=== PATIENT | male | born 1945 | race Caucasian/White ===

== ENCOUNTER 2020-06-25 06:21 | Outpatient (REF) | payer MEDICARE, SELFPAY ==
[2020-06-25 07:01] LABS: MANUAL DIFF FLAG NO
[2020-06-25 07:06] LABS: Basophils Percent Auto 0.6 % (0-2); Eosinophils Absolute Auto 0.4 X10*3/uL (0.0-0.4); Hematocrit 44.8 % (42-52); Hemoglobin 14.4 g/dl (14.0-18.0); Imm Gran Abs Auto 0.02 X10*3/uL (0.00-0.03); Imm Gran Pct Auto 0.3 % (0.0-0.4); Lymphocytes Percent Auto 29.3 % (20-40); Mean Corpuscular HGB Conc 32.1 g/dl (31.0-36.0); Mean Corpuscular Hemoglobin 28.7 pg (27.0-33.0); Mean Corpuscular Volume 89.4 fL (80-98); Mean Platelet Volume 10.8 fL (9.4-12.4); Monocytes Absolute Auto 0.5 X10*3/uL (0.1-1.2); Monocytes Percent Auto 7.9 % (2-11); Neutrophils Absolute Auto 3.8 X10*3/uL (2.0-8.3); Neutrophils Percent Auto 55.9 % (45-73); Platelet Count 270 X10*3/uL (160-400); Red Blood Count 5.01 X10*6/uL (4.60-5.80); Red Cell Distribution Width 12.8 % (11.0-16.0); White Blood Count 6.8 X10*3/uL (4.8-10.8)
[2020-06-25 07:31] LABS: Alanine Aminotransferase 19 U/L (0-40); Alkaline Phosphatase 46 U/L (39-117); Aspartate Amino Transferase 16 U/L (5-37); Blood Urea Nitrogen 19 mg/dL (9-16); Cholesterol 153 mg/dL; Estimated Glomerular Filt Rate > 60; HDL Cholesterol 46 mg/dL
[2020-06-25 08:03] LABS: Creatinine Urine 64.38 mg/dL; Microalbum/Creatinine Ratio Ur 7.7 ug/mg cr
[2020-06-25 08:24] LABS: Prostate Specific Antigen 0.62 ng/mL (<0.05-4.0)
[2020-06-25 08:51] LABS: Albumin Level 4.4 g/dL (3.5-5.0); Anion Gap 13 (12-20); Bilirubin Total 0.5 mg/dL (0.0-1.0); Calcium 9.2 mg/dL (8.4-10.2); Carbon Dioxide 28 mmol/L (22-29); Chloride 103 mmol/L (96-108); Glucose Fasting 101 mg/dL (60-99); LDL Cholesterol Calculated 82 mg/dl; Potassium 4.2 mmol/l (3.3-5.1); Sodium 140 mmol/L (135-145); Total Protein 6.9 g/dL (6.5-8.0); Triglycerides 125 mg/dL
[2020-06-25 09:40] LABS: Estimated Average Glucose 154 mg/dL
== END 2020-06-25 06:22 | disposition home or self-care (01) ==
LOC: HO.LAB 06:21
PROVIDERS: Visit Provider Internal Medicine Medical Oncology
DX: E11.9 Type 2 diabetes mellitus without complications (principal); E78.00 Pure hypercholesterolemia, unspecified; E66.3 Overweight
CPT/HCPCS: 36415; 80053; 80061; 82043; 83036; 84153; 85025

== ENCOUNTER 2020-10-04 06:00 | Outpatient (REF) | payer MEDICARE, SELFPAY ==
[2020-10-04 07:29] LABS: MANUAL DIFF FLAG NO
[2020-10-04 07:38] LABS: Basophils Percent Auto 0.5 % (0-2); Eosinophils Absolute Auto 0.4 X10*3/uL (0.0-0.4); Eosinophils Percent Auto 4.7 % (0-4); Hematocrit 46.3 % (42-52); Hemoglobin 14.8 g/dl (14.0-18.0); Imm Gran Abs Auto 0.05 X10*3/uL (0.00-0.03); Imm Gran Pct Auto 0.6 % (0.0-0.4); Lymphocytes Absolute Auto 2.3 X10*3/uL (1.2-4.9); Lymphocytes Percent Auto 27.3 % (20-40); Mean Corpuscular Volume 87.5 fL (80-98); Mean Platelet Volume 11.6 fL (9.4-12.4); Monocytes Absolute Auto 0.6 X10*3/uL (0.1-1.2); Monocytes Percent Auto 7.3 % (2-11); Neutrophils Absolute Auto 5.1 X10*3/uL (2.0-8.3); Neutrophils Percent Auto 59.6 % (45-73); Platelet Count 265 X10*3/uL (160-400); Red Blood Count 5.29 X10*6/uL (4.60-5.80); Red Cell Distribution Width 12.4 % (11.0-16.0); White Blood Count 8.5 X10*3/uL (4.8-10.8)
[2020-10-04 08:18] LABS: Alanine Aminotransferase 15 U/L (0-40); Albumin Level 4.4 g/dL (3.5-5.0); Alkaline Phosphatase 58 U/L (39-117); Anion Gap 17 (12-20); Aspartate Amino Transferase 13 U/L (5-37); Bilirubin Total 0.6 mg/dL (0.0-1.0); Blood Urea Nitrogen 17 mg/dL (9-16); Calcium 9.5 mg/dL (8.4-10.2); Carbon Dioxide 26 mmol/L (22-29); Chloride 102 mmol/L (96-108); Cholesterol 195 mg/dL; Estimated Glomerular Filt Rate > 60; Glucose Fasting 214 mg/dL (60-99); HDL Cholesterol 44 mg/dL; LDL Cholesterol Calculated 112 mg/dl; Potassium 4.5 mmol/L (3.3-5.1); Sodium 140 mmol/L (135-145); Triglycerides 196 mg/dL
[2020-10-04 08:23] LABS: Estimated Average Glucose 200 mg/dL; Hemoglobin A1c % 8.6 %
== END 2020-10-04 06:01 | disposition home or self-care (01) ==
LOC: HO.LAB 06:00
PROVIDERS: PCP Internal Medicine Medical Oncology; Visit Provider Internal Medicine Medical Oncology
DX: E78.00 Pure hypercholesterolemia, unspecified (principal); E11.9 Type 2 diabetes mellitus without complications; Z79.4 Long term (current) use of insulin
CPT/HCPCS: 36415; 80053; 80061; 83036; 85025

== ENCOUNTER 2021-01-04 06:05 | Outpatient (REF) | payer MEDICARE, SELFPAY ==
[2021-01-04 06:52] LABS: MANUAL DIFF FLAG NO
[2021-01-04 07:03] LABS: Basophils Percent Auto 0.4 % (0-2); Eosinophils Absolute Auto 0.3 X10*3/uL (0.0-0.4); Eosinophils Percent Auto 3.7 % (0-4); Hematocrit 45.2 % (42-52); Hemoglobin 14.9 g/dl (14.0-18.0); Imm Gran Abs Auto 0.03 X10*3/uL (0.00-0.03); Imm Gran Pct Auto 0.4 % (0.0-0.4); Lymphocytes Absolute Auto 2.3 X10*3/uL (1.2-4.9); Lymphocytes Percent Auto 27.8 % (20-40); Mean Corpuscular Volume 87.9 fL (80-98); Mean Platelet Volume 10.9 fL (9.4-12.4); Monocytes Absolute Auto 0.6 X10*3/uL (0.1-1.2); Monocytes Percent Auto 7.4 % (2-11); Neutrophils Absolute Auto 4.9 X10*3/uL (2.0-8.3); Neutrophils Percent Auto 60.3 % (45-73); Platelet Count 282 X10*3/uL (160-400); Red Blood Count 5.14 X10*6/uL (4.60-5.80); Red Cell Distribution Width 12.8 % (11.0-16.0); White Blood Count 8.1 X10*3/uL (4.8-10.8)
[2021-01-04 07:41] LABS: Estimated Average Glucose 206 mg/dL; Hemoglobin A1c % 8.8 %
[2021-01-04 07:47] LABS: Alanine Aminotransferase 16 U/L (0-40); Albumin Level 4.4 g/dL (3.5-5.0); Alkaline Phosphatase 58 U/L (39-117); Anion Gap 15 (12-20); Aspartate Amino Transferase 15 U/L (5-37); Bilirubin Total 0.5 mg/dL (0.0-1.0); Blood Urea Nitrogen 11 mg/dL (9-16); Calcium 9.9 mg/dL (8.4-10.2); Carbon Dioxide 26 mmol/L (22-29); Chloride 104 mmol/L (96-108); Cholesterol 184 mg/dL; Estimated Glomerular Filt Rate > 60; Glucose Fasting 155 mg/dL (60-99); HDL Cholesterol 45 mg/dL; LDL Cholesterol Calculated 107 mg/dl; Potassium 4.6 mmol/L (3.3-5.1); Sodium 140 mmol/L (135-145); Triglycerides 161 mg/dL
== END 2021-01-04 06:06 | disposition home or self-care (01) ==
LOC: HO.LAB 06:05
PROVIDERS: PCP Internal Medicine Medical Oncology; Visit Provider Internal Medicine Medical Oncology
DX: E78.5 Hyperlipidemia, unspecified (principal); E11.9 Type 2 diabetes mellitus without complications; E66.3 Overweight
CPT/HCPCS: 36415; 80053; 80061; 83036; 85025

== ENCOUNTER 2021-04-06 05:56 | Outpatient (REF) | payer MEDICARE, SELFPAY ==
[2021-04-06 07:38] LABS: MANUAL DIFF FLAG NO
[2021-04-06 07:44] LABS: Basophils Percent Auto 0.4 % (0-2); Eosinophils Absolute Auto 0.4 X10*3/uL (0.0-0.4); Eosinophils Percent Auto 4.9 % (0-4); Hematocrit 43.1 % (42-52); Hemoglobin 13.7 g/dl (14.0-18.0); Imm Gran Abs Auto 0.02 X10*3/uL (0.00-0.03); Imm Gran Pct Auto 0.3 % (0.0-0.4); Lymphocytes Absolute Auto 2.1 X10*3/uL (1.2-4.9); Lymphocytes Percent Auto 29.1 % (20-40); Mean Corpuscular HGB Conc 31.8 g/dl (31.0-36.0); Mean Corpuscular Hemoglobin 27.9 pg (27.0-33.0); Mean Corpuscular Volume 87.8 fL (80-98); Mean Platelet Volume 10.8 fL (9.4-12.4); Monocytes Absolute Auto 0.6 X10*3/uL (0.1-1.2); Monocytes Percent Auto 8.7 % (2-11); Neutrophils Percent Auto 56.6 % (45-73); Platelet Count 303 X10*3/uL (160-400); Red Blood Count 4.91 X10*6/uL (4.60-5.80); White Blood Count 7.1 X10*3/uL (4.8-10.8)
[2021-04-06 07:57] LABS: Microalbum/Creatinine Ratio Ur 11.1 ug/mg cr
[2021-04-06 08:00] LABS: Estimated Average Glucose 151 mg/dL; Hemoglobin A1c % 6.9 %
[2021-04-06 08:04] LABS: Alanine Aminotransferase 14 U/L (0-40); Albumin Level 4.4 g/dL (3.5-5.0); Alkaline Phosphatase 52 U/L (39-117); Anion Gap 14 (12-20); Aspartate Amino Transferase 16 U/L (5-37); Bilirubin Total 0.7 mg/dL (0.0-1.0); Blood Urea Nitrogen 10 mg/dL (9-16); Calcium 9.9 mg/dL (8.4-10.2); Carbon Dioxide 27 mmol/L (22-29); Chloride 105 mmol/L (96-108); Cholesterol 151 mg/dL; Estimated Glomerular Filt Rate > 60; Glucose Fasting 90 mg/dL (60-99); HDL Cholesterol 47 mg/dL; LDL Cholesterol Calculated 88 mg/dl; Potassium 4.5 mmol/L (3.3-5.1); Sodium 141 mmol/L (135-145); Triglycerides 83 mg/dL
== END 2021-04-06 05:57 | disposition home or self-care (01) ==
LOC: HO.LAB 05:56
PROVIDERS: PCP Internal Medicine Medical Oncology; Visit Provider Internal Medicine Medical Oncology
DX: E78.00 Pure hypercholesterolemia, unspecified (principal); E66.3 Overweight; E11.9 Type 2 diabetes mellitus without complications
CPT/HCPCS: 36415; 80053; 80061; 82043; 83036; 85025

== ENCOUNTER 2021-06-04 16:27 | Emergency (ER) | payer MEDICARE, SELFPAY ==
--- NOTE | ~2021-06-04 | XR_ITS ---
EXAMINATION: XR HAND, RIGHT CLINICAL INFORMATION: Laceration right hand COMPARISON: None TECHNIQUE: PA, lateral, and oblique views of the right hand. FINDINGS: There is complete disruption of the soft tissues of index finger with absence/fracture of the distal aspect of the distal phalanx. Incidental note made of marked degenerative changes present at the base of the thumb at the first INTERMEDIATE joint as well as DIP joints. Chondrocalcinosis is noted in the wrist. Degenerative changes present also at the triscaphe joint . XR/XR hand RT 2V IMPRESSION: Acute disruption of soft tissues tip of the index finger with fracture as described above. 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
[2021-06-04 16:50] VITALS: BP 141/63; PULSE 81; RESP 18; TEMP 36.9; O2SAT 97; BMI 24.1
--- NOTE | 2021-06-04 17:21 | ED_ITS ---
HPI - Wound/Laceration General Chief Complaint: Wound/Laceration Stated Complaint: cut on right hand Time Seen by Provider: 06/04/21 17:21 Source: patient Mode of arrival: ambulatory History of Present Illness HPI narrative: 75-year-old male with past medical history of diabetes, hypertension presenting to the ED complaining of right index finger cut partially off from a wood saw while cutting wood [employer]. Tetanus unknown. Denies injury to other area. Denies taking anticoagulation. Reports associated distal phalangeal numbness. Denies fever, chills Related Data Previous Rx's Medication Instructions Recorded cephalexin 500 mg capsule 500 mg PO QID 7 Days #28 cap 06/04/21 oxycodone-acetaminophen 5 mg-325 1 tab PO Q8H PRN 3 Days #9 tab 06/04/21 mg tablet (Percocet) Allergies Allergy/AdvReac Type Severity Reaction Status Date / Time ENVIROMENTAL Allergy Unknown SNEEZING, Uncoded 04/22/20 15:02 ITCHY EYES Review of Systems Review of Systems: Constitutional: No Fever, No Chills ENT/Mouth: No Ear Pain, No sore throat, No Rhinorrhea Cardiovascular: No Chest Pain, No SOB Respiratory: No Cough Gastrointestinal: No Nausea, No Vomiting, No Abdominal pain Musculoskeletal: No joint pain, No Myalgias, No Joint Swelling Skin: + Skin Lesions, No rash Neuro: No Weakness, +Numbness, + Paresthesias Yes all other systems are reviewed and are negative [facility] Past Medical History Attestation statement: The following information was validated with the patient. Medical History (Updated 06/04/21 @ 17:42 by KAYE Richards) Diabetes HTN (hypertension) Social History Social History Advance Directives: No Advance Directives Information Provided: No Physical Exam Vital Signs: Vital Signs: Last Vital Signs Temp 98.4 F 06/04/21 16:50 Pulse 81 06/04/21 16:50 Resp 18 06/04/21 16:50 BP 141/63 H 06/04/21 16:50 Pulse Ox 97 06/04/21 16:50 Body Mass Index 24.1 Const: General: cooperative, healthy appearing and no acute distress Orientation/consciousness: patient oriented x3 Limitations: no limitations HENMT: Head: Yes normal to inspection Ears: hearing grossly normal bilaterally General nose exam: Normal external nose present Face and sinus: Yes normal facial exam Eyes: General: appearance normal, both eyes and all related structures EOM: EOMs intact bilaterally Neck: Neck: Yes normal visual inspection and Yes no meningeal signs Resp: Effort & Inspection: normal respiratory effort and no respiratory distress Cardio: Rate: regular rate Peripheral pulses: radial pulses present Skin: Rashes: no rashes Neuro: General: patient oriented x3 and no meningeal signs Gait exam (Neuro): Normal gait present Extrem: Other: Refer to images above. No palpable/visible bone, underlying structures visible as displayed, nail disrupted but still intact cuticle. Bleeding controlled. Mildly tender to palpation Course Course Course Narrative: XR hand RT 2V IMPRESSION: Acute disruption of soft tissues tip of the index finger with fracture as described above. 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 Patient also given 1st dose of Keflex -digital block performed and wound closely approximated with 6 sutures MDM - Wound/Laceration MDM Narrative Medical decision making narrative: 75-year-old male with past medical history of diabetes, hypertension presenting to the ED complaining of right index finger cut partially off from a wood saw while cutting wood [employer]. On exam vital signs, nontoxic, physical exam as above. Please refer to images above. Concern for fracture/partial amputation. Plan: X-rays, consult Orthopedics, close wound, update tetanus Medical Records Attestation: I reviewed the patient's medical records. Lab Data Attestation: I reviewed the patient's lab results. Procedures Laceration Laceration 1: Site: hand Side (If applicable): right Size (cm): 3 Description: irregular Depth: involves muscle layer and involves tendon Local Anesthetic: lidocaine 1% Amount of anesthesia used (mL): 4.5 Pre-repair: wound explored and irrigated extensively Skin layer closed with: nylon Size (cm): 4-0 Number of sutures: 6 Technique: simple, interrupted Discharge Plan Discharge Clinical Impression: Fracture of distal phalanx of finger Qualifiers: Encounter type: initial encounter Finger: index finger Fracture type: open Fracture alignment: nondisplaced Laterality: right Qualified Code(s): S62.660B - Nondisplaced fracture of distal phalanx of right index finger, initial encounter for open fracture Amputation of finger tip Qualifiers: Encounter type: initial encounter Qualified Code(s): S68.119A - Complete traumatic metacarpophalangeal amputation of unspecified finger, initial encounter Patient Disposition: Home, Self-Care Instructions: Finger Fracture (ED), Finger Amputation (ED) Additional Instructions: You partially amputated your finger. Six stitches were placed You need to see the home mortgage disclosure act specialist on Sunday Avoid getting area wet for the next 24 hours These stitches need to come out in 7-10 days Keflex as an antibiotic, please take as prescribed Percocet is an opiate pain medication and will help with pain Elevate hand If area begins to look infected, pain becomes unbearable, or you have fever return to the ED Prescriptions: New cephalexin 500 mg capsule 500 mg PO QID 7 Days Qty: 28 RF: 0 oxycodone-acetaminophen [Percocet] 5-325 mg tablet 1 tab PO Q8H PRN (Reason: pain, severe) 3 Days Qty: 9 RF: 0 Referrals: Reno Sanders PA-C [Physician Licensed Guide] - 2 days (Follow-up in the office on Sunday)
[2021-06-04] MEDS: cephALEXin 500 MG CAPSULE PO (18:18)
[2021-06-04] MEDS: Lidocaine HCl 1 % MPF 5 ML VIAL SUBCUT (18:18)
[2021-06-04] MEDS: Diphth,Pertus(ACell),Tet Adult 0.5 ML SYRINGE IM (18:19)
== END 2021-06-04 18:36 | disposition home or self-care (01) ==
PROVIDERS: Emergency Provider Emergency Medicine
DX: S68.119A Complete traumatic metacarpophalangeal amputation of unspecified finger, initial encounter (principal); S60.410A Abrasion of right index finger, initial encounter; I10 Essential (primary) hypertension; E11.9 Type 2 diabetes mellitus without complications; W31.2XXA Contact with powered woodworking and forming machines, initial encounter; Y93.9 Activity, unspecified; Y92.9 Unspecified place or not applicable; Y99.9 Unspecified external cause status; Z79.899 Other long term (current) drug therapy
CPT/HCPCS: 12002; 73120; 90471; 90715; 99283; 99284

== ENCOUNTER 2021-06-07 12:01 | Outpatient (REF) | payer MEDICARE, SELFPAY ==
--- NOTE | ~2021-06-07 | XR_ITS ---
EXAMINATION: XR HAND, RIGHT CLINICAL INFORMATION: Right hand pain COMPARISON: 06/04/2021 TECHNIQUE: PA, lateral, and oblique views of the right hand. FINDINGS: There is redemonstration of a soft tissue defect at the tip of the second digit. Calcification of the soft tissues noted. There is fragmentation of the tuft of the distal phalanx. Dorsal displacement of the fragments. Alternatively this could represent soft tissue calcification at the site of injury. No radiopaque foreign body. Degenerative changes are seen throughout the interphalangeal joints and metacarpophalangeal joints. Degenerative changes throughout the wrist. XR/XR hand RT min 3V IMPRESSION: Irregularity at the distal aspect of the second digit soft tissues. Fracture at the tuft of the distal phalanx. Ossific fragmentation versus posttraumatic calcification at the site of fracture. Degenerative changes throughout the hand and wrist.
== END 2021-06-07 12:02 | disposition home or self-care (01) ==
LOC: HO.HOSX 12:01
PROVIDERS: Visit Provider Orthopaedic Surgery
DX: S62.630D Displaced fracture of distal phalanx of right index finger, subsequent encounter for fracture with routine healing (principal)
CPT/HCPCS: 73130; 99202

== ENCOUNTER → 2021-06-21 10:24 | Outpatient (BNVA) | payer MEDICARE, SELFPAY | PROVIDERS: Visit Provider Orthopaedic Surgery | DX: S68.119D Complete traumatic metacarpophalangeal amputation of unspecified finger, subsequent encounter (principal); S62.630D Displaced fracture of distal phalanx of right index finger, subsequent encounter for fracture with routine healing | CPT/HCPCS: 99212 ==

== ENCOUNTER 2021-07-19 10:39 | Outpatient (REF) | payer MEDICARE, SELFPAY ==
--- NOTE | ~2021-07-19 | XR_ITS ---
EXAMINATION: XR HAND, RIGHT CLINICAL INFORMATION: Pain in right hand COMPARISON: 06/07/2021 TECHNIQUE: PA, lateral, and oblique views of the right hand. FINDINGS: Soft tissue defect in the tip of the second digit with progressive erosive changes in the tuft of the distal phalanx of the second digit there are are calcifications versus bony fragments within the remaining tuft. There are additional degenerative changes in the interphalangeal joints and at the second MTP joint. Severe degenerative changes at the first carpometacarpal joint. XR/XR hand RT min 3V IMPRESSION: Progressive erosive changes in the tuft of the distal phalanx of the second digit. Underlying osteomyelitis should be considered. Consider MRI as clinically indicated. Severe degenerative changes at the first carpometacarpal joint. Degenerative changes at the second MTP joint.
== END 2021-07-19 10:40 | disposition home or self-care (01) ==
LOC: HO.HOSX 10:39
PROVIDERS: Visit Provider Orthopaedic Surgery
DX: S68.120D Partial traumatic metacarpophalangeal amputation of right index finger, subsequent encounter (principal)
CPT/HCPCS: 73130; 99212

== ENCOUNTER 2021-08-09 06:03 | Outpatient (REF) | payer MEDICARE, SELFPAY ==
[2021-08-09 06:20] LABS: MANUAL DIFF FLAG NO
[2021-08-09 07:37] LABS: Basophils Percent Auto 0.4 % (0-2); Eosinophils Absolute Auto 0.4 X10*3/uL (0.0-0.4); Eosinophils Percent Auto 5.1 % (0-4); Hematocrit 45.6 % (42.0-52.0); Hemoglobin 14.4 g/dl (14.0-18.0); Imm Gran Abs Auto 0.02 X10*3/uL (0.00-0.03); Imm Gran Pct Auto 0.3 % (0.0-0.4); Lymphocytes Absolute Auto 2.2 X10*3/uL (1.2-4.9); Lymphocytes Percent Auto 30.7 % (20-40); Mean Corpuscular HGB Conc 31.6 g/dl (31.0-36.0); Mean Corpuscular Hemoglobin 27.8 pg (27.0-33.0); Mean Platelet Volume 11.1 fL (9.4-12.4); Monocytes Absolute Auto 0.6 X10*3/uL (0.1-1.2); Monocytes Percent Auto 7.7 % (2-11); Neutrophils Percent Auto 55.8 % (45-73); Platelet Count 265 X10*3/uL (160-400); Red Blood Count 5.18 X10*6/uL (4.60-5.80); Red Cell Distribution Width 13.1 % (11.0-16.0); White Blood Count 7.1 X10*3/uL (4.8-10.8)
[2021-08-09 08:03] LABS: Alanine Aminotransferase 16 U/L (0-40); Albumin Level 4.5 g/dL (3.5-5.0); Alkaline Phosphatase 51 U/L (39-117); Anion Gap 12 (12-20); Aspartate Amino Transferase 14 U/L (5-37); Bilirubin Total 0.6 mg/dL (0.0-1.0); Blood Urea Nitrogen 11 mg/dL (9-16); Calcium 9.8 mg/dL (8.4-10.2); Carbon Dioxide 26 mmol/L (22-29); Chloride 107 mmol/L (96-108); Cholesterol 170 mg/dL; Estimated Glomerular Filt Rate > 60; Glucose Fasting 157 mg/dL (60-99); HDL Cholesterol 49 mg/dL; LDL Cholesterol Calculated 99 mg/dl; Potassium 4.2 mmol/L (3.3-5.1); Sodium 141 mmol/L (135-145); Triglycerides 110 mg/dL
[2021-08-09 08:23] LABS: Estimated Average Glucose 151 mg/dL; Hemoglobin A1c % 6.9 %
[2021-08-09 09:30] LABS: Creatinine Urine 48.82 mg/dL; Microalbum/Creatinine Ratio Ur 10.2 ug/mg cr
== END 2021-08-09 06:04 | disposition home or self-care (01) ==
LOC: HO.LAB 06:03
PROVIDERS: PCP Internal Medicine Medical Oncology; Visit Provider Internal Medicine Medical Oncology
DX: E66.3 Overweight (principal); E11.9 Type 2 diabetes mellitus without complications; E78.01 Familial hypercholesterolemia
CPT/HCPCS: 36415; 80053; 80061; 82043; 83036; 85025

== ENCOUNTER → 2021-08-30 09:35 | Outpatient (BNVA) | payer MEDICARE, SELFPAY | PROVIDERS: PCP Internal Medicine Medical Oncology; Visit Provider Orthopaedic Surgery | DX: S62.630D Displaced fracture of distal phalanx of right index finger, subsequent encounter for fracture with routine healing (principal); Z89.021 Acquired absence of right finger(s) | CPT/HCPCS: 99212 ==

== ENCOUNTER 2021-10-06 09:35 | Emergency (ER) | payer MEDICARE, SELFPAY ==
--- NOTE | ~2021-10-06 | XR_ITS ---
EXAMINATION: XR FINGER, LEFT CLINICAL INFORMATION: Left fifth digit pain/laceration after crush injury. COMPARISON: None TECHNIQUE: 3 views of the left fifth digit. FINDINGS: There is a soft tissue laceration in addition there is chip fracture of phalangeal tuft third digit. No additional fracture or dislocation. There is loss of PIP, DIP, MCP and first carpometacarpal joint space without subluxation. XR/XR finger LT min 2V IMPRESSION: Small soft tissue laceration and chip fracture phalangeal tuft third digit. No radiopaque foreign body seen. Mild degenerative changes left hand and left wrist.
[2021-10-06 09:47] VITALS: BP 144/69; PULSE 72; RESP 14; TEMP 36.2; O2SAT 99; BMI 24.8
--- NOTE | 2021-10-06 11:20 | ED.GENADULT ---
HPI - General Adult General Chief complaint: Wound/Laceration Stated complaint: finger laceration Time Seen by Provider: 10/06/21 11:01 Source: patient Limitations: no limitations History of Present Illness HPI narrative: Patient presents to the ER after injuring his left 5th finger last night while doing woodworking on his joint planer. Incident happened at approximately 18:00 And affected the distal aspect of his 5th digit. Bleeding was controlled with pressure. Patient had a similar event approximately 1 year ago in his other hand. Patient is unsure of tetanus status. Pain is slight in bleeding is at this time controlled. No other complaints at this time. Related Data Previous Rx's Medication Instructions Recorded cephalexin 500 mg capsule 500 mg PO QID 7 Days #28 cap 06/04/21 cephalexin 500 mg capsule 500 mg PO QID 7 Days #28 cap 10/06/21 Allergies Allergy/AdvReac Type Severity Reaction Status Date / Time ENVIROMENTAL Allergy Unknown SNEEZING, Uncoded 10/06/21 09:46 ITCHY EYES Review of Systems Constitutional: Constitutional: Denies body ache(s), Denies chills and Denies fever(s) Gastrointestinal: Gastrointestinal: Denies nausea and Denies vomiting Musculoskeletal: Comments: Right 3rd finger pain PMFSH Past Medical History Medical History Diabetes HTN (hypertension) Social History Social History Patient Tobacco Use Status: Never used Tobacco Use of substances other than those prescribed or required for medical reasons: No Advance Directives: Yes Advance Directives Information Provided: Yes Advance Directives on File: No Physical Exam ED Vital Signs: Vital Signs - 24 hr 10/06/21 09:47 Temperature 97.2 F Pulse Rate 72 Respiratory Rate 14 Blood Pressure 144/69 H Pulse Oximetry 99 BMI result Body Mass Index 24.8 vital signs have been reviewed as normal and appeared to be correct. Blood pressure normal. Heart rate normal. Respiration rate normal. Temperature normal. Oxygen saturation normal. Appearance: Alert. Oriented X3. No acute distress. Head: Normal external exam. Normocephalic. Atraumatic. Eyes: PERRLA. EOMI. Conjunctiva and sclera normal. Eyelids normal. ENT: Pharynx normal. Uvula midline. Moist mucous membranes. Neck: Soft full range of motion, no JVD Back: Full range of motion noted. Skin: Left 5th finger distal aspect positive macerated laceration is noted some nail removed and flap is present slightly tender sensations intact Extremities: Full flexion-extension of the left hand 5thfinger. Proximal pulses intact Neuro: Oriented X 3. No motor deficit. No sensory deficit. Reflexes normal. Course Course Course Narrative: Right 3rd finger laceration Right 3rd finger avulsion laceration Right 3rd finger taps fracture Patient's wound examined with Dr. Pinon will plan to tack down 1 flap at the distal aspect of the right 3rd finger. Patient received 0.5 mL Tdap IM. Patient understands part of the nail may fall off and not grow back patient has had a similar injury on his right hand. Patient understands wound is 18 hours old and the skin flap may not take. Procedures Procedure Narrative Procedure Narrative: Left 5th finger patient has an avulsion macerated wound distal aspect Left 5th finger digital block with 1% lidocaine area cleaned with Betadine saline Wound clean with Betadine saline Distal skin flap located at the distal aspect of the left 5th finger tacked down with 3-5.0 nylon sutures tolerated well Plan Xeroform dressing with tube gauze Medical Decision Making Imaging Data hand: Radiologist's impression: [address] [address] XRay Report Signed Patient: Fahad Fritz Jr MR#: [id number] : 1945 Acct:[id number] Age/Sex: 76 / M ADM Date: 10/06/21 Loc: .ED Attending Dr: Ordering Physician: Generic ED Physician Date of Service: 10/06/21 Procedure(s): XR finger LT min 2V Accession Number(s): [id number] cc: Generic ED Physician~ EXAMINATION: XR FINGER, LEFT CLINICAL INFORMATION: Left fifth digit pain/laceration after crush injury.? COMPARISON: None? TECHNIQUE: 3 views of the left fifth digit. FINDINGS: There is a soft tissue laceration in addition there is chip fracture of phalangeal tuft third digit. No additional fracture or dislocation. There is loss of PIP, DIP, MCP and first carpometacarpal joint space without subluxation.? XR/XR finger LT min 2V IMPRESSION: Small soft tissue laceration and chip fracture phalangeal tuft third digit. No radiopaque foreign body seen. ? Mild degenerative changes left hand and left wrist. ? Dictated By: Jose Hylton MD Signed By: <Electronically signed by Jose Hylton MD in OV> 10/06/21 1058 DD/ 1022 TD/TT:? President Educational Institution: [facility] [place] Discharge Plan Discharge Clinical Impression: Traumatic amputation of finger tip Patient Disposition: Home, Self-Care Instructions: Finger Laceration (ED) Additional Instructions: Keep wound clean and dry Leave this dressing on for 24-36 hours and then use Band-Aid Suture removal 10 days Return if symptoms worsen Antibiotics as directed Prescriptions: New cephalexin 500 mg capsule 500 mg PO QID 7 Days Qty: 28 0RF No Action cephalexin 500 mg capsule 500 mg PO QID 7 Days Qty: 28 0RF
[2021-10-06] MEDS: Diphth,Pertus(ACell),Tet Adult 0.5 ML SYRINGE IM (11:56)
[2021-10-06] MEDS: Lidocaine HCl 1 % 20 ML VIAL 5 ML INFILTRATI (11:57)
--- NOTE | 2021-10-06 12:00 | PC.NURSE ---
wound clean and dried. Provider into assess pt. medicated pt. Positive cms and pulses.
--- NOTE | 2021-10-06 12:14 | PC.NURSE ---
provider in to suture laceration.
[2021-10-06 12:33] VITALS: BP 135/67; PULSE 60; RESP 16; O2SAT 95
--- NOTE | 2021-10-06 12:34 | PC.NURSE ---
Clean dressing applied by JUS Saucedo. Reviewed discharge instruction and proper cleaning. Educated when to return for removal a sutures. pt verbalized understaning.
== END 2021-10-06 12:40 | disposition home or self-care (01) ==
PROVIDERS: Emergency Provider Emergency Medicine; PCP Internal Medicine Medical Oncology
DX: S61.317A Laceration without foreign body of left little finger with damage to nail, initial encounter (principal); W31.2XXA Contact with powered woodworking and forming machines, initial encounter; Y93.89 Activity, other specified; Y92.9 Unspecified place or not applicable; Y99.9 Unspecified external cause status
CPT/HCPCS: 12001; 73140; 90471; 90715; 99284

== ENCOUNTER 2021-10-17 09:49 | Emergency (ER) | payer MEDICARE, SELFPAY ==
[2021-10-17 09:58] VITALS: BMI 26.1
--- NOTE | 2021-10-17 11:22 | ED.SKABFB ---
HPI - Skin/Abscess/Foreign Bdy General Chief complaint: Skin/Abscess/Foreign Body Stated complaint: suture removal Time Seen by Provider: 10/17/21 11:22 Source: patient Mode of arrival: ambulatory Limitations: no limitations History of Present Illness HPI narrative: suture removal, sutures placed 11 days ago Related Data Previous Rx's Medication Instructions Recorded cephalexin 500 mg capsule 500 mg PO QID 7 Days #28 cap 06/04/21 cephalexin 500 mg capsule 500 mg PO QID 7 Days #28 cap 10/06/21 Allergies Allergy/AdvReac Type Severity Reaction Status Date / Time ENVIROMENTAL Allergy Unknown SNEEZING, Uncoded 10/06/21 09:46 ITCHY EYES Review of Systems Constitutional: Constitutional: Reports no additional constitutional complaints Eyes: Eyes: Reports no additional eye complaints ENT: Denies dizziness Cardiovascular: Cardiovascular: Reports no additional cardiovascular complaints Respiratory: Respiratory: Reports as per HPI Gastrointestinal: Gastrointestinal: Reports no additional gastrointestinal complaints Musculoskeletal: Musculoskeletal: Reports no additional musculoskeletal complaints Integumentary/Breasts: Skin/Breast: Denies rash Neurologic: Reports system reviewed and no additional complaints, except as documented, Denies dizziness and Denies Sensory deficit (Neuro) Psychiatric: Psychiatric: Denies anxiety [facility] Past Medical History Medical History Diabetes HTN (hypertension) Social History Social History Patient Tobacco Use Status: Never used Tobacco Advance Directives: Yes Advance Directives Information Provided: Yes Advance Directives on File: No Physical Exam Vital Signs: Vital Signs: BMI result Body Mass Index 26.1 Const: General: healthy appearing Nutritional Appearance: average body habitus Orientation/consciousness: oriented to person and patient oriented x3 Limitations: no limitations HENMT: Head: Yes normal to inspection Ears: external ears normal General nose exam: Normal external nose present Mouth: Normal oral and palatal mucosa present and oropharynx normal Throat: Yes posterior oropharynx normal Eyes: General: appearance normal, both eyes and all related structures Neck: Other: supple Neck: Yes normal visual inspection Chest: Chest palpation & inspection: normal inspection of the chest GI: Inspection: Yes normal to inspection Palpation (GI): Soft to palpation, nontender and No hepatosplenomegaly present Auscultation: normal bowel sounds : General: Yes no CVA tenderness Back/Spine/Pelvis: Back: no CVA tenderness Skin: Other: fifth left side pinky with 3 sutures removed, bandage applied General skin exam: no rashes or lesions noted Neuro: General: oriented to person and patient oriented x3 Cranial nerves: Yes CN's II-XII intact bilaterally Motor exam (neuro): 5/5 motor strength present throughout Sensory Exam: No Sensory deficit (Neuro) Extrem: General: Yes normal to inspection Psych: Appearance: grossly normal Discharge Plan Discharge Clinical Impression: Suture of skin wound Patient Disposition: Home, Self-Care Instructions: Care For Your Stitches (DC) Prescriptions: No Action cephalexin 500 mg capsule 500 mg PO QID 7 Days Qty: 28 0RF cephalexin 500 mg capsule 500 mg PO QID 7 Days Qty: 28 0RF Referrals: Zeus Bartlett MD [Primary Care Provider] - 10 days
--- NOTE | 2021-10-17 11:53 | PC.NURSE ---
PT EVALUATED BY PROVIDER SUTURES REMOVED AND SITE DRESSED BY PROVIDER EDUCATION ON SITE CARE PROVIDED TO PATIENT. NO S/S OF INFECTION NOTED.
== END 2021-10-17 11:55 | disposition home or self-care (01) ==
PROVIDERS: Emergency Provider Emergency Medicine; PCP Internal Medicine Medical Oncology
DX: Z48.02 Encounter for removal of sutures (principal); S61.217D Laceration without foreign body of left little finger without damage to nail, subsequent encounter; W45.8XXD Other foreign body or object entering through skin, subsequent encounter
CPT/HCPCS: 99283

== ENCOUNTER 2021-10-31 05:58 | Outpatient (REF) | payer MEDICARE, SELFPAY ==
[2021-10-31 06:09] LABS: MANUAL DIFF FLAG NO
[2021-10-31 07:21] LABS: Basophils Absolute Auto 0.1 X10*3/uL (0.0-0.2); Basophils Percent Auto 0.7 % (0-2); Eosinophils Absolute Auto 0.4 X10*3/uL (0.0-0.4); Hematocrit 46.6 % (42.0-52.0); Hemoglobin 14.6 g/dl (14.0-18.0); Imm Gran Abs Auto 0.02 X10*3/uL (0.00-0.03); Imm Gran Pct Auto 0.3 % (0.0-0.4); Lymphocytes Absolute Auto 2.3 X10*3/uL (1.2-4.9); Lymphocytes Percent Auto 30.2 % (20-40); Mean Corpuscular HGB Conc 31.3 g/dl (31.0-36.0); Mean Corpuscular Volume 89.4 fL (80.0-98.0); Mean Platelet Volume 11.2 fL (9.4-12.4); Monocytes Absolute Auto 0.6 X10*3/uL (0.1-1.2); Monocytes Percent Auto 8.2 % (2-11); Neutrophils Absolute Auto 4.3 x10*3/uL (2.0-8.3); Neutrophils Percent Auto 55.6 % (45-73); Platelet Count 282 X10*3/uL (160-400); Red Blood Count 5.21 X10*6/uL (4.60-5.80); Red Cell Distribution Width 13.6 % (11.0-16.0); White Blood Count 7.7 X10*3/uL (4.8-10.8)
[2021-10-31 07:28] LABS: Estimated Average Glucose 157 mg/dL; Hemoglobin A1c % 7.1 %
[2021-10-31 07:48] LABS: Alanine Aminotransferase 17 U/L (0-40); Albumin Level 4.4 g/dL (3.5-5.0); Alkaline Phosphatase 50 U/L (39-117); Anion Gap 13 (12-20); Aspartate Amino Transferase 17 U/L (5-37); Bilirubin Total 0.7 mg/dL (0.0-1.0); Blood Urea Nitrogen 18 mg/dL (9-16); Calcium 9.8 mg/dL (8.4-10.2); Carbon Dioxide 28 mmol/L (22-29); Chloride 105 mmol/L (96-108); Cholesterol 183 mg/dL; Estimated Glomerular Filt Rate > 60; Glucose Fasting 162 mg/dL (60-99); HDL Cholesterol 44 mg/dL; LDL Cholesterol Calculated 109 mg/dl; Potassium 4.3 mmol/L (3.3-5.1); Sodium 142 mmol/L (135-145); Triglycerides 150 mg/dL
[2021-10-31 08:11] LABS: PSA,Total (Free>4and<10) 0.57 ng/mL (0.00-4.00)
== END 2021-10-31 05:59 | disposition home or self-care (01) ==
LOC: HO.LAB 05:58
PROVIDERS: PCP Internal Medicine Medical Oncology; Visit Provider Internal Medicine Medical Oncology
DX: Z12.5 Encounter for screening for malignant neoplasm of prostate (principal); E11.9 Type 2 diabetes mellitus without complications
CPT/HCPCS: 36415; 80053; 80061; 83036; 84153; 85025

== ENCOUNTER 2022-02-07 06:00 | Outpatient (REF) | payer MEDICARE, SELFPAY ==
[2022-02-07 06:11] LABS: MANUAL DIFF FLAG NO
[2022-02-07 07:22] LABS: Basophils Percent Auto 0.4 % (0-2); Eosinophils Absolute Auto 0.5 X10*3/uL (0.0-0.4); Eosinophils Percent Auto 6.2 % (0-4); Hemoglobin 14.1 g/dl (14.0-18.0); Imm Gran Abs Auto 0.02 X10*3/uL (0.00-0.03); Imm Gran Pct Auto 0.3 % (0.0-0.4); Lymphocytes Absolute Auto 2.5 X10*3/uL (1.2-4.9); Lymphocytes Percent Auto 33.2 % (20-40); Mean Corpuscular HGB Conc 31.3 g/dl (31.0-36.0); Mean Corpuscular Hemoglobin 27.9 pg (27.0-33.0); Mean Corpuscular Volume 89.1 fL (80.0-98.0); Mean Platelet Volume 11.3 fL (9.4-12.4); Monocytes Absolute Auto 0.6 X10*3/uL (0.1-1.2); Neutrophils Absolute Auto 3.8 x10*3/uL (2.0-8.3); Neutrophils Percent Auto 51.9 % (45-73); Platelet Count 259 X10*3/uL (160-400); Red Blood Count 5.05 X10*6/uL (4.60-5.80); Red Cell Distribution Width 13.1 % (11.0-16.0); White Blood Count 7.4 X10*3/uL (4.8-10.8)
[2022-02-07 07:28] LABS: Estimated Average Glucose 151 mg/dL; Hemoglobin A1c % 6.9 %
[2022-02-07 07:53] LABS: Alanine Aminotransferase 17 U/L (0-40); Albumin Level 4.5 g/dL (3.5-5.0); Alkaline Phosphatase 46 U/L (39-117); Anion Gap 13 (12-20); Aspartate Amino Transferase 19 U/L (5-37); Bilirubin Total 0.7 mg/dL (0.0-1.0); Blood Urea Nitrogen 12 mg/dL (9-16); Calcium 9.6 mg/dL (8.4-10.2); Carbon Dioxide 27 mmol/L (22-29); Chloride 106 mmol/L (96-108); Cholesterol 155 mg/dL; Estimated Glomerular Filt Rate > 60; Glucose Fasting 95 mg/dL (60-99); HDL Cholesterol 46 mg/dL; LDL Cholesterol Calculated 95 mg/dl; Potassium 4.5 mmol/L (3.3-5.1); Sodium 141 mmol/L (135-145); Triglycerides 72 mg/dL
== END 2022-02-07 06:01 | disposition home or self-care (01) ==
LOC: HO.LAB 06:00
PROVIDERS: PCP Internal Medicine Medical Oncology; Visit Provider Internal Medicine Medical Oncology
DX: E11.9 Type 2 diabetes mellitus without complications (principal); E78.5 Hyperlipidemia, unspecified
CPT/HCPCS: 36415; 80053; 80061; 83036; 85025

== ENCOUNTER 2022-02-13 11:30 | Outpatient (REF) | payer MEDICARE, SELFPAY ==
--- NOTE | ~2022-02-13 | XR_ITS ---
EXAMINATION: XR SHOULDER, RIGHT CLINICAL INFORMATION: Pain. COMPARISON: None TECHNIQUE: AP external rotation, Grashey, scapular Y, and axillary views of the right shoulder. FINDINGS: There is bony demineralization. The glenohumeral joint is intact and shows mild to moderate peripheral osteophyte formation. The acromioclavicular and coracoclavicular intervals are normal. There is moderately severe osteoarthritic change of the acromioclavicular joint. No fracture or dislocation is seen. There is mild chondrocalcinosis of the articular surface of the humeral head. Small loose bodies are questioned within the joint space, and mild calcific tendinitis is suspected of the rotator cuff insertion on the external rotation view. No foreign body is seen. There is no right pneumothorax. XR/XR shoulder RT min 2V IMPRESSION: 1. There is mild to moderate osteoarthritic change of the right glenohumeral joint, and moderately severe osteoarthritic changes seen of the right acromioclavicular joint. 2. There is chondrocalcinosis, which can be associated with CPPD. 3. Small loose bodies are suspected within the joint space. 4. There is very mild calcific tendinitis of the right rotator cuff insertion.
== END 2022-02-13 11:31 | disposition home or self-care (01) ==
LOC: HO.XRAY 11:30
PROVIDERS: PCP Internal Medicine Medical Oncology; Visit Provider Internal Medicine Medical Oncology
DX: M25.511 Pain in right shoulder (principal)
CPT/HCPCS: 73030

== ENCOUNTER 2022-05-16 05:57 | Outpatient (REF) | payer MEDICARE, SELFPAY ==
[2022-05-16 06:14] LABS: MANUAL DIFF FLAG NO
[2022-05-16 07:26] LABS: Basophils Percent Auto 0.6 % (0-2); Eosinophils Absolute Auto 0.4 X10*3/uL (0.0-0.4); Eosinophils Percent Auto 5.1 % (0-4); Hematocrit 46.2 % (42.0-52.0); Hemoglobin 14.6 g/dl (14.0-18.0); Imm Gran Abs Auto 0.03 X10*3/uL (0.00-0.03); Imm Gran Pct Auto 0.4 % (0.0-0.4); Lymphocytes Percent Auto 28.2 % (20-40); Mean Corpuscular HGB Conc 31.6 g/dl (31.0-36.0); Mean Corpuscular Hemoglobin 27.7 pg (27.0-33.0); Mean Corpuscular Volume 87.7 fL (80.0-98.0); Monocytes Absolute Auto 0.6 X10*3/uL (0.1-1.2); Monocytes Percent Auto 7.6 % (2-11); Neutrophils Absolute Auto 4.2 x10*3/uL (2.0-8.3); Neutrophils Percent Auto 58.1 % (45-73); Platelet Count 262 X10*3/uL (160-400); Red Blood Count 5.27 X10*6/uL (4.60-5.80); Red Cell Distribution Width 13.2 % (11.0-16.0); White Blood Count 7.2 X10*3/uL (4.8-10.8)
[2022-05-16 07:45] LABS: Estimated Average Glucose 140 mg/dL; Hemoglobin A1c % 6.5 %
[2022-05-16 08:09] LABS: Alanine Aminotransferase 18 U/L (0-40); Albumin Level 4.6 g/dL (3.5-5.0); Alkaline Phosphatase 51 U/L (39-117); Anion Gap 16 (12-20); Aspartate Amino Transferase 18 U/L (5-37); Bilirubin Total 0.5 mg/dL (0.0-1.0); Blood Urea Nitrogen 14 mg/dL (9-16); Calcium 9.9 mg/dL (8.4-10.2); Carbon Dioxide 26 mmol/L (22-29); Chloride 103 mmol/L (96-108); Cholesterol 164 mg/dL; Estimated Glomerular Filt Rate > 60; Glucose Fasting 157 mg/dL (60-99); HDL Cholesterol 47 mg/dL; LDL Cholesterol Calculated 94 mg/dl; Potassium 5.2 mmol/L (3.3-5.1); Sodium 140 mmol/L (135-145); Total Protein 7.1 g/dL (6.5-8.0); Triglycerides 116 mg/dL
== END 2022-05-16 05:58 | disposition home or self-care (01) ==
LOC: HO.LAB 05:57
PROVIDERS: PCP Internal Medicine Medical Oncology; Visit Provider Internal Medicine Medical Oncology
DX: E11.9 Type 2 diabetes mellitus without complications (principal); E78.5 Hyperlipidemia, unspecified
CPT/HCPCS: 36415; 80053; 80061; 83036; 85025

== ENCOUNTER 2022-08-18 08:05 | Day surgery (SDC) | payer MEDICARE, SELFPAY ==
--- NOTE | 2022-08-17 10:35 | HO.ANESPROP2 ---
Documented by User: Gayathri Sears NP 08/17/22 10:37 HPI - Anesthesia Eval Consult details Narrative: 76yo M for Colonoscopy PMFSH Active Problems Active Problems: All Active Problems (Updated 08/17/22 @ 06:44 by Christina Osorio, RN) Displaced fracture of distal phalanx of right index finger, initial encounter for open fracture (Acute) Traumatic amputation of tip of finger of right hand (Acute) Suture of skin wound (Acute) Past Medical History Medical History (Updated 08/17/22 @ 06:44 by Christina Osorio, RN) Asthma Diabetes HTN (hypertension) Surgical History Surgical History (Updated 08/17/22 @ 06:44 by Christina Osorio, RN) History of back surgery History of excision of pilonidal cyst Hx of colonoscopy Hx of hernia repair Hx of tonsillectomy Social History Social History Patient Tobacco Use Status: Former Tobacco user Quit Date: 20 years ago Use of substances other than those prescribed or required for medical reasons: No Are you DNR?: No Advance Directives: No Advance Directives Information Provided: Yes Meds Allergies Allergy/AdvReac Type Severity Reaction Status Date / Time ENVIROMENTAL Allergy Unknown SNEEZING, Uncoded 10/06/21 09:46 ITCHY EYES Home Medications Medication Instructions Recorded Confirmed Last Taken Type dulaglutide 1.5 mg/0.5 mL 0.5 mg subcut QWEEK 08/17/22 08/17/22 Unknown History subcutaneous pen injector (Trulicity) empagliflozin 25 mg tablet 1 tab PO DAILY 08/17/22 08/17/22 Unknown History (Jardiance) fenofibrate 160 mg tablet 1 tab PO DAILY 08/17/22 08/17/22 Unknown History glipizide 5 mg-metformin 500 mg 2 tab PO BID 08/17/22 08/17/22 Unknown History tablet insulin glargine 100 unit/mL (3 40 unit subcut DAILY 08/17/22 08/18/22 08/16/22 History mL) subcutaneous pen (Basaglar KwikPen U-100 Insulin) lisinopril 10 mg tablet 1 tab PO DAILY 08/17/22 08/17/22 Unknown History pravastatin 20 mg tablet 1 tab PO DAILY 08/17/22 08/17/22 Unknown History Exam Exam Date and Time: August 17, 2022 1035 Pertinent Lab Results Pertinent Lab Results: Laboratory Tests 05/16/22 05/16/22 06:13 06:13 WBC 7.2 Hgb 14.6 Hct 46.2 Plt Count 262 Sodium 140 Potassium 5.2 H Chloride 103 Carbon Dioxide 26 BUN 14 Creatinine 0.98 Assessment and Plan Assessment Anesthesia Assessment: Chart Reviewed Documented by User: Kaia Gonsalves MD 08/18/22 09:39 PMFSH Past Medical History Medical History (Updated 08/17/22 @ 06:44 by Christina Osorio RN) Asthma Diabetes HTN (hypertension) Family History Family history of problems with anesthesia: No Surgical History Surgical History (Updated 08/17/22 @ 06:44 by Christina Osorio RN) History of back surgery History of excision of pilonidal cyst Hx of colonoscopy Hx of hernia repair Hx of tonsillectomy History of Problems with Anesthesia: No Social History Social History Patient Tobacco Use Status: Former Tobacco user Quit Date: 20 years ago Use of substances other than those prescribed or required for medical reasons: No Are you DNR?: No Advance Directives: No Advance Directives Information Provided: Yes Meds Allergies Allergy/AdvReac Type Severity Reaction Status Date / Time ENVIROMENTAL Allergy Unknown SNEEZING, Uncoded 10/06/21 09:46 ITCHY EYES Home Medications Medication Instructions Recorded Confirmed Last Taken Type dulaglutide 1.5 mg/0.5 mL 0.5 mg subcut QWEEK 08/17/22 08/17/22 Unknown History subcutaneous pen injector (Trulicity) empagliflozin 25 mg tablet 1 tab PO DAILY 08/17/22 08/17/22 Unknown History (Jardiance) fenofibrate 160 mg tablet 1 tab PO DAILY 08/17/22 08/17/22 Unknown History glipizide 5 mg-metformin 500 mg 2 tab PO BID 08/17/22 08/17/22 Unknown History tablet insulin glargine 100 unit/mL (3 40 unit subcut DAILY 08/17/22 08/18/22 08/16/22 History mL) subcutaneous pen (Basaglar KwikPen U-100 Insulin) lisinopril 10 mg tablet 1 tab PO DAILY 08/17/22 08/17/22 Unknown History pravastatin 20 mg tablet 1 tab PO DAILY 08/17/22 08/17/22 Unknown History Exam Airway Mallampati Class: I TM Dist: >3cm Neck ROM: Full Denture: Upper Partial: Lower Loose/Missing/Broken Teeth: Yes and Lower (B = Broken; M = Missing; L = Loose; C = Cap) Heart: rrr Lungs: cta Assessment and Plan Final Anesthetic Review Family History of Problems with Anesthesia: No History of Problems with Anesthesia: No NPO: Yes ASA Class: III Final Preanesthetic Review: No Changes in Pt Med Stat, Meds/Allgs Chart Reviewed, Consent Obtained/Reviewed and Anes Risks/Benef Reviewed Patient Risk: Low Procedure Risk: Low Anesthetic Plan Anesthetic Plan: MAC: Disposition: Standard PACU
[2022-08-18 08:53] VITALS: BP 113/61; PULSE 83; RESP 18; TEMP 36.4; O2SAT 96; BMI 23.5
[2022-08-18] MEDS: Lactated Ringers 1,000 ML 100 ML IVCONT (09:10)
--- NOTE | 2022-08-18 09:21 | MHC.SHP ---
Pre-Procedural Eval Section A Date of Service: 08/18/22 Section B Chief Complaint: screening,Personal history of colonic polyps Details of Present Illness: see H&P no changes Relevant Family History (Specify if Yes): No Relevant Social History: None Medical History: No relevant PMH History of Previous Operations: No relevant previous surgery Allergies: Allergies Allergy/AdvReac Type Severity Reaction Status Date / Time ENVIROMENTAL Allergy Unknown SNEEZING, Uncoded 10/06/21 09:46 ITCHY EYES Review of Systems Sugical H&P ROS: Negative: Constitution, Cardiovascular, Respiratory, Neurological, Psychiatric, Hem-Onc, Allergic/Immunologic, Gastrointestinal, Genitourinary, Musculoskeletal, Integumentary, Endocrine and Eyes/Ears/Nose/Throat Exam Surgical H&P Exam: Normal: HEENT, Normal: Heart, Normal: Lungs, Normal: Extremities, Normal: Abdomen, Normal: Skin and Normal: Neurological Plan Diagnosis/Plan: Unchanged I have reviewed the history and physical and performed a pertinent physical examination on my patient. No changes have occurred unless specified. Time Spent With Patient Time: Total time managing care of this patient today ____ minutes.
[2022-08-18 10:04] VITALS: BP 106/52; PULSE 67; RESP 17; TEMP 36.8; O2SAT 97
--- NOTE | 2022-08-18 10:04 | PM.OP ---
Brief Operative Note Date of Service: 08/18/22 Pre-op diagnosis: screening Post-op diagnosis: same Procedure: colonoscopy Surgeon: Royal Guthrie Anesthesia: MAC Was an [employer] used for this Procedure?: No Estimated blood loss (mL): 2 Pathology: other Condition: stable Disposition: PACU
[2022-08-18 10:19] VITALS: BP 134/67; PULSE 67; RESP 16; TEMP 36.8; O2SAT 99
--- NOTE | 2022-08-18 10:23 | OP_ITS ---
SURGEON: Royal Guthrie MD INDICATIONS: Colon cancer screening and prior history of adenomatous colon polyps. PREOPERATIVE DIAGNOSIS: POSTOPERATIVE DIAGNOSIS: PROCEDURE PERFORMED: Colonoscopy to the cecum with snare polypectomy. ESTIMATED BLOOD LOSS: COMPLICATIONS: ANESTHESIA: Monitored anesthesia care. ASSISTANTS: SPECIMENS: DESCRIPTION OF PROCEDURE: Date: 08/18/22. A history and physical was performed. The risks and benefits of the procedure were explained to the patient. Informed consent was obtained. The patient was placed in the left lateral decubitus position. A digital rectal exam was performed and was found to be normal. The Olympus pediatric video colonoscope was introduced into the rectum and advanced to the cecum. The cecum was identified by transillumination, palpation, and identification of the ileocecal valve. Examination was performed. The scope was removed. He tolerated the procedure well and was taken to recovery in stable condition. FINDINGS: The terminal ileum was not examined. The visualized colonic mucosa was normal. The quality of the prep was good. Two polyps were identified. Both measured between 5 and 10 mm and were removed with a hot snare. These were located at 40 and 30 cm. No other polyps were seen. There was mild sigmoid diverticulosis. Retroflexed examination showed moderately large internal hemorrhoids. IMPRESSION: Colon polyps. RECOMMENDATION: Follow up the biopsy results. MD SOLA Manning/DEANA / [id number] MTDD
[2022-08-18 12:29] LABS: Glucose, Whole Blood 145 mg/dL (60-115)
== END 2022-08-18 10:48 | disposition home or self-care (01) ==
PROVIDERS: PCP Internal Medicine Medical Oncology; Visit Provider Internal Medicine Gastroenterology
PROC: 0DJD8ZZ Inspection of Lower Intestinal Tract, Via Natural or Artificial Opening Endoscopic (ICD-10-PCS; CPT 45378; principal; 2022-08-18 09:30)
DX: Z12.11 Encounter for screening for malignant neoplasm of colon (principal); Z86.010 Personal history of colon polyps; D12.5 Benign neoplasm of sigmoid colon; K57.30 Diverticulosis of large intestine without perforation or abscess without bleeding; K64.8 Other hemorrhoids; J45.909 Unspecified asthma, uncomplicated; I10 Essential (primary) hypertension; E11.9 Type 2 diabetes mellitus without complications; Z79.4 Long term (current) use of insulin; Z79.899 Other long term (current) drug therapy; Z87.891 Personal history of nicotine dependence
CPT/HCPCS: 45385; 82947; 88305

== ENCOUNTER 2022-09-21 06:03 | Outpatient (REF) | payer MEDICARE, SELFPAY ==
[2022-09-21 06:08] LABS: MANUAL DIFF FLAG NO
[2022-09-21 07:57] LABS: Basophils Absolute Auto 0.1 X10*3/uL (0.0-0.2); Basophils Percent Auto 0.7 % (0-2); Eosinophils Absolute Auto 0.4 X10*3/uL (0.0-0.4); Eosinophils Percent Auto 4.7 % (0-4); Hematocrit 46.9 % (42.0-52.0); Imm Gran Abs Auto 0.03 X10*3/uL (0.00-0.03); Imm Gran Pct Auto 0.4 % (0.0-0.4); Lymphocytes Absolute Auto 2.3 X10*3/uL (1.2-4.9); Lymphocytes Percent Auto 30.1 % (20-40); Mean Corpuscular Hemoglobin 28.6 pg (27.0-33.0); Mean Corpuscular Volume 89.3 fL (80.0-98.0); Mean Platelet Volume 11.1 fL (9.4-12.4); Monocytes Absolute Auto 0.6 X10*3/uL (0.1-1.2); Monocytes Percent Auto 7.7 % (2-11); Neutrophils Absolute Auto 4.3 x10*3/uL (2.0-8.3); Neutrophils Percent Auto 56.4 % (45-73); Platelet Count 255 X10*3/uL (160-400); Red Blood Count 5.25 X10*6/uL (4.60-5.80); White Blood Count 7.5 X10*3/uL (4.8-10.8)
[2022-09-21 08:27] LABS: Alanine Aminotransferase 18 U/L (0-40); Albumin Level 4.4 g/dL (3.5-5.0); Alkaline Phosphatase 52 U/L (39-117); Anion Gap 17 (12-20); Aspartate Amino Transferase 16 U/L (5-37); Bilirubin Total 0.8 mg/dL (0.0-1.0); Blood Urea Nitrogen 15 mg/dL (9-16); Calcium 9.7 mg/dL (8.4-10.2); Carbon Dioxide 25 mmol/L (22-29); Chloride 107 mmol/L (96-108); Cholesterol 185 mg/dL; Estimated Glomerular Filt Rate > 60; Glucose Fasting 133 mg/dL (60-99); HDL Cholesterol 49 mg/dL; LDL Cholesterol Calculated 110 mg/dl; Potassium 4.7 mmol/L (3.3-5.1); Sodium 144 mmol/L (135-145); Total Protein 6.8 g/dL (6.5-8.0); Triglycerides 134 mg/dL
[2022-09-21 08:45] LABS: Prostate Specific Antigen 0.75 ng/mL (<0.05-4.0); Vitamin D 25-OH Total 8.9 ng/mL (>30)
== END 2022-09-21 06:04 | disposition home or self-care (01) ==
LOC: HO.LAB 06:03
PROVIDERS: PCP Internal Medicine Medical Oncology; Visit Provider Internal Medicine Medical Oncology
DX: E11.9 Type 2 diabetes mellitus without complications (principal); E78.5 Hyperlipidemia, unspecified; E78.01 Familial hypercholesterolemia; R35.1 Nocturia; Z12.5 Encounter for screening for malignant neoplasm of prostate
CPT/HCPCS: 36415; 80053; 80061; 82306; 84153; 85025

== ENCOUNTER 2022-11-22 09:19 | Outpatient (REF) | payer MEDICARE, SELFPAY ==
--- NOTE | ~2022-11-22 | XR_ITS ---
EXAMINATION: XR FOOT, RIGHT CLINICAL INFORMATION: Osteomyelitis, third digit of the right foot COMPARISON: 04/06/2018 TECHNIQUE: AP, lateral, and oblique views of the right foot. FINDINGS: No acute fracture or dislocation. Degenerative changes involving the base of the third metatarsal. No focal osteopenia, periosteal reaction, cortical erosion. Calcaneal enthesopathy. XR/XR foot RT min 3V IMPRESSION: No radiographic evidence of osteomyelitis. If there is persistent clinical concern, MR is more sensitive.
== END 2022-11-22 09:20 | disposition home or self-care (01) ==
LOC: HO.XRAY 09:19
PROVIDERS: PCP Internal Medicine Medical Oncology; Visit Provider Podiatrist
DX: Z11.8 Encounter for screening for other infectious and parasitic diseases (principal)
CPT/HCPCS: 73630

== ENCOUNTER 2022-12-01 07:58 | Outpatient (RCR) | payer MEDICARE, SELFPAY | END 2023-02-14 09:00 | disposition home or self-care (01) | LOC: HO.WCC 07:58 | PROVIDERS: PCP Internal Medicine Medical Oncology; Visit Provider Physician Assistant | DX: E11.621 Type 2 diabetes mellitus with foot ulcer (principal); L97.512 Non-pressure chronic ulcer of 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; E11.69 Type 2 diabetes mellitus with other specified complication; M86.471 Chronic osteomyelitis with draining sinus, right ankle and foot; E11.40 Type 2 diabetes mellitus with diabetic neuropathy, unspecified; I10 Essential (primary) hypertension; Z87.891 Personal history of nicotine dependence | CPT/HCPCS: 11042; 99213 ==

== ENCOUNTER 2022-12-20 09:47 | Outpatient (REF) | payer MEDICARE, SELFPAY ==
--- NOTE | ~2022-12-20 | MR_ITS ---
EXAMINATION: MR FOOT WITHOUT AND WITH CONTRAST, RIGHT CLINICAL INFORMATION: Right third toe nonhealing wound. Evaluate for osteomyelitis. COMPARISON: Right foot radiographs dated 11/22/2022. TECHNIQUE: Multisequence MR imaging of the right foot was obtained before and after the IV administration of 8.5 mL Gadavist contrast on a high-field strength scanner. FINDINGS: Soft tissue ulceration at the distal aspect of the third toe with skin thickening and subcutaneous edema and postcontrast enhancement. Findings are consistent with acute cellulitis. No organized fluid collection/abscess formation. Mildly decreased T1 and increased T2 signal within the distal aspect of the 3rd distal phalanx which demonstrates postcontrast enhancement, consistent with acute osteomyelitis. No significant osseous erosion. No metatarsal stress reaction or fracture. Articular cartilage thinning with marginal osteophytes at the 1st metatarsophalangeal joint and hallux sesamoids. No concerning lytic or blastic osseous lesion. Mild edema and atrophy throughout the intrinsic musculature of the foot, which can be seen in diabetic patients. No measurable muscle or tendon tear. Intact Lisfranc ligament. Dorsal subcutaneous edema without an organized fluid collection. No abnormal soft tissue mass. MR/MR foot RT wo/w con IMPRESSION: 1. Soft tissue ulceration and cellulitis at the distal aspect of the third toe without an abscess formation. Findings consistent with acute osteomyelitis within the distal aspect of the 3rd distal phalanx. 2. 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 3. Edema and atrophy throughout the intrinsic musculature of the foot, which can be seen in diabetic patients.
[2022-12-20 10:02] LABS: MANUAL DIFF FLAG NO
[2022-12-20 10:43] LABS: Basophils Percent Auto 0.6 % (0-2); Eosinophils Absolute Auto 0.4 X10*3/uL (0.0-0.4); Hematocrit 44.8 % (42.0-52.0); Hemoglobin 14.3 g/dl (14.0-18.0); Imm Gran Abs Auto 0.04 X10*3/uL (0.00-0.03); Imm Gran Pct Auto 0.6 % (0.0-0.4); Lymphocytes Absolute Auto 1.6 X10*3/uL (1.2-4.9); Lymphocytes Percent Auto 23.3 % (20-40); Mean Corpuscular HGB Conc 31.9 g/dl (31.0-36.0); Mean Corpuscular Hemoglobin 27.8 pg (27.0-33.0); Mean Platelet Volume 10.8 fL (9.4-12.4); Monocytes Absolute Auto 0.4 X10*3/uL (0.1-1.2); Monocytes Percent Auto 6.3 % (2-11); Neutrophils Absolute Auto 4.5 x10*3/uL (2.0-8.3); Neutrophils Percent Auto 64.2 % (45-73); Platelet Count 255 X10*3/uL (160-400); Red Blood Count 5.15 X10*6/uL (4.60-5.80); Red Cell Distribution Width 13.1 % (11.0-16.0)
[2022-12-20 10:54] LABS: Estimated Average Glucose 157 mg/dL; Hemoglobin A1c % 7.1 %
[2022-12-20 11:37] LABS: Alanine Aminotransferase 14 U/L (0-40); Albumin Level 4.3 g/dL (3.5-5.0); Alkaline Phosphatase 53 U/L (39-117); Anion Gap 13 (12-20); Aspartate Amino Transferase 14 U/L (5-37); Bilirubin Total 0.6 mg/dL (0.0-1.0); Blood Urea Nitrogen 13 mg/dL (9-16); Calcium 9.7 mg/dL (8.4-10.2); Carbon Dioxide 27 mmol/L (22-29); Chloride 106 mmol/L (96-108); Cholesterol 167 mg/dL; Estimated Glomerular Filt Rate > 60; Glucose Fasting 127 mg/dL (60-99); HDL Cholesterol 44 mg/dL; LDL Cholesterol Calculated 104 mg/dl; Potassium 5.1 mmol/L (3.3-5.1); Sodium 141 mmol/L (135-145); Total Protein 6.9 g/dL (6.5-8.0); Triglycerides 99 mg/dL
[2022-12-20 11:43] LABS: Vitamin D 25-OH Total 11.4 ng/mL (>30)
[2022-12-20 17:16] LABS: Creatinine Urine 54.09 mg/dL; Microalbum/Creatinine Ratio Ur 18.4 ug/mg cr
== END 2022-12-20 09:48 | disposition home or self-care (01) ==
LOC: HO.MRI 09:47
PROVIDERS: Absent Provider Internal Medicine Medical Oncology; PCP Internal Medicine Medical Oncology; Visit Provider Physician Assistant
DX: E11.9 Type 2 diabetes mellitus without complications (principal); E78.5 Hyperlipidemia, unspecified; M86.9 Osteomyelitis, unspecified; E55.9 Vitamin D deficiency, unspecified
CPT/HCPCS: 36415; 73720; 80053; 80061; 82043; 82306; 83036; 85025; A9585

== ENCOUNTER → 2023-01-15 10:46 | Outpatient (BNVA) | payer MEDICARE, SELFPAY | PROVIDERS: PCP Internal Medicine Medical Oncology; Visit Provider Internal Medicine | DX: M86.171 Other acute osteomyelitis, right ankle and foot (principal) | CPT/HCPCS: 99202 ==

== ENCOUNTER 2023-02-08 11:20 | Inpatient (IN) | payer MEDICARE, SELFPAY ==
[2023-02-08] VITALS (7 sets, daily range): BP systolic 102–145; BP diastolic 50–66; PULSE 83–94; RESP 18–20; TEMP 36.9–37.4; O2SAT 90–98; BMI 25.0; BMI 25.5
--- NOTE | 2023-02-08 11:22 | ED.GENADULT ---
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 Patient states that on Sunday (02/05/2023) he noticed that his left elbow was painful and swollen. Patient states that it has gotten progressively worse since then. Patient states that unrelated, he is following with Dr. Mejia for the bone infection of his right 3rd toe. Patient denies any dizziness, lightheadedness, abdominal pain, nausea, vomiting, fever, chills, blurry vision, double vision, loss of vision, chest pain, difficulty breathing, shortness of breath, back pain, night sweats, pain with urination, increased urinary frequency, increased urinary urgency, blood in his urine or stool, syncope or a near syncopal episode, recent trauma or falls, bowel incontinence, bladder incontinence, bowel retention, bladder retention, or any other complaints at this time. Onset (ago): day(s) (3) Location: left and upper extremity Radiation: non-radiation Severity: moderate Severity scale (1-10): 5 Pain Consistency: constant Exacerbating factors: movement Associated symptoms: denies other symptoms Treatments prior to arrival: none Related Data Home Medications Medication Instructions Recorded Confirmed dulaglutide 1.5 mg/0.5 mL 0.5 mg subcut WE@0900 08/17/22 02/08/23 subcutaneous pen injector (Trulicity) empagliflozin 25 mg tablet 1 tab PO DAILY 08/17/22 02/08/23 (Jardiance) fenofibrate 160 mg tablet 1 tab PO DAILY 08/17/22 02/08/23 glipizide 5 mg-metformin 500 mg 2 tab PO BID 08/17/22 02/08/23 tablet insulin glargine 100 unit/mL (3 38 unit subcut BEDTIME 08/17/22 02/08/23 mL) subcutaneous pen (Basaglar KwikPen U-100 Insulin) lisinopril 10 mg tablet 1 tab PO BEDTIME 08/17/22 02/08/23 pravastatin 20 mg tablet 1 tab PO DAILY 08/17/22 02/08/23 cholecalciferol (vitamin D3) 25 25 mcg PO DAILY 01/15/23 02/08/23 mcg (1,000 unit) capsule ascorbic acid (vitamin C) 500 mg 500 mg PO DAILY 02/08/23 02/08/23 tablet (Vitamin C) prednisone 20 mg tablet 20 mg PO DAILY 02/08/23 02/08/23 Allergies Allergy/AdvReac Type Severity Reaction Status Date / Time ENVIROMENTAL Allergy Unknown SNEEZING, Uncoded 02/08/23 10:36 ITCHY EYES Review of Systems Constitutional: Constitutional: Reports no additional constitutional complaints, Denies chills, Denies fever(s) and Denies night sweats Eyes: Eyes: Reports no additional eye complaints, Denies blurry vision, Denies change in vision, Denies diplopia, Denies eye discharge, Denies loss of vision and Denies eye pain ENT: Denies dizziness Cardiovascular: Cardiovascular: Reports no additional cardiovascular complaints, Denies chest pain, Denies lightheadedness, Denies Loss of Consciousness and Denies dyspnea Respiratory: Respiratory: Reports no additional respiratory complaints and Denies dyspnea Gastrointestinal: Gastrointestinal: Reports no additional gastrointestinal complaints, Denies abdominal pain, Denies melena, Denies hematochezia, Denies change in bowel habits and Denies change in stool character Genitourinary: Genitourinary: Reports no additional male genitourinary complaints, Denies hematuria, Denies oliguria, Denies difficulty urinating, Denies dysuria, Denies urinary frequency, Denies urinary hesitancy, Denies urinary incontinence and Denies urinary urgency Musculoskeletal: Musculoskeletal: Reports no additional musculoskeletal complaints, Denies numbness and Denies tingling Comments: left elbow warmth, redness, swelling. Chronic wound to the right 3rd distal phalanx of the foot Neurologic: Denies dizziness, Denies loss of vision, Denies numbness and Denies tingling Psychiatric: Psychiatric: Reports no additional psychiatric complaints Endocrine: Endocrine: Reports no additional endocrine complaints Hematologic/Lymphatic: Hematologic/Lymphatic: Reports no additional hematologic/lymphatic complaints Allergic/Immunologic: Allergic/Immunologic: Reports no additional allergic/immunologic complaints PMFSH Past Medical History Attestation statement: The following information was validated with the patient. Source: old records reviewed and nursing notes reviewed Medical History Asthma Diabetes HTN (hypertension) Osteomyelitis of foot, right, acute Redness and swelling of elbow Surgical History History of back surgery History of excision of pilonidal cyst Hx of colonoscopy Hx of hernia repair Hx of tonsillectomy Social History Social History Alcohol intake: current Alcohol intake frequency: holidays/special occasions only Patient Tobacco Use Status: Former Tobacco user Quit Date: 20 years ago Smoked in Last 30 Days: No Use of substances other than those prescribed or required for medical reasons: No Advance Directives: No Physical Exam ED Vital Signs: Vital Signs - 24 hr 02/08/23 11:26 02/08/23 12:07 02/08/23 12:28 Temperature 98.5 F 99.4 F Pulse Rate 94 Respiratory Rate 20 18 Blood Pressure 143/65 H 145/66 H Pulse Oximetry 98 98 Oxygen Delivery Method Room Air Room Air BMI result Body Mass Index 25.0 Const General: cooperative, no acute distress, alert and awake Nutritional Appearance: well nourished Orientation/consciousness: patient oriented x3 Limitations: no limitations HENMT Head: Yes normal to inspection and Yes atraumatic Ears: hearing grossly normal bilaterally and external ears normal General nose exam: Normal external nose present, no nasal discharge noted and no epistaxis Face and sinus: Yes normal facial exam, No abrasion and No laceration Mouth: Normal oral and palatal mucosa present, no drooling and no muffled voice Eyes General: appearance normal, both eyes and all related structures Periorbital: periorbital findings normal Eyelids: Yes eyelids normal Conjunctivae: conjunctivae normal Pupils: Equal, round and reactive pupils present EOM: EOMs intact bilaterally Neck Neck: Yes normal visual inspection, Yes full ROM and Yes no lymphadenopathy Chest Chest palpation & inspection: normal inspection of the chest Resp Effort & Inspection: normal respiratory effort and able to speak in complete sentences GI Inspection: Yes normal to inspection Neuro General: patient oriented x3 and moves all extremities Cranial nerves: Yes Equal, round and reactive pupils present Cognition (Neuro): normal cognition Motor exam (neuro): 5/5 motor strength present throughout Sensory Exam: Normal double simultaneous stimulation for sensation Coordination: [id number] test normal Extrem Other: significant swelling to the left elbow and left medial upper arm with warmth and redness. Limited ROM of the left elbow secondary to pain. Chronic non-healing wound to the right 3rd distal toe. General: Yes capillary refill normal Psych Appearance: grossly normal Mental Status: mental status grossly normal Affect: normal affect Attitude: cooperative Thought process: Normal thought process present Thought content: Normal thought content present Insight: Good insight present (Psych) Course Course Course Narrative: This is an RME: Additional HPI, ROS, PE not included below will be deferred to primary provider. This is a [id number]-male, with a past medical history of asthma, diabetes, HTN, and osteomyelitis of foot, presenting to the emergency department sent from Dr. Bartlett's office for left elbow pain and redness x 3 days. No trauma or injury. Left elbow is warm, edematous. Limited range of motion secondary to pain. Vital signs stable. Plan: Labs and x-ray of left elbow ordered. Medications Administered Generic Name Dose Route Start Last Admin Trade Name Freq PRN Reason Stop Dose Admin Enoxaparin Sodium 40 mg 02/08/23 14:30 02/08/23 16:27 Enoxaparin Sodium 40 Mg/0.4 Ml Syringe SUBCUT 40 mg Q24H CHILO Administration Sodium Chloride 3 ml 02/08/23 16:00 02/08/23 16:27 0.9 % Sodium Chloride Flush 3 Ml Syringe IVFLUSH 3 ml QSHIFT CHILO Administration Discontinued Medications Generic Name Dose Route Start Last Admin Trade Name Freq PRN Reason Stop Dose Admin Piperacillin Sod/Tazobactam 50 mls @ 100 mls/hr 02/08/23 12:17 02/08/23 12:58 Sod 3.375 gm/ Sodium Chloride IV 02/08/23 12:46 Infused ONCE ONE Infusion Sodium Chloride 1,000 mls @ 999 mls/hr 02/08/23 12:30 02/08/23 14:55 Ns IV 02/08/23 13:30 Infused .Q1H1M CHILO Infusion Vancomycin HCl 2,000 mg in 500 mls @ 250 mls/hr 02/08/23 12:30 02/08/23 12:58 Vancomycin/Ns IV 02/08/23 14:29 250 mls/hr ONCE ONE Administration Iohexol 100 ml 02/08/23 15:35 02/08/23 15:36 Iohexol 350 Mg/Ml 100 Ml Infus..Btl IV 02/08/23 15:36 85 ml ONCE ONE Administration Medical Decision Making Medical Decision Making [facility] Narrative: Patient is a 77 year old assigned male at with a history of DM and 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 Patient's physical exam was as noted in the physical exam portion of this chart. Patient's blood work showed an elevated WBC count of 18.9, ESR of 81, sodium of 134, and CRP of 34.31. Patient's left elbow x-ray showed no acute process. Patient's left elbow CT is pending. I consulted with orthopedics who agreed to follow the case but recommended against tapping the joint. I spoke with the hospitalist team who agreed to admission. I explained my physical exam findings as well as all test results to the patient. I answered all questions asked by the patient. Patient received IV Zosyn and Vancomysin. Patient is not considered to be septic (@1233). Patient verbalized agreement and understanding with this treatment plan and admission. Differential Diagnosis Differential Diagnoses: The differential diagnosis associated with the presentation includes left elbow cellulitis infected left elbow joint left elbow pain left elbow swelling bursitis elbow injury elbow fracture - R/O on XR Admission/Observation Consideration of admission/observation: Escalation of care including admission/observation considered Patient is admitted to the hospital. Consult Healthcare Provider Management of the patient was discussed with: Hospitalist (Agreed to admission.) and Representative (spoke to orthopedics as noted in the MDM portion of this chart. ) Lab Data [facility] Lab Attestation statement: I reviewed the patient's lab results. My interpretation of these lab results is in the MDM portion of this chart. 02/08/23 11:47 02/08/23 11:47 Labs: Lab Results 02/08/23 02/08/23 02/08/23 Range/Units 11:47 11:47 11:47 WBC 18.9 H (4.8-10.8) X10*3/uL RBC 4.44 L (4.60-5.80) X10*6/uL Hgb 12.4 L (14.0-18.0) g/dl Hct 37.3 L (42.0-52.0) % MCV 84.0 (80.0-98.0) fL MCH 27.9 (27.0-33.0) pg MCHC 33.2 (31.0-36.0) g/dl RDW 13.2 (11.0-16.0) % Plt Count 240 (160-400) X10*3/uL MPV 11.0 (9.4-12.4) fL Immature Gran % (Auto) 0.5 H (0.0-0.4) % Neut % (Auto) 88.5 H (45-73) % Lymph % (Auto) 5.2 L (20-40) % [place] % (Auto) 5.6 (2-11) % Eos % (Auto) 0.0 (0-4) % Baso % (Auto) 0.2 (0-2) % Lymph # (Auto) 1.0 L (1.2-4.9) X10*3/uL [place] # (Auto) 1.1 (0.1-1.2) X10*3/uL Eos # (Auto) 0.0 (0.0-0.4) X10*3/uL Baso # (Auto) 0.0 (0.0-0.2) X10*3/uL Abs Immat Gran (auto) 0.10 H (0.00-0.03) X10*3/uL Absolute Neuts (auto) 16.7 H (2.0-8.3) x10*3/uL Absolute Nucleated RBC 0.000 (0.0-0.012) X10*3/uL Nucleated RBC % (auto) 0.0 (0.0-0.2) /100WBC ESR 81 H (0-15) MM/HR Sodium 134 L (135-145) mmol/L Potassium 4.4 (3.3-5.1) mmol/L Chloride 102 (96-108) mmol/L Carbon Dioxide 17 L (22-29) mmol/L Anion Gap 19 (12-20) BUN 30 H (9-16) mg/dL Creatinine 1.15 (0.5-1.4) mg/dL Estim Creat Clear Calc 60.9 Estimated GFR > 60 Random Glucose 162 H (60-115) mg/dL Lactic Acid (0.5-2.0) mmol/L Uric Acid 5.5 (3.4-7.0) mg/dL Calcium 10.6 H D (8.4-10.2) mg/dL Total Bilirubin 1.8 H (0.0-1.0) mg/dL Direct Bilirubin 0.8 H (0.0-0.5) mg/dL AST 34 (5-37) U/L ALT 28 (0-40) U/L Alkaline Phosphatase 73 (39-117) U/L C-Reactive Protein 34.31 H (< or = 0.50) mg/dL Total Protein 7.5 (6.5-8.0) g/dL Albumin 3.7 (3.5-5.0) g/dL 02/08/23 Range/Units 11:47 WBC (4.8-10.8) X10*3/uL RBC (4.60-5.80) X10*6/uL Hgb (14.0-18.0) g/dl Hct (42.0-52.0) % MCV (80.0-98.0) fL MCH (27.0-33.0) pg MCHC (31.0-36.0) g/dl RDW (11.0-16.0) % Plt Count (160-400) X10*3/uL MPV (9.4-12.4) fL Immature Gran % (Auto) (0.0-0.4) % Neut % (Auto) (45-73) % Lymph % (Auto) (20-40) % [place] % (Auto) (2-11) % Eos % (Auto) (0-4) % Baso % (Auto) (0-2) % Lymph # (Auto) (1.2-4.9) X10*3/uL [place] # (Auto) (0.1-1.2) X10*3/uL Eos # (Auto) (0.0-0.4) X10*3/uL Baso # (Auto) (0.0-0.2) X10*3/uL Abs Immat Gran (auto) (0.00-0.03) X10*3/uL Absolute Neuts (auto) (2.0-8.3) x10*3/uL Absolute Nucleated RBC (0.0-0.012) X10*3/uL Nucleated RBC % (auto) (0.0-0.2) /100WBC ESR (0-15) MM/HR Sodium (135-145) mmol/L Potassium (3.3-5.1) mmol/L Chloride (96-108) mmol/L Carbon Dioxide (22-29) mmol/L Anion Gap (12-20) BUN (9-16) mg/dL Creatinine (0.5-1.4) mg/dL Estim Creat Clear Calc Estimated GFR Random Glucose (60-115) mg/dL Lactic Acid 2.0 (0.5-2.0) mmol/L Uric Acid (3.4-7.0) mg/dL Calcium (8.4-10.2) mg/dL Total Bilirubin (0.0-1.0) mg/dL Direct Bilirubin (0.0-0.5) mg/dL AST (5-37) U/L ALT (0-40) U/L Alkaline Phosphatase (39-117) U/L C-Reactive Protein (< or = 0.50) mg/dL Total Protein (6.5-8.0) g/dL Albumin (3.5-5.0) g/dL Independent Interpretation I performed an independent interpretation of an: Plain X-Ray Interpretation: No acute vivian process in the left elbow. Official radiology read pending. Chronic Conditions Patient?s care impacted by: Diabetes Critical Care Time Critical Care Time Critical Care Time: Yes Total Critical Care Time: 30 Attestation: I spent 30 minutes of Critical Care Time with this patient. This does not include time spent on separately reported billable procedures. Discharge Plan Discharge Clinical Impression: Cellulitis of elbow Patient Disposition: Admitted As Inpatient
[2023-02-08 12:11] LABS: Alanine Aminotransferase 28 U/L (0-40); Albumin Level 3.7 g/dL (3.5-5.0); Alkaline Phosphatase 73 U/L (39-117); Anion Gap 19 (12-20); Aspartate Amino Transferase 34 U/L (5-37); Bilirubin Direct 0.8 mg/dL (0.0-0.5); Bilirubin Total 1.8 mg/dL (0.0-1.0); Blood Urea Nitrogen 30 mg/dL (9-16); C Reactive Protein 34.31 mg/dL (< or = 0.50); Calcium 10.6 mg/dL (8.4-10.2); Carbon Dioxide 17 mmol/L (22-29); Chloride 102 mmol/L (96-108); Creatinine Clr Calc Pharmacy 60.9; Estimated Glomerular Filt Rate > 60; Glucose Random 162 mg/dL (60-115); Potassium 4.4 mmol/L (3.3-5.1); Sodium 134 mmol/L (135-145); Total Protein 7.5 g/dL (6.5-8.0); Uric Acid 5.5 mg/dL (3.4-7.0)
--- NOTE | 2023-02-08 12:12 | PC.NURSE ---
Alert and oriented, reports left elbow pain that started on sunday and has progressively gotten worse. states that it was bothering him sunday but has now gotten to the point where he can no longer bend it without pain. Elbow swollen, red, and warm to touch. Also reports having an issue with his right 3rd toe. Toe red, warm, and swollen.
--- NOTE | 2023-02-08 13:06 | PM.IMHP ---
History of Present Illness Date of Service: 02/08/23 <KAYE Hanley - Last Filed: 02/08/23 16:47> Attending physician on admission: Karl Champion <KAYE Hanley - Last Filed: 02/08/23 16:47> Chief Complaint: Left elbow redness and pain <KAYE Hanley - Last Filed: 02/08/23 16:47> Pt is a 77-year-old male with a PMH significant for?insulin-dependent diabetes type 2, HTN, and current acute osteomyelitis of the distal phalanx of 3rd right toe who presents to the ED with?left elbow redness, pain, and swelling for the past 4 days. Pt initially noticed some mild left elbow pain with exertion on Sunday. On Sunday patient began to notice some redness to the area and called his PCP who prescribed him a short course of prednisone for treatment of possible gout. Patient does not have a previous history of gout. Pain and redness continue to worsen until today when patient noticed elbow was also swollen. Patient was able to visit his PCP who advised patient to come to the ED after examining the arm. Pt first, though, kept his appointment with Dr. Mejia of general surgery for discussion of amputation of 3rd right toe. Pt denies systemic symptoms: no fever, chills, nausea, vomiting. No lightheadedness or dizziness. Denies chest pain/pressure, palpitations. No abdominal pain. In the ED patient was afebrile but slightly hypertensive at 145/66. Labs were significant for leukocytosis of 18.9, ESR of 81, C-reactive protein of 34.31. X-ray of left elbow pending. CT?of left elbow pending. Pt was treated with IVF, vancomycin and Zosyn. Pt will be admitted to the hospital for treatment and further evaluation of possible left arm cellulitis. <KAYE Hanley - Last Filed: 02/08/23 16:47> Review of Systems Review of Systems: Left elbow redness, swelling, pain Redness and swelling right 3rd toe Denies fever, chills No nausea, vomiting, diarrhea, abdominal pain Denies lightheadedness, dizziness, headache No chest pain/pressure, palpitations Denies shortness of breath <KAYE Hanley - Last Filed: 02/08/23 16:47> Yes all other systems are reviewed and are negative <KAYE Hanley - Last Filed: 02/08/23 16:47> [facility] Medical History: Medical History Asthma Diabetes HTN (hypertension) Osteomyelitis of foot, right, acute Redness and swelling of elbow <KAYE Hanley - Last Filed: 02/08/23 16:47> Surgical History: Surgical History History of back surgery History of excision of pilonidal cyst Hx of colonoscopy Hx of hernia repair Hx of tonsillectomy <KAYE Hanley - Last Filed: 02/08/23 16:47> Social History: Social History Alcohol intake: current Alcohol intake frequency: holidays/special occasions only Patient Tobacco Use Status: Former Tobacco user Quit Date: 20 years ago Smoked in Last 30 Days: No Use of substances other than those prescribed or required for medical reasons: No Advance Directives: No Nutrition Risks: No Nutritional Risk <KAYE Hanley - Last Filed: 02/08/23 16:47> Meds Allergies/Adverse reactions: Allergies Allergy/AdvReac Type Severity Reaction Status Date / Time ENVIROMENTAL Allergy Unknown SNEEZING, Uncoded 02/08/23 10:36 ITCHY EYES <KAYE Hanley - Last Filed: 02/08/23 16:47> Active Medications: Current Medications Sodium Chloride (Ns) 1,000 mls @ 999 mls/hr IV .Q1H1M CHILO Stop: 02/08/23 13:30 Last Admin: 02/08/23 12:30 Dose: 999 mls/hr Vancomycin HCl (Vancomycin/Ns) 2,000 mg in 500 mls @ 250 mls/hr IV ONCE ONE Stop: 02/08/23 14:29 Last Admin: 02/08/23 12:58 Dose: 250 mls/hr Pharmacy Consult (Consult Rx Perform Med Rec) 1 each MISCELLANE ONCE PRN PRN Reason: Consult order <KAYE Hanley - Last Filed: 02/08/23 16:47> Home medications: Home Medications Medication Instructions Recorded Confirmed Last Taken Type dulaglutide 1.5 mg/0.5 mL 0.5 mg subcut WE@0900 08/17/22 02/08/23 02/07/23 History subcutaneous pen injector (Trulicity) empagliflozin 25 mg tablet 1 tab PO DAILY 08/17/22 02/08/23 02/04/23 History (Jardiance) fenofibrate 160 mg tablet 1 tab PO DAILY 08/17/22 02/08/23 02/04/23 History glipizide 5 mg-metformin 500 mg 2 tab PO BID 08/17/22 02/08/23 02/04/23 History tablet insulin glargine 100 unit/mL (3 38 unit subcut BEDTIME 08/17/22 02/08/23 02/07/23 History mL) subcutaneous pen (Basaglar KwikPen U-100 Insulin) lisinopril 10 mg tablet 1 tab PO BEDTIME 08/17/22 02/08/23 02/04/23 History pravastatin 20 mg tablet 1 tab PO DAILY 08/17/22 02/08/23 02/04/23 History cholecalciferol (vitamin D3) 25 25 mcg PO DAILY 01/15/23 02/08/23 02/04/23 History mcg (1,000 unit) capsule ascorbic acid (vitamin C) 500 mg 500 mg PO DAILY 02/08/23 02/08/23 02/04/23 History tablet (Vitamin C) prednisone 20 mg tablet 20 mg PO DAILY 02/08/23 02/08/23 02/07/23 History <KAYE Hanley - Last Filed: 02/08/23 16:47> Physical Exam Vital Signs and Narrative: Vital Signs: Last Vital Signs Temp 99.4 F 02/08/23 12:28 Pulse 94 02/08/23 11:26 Resp 18 02/08/23 12:07 BP 145/66 H 02/08/23 12:07 Pulse Ox 98 02/08/23 12:07 O2 Del Method Room Air 02/08/23 12:07 BMI result Body Mass Index 25.0 <KAYE Hanley - Last Filed: 02/08/23 16:47> Constitutional: Alert, in no acute distress. Mental Status: Oriented to person, place and time. Eyes: Pupils are equal, round, and reactive to light. Ear, Nose, and Throat: Oropharynx clear, mucous membranes moist. Ears and nose without deformities. Trachea midline. Respiratory: Clear to auscultation bilaterally. No wheezing, rales, or rhonchi. Cardiovascular: S1, S2 regular. No murmurs, rubs, or gallops. Gastrointestinal: Abdomen soft, non-tender, non-distended. Normal bowel sounds. Neurologic: Cranial nerves II-XII are grossly intact bilaterally. No focal neurological deficits. Moves all extremities spontaneously. Musculoskeletal: No cyanosis or clubbing. Extremities: Right third toe erythematous, swollen, calloused. Left elbow and upper arm with warmth, swelling, and redness. Area of induration on medial aspect of upper arm superior to elbow. No sign of trauma or injury. ROM limited secondary to pain. See pictures below. Psychiatric: Normal mood and affect. <KAYE Hanley - Last Filed: 02/08/23 16:47> Results Labs CBC and Chem 7: 02/08/23 11:47 02/08/23 11:47 <KAYE Hanley - Last Filed: 02/08/23 16:47> Labs: Laboratory Results - last 24 hr 02/08/23 02/08/23 02/08/23 11:47 11:47 11:47 MCV 84.0 MCH 27.9 MCHC 33.2 RDW 13.2 Plt Count 240 MPV 11.0 Immature Gran % (Auto) 0.5 H Neut % (Auto) 88.5 H Lymph % (Auto) 5.2 L [place] % (Auto) 5.6 Eos % (Auto) 0.0 Baso % (Auto) 0.2 Lymph # (Auto) 1.0 L [place] # (Auto) 1.1 Eos # (Auto) 0.0 Baso # (Auto) 0.0 Abs Immat Gran (auto) 0.10 H Absolute Neuts (auto) 16.7 H Absolute Nucleated RBC 0.000 Nucleated RBC % (auto) 0.0 ESR 81 H Anion Gap 19 Estim Creat Clear Calc 60.9 Estimated GFR > 60 Random Glucose 162 H Lactic Acid Uric Acid 5.5 Calcium 10.6 H D Total Bilirubin 1.8 H Direct Bilirubin 0.8 H AST 34 ALT 28 Alkaline Phosphatase 73 C-Reactive Protein 34.31 H Total Protein 7.5 Albumin 3.7 02/08/23 11:47 MCV MCH MCHC RDW Plt Count MPV Immature Gran % (Auto) Neut % (Auto) Lymph % (Auto) [place] % (Auto) Eos % (Auto) Baso % (Auto) Lymph # (Auto) [place] # (Auto) Eos # (Auto) Baso # (Auto) Abs Immat Gran (auto) Absolute Neuts (auto) Absolute Nucleated RBC Nucleated RBC % (auto) ESR Anion Gap Estim Creat Clear Calc Estimated GFR Random Glucose Lactic Acid 2.0 Uric Acid Calcium Total Bilirubin Direct Bilirubin AST ALT Alkaline Phosphatase C-Reactive Protein Total Protein Albumin <KAYE Hanley - Last Filed: 02/08/23 16:47> Assessment and Plan (1) Redness and swelling of elbow: Status: Acute <KAYE Hanley Last Filed: 02/08/23 16:47> (2) Osteomyelitis of foot, right, acute: Status: Acute <KAYE Hanley - Last Filed: 02/08/23 16:47> Pt is a 77-year-old male with a PMH significant for?insulin-dependent diabetes type 2, HTN, and current acute osteomyelitis of the distal phalanx of 3rd right toe who presents to the ED with?left elbow redness, pain, and swelling for the past 4 days. Pt initially noticed some mild left elbow pain with exertion on Sunday. On Sunday patient began to notice some redness to the area and called his PCP who prescribed him a short course of prednisone for treatment of possible gout. Patient does not have a previous history of gout. Pain and redness continue to worsen until today when patient noticed elbow was also swollen. Pt will be admitted to the hospital for treatment and further evaluation of possible left arm cellulitis. Left elbow swelling and erythema Cellulitis vs septic arthritis vs gout vs bursitis Gout less likely, pt with no hx of gout, uric acid WNL at 5.5 IV abx: Vanco and Zosyn, started Will check results of elbow x-ray Will get CT of left elbow Orthopedics consult Infectious Disease consult Leukocytosis Pt's WBC 18.9 at time of presentation Likely secondary to prednisone use which was started on Sunday by PCP for treatment of possible gout Patient does not meet sepsis criteria Osteomyelitis of distal phalanx of 3rd right toe Patient's toe became red and swollen near the end of October 2022 Received cephalexin 500 mg t.i.d. for 10 days on 10/26/2022 with little to no improvement Received doxycycline 100 mg b.i.d. for 10 days on 11/22/2022 with little to no improvement [facility] since mid November MRI showed acute osteomyelitis Patient has elevated ESR of 81 and CRP of 34.31 Pt had office visit with Dr. Mejia today to set up surgical amputation Will hold off on General Surgery consult for now Insulin-dependent diabetes type two Hold glipizide-metformin, Trulicity Continue Jardiance Sliding scale insulin Diabetic diet HLD Continue statin HTN Continue lisinopril DNR/DNI Attending:?Dr. Giles DVT Prophylaxis: Lovenox Pt will require a hospitalization of at least two nights for treatment of?likely upper left extremity cellulitis with IV antibiotics and specialist consults. Addendum to history and physical by the advanced practice provider, KAYE Bustamante I interviewed and examined the patient. I discussed their presentation and management with the FAUSTINO. I reviewed the history and physical and agree with the documentation, with the following additions and corrections: 77yo M with DM2, HTN, osteomyelitis of distal R 3rd phalanx diagnosed in December for which he declined IV ABX and plans for amputation by Dr Mejia Presenting with L elbow redness/pain/swelling x 4 days. Treated empirically for gout by PCP without improvement. Concern for bursitis or subcutaneous abscess, less likely septic arthritis Will obtain CT elbow, consult Orthopedics + ID Start vanco + pip/gladys after BCx May require inpt amputation of the R 3rd toe if the L elbow was hematogenously seeded <KAYE Hanley - Last Filed: 02/08/23 16:47> Pt is a 77-year-old male with a PMH significant for?insulin-dependent diabetes type 2, HTN, and current acute osteomyelitis of the distal phalanx of 3rd right toe who presents to the ED with?left elbow redness, pain, and swelling for the past 4 days. Pt initially noticed some mild left elbow pain with exertion on Sunday. On Sunday patient began to notice some redness to the area and called his PCP who prescribed him a short course of prednisone for treatment of possible gout. Patient does not have a previous history of gout. Pain and redness continue to worsen until today when patient noticed elbow was also swollen. Pt will be admitted to the hospital for treatment and further evaluation of possible left arm cellulitis. Left elbow swelling and erythema Cellulitis vs septic arthritis vs gout vs bursitis Gout less likely, pt with no hx of gout, uric acid WNL at 5.5 IV abx: Vanco and Zosyn, started Will check results of elbow x-ray Will get CT of left elbow Orthopedics consult Infectious Disease consult Leukocytosis Pt's WBC 18.9 at time of presentation Likely secondary to prednisone use which was started on Sunday by PCP for treatment of possible gout Patient does not meet sepsis criteria Osteomyelitis of distal phalanx of 3rd right toe Patient's toe became red and swollen near the end of October 2022 Received cephalexin 500 mg t.i.d. for 10 days on 10/26/2022 with little to no improvement Received doxycycline 100 mg b.i.d. for 10 days on 11/22/2022 with little to no improvement Has been [facility] since mid November MRI showed acute osteomyelitis Patient has elevated ESR of 81 and CRP of 34.31 Pt had office visit with Dr. Mejia today to set up surgical amputation Will hold off on General Surgery consult for now Insulin-dependent diabetes type two Hold glipizide-metformin, Trulicity Continue Jardiance Sliding scale insulin Diabetic diet HLD Continue statin HTN Continue lisinopril Thank you for allowing us to participate in the care of this patient. Signing off at this time. Please let us know if there are any acute complaints or questions. Addendum to history and physical by the advanced practice provider, KAYE Bustamante I interviewed and examined the patient. I discussed their presentation and management with the FAUSTINO. I reviewed the history and physical and agree with the documentation, with the following additions and corrections: 77yo M with DM2, HTN, osteomyelitis of distal R 3rd phalanx diagnosed in December for which he declined IV ABX and plans for amputation by Dr Mejia Presenting with L elbow redness/pain/swelling x 4 days. Treated empirically for gout by PCP without improvement. Concern for bursitis or subcutaneous abscess, less likely septic arthritis Will obtain CT elbow, consult Orthopedics + ID Start vanco + pip/gladys after BCx May require inpt amputation of the R 3rd toe if the L elbow was hematogenously seeded <Amy Giles MD - Last Filed: 02/08/23 16:39> Time Spent With Patient Time: Total time managing care of this patient today ____ minutes. <KAYE Hanley - Last Filed: 02/08/23 16:47> Quality Stroke Does the patient have a stroke diagnosis?: No <KAYE Hanley - Last Filed: 02/08/23 16:47> VTE Prior VTE?: No <KAYE Hanley - Last Filed: 02/08/23 16:47> VTE Risk Level:: Medical - moderate - high <KAYE Hanley - Last Filed: 02/08/23 16:47> VTE Device Contraindication: Treatment Not Indicated <KAYE Hanley - Last Filed: 02/08/23 16:47> VTE Drug Contraindication: N/A - Med Ordered <KAYE Hanley - Last Filed: 02/08/23 16:47>
--- NOTE | 2023-02-08 13:29 | PHA.MEDREC ---
Pharmacy Consult ? Medication Reconciliation Pharmacy has completed the medication reconciliation. Spoke to patient to confirm meds. Patient reports having 3 days left on prednisone, ending 02/10/23.
--- NOTE | 2023-02-08 14:54 | PHA.PROG ---
Admission Date/Time: February 08, 2023 14:21 Indication: Skin Weight in k.461 kg Adjusted body weight in Kg: [place] body weight in Kg: Obesity Dosing Indication % IBW: Serum Creatinine - Last 168 Hours 02/08/23 11:47 Creatinine 1.15 Estimated CrCl and GFR - Last 168 Hours 02/08/23 11:47 Estim Creat Clear Calc 60.9 Estimated GFR > 60 Vancomycin Loading Dose: 2000mg x 1 Current Vancomycin Dosing Regimen: 1250mg Q24H Vancomycin Monitoring using AUC goal of 400 - 600 range with trough as surrogate marker: 451 mg/L Date and Time for next Vancomycin Level to be drawn: 02/11/23 @1100 Pharmacist Comments on Vancomycin Plan: Will continue to monitor renal function; predicted trough of 13.3mg/L. Vancomycin dosing will take advantage of [employer] as a clinical decision support tool that uses Bayesian modeling to calculate individual patient's pharmacokinetic parameters and forecast the patient's drug concentration time course with the target goal AUC 24 range of 400 - 600 mg/L/hr.
--- NOTE | 2023-02-08 14:55 | PC.NURSE ---
rogers on hold, patient at cat scan
[2023-02-08] MEDS: 0.9 % Sodium Chloride Flush 3 ML SYRINGE IVFLUSH ×2 (16:27→20:08)
[2023-02-08] MEDS: Enoxaparin Sodium 40 MG/0.4 ML SYRINGE SUBCUT (16:27)
--- NOTE | 2023-02-08 16:37 | PC.NURSE ---
this nurse took over care for patient at 1515- patient a&ox3, currently denying pain to lt arm- pt states it only hurts when using his arm, denies pain to rt middle toe as well, vitals stable, pt ambulated with stby assist to bathroom-pt has unsteady gait, call soto within reach, will continue to monitor
--- NOTE | 2023-02-08 16:38 | PC.NURSE ---
pts vanco continues to run after returning from testing it was reconnected
--- NOTE | 2023-02-08 17:03 | PC.NURSE ---
called floor to give report, nursing staff to call back
[2023-02-09 04:00] VITALS: BP 103/56; PULSE 75; RESP 16; TEMP 36.7; O2SAT 95
[2023-02-09 05:41] LABS: Hematocrit 36.8 % (42.0-52.0); Hemoglobin 11.7 g/dl (14.0-18.0); Mean Corpuscular HGB Conc 31.8 g/dl (31.0-36.0); Mean Corpuscular Hemoglobin 27.9 pg (27.0-33.0); Mean Corpuscular Volume 87.8 fL (80.0-98.0); Mean Platelet Volume 11.1 fL (9.4-12.4); Platelet Count 205 X10*3/uL (160-400); Red Blood Count 4.19 X10*6/uL (4.60-5.80); Red Cell Distribution Width 13.7 % (11.0-16.0); White Blood Count 17.7 X10*3/uL (4.8-10.8)
[2023-02-09 06:14] LABS: Anion Gap 25 (12-20); Blood Urea Nitrogen 27 mg/dL (9-16); Calcium 9.6 mg/dL (8.4-10.2); Carbon Dioxide 8 mmol/L (22-29); Chloride 108 mmol/L (96-108); Creatinine Clr Calc Pharmacy 71.4; Estimated Glomerular Filt Rate > 60; Glucose Random 128 mg/dL (60-115); Potassium 4.8 mmol/L (3.3-5.1); Sodium 136 mmol/L (135-145)
--- NOTE | 2023-02-09 07:31 | HE.PHANOTE ---
Vancomycin Dosing Renal function is imrpoving. Will increase dose to vancomycin 750 mg Q12H. New expected AUC 467 with a trough of 153.7 Level now scheduledc for 02/10 @ 0600. Judit Robert PharmD
[2023-02-09 08:00] VITALS: BP 124/52; PULSE 60; RESP 16; TEMP 36.6; O2SAT 96
--- NOTE | 2023-02-09 08:05 | PM.CNOR ---
History of Present Illness HPI Consult date: 02/09/23 Chief complaint: Left Elbow Cellulitis Narrative: Mr. Fritz is a 77-year-old enegx-rdbe-veqakxul white male who presented to [facility] yesterday with complaints of left elbow redness and swelling. The patient states that his symptoms began approximately 3 days ago. He does not recall any traumatic event preceding the onset of his symptoms. He denies any numbness or tingling in his upper extremity. He denies any fevers or chills. The patient states that he has also noticed some swelling in his left hand as well. The patient has been seen by Dr. 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 [facility] Past Medical History Medical History Asthma Diabetes HTN (hypertension) Osteomyelitis of foot, right, acute Redness and swelling of elbow Surgical History Surgical History History of back surgery History of excision of pilonidal cyst Hx of colonoscopy Hx of hernia repair Hx of tonsillectomy Social History Social History Household Members: None Housing: House Alcohol intake: current Alcohol intake frequency: holidays/special occasions only Patient Tobacco Use Status: Former Tobacco user Quit Date: 20 years ago Smoked in Last 30 Days: No Patient Interested in Nicotine Replacement: No Patient Given Instructions on How to Stop Smoking: No Second Hand Smoke Exposure: No Use of substances other than those prescribed or required for medical reasons: No Currently Displaying Signs/Symptoms of Drug Intoxication Withdrawal: No Any prior treatment program specific to substance use: No Have you been hit, kicked, punched, or otherwise hurt by someone within the past year? If so, by whom?: No Do you feel safe in your current relationship?: Yes Is there a partner from a previous relationship who is making you feel unsafe now?: No Advance Directives: No Advance Directives Information Provided: No (Declined) Advance Directives on File: No Do you have thoughts of harming others: None Do you have a plan to hurt others: No Plan Recently lost weight without trying: No How much weight loss: Not applicable Eating poorly because of decreased appetite: No Nutrition screen score: 0 Nutrition Risks: No Nutritional Risk Poor oral hygiene: No Meds Allergies Allergy/AdvReac Type Severity Reaction Status Date / Time ENVIROMENTAL Allergy Unknown SNEEZING, Uncoded 02/08/23 10:36 ITCHY EYES Active Medications: Current Medications Acetaminophen (Acetaminophen 325 Mg Tablet) 650 mg PO Q6H PRN PRN Reason: Pain, Mild (Pain Scale 1-3) Ascorbic Acid (Ascorbic Acid 500 Mg Tablet) 500 mg PO DAILY [facility] Docusate Sodium (Docusate Sodium 100 Mg Capsule) 100 mg PO DAILY PRN PRN Reason: Constipation Enoxaparin Sodium (Enoxaparin Sodium 40 Mg/0.4 Ml Syringe) 40 mg SUBCUT Q24H [facility] Last Admin: 02/08/23 16:27 Dose: 40 mg Fenofibrate (Fenofibrate 160 Mg Tablet) 160 mg PO DAILY [facility] Piperacillin Sod/Tazobactam (Sod 3.375 gm/ Sodium Chloride) 50 mls @ 100 mls/hr IV Q6H [facility] Last Infusion: 02/09/23 06:04 Dose: Infused Vancomycin HCl 750 mg/ Sodium (Chloride) 265 mls @ 265 mls/hr IV Q12H [facility] Lisinopril (Lisinopril 10 Mg Tablet) 10 mg PO BEDTIME [facility]; Protocol Last Admin: 02/08/23 20:09 Dose: Not Given Ondansetron HCl (Ondansetron Hcl 4 Mg/2 Ml Vial) 4 mg IVPUSH Q8H PRN PRN Reason: Nausea and Vomiting Pharmacy Consult (Consult Rx Perform Med Rec) 1 each MISCELLANE ONCE PRN PRN Reason: Consult order Pharmacy Consult (Consult Rx Vancomycin Dosing) 1 each MISCELLANE DAILY PRN PRN Reason: Consult order Pravastatin Sodium (Pravastatin Sodium 20 Mg Tablet) 20 mg PO DAILY [facility] Sodium Chloride (0.9 % Sodium Chloride Flush 3 Ml Syringe) 3 ml IVFLUSH QSHIFT [facility] Last Admin: 02/08/23 20:08 Dose: 3 ml Vitamin D (Cholecalciferol (Vitamin D3) 25 Mcg Tablet) 25 mcg PO DAILY [facility] Home Medications Medication Instructions Recorded Confirmed Last Taken Type dulaglutide 1.5 mg/0.5 mL 0.5 mg subcut WE@0900 08/17/22 02/08/23 02/07/23 [facility] empagliflozin 25 mg tablet 1 tab PO DAILY 08/17/22 02/08/23 02/04/23 History (Jardiance) fenofibrate 160 mg tablet 1 tab PO DAILY 08/17/22 02/08/23 02/04/23 History glipizide 5 mg-metformin 500 mg 2 tab PO BID 08/17/22 02/08/23 02/04/23 History tablet insulin glargine 100 unit/mL (3 38 unit subcut BEDTIME 08/17/22 02/08/23 02/07/23 History mL) subcutaneous pen (Basaglar KwikPen U-100 Insulin) lisinopril 10 mg tablet 1 tab PO BEDTIME 08/17/22 02/08/23 02/04/23 History pravastatin 20 mg tablet 1 tab PO DAILY 08/17/22 02/08/23 02/04/23 History cholecalciferol (vitamin D3) 25 25 mcg PO DAILY 01/15/23 02/08/23 02/04/23 History mcg (1,000 unit) capsule ascorbic acid (vitamin C) 500 mg 500 mg PO DAILY 02/08/23 02/08/23 02/04/23 History tablet (Vitamin C) prednisone 20 mg tablet 20 mg PO DAILY 02/08/23 02/08/23 02/07/23 History Physical Exam Vital Signs: Vital Signs: Last Vital Signs Temp 97.8 F 02/09/23 08:00 Pulse 60 02/09/23 08:00 Resp 16 02/09/23 08:00 BP 124/52 L 02/09/23 08:00 Pulse Ox 96 02/09/23 08:00 O2 Del Method Room Air 02/09/23 08:00 BMI result Body Mass Index 25.5 Const: Other: Well-nourished well-developed very friendly male sitting up on the edge of his bed eating breakfast in no acute distress Extrem: Other: Left upper extremity examination shows no open skin lesions, diffuse swelling along the anterior and posterior aspects of his elbow as well as along the dorsal aspect of his hand, mild redness along the anterior aspect of his elbow, no significant olecranon bursal fluid, no palpable abscesses, elbow range of motion from-10 degrees to 100 20 degrees with mild discomfort Results Labs 02/09/23 04:56 02/09/23 04:56 Labs: Abnormal lab results 02/08/23 02/08/2323 Range/Units 11:47 11:47 11:47 WBC 18.9 H (4.8-10.8) X10*3/uL RBC 4.44 L (4.60-5.80) X10*6/uL Hgb 12.4 L (14.0-18.0) g/dl Hct 37.3 L (42.0-52.0) % Immature Gran % (Auto) 0.5 H (0.0-0.4) % Neut % (Auto) 88.5 H (45-73) % Lymph % (Auto) 5.2 L (20-40) % Lymph # (Auto) 1.0 L (1.2-4.9) X10*3/uL Abs Immat Gran (auto) 0.10 H (0.00-0.03) X10*3/uL Absolute Neuts (auto) 16.7 H (2.0-8.3) x10*3/uL ESR 81 H (0-15) MM/HR Sodium 134 L (135-145) mmol/L Carbon Dioxide 17 L (22-29) mmol/L Anion Gap (12-20) BUN 30 H (9-16) mg/dL POC Glucose (60-115) mg/dL Random Glucose 162 H (60-115) mg/dL Calcium 10.6 H D (8.4-10.2) mg/dL Total Bilirubin 1.8 H (0.0-1.0) mg/dL Direct Bilirubin 0.8 H (0.0-0.5) mg/dL C-Reactive Protein 34.31 H (< or = 0.50) mg/dL 02/08/23 02/09/23 02/09/23 Range/Units 18:04 04:56 04:56 WBC 17.7 H (4.8-10.8) X10*3/uL RBC 4.19 L (4.60-5.80) X10*6/uL Hgb 11.7 L (14.0-18.0) g/dl Hct 36.8 L (42.0-52.0) % Immature Gran % (Auto) (0.0-0.4) % Neut % (Auto) (45-73) % Lymph % (Auto) (20-40) % Lymph # (Auto) (1.2-4.9) X10*3/uL Abs Immat Gran (auto) (0.00-0.03) X10*3/uL Absolute Neuts (auto) (2.0-8.3) x10*3/uL ESR (0-15) MM/HR Sodium (135-145) mmol/L Carbon Dioxide 8 L* D (22-29) mmol/L Anion Gap 25 H (12-20) BUN 27 H (9-16) mg/dL POC Glucose 132 H (60-115) mg/dL Random Glucose 128 H (60-115) mg/dL Calcium (8.4-10.2) mg/dL Total Bilirubin (0.0-1.0) mg/dL Direct Bilirubin (0.0-0.5) mg/dL C-Reactive Protein (< or = 0.50) mg/dL 02/09/23 Range/Units 07:30 WBC (4.8-10.8) X10*3/uL RBC (4.60-5.80) X10*6/uL Hgb (14.0-18.0) g/dl Hct (42.0-52.0) % Immature Gran % (Auto) (0.0-0.4) % Neut % (Auto) (45-73) % Lymph % (Auto) (20-40) % Lymph # (Auto) (1.2-4.9) X10*3/uL Abs Immat Gran (auto) (0.00-0.03) X10*3/uL Absolute Neuts (auto) (2.0-8.3) x10*3/uL ESR (0-15) MM/HR Sodium (135-145) mmol/L Carbon Dioxide (22-29) mmol/L Anion Gap (12-20) BUN (9-16) mg/dL POC Glucose 123 H (60-115) mg/dL Random Glucose (60-115) mg/dL Calcium (8.4-10.2) mg/dL Total Bilirubin (0.0-1.0) mg/dL Direct Bilirubin (0.0-0.5) mg/dL C-Reactive Protein (< or = 0.50) mg/dL H & H 02/08/23 02/09/23 Range/Units 11:47 04:56 Hgb 12.4 L 11.7 L (14.0-18.0) g/dl Hct 37.3 L 36.8 L (42.0-52.0) % All other labs normal. Diagnostic results Shoulder x-ray: other (CT scan of the patient's left elbow shows diffuse edema with no obvious fluid collections, degenerative changes within the elbow joint itself, a small joint effusion) Assessment and Plan (1) Cellulitis of elbow: Status: Acute Plan Mr. Fritz is a 77-year-old ilole-merz-wkxcefjn white male who presents with left elbow diffuse swelling and redness most likely due to cellulitis and associated soft tissue edema. Based on the patient's fairly good range of motion it is unlikely that he has septic arthritis. His joint effusion is most likely due to chronic degenerative changes. At this time I will hold off on a joint aspiration in order to prevent transfer of his superficial infection into a deep infection. Continue IV antibiotics for now. I will continue to follow the patient while he is here as an inpatient. If the patient does improve on IV antibiotics he can likely be discharged to home over the next few days on oral antibiotics. The patient is encouraged to perform [id number] exercises with his elbow, wrist and fingers to reduce lymphedema. Thank you very much for asking me to see this very friendly gentleman. Time Spent With Patient Time: Total time managing care of this patient today 33 minutes. Procedures Date of Service Date of Service: 02/09/23
[2023-02-09] MEDS: Fenofibrate 160 MG TABLET PO (08:27)
[2023-02-09] MEDS: Ascorbic Acid 500 MG TABLET PO (08:27)
[2023-02-09] MEDS: Cholecalciferol (Vitamin D3) 25 MCG TABLET PO (08:27)
[2023-02-09] MEDS: Pravastatin Sodium 20 MG TABLET PO (08:27)
[2023-02-09] MEDS: 0.9 % Sodium Chloride Flush 3 ML SYRINGE IVFLUSH (08:29)
--- NOTE | 2023-02-09 09:00 | MHC.CM.PN ---
IMM DELIVERED PT LIVES ALONE (ADULT SON IS CURRENTLY STAYING WITH HIM) INDEPENDENT AT BASELINE. +HCP (PT STATES HE BELIEVES HE HAS A COPY AT HOME, WILL HAVE SON LOOK) +COVID X3 PCP DR. IYER DP: HOME, NO SERVICES ANTICIPATED. PT HAS CAR IN LOT BUT CAN GET A RIDE HOME IF NEEDED.
--- NOTE | 2023-02-09 10:45 | HO.PM.IMPN ---
Subjective Subjective Date of Service: 02/09/23 Interval History: elbow minimally improved no fever not short of breath or in any distress; takes Jardiance Review of Systems Review of Systems: Yes all other systems are reviewed and are negative Physical Exam Vital Signs: Vital Signs: Last Vital Signs Temp 97.8 F 02/09/23 08:00 Pulse 60 02/09/23 08:00 Resp 16 02/09/23 08:00 BP 124/52 L 02/09/23 08:00 Pulse Ox 96 02/09/23 08:00 O2 Del Method Room Air 02/09/23 08:00 BMI result Body Mass Index 25.5 Gen: in no acute distress HEENT: sclera anicteric, moist mucus membranes Neck: supple Lungs: clear to auscultation bilaterally Heart: regular rate and rhythm, no murmurs Abd: soft, non-tender, non-distended Ext: R 3rd toe red/swollen, L elbow red/swollen Skin: warm/well-perfused Neuro: alert and oriented x3, no focal findings Psych: appropriate affect Objective Data Active Medications Acetaminophen (Acetaminophen 325 Mg Tablet) 650 mg PO Q6H PRN PRN Reason: Pain, Mild (Pain Scale 1-3) Ascorbic Acid (Ascorbic Acid 500 Mg Tablet) 500 mg PO DAILY [facility] Last Admin: 02/09/23 08:27 Dose: 500 mg Documented By: DIPIKA Docusate Sodium (Docusate Sodium 100 Mg Capsule) 100 mg PO DAILY PRN PRN Reason: Constipation Enoxaparin Sodium (Enoxaparin Sodium 40 Mg/0.4 Ml Syringe) 40 mg SUBCUT Q24H [facility] Last Admin: 02/08/23 16:27 Dose: 40 mg Documented By: MAGUE Fenofibrate (Fenofibrate 160 Mg Tablet) 160 mg PO DAILY [facility] Last Admin: 02/09/23 08:27 Dose: 160 mg Documented By: DIPIKA Piperacillin Sod/Tazobactam (Sod 3.375 gm/ Sodium Chloride) 50 mls @ 100 mls/hr IV Q6H [facility] Last Infusion: 02/09/23 06:04 Dose: 0 mls/hr Documented By: VENLA Vancomycin HCl 750 mg/ Sodium (Chloride) 265 mls @ 265 mls/hr IV Q12H [facility] Last Infusion: 02/09/23 09:33 Dose: 0 mls/hr Documented By: CASTRONM Lisinopril (Lisinopril 10 Mg Tablet) 10 mg PO BEDTIME [facility]; Protocol Last Admin: 02/08/23 20:09 Dose: Not Given Documented By: DARRICK Non-Admin Reason: pt on low per pt he would not take med Ondansetron HCl (Ondansetron Hcl 4 Mg/2 Ml Vial) 4 mg IVPUSH Q8H PRN PRN Reason: Nausea and Vomiting Pharmacy Consult (Consult Rx Perform Med Rec) 1 each MISCELLANE ONCE PRN PRN Reason: Consult order Pharmacy Consult (Consult Rx Vancomycin Dosing) 1 each MISCELLANE DAILY PRN PRN Reason: Consult order Pravastatin Sodium (Pravastatin Sodium 20 Mg Tablet) 20 mg PO DAILY [facility] Last Admin: 02/09/23 08:27 Dose: 20 mg Documented By: DIPIKA Sodium Chloride (0.9 % Sodium Chloride Flush 3 Ml Syringe) 3 ml IVFLUSH QSHIFT [facility] Last Admin: 02/09/23 08:29 Dose: 3 ml Documented By: DIPIKA Vitamin D (Cholecalciferol (Vitamin D3) 25 Mcg Tablet) 25 mcg PO DAILY [facility] Last Admin: 02/09/23 08:27 Dose: 25 mcg Documented By: DIPIKA Labs 02/09/23 04:56 02/09/23 08:02 Labs: Laboratory Results - last 24 hr 02/08/23 02/08/23 02/08/23 11:47 11:47 11:47 MCV 84.0 MCH 27.9 MCHC 33.2 RDW 13.2 Plt Count 240 MPV 11.0 Immature Gran % (Auto) 0.5 H Neut % (Auto) 88.5 H Lymph % (Auto) 5.2 L Bonner % (Auto) 5.6 Eos % (Auto) 0.0 Baso % (Auto) 0.2 Lymph # (Auto) 1.0 L Bonner # (Auto) 1.1 Eos # (Auto) 0.0 Baso # (Auto) 0.0 Abs Immat Gran (auto) 0.10 H Absolute Neuts (auto) 16.7 H Absolute Nucleated RBC 0.000 Nucleated RBC % (auto) 0.0 ESR 81 H VBG pH VBG pCO2 VBG pO2 VBG HCO3 VBG O2 Saturation VBG Base Excess Anion Gap 19 Estim Creat Clear Calc 60.9 Estimated GFR > 60 POC Glucose Random Glucose 162 H Lactic Acid Uric Acid 5.5 Calcium 10.6 H D Total Bilirubin 1.8 H Direct Bilirubin 0.8 H AST 34 ALT 28 Alkaline Phosphatase 73 C-Reactive Protein 34.31 H Total Protein 7.5 Albumin 3.7 Beta-Hydroxybutyrate 02/08/23 02/08/23 02/09/23 11:47 18:04 04:56 MCV 87.8 MCH 27.9 MCHC 31.8 RDW 13.7 Plt Count 205 MPV 11.1 Immature Gran % (Auto) Neut % (Auto) Lymph % (Auto) Bonner % (Auto) Eos % (Auto) Baso % (Auto) Lymph # (Auto) Bonner # (Auto) Eos # (Auto) Baso # (Auto) Abs Immat Gran (auto) Absolute Neuts (auto) Absolute Nucleated RBC 0.000 Nucleated RBC % (auto) 0.0 ESR VBG pH VBG pCO2 VBG pO2 VBG HCO3 VBG O2 Saturation VBG Base Excess Anion Gap Estim Creat Clear Calc Estimated GFR POC Glucose 132 H Random Glucose Lactic Acid 2.0 Uric Acid Calcium Total Bilirubin Direct Bilirubin AST ALT Alkaline Phosphatase C-Reactive Protein Total Protein Albumin Beta-Hydroxybutyrate 02/09/23 02/09/23 02/09/23 04:56 04:56 07:30 MCV MCH MCHC RDW Plt Count MPV Immature Gran % (Auto) Neut % (Auto) Lymph % (Auto) Bonner % (Auto) Eos % (Auto) Baso % (Auto) Lymph # (Auto) Bonner # (Auto) Eos # (Auto) Baso # (Auto) Abs Immat Gran (auto) Absolute Neuts (auto) Absolute Nucleated RBC Nucleated RBC % (auto) ESR VBG pH VBG pCO2 VBG pO2 VBG HCO3 VBG O2 Saturation VBG Base Excess Anion Gap 25 H Estim Creat Clear Calc 71.4 Cancelled Estimated GFR > 60 Cancelled POC Glucose 123 H Random Glucose 128 H Lactic Acid Uric Acid Calcium 9.6 D Total Bilirubin Direct Bilirubin AST ALT Alkaline Phosphatase C-Reactive Protein Total Protein Albumin Beta-Hydroxybutyrate 02/09/23 02/09/23 02/09/23 08:02 08:02 08:02 MCV MCH MCHC RDW Plt Count MPV Immature Gran % (Auto) Neut % (Auto) Lymph % (Auto) Bonner % (Auto) Eos % (Auto) Baso % (Auto) Lymph # (Auto) Bonner # (Auto) Eos # (Auto) Baso # (Auto) Abs Immat Gran (auto) Absolute Neuts (auto) Absolute Nucleated RBC Nucleated RBC % (auto) ESR VBG pH VBG pCO2 VBG pO2 VBG HCO3 VBG O2 Saturation VBG Base Excess Anion Gap 24 H Estim Creat Clear Calc 68.6 Estimated GFR > 60 POC Glucose Random Glucose 136 H Lactic Acid 1.1 Uric Acid Calcium 10.1 Total Bilirubin Direct Bilirubin AST ALT Alkaline Phosphatase C-Reactive Protein Total Protein Albumin Beta-Hydroxybutyrate 5.82 H 02/09/23 02/09/23 08:06 10:11 MCV MCH MCHC RDW Plt Count MPV Immature Gran % (Auto) Neut % (Auto) Lymph % (Auto) Bonner % (Auto) Eos % (Auto) Baso % (Auto) Lymph # (Auto) Bonner # (Auto) Eos # (Auto) Baso # (Auto) Abs Immat Gran (auto) Absolute Neuts (auto) Absolute Nucleated RBC Nucleated RBC % (auto) ESR VBG pH 7.32 VBG pCO2 24 VBG pO2 89 VBG HCO3 12 L VBG O2 Saturation 99.0 VBG Base Excess -11.6 Anion Gap Estim Creat Clear Calc Estimated GFR POC Glucose 240 H Random Glucose Lactic Acid Uric Acid Calcium Total Bilirubin Direct Bilirubin AST ALT Alkaline Phosphatase C-Reactive Protein Total Protein Albumin Beta-Hydroxybutyrate Assessment and Plan (1) Cellulitis of elbow: Status: Acute (2) Redness and swelling of elbow: Status: Acute (3) Osteomyelitis of foot, right, acute: Status: Acute Plan d#2 77yo M with DM2, HTN, osteomyelitis of distal R 3rd phalanx diagnosed in December for which he declined IV ABX and plans for amputation by Dr Mejia presenting with L elbow redness/pain/swelling x 4 days. ? Treated empirically for gout by PCP without improvement. Concern for bursitis or subcutaneous abscess/cellulitis, less likely septic arthritis Also found to have euglycemic DKA # euglycemic DKA - will give D5LR and subcut lispro q4h, check lytes again this afternoon and in AM along with repeat VBG/BHB. d/c Jardiance # L elbow cellulitis, less likely septic arthritis - per Ortho doubt septic arthritis given good ROM, no joint aspiration for now, continue IV ABX [vanco + pip-gladys], follow BCx, ID consult pending # R 3rd toe osteomyelitis - may require inpt amputation of the R 3rd toe if the L elbow was hematogenously seeded, ID consult pending # leukocytosis - attributable to steroids given for presumed gout # DM2 - hold GPZ/MTF, Trulicity; d/c Jardiance; gus-dose lispro q4h - A1c pending # HLD - statin # HTN - lisinopril # VTE ppx: LMWH # dispo: TBD In my clinical judgment, the patient requires continued inpatient hospitalization for the following reasons: IV ABX, IV fluids, DKA Time Spent With Patient Time: Total time managing care of this patient today __55__ minutes. Quality Stroke Does the patient have a stroke diagnosis?: No VTE Prior VTE?: No VTE Risk Level:: Medical - moderate - high VTE Device Contraindication: Treatment Not Indicated VTE Drug Contraindication: N/A - Med Ordered
[2023-02-09 10:51] LABS: Appearance Urine Clear; Color Urine Yellow; Glucose Urine UA >=1000 mg/dL (Negative); Leukocyte Esterase Urine Negative (Negative); Nitrite Urine Negative (Negative); PH 5.5 (5.0-9.0); Specific Gravity - Urine >= 1.030 (1.005-1.025); UMIC TRIGGER UACC YES; Urine Blood Trace (Negative); Urine Ketones 80 mg/dL (Negative); Urine Protein 30 (1+) mg/dL (Neg-Trace)
[2023-02-09 10:59] LABS: Bacteria Urine None Seen (None Seen); Hyaline Casts Urine 0-2 /LPF (0-2); RBC Urine 0-2 /HPF (0-2); Squamous Epithelial Cell Urine 0-2 /HPF (0-2); WBC Urine 0-5 /HPF (0-5)
[2023-02-09 11:23] LABS: Glucose, Whole Blood 185 mg/dL (60-115)
[2023-02-09 11:55] LABS: Estimated Average Glucose 143 mg/dL; Hemoglobin A1c % 6.6 %
[2023-02-09] MEDS: Enoxaparin Sodium 40 MG/0.4 ML SYRINGE SUBCUT (15:09)
[2023-02-09 15:12] VITALS: BP 123/56; PULSE 77; RESP 18; TEMP 36.7; O2SAT 98
[2023-02-09 15:12] LABS: Anion Gap 21 (12-20); Blood Urea Nitrogen 27 mg/dL (9-16); Calcium 9.7 mg/dL (8.4-10.2); Carbon Dioxide 16 mmol/L (22-29); Chloride 106 mmol/L (96-108); Creatinine Clr Calc Pharmacy 64.8; Estimated Glomerular Filt Rate > 60; Glucose Random 209 mg/dL (60-115); Potassium 4.8 mmol/L (3.3-5.1); Sodium 138 mmol/L (135-145)
--- NOTE | 2023-02-09 15:35 | W.PM.IDCN ---
History of Present Illness Data of Consult Service Date: 02/09/23 Requesting physician: Amy Giles Primary Care Provider: Zeus Bartlett MD HPI Reason for consult: left elbow redness ,swelling He presents with left elbow redness and swelling and inability to bend over sixty degrees. He had redness since 02/05. He did have no injury. He called PCP,Dr Bartlett, who prescribed prednisone taper (Medrol dose pack) on 02/07 and saw him next day and referred him to ER. He only took one day dosing steroids and wasnt better yet. CT scan shows possible septic arthritis and fluid in joint and muscle bodies surrounding joint. He also has chronic infection right third toe and is supposed to see Dr Mejia about amputation of it this week. He has no fever or chills. Review of Systems Review of Systems: Yes all other systems are reviewed and are negative [facility] Past Medical History Medical History (Updated 02/09/23 @ 15:47 by Marimar Perez MD) Asthma Diabetes HTN (hypertension) Osteomyelitis of foot, right, acute Redness and swelling of elbow Septic arthritis Family History Family history: reviewed and not pertinent Surgical History Surgical History History of back surgery History of excision of pilonidal cyst Hx of colonoscopy Hx of hernia repair Hx of tonsillectomy Social History Social History Household Members: None Housing: House Alcohol intake: current Alcohol intake frequency: holidays/special occasions only Patient Tobacco Use Status: Former Tobacco user Quit Date: 20 years ago Smoked in Last 30 Days: No Patient Interested in Nicotine Replacement: No Patient Given Instructions on How to Stop Smoking: No Second Hand Smoke Exposure: No Use of substances other than those prescribed or required for medical reasons: No Currently Displaying Signs/Symptoms of Drug Intoxication Withdrawal: No Any prior treatment program specific to substance use: No Have you been hit, kicked, punched, or otherwise hurt by someone within the past year? If so, by whom?: No Do you feel safe in your current relationship?: Yes Is there a partner from a previous relationship who is making you feel unsafe now?: No Advance Directives: No Advance Directives Information Provided: No (Declined) Advance Directives on File: No Do you have thoughts of harming others: None Do you have a plan to hurt others: No Plan Recently lost weight without trying: No How much weight loss: Not applicable Eating poorly because of decreased appetite: No Nutrition screen score: 0 Nutrition Risks: No Nutritional Risk Poor oral hygiene: No service: No Meds Allergies Allergy/AdvReac Type Severity Reaction Status Date / Time ENVIROMENTAL Allergy Unknown SNEEZING, Uncoded 02/08/23 10:36 ITCHY EYES Active Medications: Current Medications Acetaminophen (Acetaminophen 325 Mg Tablet) 650 mg PO Q6H PRN PRN Reason: Pain, Mild (Pain Scale 1-3) Ascorbic Acid (Ascorbic Acid 500 Mg Tablet) 500 mg PO DAILY [facility] Last Admin: 02/09/23 08:27 Dose: 500 mg Dextrose (Dextrose 50 % 25 Gm/50 Ml Syringe) 25 gm IVPUSH Q15M PRN; Protocol PRN Reason: per Hypoglycemia Standing Ord. Docusate Sodium (Docusate Sodium 100 Mg Capsule) 100 mg PO DAILY PRN PRN Reason: Constipation Enoxaparin Sodium (Enoxaparin Sodium 40 Mg/0.4 Ml Syringe) 40 mg SUBCUT Q24H [facility] Last Admin: 02/09/23 15:09 Dose: 40 mg Fenofibrate (Fenofibrate 160 Mg Tablet) 160 mg PO DAILY [facility] Last Admin: 02/09/23 08:27 Dose: 160 mg Glucose (Glucose Gel 15 Gm Gel..Gram.) 15 gm PO Q15M PRN; Protocol PRN Reason: per Hypoglycemia Standing Ord. Piperacillin Sod/Tazobactam (Sod 3.375 gm/ Sodium Chloride) 50 mls @ 100 mls/hr IV Q6H [facility] Last Infusion: 02/09/23 12:16 Dose: Infused Vancomycin HCl 750 mg/ Sodium (Chloride) 265 mls @ 265 mls/hr IV Q12H [facility] Last Infusion: 02/09/23 09:33 Dose: Infused Dextrose/Lactated Ringer's (D5lr) 1,000 mls @ 125 mls/hr IVCONT .Q8H [facility] Last Admin: 02/09/23 11:41 Dose: 125 mls/hr Insulin Human Lispro (Insulin Lispro 100 Unit/Ml 3 Ml Vial) 0 unit SUBCUT Q4H [facility]; Protocol Last Admin: 02/09/23 15:09 Dose: 6 unit Lisinopril (Lisinopril 10 Mg Tablet) 10 mg PO BEDTIME [facility]; Protocol Last Admin: 02/08/23 20:09 Dose: Not Given Ondansetron HCl (Ondansetron Hcl 4 Mg/2 Ml Vial) 4 mg IVPUSH Q8H PRN PRN Reason: Nausea and Vomiting Pharmacy Consult (Consult Rx Perform Med Rec) 1 each MISCELLANE ONCE PRN PRN Reason: Consult order Pharmacy Consult (Consult Rx Vancomycin Dosing) 1 each MISCELLANE DAILY PRN PRN Reason: Consult order Pravastatin Sodium (Pravastatin Sodium 20 Mg Tablet) 20 mg PO DAILY [facility] Last Admin: 02/09/23 08:27 Dose: 20 mg Sodium Chloride (0.9 % Sodium Chloride Flush 3 Ml Syringe) 3 ml IVFLUSH QSHIFT [facility] Last Admin: 02/09/23 14:30 Dose: Not Given Vitamin D (Cholecalciferol (Vitamin D3) 25 Mcg Tablet) 25 mcg PO DAILY [facility] Last Admin: 02/09/23 08:27 Dose: 25 mcg Home Medications Medication Instructions Recorded Confirmed Last Taken Type dulaglutide 1.5 mg/0.5 mL 0.5 mg subcut WE@0900 08/17/22 02/08/23 02/07/23 History subcutaneous pen injector (Trulicity) empagliflozin 25 mg tablet 1 tab PO DAILY 08/17/22 02/08/23 02/04/23 History (Jardiance) fenofibrate 160 mg tablet 1 tab PO DAILY 08/17/22 02/08/23 02/04/23 History glipizide 5 mg-metformin 500 mg 2 tab PO BID 08/17/22 02/08/23 02/04/23 History tablet insulin glargine 100 unit/mL (3 38 unit subcut BEDTIME 08/17/22 02/08/23 02/07/23 History mL) subcutaneous pen (Basaglar KwikPen U-100 Insulin) lisinopril 10 mg tablet 1 tab PO BEDTIME 08/17/22 02/08/23 02/04/23 History pravastatin 20 mg tablet 1 tab PO DAILY 08/17/22 02/08/23 02/04/23 History cholecalciferol (vitamin D3) 25 25 mcg PO DAILY 01/15/23 02/08/23 02/04/23 History mcg (1,000 unit) capsule ascorbic acid (vitamin C) 500 mg 500 mg PO DAILY 02/08/23 02/08/23 02/04/23 History tablet (Vitamin C) prednisone 20 mg tablet 20 mg PO DAILY 02/08/23 02/08/23 02/07/23 History Physical Exam Vital Signs: Vital Signs: Last Vital Signs Temp 98.0 F 02/09/23 15:12 Pulse 77 02/09/23 15:12 Resp 18 02/09/23 15:12 BP 123/56 L 02/09/23 15:12 Pulse Ox 98 02/09/23 15:12 O2 Del Method Room Air 02/09/23 15:12 BMI result Body Mass Index 25.5 Const: General: cooperative HEENT: Head: Yes normal to inspection Face and sinus: Yes normal facial exam Mouth: Normal oral and palatal mucosa present Teeth and gingiva: dentition normal Eyes: General: appearance normal, both eyes and all related structures Pupils: Equal, round and reactive pupils present Resp: Effort & Inspection: normal respiratory effort Cardio: Rate: regular rate Rhythm: regular rhythm GI: Palpation (GI): Soft to palpation and nontender : General: Yes no CVA tenderness Back/Spine/Pelvis: Back: no CVA tenderness Skin: General skin exam: no rashes or lesions noted Neuro: General: moves all extremities Cranial nerves: Yes Equal, round and reactive pupils present Extrem: Other: left elbow swollen,red and inner left forearm swollen,thickened,reddened,trouble bending right great toe swollen and red Psych: Appearance: grossly normal Results Labs 02/09/23 04:56 02/09/23 14:45 Labs: Short CBC 02/09/23 Range/Units 04:56 WBC 17.7 H (4.8-10.8) X10*3/uL Hgb 11.7 L (14.0-18.0) g/dl Hct 36.8 L (42.0-52.0) % Plt Count 205 (160-400) X10*3/uL BMP 02/09/23 02/09/23 02/09/23 04:56 04:56 08:02 Sodium 136 138 Potassium 4.8 4.4 Chloride 108 106 Carbon Dioxide 8 L* D 12 L BUN 27 H 28 H Creatinine 0.98 Cancelled 1.02 Calcium 9.6 D 10.1 02/09/23 14:45 Sodium 138 Potassium 4.8 Chloride 106 Carbon Dioxide 16 L BUN 27 H Creatinine 1.08 Calcium 9.7 Urine 02/09/23 Range/Units 10:30 Urine Color Yellow Urine Appearance Clear Urine pH 5.5 (5.0-9.0) Ur Specific [place] >= 1.030 H (1.005-1.025) Urine Protein 30 (1+) H (Neg-Trace) mg/dL Urine Glucose (UA) >=1000 H (Negative) mg/dL Microbiology Microbiology Results: Microbiology 02/08/23 12:27 Blood - Venous Blood Culture - Preliminary No growth after 24 hours. 02/08/23 11:47 Blood - Venous Blood Culture - Preliminary No growth after 24 hours. Assessment and Plan (1) Cellulitis of elbow: Status: Acute (2) Redness and swelling of elbow: Status: Acute (3) Osteomyelitis of foot, right, acute: Status: Acute (4) Septic arthritis: Status: Acute He seems to have septic arthritis left elbow. He may have strep or staph aureus or gram negative organism. Since there appear to be fluid pockets in muscle and elbow joint it would be very helpful to aspirate fluid from joint and/or muscle bodies where fluid is. Continue Zosyn and Vancomycin for now and await blood cultures. Hopefully IR can drain and culture fluid on Sunday, 02/12. There may be spread from occult bacteremia due to right third toe and hopefully this can be removed maliha. Time Spent With Patient Time: Total time managing care of this patient today ____ minutes.
[2023-02-09 17:28] LABS: Source Synovial Fluid elbow
[2023-02-09 19:09] VITALS: BP 128/56; PULSE 78; RESP 18; TEMP 37.2; O2SAT 99
[2023-02-09 19:23] LABS: MN% 52.2 %; PMN% 47.8 %; RBC Synovial Fluid 0.017 X10*6/uL; WBC Synovial Fluid 0.193 X10*3/uL
[2023-02-09] MEDS: lisinopriL 10 MG TABLET PO (20:31)
[2023-02-09 21:41] LABS: BF Shift QC OK YES; Lymphocytes Synovial Fluid 6 %; Monocytes Synovial Fluid 18 %; Neutrophils Synovial Fluid 76 %
[2023-02-10 03:11] VITALS: BP 99/56; PULSE 74; RESP 18; TEMP 36.4; O2SAT 99
--- NOTE | 2023-02-10 07:27 | HE.PHANOTE ---
vancomycin addendum Insight program down, adjusted to 1 gram q 12 hours based on trough of 8.8
[2023-02-10 08:00] VITALS: BP 94/50; PULSE 70; RESP 17; TEMP 36.4; O2SAT 95
[2023-02-10] MEDS: 0.9 % Sodium Chloride Flush 3 ML SYRINGE IVFLUSH (08:10)
[2023-02-10] MEDS: Fenofibrate 160 MG TABLET PO (08:10)
[2023-02-10] MEDS: Ascorbic Acid 500 MG TABLET PO (08:10)
[2023-02-10] MEDS: Pravastatin Sodium 20 MG TABLET PO (08:10)
[2023-02-10] MEDS: Cholecalciferol (Vitamin D3) 25 MCG TABLET PO (08:10)
--- NOTE | 2023-02-10 08:17 | PM.CNGS ---
History of Present Illness Consult details Consult date: 02/10/23 Reason for consult: other (Osteomyelitis) Narrative: The patient is a 77-year-old gentleman with a history of type 2 diabetes, most recent hemoglobin A1c 6.6 who is known to Dr[address] Mejia for a right foot, 3rd toe osteomyelitis, however the patient developed left elbow swelling and pain concerning for septic arthritis and he was abdomen and to the hospital. Patient has been seen by Ortho who did not believe this is a septic joint and recommended antibiotics for cellulitis. Left upper extremity management is deferred to Orthopedics. The patient notes that his left upper extremity feels about the same as on admission. He denies any paresthesias Review of Systems Review of Systems: Yes all other systems are reviewed and are negative Constitutional: Constitutional: Reports as per [facility] Past Medical History Medical History (Updated 02/10/23 @ 09:14 by Les Lang MD) Asthma Diabetes HTN (hypertension) Osteomyelitis of foot, right, acute Redness and swelling of elbow Septic arthritis Family History Family history: reviewed and not pertinent Surgical History Surgical History History of back surgery History of excision of pilonidal cyst Hx of colonoscopy Hx of hernia repair Hx of tonsillectomy Social History Social History Household Members: None Housing: House Alcohol intake: current Alcohol intake frequency: holidays/special occasions only Patient Tobacco Use Status: Former Tobacco user Quit Date: 20 years ago Smoked in Last 30 Days: No Patient Interested in Nicotine Replacement: No Patient Given Instructions on How to Stop Smoking: No Second Hand Smoke Exposure: No Use of substances other than those prescribed or required for medical reasons: No Currently Displaying Signs/Symptoms of Drug Intoxication Withdrawal: No Any prior treatment program specific to substance use: No Have you been hit, kicked, punched, or otherwise hurt by someone within the past year? If so, by whom?: No Do you feel safe in your current relationship?: Yes Is there a partner from a previous relationship who is making you feel unsafe now?: No Advance Directives: No Advance Directives Information Provided: No (Declined) Advance Directives on File: No Do you have thoughts of harming others: None Do you have a plan to hurt others: No Plan Recently lost weight without trying: No How much weight loss: Not applicable Eating poorly because of decreased appetite: No Nutrition screen score: 0 Nutrition Risks: No Nutritional Risk Poor oral hygiene: No service: No Meds Allergies Allergy/AdvReac Type Severity Reaction Status Date / Time ENVIROMENTAL Allergy Unknown SNEEZING, Uncoded 02/08/23 10:36 ITCHY EYES Active Medications: Current Medications Acetaminophen (Acetaminophen 325 Mg Tablet) 650 mg PO Q6H PRN PRN Reason: Pain, Mild (Pain Scale 1-3) Ascorbic Acid (Ascorbic Acid 500 Mg Tablet) 500 mg PO DAILY [facility] Last Admin: 02/10/23 08:10 Dose: 500 mg Dextrose (Dextrose 50 % 25 Gm/50 Ml Syringe) 25 gm IVPUSH Q15M PRN; Protocol PRN Reason: per Hypoglycemia Standing Ord. Docusate Sodium (Docusate Sodium 100 Mg Capsule) 100 mg PO DAILY PRN PRN Reason: Constipation Enoxaparin Sodium (Enoxaparin Sodium 40 Mg/0.4 Ml Syringe) 40 mg SUBCUT Q24H [facility] Last Admin: 02/09/23 15:09 Dose: 40 mg Fenofibrate (Fenofibrate 160 Mg Tablet) 160 mg PO DAILY [facility] Last Admin: 02/10/23 08:10 Dose: 160 mg Glucose (Glucose Gel 15 Gm Gel..Gram.) 15 gm PO Q15M PRN; Protocol PRN Reason: per Hypoglycemia Standing Ord. Piperacillin Sod/Tazobactam (Sod 3.375 gm/ Sodium Chloride) 50 mls @ 100 mls/hr IV Q6H [facility] Last Infusion: 02/10/23 07:16 Dose: Infused Dextrose/Lactated Ringer's (D5lr) 1,000 mls @ 125 mls/hr IVCONT .Q8H [facility] Last Infusion: 02/10/23 07:34 Dose: Infused Vancomycin HCl 1,000 mg/ (Sodium Chloride) 270 mls @ 270 mls/hr IV Q12H [facility] Last Admin: 02/10/23 08:11 Dose: 270 mls/hr Insulin Human Lispro (Insulin Lispro 100 Unit/Ml 3 Ml Vial) 0 unit SUBCUT Q4H [facility]; Protocol Last Admin: 02/10/23 06:34 Dose: 2 unit Lisinopril (Lisinopril 10 Mg Tablet) 10 mg PO BEDTIME [facility]; Protocol Last Admin: 02/09/23 20:31 Dose: 10 mg Ondansetron HCl (Ondansetron Hcl 4 Mg/2 Ml Vial) 4 mg IVPUSH Q8H PRN PRN Reason: Nausea and Vomiting Pharmacy Consult (Consult Rx Perform Med Rec) 1 each MISCELLANE ONCE PRN PRN Reason: Consult order Pharmacy Consult (Consult Rx Vancomycin Dosing) 1 each MISCELLANE DAILY PRN PRN Reason: Consult order Pravastatin Sodium (Pravastatin Sodium 20 Mg Tablet) 20 mg PO DAILY [facility] Last Admin: 02/10/23 08:10 Dose: 20 mg Sodium Chloride (0.9 % Sodium Chloride Flush 3 Ml Syringe) 3 ml IVFLUSH QSHIFT [facility] Last Admin: 02/10/23 08:10 Dose: 3 ml Vitamin D (Cholecalciferol (Vitamin D3) 25 Mcg Tablet) 25 mcg PO DAILY [facility] Last Admin: 02/10/23 08:10 Dose: 25 mcg Home Medications Medication Instructions Recorded Confirmed Last Taken Type dulaglutide 1.5 mg/0.5 mL 0.5 mg subcut WE@0900 08/17/22 02/08/23 02/07/23 History subcutaneous pen injector (Trulicity) empagliflozin 25 mg tablet 1 tab PO DAILY 08/17/22 02/08/23 02/04/23 History (Jardiance) fenofibrate 160 mg tablet 1 tab PO DAILY 08/17/22 02/08/23 02/04/23 History glipizide 5 mg-metformin 500 mg 2 tab PO BID 08/17/22 02/08/23 02/04/23 History tablet insulin glargine 100 unit/mL (3 38 unit subcut BEDTIME 08/17/22 02/08/23 02/07/23 History mL) subcutaneous pen (Basaglar KwikPen U-100 Insulin) lisinopril 10 mg tablet 1 tab PO BEDTIME 08/17/22 02/08/23 02/04/23 History pravastatin 20 mg tablet 1 tab PO DAILY 08/17/22 02/08/23 02/04/23 History cholecalciferol (vitamin D3) 25 25 mcg PO DAILY 01/15/23 02/08/23 02/04/23 History mcg (1,000 unit) capsule ascorbic acid (vitamin C) 500 mg 500 mg PO DAILY 0702/08/23 02/04/23 History tablet (Vitamin C) prednisone 20 mg tablet 20 mg PO DAILY 02/08/23 02/08/23 02/07/23 History Physical Exam Vital Signs: Vital Signs: Last Vital Signs Temp 97.6 F 02/10/23 08:00 Pulse 70 02/10/23 08:00 Resp 17 02/10/23 08:00 BP 94/50 L 02/10/23 08:00 Pulse Ox 95 02/10/23 08:00 O2 Del Method Room Air 02/10/23 08:00 BMI result Body Mass Index 25.5 On exam, the patient is nontoxic Sclera anicteric He is in no acute respiratory distress His left upper extremity is wrapped and has a decreased range of motion secondary to pain. 1-2 + hand swelling is noted but pulses are intact. Right foot dressing is clean, dry and intact Results Labs 02/10/23 05:48 02/10/23 05:48 Labs: Abnormal lab results 02/09/23 02/09/23 02/09/23 Range/Units 08:02 08:02 10:11 WBC (4.8-10.8) X10*3/uL RBC (4.60-5.80) X10*6/uL Hgb (14.0-18.0) g/dl Hct (42.0-52.0) % VBG HCO3 (22-26) mmol/L Carbon Dioxide 12 L (22-29) mmol/L Anion Gap 24 H (12-20) BUN 28 H (9-16) mg/dL POC Glucose 240 H (60-115) mg/dL Random Glucose 136 H (60-115) mg/dL Beta-Hydroxybutyrate 5.82 H (0.02-0.27) mmol/L Ur Specific [place] (1.005-1.025) Urine Protein (Neg-Trace) mg/dL Urine Glucose (UA) (Negative) mg/dL Urine Blood (Negative) Vancomycin Trough (10.0-20.0) mcg/mL 02/09/23 02/09/23 02/09/23 Range/Units 10:30 11:19 14:45 WBC (4.8-10.8) X10*3/uL RBC (4.60-5.80) X10*6/uL Hgb (14.0-18.0) g/dl Hct (42.0-52.0) % VBG HCO3 (22-26) mmol/L Carbon Dioxide 16 L (22-29) mmol/L Anion Gap 21 H (12-20) BUN 27 H (9-16) mg/dL POC Glucose 185 H (60-115) mg/dL Random Glucose 209 H (60-115) mg/dL Beta-Hydroxybutyrate (0.02-0.27) mmol/L Ur Specific [place] >= 1.030 H (1.005-1.025) Urine Protein 30 (1+) H (Neg-Trace) mg/dL Urine Glucose (UA) >=1000 H (Negative) mg/dL Urine Blood Trace H (Negative) Vancomycin Trough (10.0-20.0) mcg/mL 02/09/23 02/09/23 02/09/23 Range/Units 15:04 18:32 23:00 WBC (4.8-10.8) X10*3/uL RBC (4.60-5.80) X10*6/uL Hgb (14.0-18.0) g/dl Hct (42.0-52.0) % VBG HCO3 (22-26) mmol/L Carbon Dioxide (22-29) mmol/L Anion Gap (12-20) BUN (9-16) mg/dL POC Glucose 213 H 171 H 171 H (60-115) mg/dL Random Glucose (60-115) mg/dL Beta-Hydroxybutyrate (0.02-0.27) mmol/L Ur Specific [place] (1.005-1.025) Urine Protein (Neg-Trace) mg/dL Urine Glucose (UA) (Negative) mg/dL Urine Blood (Negative) Vancomycin Trough (10.0-20.0) mcg/mL 02/10/23 02/10/23 02/10/23 Range/Units 03:17 05:48 05:48 WBC 17.2 H (4.8-10.8) X10*3/uL RBC 3.88 L (4.60-5.80) X10*6/uL Hgb 10.7 L (14.0-18.0) g/dl Hct 33.4 L (42.0-52.0) % VBG HCO3 (22-26) mmol/L Carbon Dioxide (22-29) mmol/L Anion Gap (12-20) BUN (9-16) mg/dL POC Glucose 176 H (60-115) mg/dL Random Glucose (60-115) mg/dL Beta-Hydroxybutyrate (0.02-0.27) mmol/L Ur Specific [place] (1.005-1.025) Urine Protein (Neg-Trace) mg/dL Urine Glucose (UA) (Negative) mg/dL Urine Blood (Negative) Vancomycin Trough 8.8 L (10.0-20.0) mcg/mL 02/10/23 02/10/23 02/10/23 Range/Units 05:48 05:48 05:52 WBC (4.8-10.8) X10*3/uL RBC (4.60-5.80) X10*6/uL Hgb (14.0-18.0) g/dl Hct (42.0-52.0) % VBG HCO3 20 L (22-26) mmol/L Carbon Dioxide 19 L (22-29) mmol/L Anion Gap (12-20) BUN 22 H (9-16) mg/dL POC Glucose (60-115) mg/dL Random Glucose 139 H (60-115) mg/dL Beta-Hydroxybutyrate 3.26 H (0.02-0.27) mmol/L Ur Specific [place] (1.005-1.025) Urine Protein (Neg-Trace) mg/dL Urine Glucose (UA) (Negative) mg/dL Urine Blood (Negative) Vancomycin Trough (10.0-20.0) mcg/mL 02/10/23 Range/Units 06:30 WBC (4.8-10.8) X10*3/uL RBC (4.60-5.80) X10*6/uL Hgb (14.0-18.0) g/dl Hct (42.0-52.0) % VBG HCO3 (22-26) mmol/L Carbon Dioxide (22-29) mmol/L Anion Gap (12-20) BUN (9-16) mg/dL POC Glucose 136 H (60-115) mg/dL Random Glucose (60-115) mg/dL Beta-Hydroxybutyrate (0.02-0.27) mmol/L Ur Specific [place] (1.005-1.025) Urine Protein (Neg-Trace) mg/dL Urine Glucose (UA) (Negative) mg/dL Urine Blood (Negative) Vancomycin Trough (10.0-20.0) mcg/mL Short CBC 02/10/23 Range/Units 05:48 WBC 17.2 H (4.8-10.8) X10*3/uL Hgb 10.7 L (14.0-18.0) g/dl Hct 33.4 L (42.0-52.0) % Plt Count 266 D (160-400) X10*3/uL BMP 02/09/23 02/09/23 02/10/23 08:02 14:45 05:48 Sodium 138 138 141 Potassium 4.4 4.8 4.2 Chloride 106 106 108 Carbon Dioxide 12 L 16 L 19 L BUN 28 H 27 H 22 H Creatinine 1.02 1.08 1.00 Calcium 10.1 9.7 9.6 Urine 02/09/23 Range/Units 10:30 Urine Color Yellow Urine Appearance Clear Urine pH 5.5 (5.0-9.0) Ur Specific [place] >= 1.030 H (1.005-1.025) Urine Protein 30 (1+) H (Neg-Trace) mg/dL Urine Glucose (UA) >=1000 H (Negative) mg/dL All other labs normal. Imaging Additional studies: Right foot MRI demonstrating osteo is reviewed Left upper extremity imaging reports are reviewed Assessment and Plan (1) Cellulitis of elbow: Status: Acute (2) Osteomyelitis of foot, right, acute: Status: Acute Plan Left upper extremity cellulitis: Continue IV antibiotics. If questions persist, please contact Ortho Right foot, 3rd toe osteomyelitis: This is stable at this time, continue daily dressing changes. Dr. Mejia will return February 12. Time Spent With Patient Time: Total time managing care of this patient today ____ minutes. Procedures Date of Service Date of Service: 02/10/23
--- NOTE | 2023-02-10 09:15 | HO.PM.IMPN ---
Subjective Subjective Date of Service: 02/10/23 Interval History: IR aspirated elbow yesterday- 4 mL fluid aspirated from loculated fluid collection adjacent to triceps tendon/muscle; no significant fluid in elbow elbow less swollen/red today no fever Review of Systems Review of Systems: Yes all other systems are reviewed and are negative Physical Exam Vital Signs: Vital Signs: Last Vital Signs Temp 97.6 F 02/10/23 08:00 Pulse 70 02/10/23 08:00 Resp 17 02/10/23 08:00 BP 94/50 L 02/10/23 08:00 Pulse Ox 95 02/10/23 08:00 O2 Del Method Room Air 02/10/23 08:00 BMI result Body Mass Index 25.5 Gen: in no acute distress HEENT: sclera anicteric, moist mucus membranes Neck: supple Lungs: clear to auscultation bilaterally Heart: regular rate and rhythm, no murmurs Abd: soft, non-tender, non-distended Ext: R 3rd toe red/swollen, L elbow red/swollen but improved from yesterday Skin: warm/well-perfused Neuro: alert and oriented x3, no focal findings Psych: appropriate affect Objective Data Active Medications Acetaminophen (Acetaminophen 325 Mg Tablet) 650 mg PO Q6H PRN PRN Reason: Pain, Mild (Pain Scale 1-3) Ascorbic Acid (Ascorbic Acid 500 Mg Tablet) 500 mg PO DAILY ON LICENSE OF [facility] Last Admin: 02/10/23 08:10 Dose: 500 mg Documented By: TAMIA Dextrose (Dextrose 50 % 25 Gm/50 Ml Syringe) 25 gm IVPUSH Q15M PRN; Protocol PRN Reason: per Hypoglycemia Standing Ord. Docusate Sodium (Docusate Sodium 100 Mg Capsule) 100 mg PO DAILY PRN PRN Reason: Constipation Enoxaparin Sodium (Enoxaparin Sodium 40 Mg/0.4 Ml Syringe) 40 mg SUBCUT Q24H ON LICENSE OF [facility] Last Admin: 02/09/23 15:09 Dose: 40 mg Documented By: COTEMA Fenofibrate (Fenofibrate 160 Mg Tablet) 160 mg PO DAILY ON LICENSE OF [facility] Last Admin: 02/10/23 08:10 Dose: 160 mg Documented By: TAMIA Glucose (Glucose Gel 15 Gm Gel..Gram.) 15 gm PO Q15M PRN; Protocol PRN Reason: per Hypoglycemia Standing Ord. Piperacillin Sod/Tazobactam (Sod 3.375 gm/ Sodium Chloride) 50 mls @ 100 mls/hr IV Q6H ON LICENSE OF [facility] Last Infusion: 02/10/23 07:16 Dose: 0 mls/hr Documented By: TAMIA Dextrose/Lactated Ringer's (D5lr) 1,000 mls @ 125 mls/hr IVCONT .Q8H ON LICENSE OF [facility] Last Infusion: 02/10/23 07:34 Dose: 0 mls/hr Documented By: TAMIA Vancomycin HCl 1,000 mg/ (Sodium Chloride) 270 mls @ 270 mls/hr IV Q12H ON LICENSE OF [facility] Last Admin: 02/10/23 08:11 Dose: 270 mls/hr Documented By: TAMIA Insulin Human Lispro (Insulin Lispro 100 Unit/Ml 3 Ml Vial) 0 unit SUBCUT Q4H ON LICENSE OF [facility]; Protocol Last Admin: 02/10/23 06:34 Dose: 2 unit Documented By: RADHA Lisinopril (Lisinopril 10 Mg Tablet) 10 mg PO BEDTIME ON LICENSE OF [facility]; Protocol Last Admin: 02/09/23 20:31 Dose: 10 mg Documented By: RADHA Ondansetron HCl (Ondansetron Hcl 4 Mg/2 Ml Vial) 4 mg IVPUSH Q8H PRN PRN Reason: Nausea and Vomiting Pharmacy Consult (Consult Rx Perform Med Rec) 1 each MISCELLANE ONCE PRN PRN Reason: Consult order Pharmacy Consult (Consult Rx Vancomycin Dosing) 1 each MISCELLANE DAILY PRN PRN Reason: Consult order Pravastatin Sodium (Pravastatin Sodium 20 Mg Tablet) 20 mg PO DAILY ON LICENSE OF [facility] Last Admin: 02/10/23 08:10 Dose: 20 mg Documented By: TAMIA Sodium Chloride (0.9 % Sodium Chloride Flush 3 Ml Syringe) 3 ml IVFLUSH QSHIFT ON LICENSE OF [facility] Last Admin: 02/10/23 08:10 Dose: 3 ml Documented By: TAMIA Vitamin D (Cholecalciferol (Vitamin D3) 25 Mcg Tablet) 25 mcg PO DAILY ON LICENSE OF [facility] Last Admin: 02/10/23 08:10 Dose: 25 mcg Documented By: TAMIA Labs 02/10/23 05:48 02/10/23 05:48 Labs: Laboratory Results - last 24 hr 02/09/23 02/09/23 02/09/23 04:56 04:56 08:02 MCV MCH MCHC RDW Plt Count MPV Absolute Nucleated RBC Nucleated RBC % (auto) VBG pH VBG pCO2 VBG pO2 VBG HCO3 VBG O2 Saturation VBG Base Excess Anion Gap Estim Creat Clear Calc Estimated GFR POC Glucose Random Glucose Estimat Average Glucose 143 Hemoglobin A1c % 6.6 Calcium Phosphorus Cancelled 3.6 Magnesium Cancelled 2.2 Beta-Hydroxybutyrate Urine Color Urine Appearance Urine pH Ur Specific [place] Urine Protein Urine Glucose (UA) Urine Ketones Urine Blood Urine Nitrite Ur Leukocyte Esterase Urine RBC Urine WBC Ur Squamous Epith Cells Urine Bacteria Hyaline Casts Synovial Source Synovial WBC Synovial RBC Synovial Neutrophils Synovial Lymphocytes Synovial Monocytes Vancomycin Trough 02/09/23 02/09/23 02/09/23 10:11 10:30 11:19 MCV MCH MCHC RDW Plt Count MPV Absolute Nucleated RBC Nucleated RBC % (auto) VBG pH VBG pCO2 VBG pO2 VBG HCO3 VBG O2 Saturation VBG Base Excess Anion Gap Estim Creat Clear Calc Estimated GFR POC Glucose 240 H 185 H Random Glucose Estimat Average Glucose Hemoglobin A1c % Calcium Phosphorus Magnesium Beta-Hydroxybutyrate Urine Color Yellow Urine Appearance Clear Urine pH 5.5 Ur Specific [place] >= 1.030 H Urine Protein 30 (1+) H Urine Glucose (UA) >=1000 H Urine Ketones 80 Urine Blood Trace H Urine Nitrite Negative Ur Leukocyte Esterase Negative Urine RBC 0-2 Urine WBC 0-5 Ur Squamous Epith Cells 0-2 Urine Bacteria None Seen Hyaline Casts 0-2 Synovial Source Synovial WBC Synovial RBC Synovial Neutrophils Synovial Lymphocytes Synovial Monocytes Vancomycin Trough 02/09/23 02/09/23 02/09/23 14:45 15:04 16:30 MCV MCH MCHC RDW Plt Count MPV Absolute Nucleated RBC Nucleated RBC % (auto) VBG pH VBG pCO2 VBG pO2 VBG HCO3 VBG O2 Saturation VBG Base Excess Anion Gap 21 H Estim Creat Clear Calc 64.8 Estimated GFR > 60 POC Glucose 213 H Random Glucose 209 H Estimat Average Glucose Hemoglobin A1c % Calcium 9.7 Phosphorus Magnesium Beta-Hydroxybutyrate Urine Color Urine Appearance Urine pH Ur Specific [place] Urine Protein Urine Glucose (UA) Urine Ketones Urine Blood Urine Nitrite Ur Leukocyte Esterase Urine RBC Urine WBC Ur Squamous Epith Cells Urine Bacteria Hyaline Casts Synovial Source elbow Synovial WBC 0.193 Synovial RBC 0.017 Synovial Neutrophils 76 Synovial Lymphocytes 6 Synovial Monocytes 18 Vancomycin Trough 02/09/23 02/09/23 02/10/23 18:32 23:00 03:17 MCV MCH MCHC RDW Plt Count MPV Absolute Nucleated RBC Nucleated RBC % (auto) VBG pH VBG pCO2 VBG pO2 VBG HCO3 VBG O2 Saturation VBG Base Excess Anion Gap Estim Creat Clear Calc Estimated GFR POC Glucose 171 H 171 H 176 H Random Glucose Estimat Average Glucose Hemoglobin A1c % Calcium Phosphorus Magnesium Beta-Hydroxybutyrate Urine Color Urine Appearance Urine pH Ur Specific [place] Urine Protein Urine Glucose (UA) Urine Ketones Urine Blood Urine Nitrite Ur Leukocyte Esterase Urine RBC Urine WBC Ur Squamous Epith Cells Urine Bacteria Hyaline Casts Synovial Source Synovial WBC Synovial RBC Synovial Neutrophils Synovial Lymphocytes Synovial Monocytes Vancomycin Trough 02/10/23 02/10/23 02/10/23 05:48 05:48 05:48 MCV 86.1 MCH 27.6 MCHC 32.0 RDW 13.9 Plt Count 266 D MPV 10.8 Absolute Nucleated RBC 0.000 Nucleated RBC % (auto) 0.0 VBG pH VBG pCO2 VBG pO2 VBG HCO3 VBG O2 Saturation VBG Base Excess Anion Gap 18 Estim Creat Clear Calc 70.0 Estimated GFR > 60 POC Glucose Random Glucose 139 H Estimat Average Glucose Hemoglobin A1c % Calcium 9.6 Phosphorus Magnesium Beta-Hydroxybutyrate Urine Color Urine Appearance Urine pH Ur Specific [place] Urine Protein Urine Glucose (UA) Urine Ketones Urine Blood Urine Nitrite Ur Leukocyte Esterase Urine RBC Urine WBC Ur Squamous Epith Cells Urine Bacteria Hyaline Casts Synovial Source Synovial WBC Synovial RBC Synovial Neutrophils Synovial Lymphocytes Synovial Monocytes Vancomycin Trough 8.8 L 02/10/23 02/10/23 02/10/23 05:48 05:52 06:30 MCV MCH MCHC RDW Plt Count MPV Absolute Nucleated RBC Nucleated RBC % (auto) VBG pH 7.36 VBG pCO2 35 VBG pO2 62 VBG HCO3 20 L VBG O2 Saturation 89.0 VBG Base Excess -4.3 Anion Gap Estim Creat Clear Calc Estimated GFR POC Glucose 136 H Random Glucose Estimat Average Glucose Hemoglobin A1c % Calcium Phosphorus Magnesium Beta-Hydroxybutyrate 3.26 H Urine Color Urine Appearance Urine pH Ur Specific [place] Urine Protein Urine Glucose (UA) Urine Ketones Urine Blood Urine Nitrite Ur Leukocyte Esterase Urine RBC Urine WBC Ur Squamous Epith Cells Urine Bacteria Hyaline Casts Synovial Source Synovial WBC Synovial RBC Synovial Neutrophils Synovial Lymphocytes Synovial Monocytes Vancomycin Trough Microbiology Microbiology Results: Microbiology 02/09/23 16:30 Gross Specimen Examination - Final Elbow Aspirate - Drainage Fluid Crystals - Final 02/08/23 12:27 Blood Culture - Preliminary Blood - Venous No growth after 24 hours. 02/08/23 11:47 Blood Culture - Preliminary Blood - Venous No growth after 24 hours. 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 ? Treated empirically for gout by PCP without improvement. Concern for bursitis or subcutaneous abscess/cellulitis, less likely septic arthritis Also found to have euglycemic DKA # euglycemic DKA likely due to SGLT2i - resolving; continue D5LR and subcut lispro q4h until gap closes; recheck lytes/VBG/BHB in am; d/c Jardiance # L elbow cellulitis/abscess - continue IV ABX [vanco + pip-gladys], follow BCx + wound Cx, ID consulted, Ortho consulted # R 3rd toe osteomyelitis - may require inpt amputation of the R 3rd toe if the L elbow was hematogenously seeded, will consult Surg [Dr Mejia was planning amputation] # leukocytosis - attributable to steroids given for presumed gout # DM2 - hold GPZ/MTF, Trulicity; d/c Jardiance; gus-dose lispro q4h - A1c 6.6 # HLD - statin # HTN - lisinopril # VTE ppx: LMWH # dispo: TBD In my clinical judgment, the patient requires continued inpatient hospitalization for the following reasons: IV ABX, IV fluids, DKA Time Spent With Patient Time: Total time managing care of this patient today _54___ minutes. Quality Stroke Does the patient have a stroke diagnosis?: No VTE Prior VTE?: No VTE Risk Level:: Medical - moderate - high VTE Device Contraindication: Treatment Not Indicated VTE Drug Contraindication: N/A - Med Ordered
--- NOTE | 2023-02-10 10:31 | PM.PNORT ---
Subjective Subjective Date of Service: 02/10/23 Interval history: Left elbow continue to improve No worsening pain Physical Exam Vital Signs: Vital Signs: Last Vital Signs Temp 97.6 F 02/10/23 08:00 Pulse 70 02/10/23 08:00 Resp 17 02/10/23 08:00 BP 94/50 L 02/10/23 08:00 Pulse Ox 95 02/10/23 08:00 O2 Del Method Room Air 02/10/23 08:00 BMI result Body Mass Index 25.5 Extrem: Other: Left elbow swelling over the olecranon, no redness or pain with palpation. No fluctulance. He is able to perform active range, supination and pronation without severe pain. Procedures Date of Service Date of Service: 02/10/23 Progress Note: A&P Assessment and plan (1) Redness and swelling of elbow: Status: Acute Assessment and Plan: Continue abx Continue compression with leyla wrap continue ROM no surgical intervention at this time angelita make NPO after mdnight incase symptoms worsen. Time Spent With Patient Time: Total time managing care of this patient today ____ minutes. Quality Stroke Does the patient have a stroke diagnosis?: No VTE Prior VTE?: No VTE Risk Level:: Medical - moderate - high VTE Device Contraindication: Treatment Not Indicated VTE Drug Contraindication: N/A - Med Ordered
[2023-02-10] MEDS: Enoxaparin Sodium 40 MG/0.4 ML SYRINGE SUBCUT (14:27)
[2023-02-10] MEDS: Acetaminophen 325 MG TABLET 650 MG PO (14:33)
[2023-02-10 16:00] VITALS: BP 105/56; PULSE 71; RESP 20; TEMP 36; O2SAT 95
[2023-02-10 19:54] VITALS: BP 119/57; PULSE 75; RESP 20; TEMP 36.2; O2SAT 98
[2023-02-10] MEDS: lisinopriL 10 MG TABLET PO (20:08)
[2023-02-11 02:48] LABS: Glucose, Whole Blood 203 mg/dL (60-115)
[2023-02-11 03:09] VITALS: BP 109/58; PULSE 65; RESP 18; TEMP 36.3; O2SAT 95
[2023-02-11] MEDS: Acetaminophen 325 MG TABLET 650 MG PO (04:54)
[2023-02-11 06:16] LABS: Venous Blood Gas Refer to POC result
[2023-02-11 06:22] LABS: Hematocrit 31.9 % (42.0-52.0); Hemoglobin 10.5 g/dl (14.0-18.0); Mean Corpuscular HGB Conc 32.9 g/dl (31.0-36.0); Mean Corpuscular Hemoglobin 28.2 pg (27.0-33.0); Mean Corpuscular Volume 85.5 fL (80.0-98.0); Mean Platelet Volume 10.9 fL (9.4-12.4); Platelet Count 277 X10*3/uL (160-400); Red Blood Count 3.73 X10*6/uL (4.60-5.80); Red Cell Distribution Width 13.9 % (11.0-16.0); White Blood Count 12.4 X10*3/uL (4.8-10.8)
[2023-02-11 06:32] LABS: Anion Gap 14 (12-20); Beta-Hydroxybutyrate 1.02 mmol/L (0.02-0.27); Blood Urea Nitrogen 14 mg/dL (9-16); C Reactive Protein 15.24 mg/dL (< or = 0.50); Carbon Dioxide 21 mmol/L (22-29); Chloride 109 mmol/L (96-108); Creatinine Clr Calc Pharmacy 92.1; Estimated Glomerular Filt Rate > 60; Glucose Random 185 mg/dL (60-115); Magnesium 1.8 mg/dL (1.6-2.6); Potassium 3.6 mmol/L (3.3-5.1); Sodium 140 mmol/L (135-145)
[2023-02-11] MEDS: Ascorbic Acid 500 MG TABLET PO (07:56)
[2023-02-11] MEDS: Pravastatin Sodium 20 MG TABLET PO (07:56)
[2023-02-11] MEDS: Cholecalciferol (Vitamin D3) 25 MCG TABLET PO (07:56)
[2023-02-11] MEDS: Fenofibrate 160 MG TABLET PO (07:56)
[2023-02-11 08:00] VITALS: BP 117/58; PULSE 67; RESP 18; TEMP 37.1; O2SAT 97
--- NOTE | 2023-02-11 08:45 | PM.PNORT ---
Subjective Subjective Date of Service: 02/13/23 Physical Exam Vital Signs: Vital Signs: Last Vital Signs Temp 98.7 F 02/11/23 08:00 Pulse 67 02/11/23 08:00 Resp 18 02/11/23 08:00 BP 117/58 L 02/11/23 08:00 Pulse Ox 97 02/11/23 08:00 O2 Del Method Room Air 02/11/23 08:00 BMI result Body Mass Index 25.5 Procedures Date of Service Date of Service: 02/13/23 Progress Note: A&P Time Spent With Patient Time: Total time managing care of this patient today ____ minutes. Quality Stroke Does the patient have a stroke diagnosis?: No VTE Prior VTE?: No VTE Risk Level:: Medical - moderate - high VTE Device Contraindication: Treatment Not Indicated VTE Drug Contraindication: N/A - Med Ordered
--- NOTE | 2023-02-11 09:01 | PM.PNORT ---
Subjective Subjective Date of Service: 02/11/23 Principal diagnosis: Left elbow cellulitis Interval history: Mr. Fritz is seen resting comfortably in bed this morning. He states that he has been doing range of motion exercises with his elbow, wrist and fingers. He denies any fevers or chills. He states that although the swelling in his elbow and hand have improved his elbow remains ?sore?. He has been taking Tylenol which gives him only mild relief. Physical Exam Vital Signs: Vital Signs: Last Vital Signs Temp 98.7 F 02/11/23 08:00 Pulse 67 02/11/23 08:00 Resp 18 02/11/23 08:00 BP 117/58 L 02/11/23 08:00 Pulse Ox 97 02/11/23 08:00 O2 Del Method Room Air 02/11/23 08:00 BMI result Body Mass Index 25.5 Extrem: Other: Left upper extremity examination shows that the redness along the anterior aspect of his elbow which was previously present has now resolved completely, decreased swelling of his elbow and hand when compared to prior examination, no open skin lesions, range of motion of his elbow from-15 degrees to 120 degrees which is improved from prior Procedures Date of Service Date of Service: 02/11/23 Progress Note: A&P Assessment and plan (1) Cellulitis of left elbow: Status: Acute Plan Mr. Fritz continues to improve clinically with decreased swelling along his elbow and hand as well as resolution of the redness along the anterior aspect of his elbow. His range of motion continues to improve gradually. At this point the elbow aspiration culture has shown no growth. The Gram stain showed no polys or organisms. He does not appear to have septic arthritis requiring surgery. If the patient does remain here again tonight I will make him NPO in case he worsens by tomorrow morning. The plan was discussed at length with the patient and the hospitalist physician. Time Spent With Patient Time: Total time managing care of this patient today 22 minutes. Quality Stroke Does the patient have a stroke diagnosis?: No VTE Prior VTE?: No VTE Risk Level:: Medical - moderate - high VTE Device Contraindication: Treatment Not Indicated VTE Drug Contraindication: N/A - Med Ordered
[2023-02-11] MEDS: traMADoL HCL 50 MG TABLET PO ×3 (09:31→19:26)
--- NOTE | 2023-02-11 09:31 | HO.PM.IMPN ---
Subjective Subjective Date of Service: 02/11/23 Interval History: improving Physical Exam Vital Signs: Vital Signs: Last Vital Signs Temp 98.7 F 02/11/23 08:00 Pulse 67 02/11/23 08:00 Resp 18 02/11/23 08:00 BP 117/58 L 02/11/23 08:00 Pulse Ox 97 02/11/23 08:00 O2 Del Method Room Air 02/11/23 08:00 BMI result Body Mass Index 25.5 Extrem: Other: Left upper extremity examination shows that the redness along the anterior aspect of his elbow which was previously present has now resolved completely, decreased swelling of his elbow and hand when compared to prior examination, no open skin lesions, range of motion of his elbow from-15 degrees to 120 degrees which is improved from prior Objective Data Active Medications Acetaminophen (Acetaminophen 325 Mg Tablet) 650 mg PO Q6H PRN PRN Reason: Pain, Mild (Pain Scale 1-3) Last Admin: 02/11/23 04:54 Dose: 650 mg Documented By: RADHA Ascorbic Acid (Ascorbic Acid 500 Mg Tablet) 500 mg PO DAILY [facility] Last Admin: 02/11/23 07:56 Dose: 500 mg Documented By: LAURA Dextrose (Dextrose 50 % 25 Gm/50 Ml Syringe) 25 gm IVPUSH Q15M PRN; Protocol PRN Reason: per Hypoglycemia Standing Ord. Docusate Sodium (Docusate Sodium 100 Mg Capsule) 100 mg PO DAILY PRN PRN Reason: Constipation Enoxaparin Sodium (Enoxaparin Sodium 40 Mg/0.4 Ml Syringe) 40 mg SUBCUT Q24H [facility] Last Admin: 02/10/23 14:27 Dose: 40 mg Documented By: TAMIA Fenofibrate (Fenofibrate 160 Mg Tablet) 160 mg PO DAILY [facility] Last Admin: 02/11/23 07:56 Dose: 160 mg Documented By: LAURA Glucose (Glucose Gel 15 Gm Gel..Gram.) 15 gm PO Q15M PRN; Protocol PRN Reason: per Hypoglycemia Standing Ord. Piperacillin Sod/Tazobactam (Sod 3.375 gm/ Sodium Chloride) 50 mls @ 100 mls/hr IV Q6H [facility] Last Infusion: 02/11/23 06:40 Dose: 0 mls/hr Documented By: RADHA Dextrose/Lactated Ringer's (D5lr) 1,000 mls @ 125 mls/hr IVCONT .Q8H [facility] Last Admin: 02/11/23 04:55 Dose: 125 mls/hr Documented By: RADHA Vancomycin HCl 1,000 mg/ (Sodium Chloride) 270 mls @ 270 mls/hr IV Q12H [facility] Last Admin: 02/11/23 07:55 Dose: 270 mls/hr Documented By: LAURA Insulin Human Lispro (Insulin Lispro 100 Unit/Ml 3 Ml Vial) 0 unit SUBCUT Q4H [facility]; Protocol Last Admin: 02/11/23 06:47 Dose: 4 unit Documented By: RADHA Lisinopril (Lisinopril 10 Mg Tablet) 10 mg PO BEDTIME [facility]; Protocol Last Admin: 02/10/23 20:08 Dose: 10 mg Documented By: RADHA Ondansetron HCl (Ondansetron Hcl 4 Mg/2 Ml Vial) 4 mg IVPUSH Q8H PRN PRN Reason: Nausea and Vomiting Pharmacy Consult (Consult Rx Perform Med Rec) 1 each MISCELLANE ONCE PRN PRN Reason: Consult order Pharmacy Consult (Consult Rx Vancomycin Dosing) 1 each MISCELLANE DAILY PRN PRN Reason: Consult order Pravastatin Sodium (Pravastatin Sodium 20 Mg Tablet) 20 mg PO DAILY [facility] Last Admin: 02/11/23 07:56 Dose: 20 mg Documented By: LAURA Sodium Chloride (0.9 % Sodium Chloride Flush 3 Ml Syringe) 3 ml IVFLUSH QSHIFT [facility] Last Admin: 02/11/23 07:56 Dose: Not Given Documented By: LAURA Non-Admin Reason: IV Running Tramadol HCl (Tramadol Hcl 50 Mg Tablet) 50 mg PO Q6H [facility] Vitamin D (Cholecalciferol (Vitamin D3) 25 Mcg Tablet) 25 mcg PO DAILY [facility] Last Admin: 02/11/23 07:56 Dose: 25 mcg Documented By: LAURA Labs 02/11/23 06:06 02/11/23 06:06 Labs: Laboratory Results - last 24 hr 02/10/23 02/10/23 02/10/23 10:17 14:16 17:57 MCV MCH MCHC RDW Plt Count MPV Absolute Nucleated RBC Nucleated RBC % (auto) VBG pH VBG pCO2 VBG pO2 VBG HCO3 VBG O2 Saturation VBG Base Excess Anion Gap Estim Creat Clear Calc Estimated GFR POC Glucose 259 H 217 H 234 H Random Glucose Calcium Phosphorus Magnesium C-Reactive Protein Beta-Hydroxybutyrate 02/10/23 02/11/23 02/11/23 22:32 02:43 06:06 MCV 85.5 MCH 28.2 MCHC 32.9 RDW 13.9 Plt Count 277 MPV 10.9 Absolute Nucleated RBC 0.000 Nucleated RBC % (auto) 0.0 VBG pH VBG pCO2 VBG pO2 VBG HCO3 VBG O2 Saturation VBG Base Excess Anion Gap Estim Creat Clear Calc Estimated GFR POC Glucose 182 H 203 H Random Glucose Calcium Phosphorus Magnesium C-Reactive Protein Beta-Hydroxybutyrate 02/11/23 02/11/23 02/11/23 06:06 06:09 06:42 MCV MCH MCHC RDW Plt Count MPV Absolute Nucleated RBC Nucleated RBC % (auto) VBG pH 7.46 H VBG pCO2 32 VBG pO2 81 VBG HCO3 23 VBG O2 Saturation 98.0 VBG Base Excess 0.4 Anion Gap 14 Estim Creat Clear Calc 92.1 Estimated GFR > 60 POC Glucose 173 H Random Glucose 185 H Calcium 9.0 D Phosphorus 2.0 L Magnesium 1.8 C-Reactive Protein 15.24 H Beta-Hydroxybutyrate 1.02 H 02/11/23 07:39 MCV MCH MCHC RDW Plt Count MPV Absolute Nucleated RBC Nucleated RBC % (auto) VBG pH VBG pCO2 VBG pO2 VBG HCO3 VBG O2 Saturation VBG Base Excess Anion Gap Estim Creat Clear Calc Estimated GFR POC Glucose 143 H Random Glucose Calcium Phosphorus Magnesium C-Reactive Protein Beta-Hydroxybutyrate Microbiology Microbiology Results: Microbiology 02/09/23 16:30 Gram Stain - Final Elbow Routine Culture - Preliminary No growth to date. Anaerobic Culture - Preliminary No growth to date. 02/08/23 12:27 Blood Culture - Preliminary Blood - Venous No growth after 48 hours. 02/08/23 11:47 Blood Culture - Preliminary Blood - Venous No growth after 48 hours. 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 ? Treated empirically for gout by PCP without improvement. Concern for bursitis or subcutaneous abscess/cellulitis, less likely septic arthritis Also found to have euglycemic DKA # euglycemic DKA likely due to SGLT2i - resolved; continue D5LR and subcut lispro q4h, d/c Jardiance # L elbow cellulitis/abscess - continue IV ABX [vanco + pip-gladys], follow BCx + wound Cx - no growth, ID consulted, Ortho - no further intervention for now # R 3rd toe osteomyelitis - may require inpt amputation of the R 3rd toe if the L elbow was hematogenously seeded, follow up Surg [Dr Mejia was planning amputation] # leukocytosis - attributable to steroids given for presumed gout # DM2 - hold GPZ/MTF, Trulicity; d/c Jardiance; gus-dose lispro q4h - A1c 6.6 # HLD - statin # HTN - lisinopril # VTE ppx: LMWH # dispo: TBD reason for continued hospitalization: ? need for surgery prior to dc Time Spent With Patient Time: Total time managing care of this patient today ____ minutes. Quality Stroke Does the patient have a stroke diagnosis?: No VTE Prior VTE?: No VTE Risk Level:: Medical - moderate - high VTE Device Contraindication: Treatment Not Indicated VTE Drug Contraindication: N/A - Med Ordered
--- NOTE | 2023-02-11 09:42 | PM.PNGS ---
Subjective Subjective Date of Service: 02/11/23 Patient reports: feels better and still having pain Interval history: The patient is seen in coverage for Dr. Mejia regarding a chronic right foot osteomyelitis; patient reports some minimal improvement in his left arm cellulitis and states that ortho was just in to see him. He denies paresthesias, chest pain, difficulty breathing or other new symptoms. Physical Exam Vital Signs: Vital Signs: Last Vital Signs Temp 98.7 F 02/11/23 08:00 Pulse 67 02/11/23 08:00 Resp 18 02/11/23 08:00 BP 117/58 L 02/11/23 08:00 Pulse Ox 97 02/11/23 08:00 O2 Del Method Room Air 02/11/23 08:00 BMI result Body Mass Index 25.5 On exam, the patient is nontoxic He is in no acute respiratory distress His right foot dressing is intact His left arm has been on wrapped in the erythema has improved, the hand swelling and arm swelling is also improved since yesterday's visit. Objective Data Active Medications Acetaminophen (Acetaminophen 325 Mg Tablet) 650 mg PO Q6H PRN PRN Reason: Pain, Mild (Pain Scale 1-3) Last Admin: 02/11/23 04:54 Dose: 650 mg Documented By: RADHA Ascorbic Acid (Ascorbic Acid 500 Mg Tablet) 500 mg PO DAILY [facility] Last Admin: 02/11/23 07:56 Dose: 500 mg Documented By: LAURA Dextrose (Dextrose 50 % 25 Gm/50 Ml Syringe) 25 gm IVPUSH Q15M PRN; Protocol PRN Reason: per Hypoglycemia Standing Ord. Docusate Sodium (Docusate Sodium 100 Mg Capsule) 100 mg PO DAILY PRN PRN Reason: Constipation Enoxaparin Sodium (Enoxaparin Sodium 40 Mg/0.4 Ml Syringe) 40 mg SUBCUT Q24H [facility] Last Admin: 02/10/23 14:27 Dose: 40 mg Documented By: TAMIA Fenofibrate (Fenofibrate 160 Mg Tablet) 160 mg PO DAILY [facility] Last Admin: 02/11/23 07:56 Dose: 160 mg Documented By: LAURA Glucose (Glucose Gel 15 Gm Gel..Gram.) 15 gm PO Q15M PRN; Protocol PRN Reason: per Hypoglycemia Standing Ord. Piperacillin Sod/Tazobactam (Sod 3.375 gm/ Sodium Chloride) 50 mls @ 100 mls/hr IV Q6H [facility] Last Infusion: 02/11/23 06:40 Dose: 0 mls/hr Documented By: RADHA Dextrose/Lactated Ringer's (D5lr) 1,000 mls @ 125 mls/hr IVCONT .Q8H [facility] Last Admin: 02/11/23 04:55 Dose: 125 mls/hr Documented By: RADHA Vancomycin HCl 1,000 mg/ (Sodium Chloride) 270 mls @ 270 mls/hr IV Q12H [facility] Last Infusion: 02/11/23 09:34 Dose: 0 mls/hr Documented By: LAURA Insulin Human Lispro (Insulin Lispro 100 Unit/Ml 3 Ml Vial) 0 unit SUBCUT Q4H [facility]; Protocol Last Admin: 02/11/23 06:47 Dose: 4 unit Documented By: RADHA Lisinopril (Lisinopril 10 Mg Tablet) 10 mg PO BEDTIME [facility]; Protocol Last Admin: 02/10/23 20:08 Dose: 10 mg Documented By: RADHA Ondansetron HCl (Ondansetron Hcl 4 Mg/2 Ml Vial) 4 mg IVPUSH Q8H PRN PRN Reason: Nausea and Vomiting Pharmacy Consult (Consult Rx Perform Med Rec) 1 each MISCELLANE ONCE PRN PRN Reason: Consult order Pharmacy Consult (Consult Rx Vancomycin Dosing) 1 each MISCELLANE DAILY PRN PRN Reason: Consult order Pravastatin Sodium (Pravastatin Sodium 20 Mg Tablet) 20 mg PO DAILY [facility] Last Admin: 02/11/23 07:56 Dose: 20 mg Documented By: LAURA Sodium Chloride (0.9 % Sodium Chloride Flush 3 Ml Syringe) 3 ml IVFLUSH QSHIFT [facility] Last Admin: 02/11/23 07:56 Dose: Not Given Documented By: LAURA Non-Admin Reason: IV Running Tramadol HCl (Tramadol Hcl 50 Mg Tablet) 50 mg PO Q6H [facility] Last Admin: 02/11/23 09:31 Dose: 50 mg Documented By: LAURA Vitamin D (Cholecalciferol (Vitamin D3) 25 Mcg Tablet) 25 mcg PO DAILY [facility] Last Admin: 02/11/23 07:56 Dose: 25 mcg Documented By: LAURA Labs 02/11/23 06:06 02/11/23 06:06 Labs: Laboratory Results - last 24 hr 02/10/23 02/10/23 02/10/23 10:17 14:16 17:57 MCV MCH MCHC RDW Plt Count MPV Absolute Nucleated RBC Nucleated RBC % (auto) VBG pH VBG pCO2 VBG pO2 VBG HCO3 VBG O2 Saturation VBG Base Excess Anion Gap Estim Creat Clear Calc Estimated GFR POC Glucose 259 H 217 H 234 H Random Glucose Calcium Phosphorus Magnesium C-Reactive Protein Beta-Hydroxybutyrate 02/10/23 02/11/23 02/11/23 22:32 02:43 06:06 MCV 85.5 MCH 28.2 MCHC 32.9 RDW 13.9 Plt Count 277 MPV 10.9 Absolute Nucleated RBC 0.000 Nucleated RBC % (auto) 0.0 VBG pH VBG pCO2 VBG pO2 VBG HCO3 VBG O2 Saturation VBG Base Excess Anion Gap Estim Creat Clear Calc Estimated GFR POC Glucose 182 H 203 H Random Glucose Calcium Phosphorus Magnesium C-Reactive Protein Beta-Hydroxybutyrate 02/11/23 02/11/23 02/11/23 06:06 06:09 06:42 MCV MCH MCHC RDW Plt Count MPV Absolute Nucleated RBC Nucleated RBC % (auto) VBG pH 7.46 H VBG pCO2 32 VBG pO2 81 VBG HCO3 23 VBG O2 Saturation 98.0 VBG Base Excess 0.4 Anion Gap 14 Estim Creat Clear Calc 92.1 Estimated GFR > 60 POC Glucose 173 H Random Glucose 185 H Calcium 9.0 D Phosphorus 2.0 L Magnesium 1.8 C-Reactive Protein 15.24 H Beta-Hydroxybutyrate 1.02 H 02/11/23 07:39 MCV MCH MCHC RDW Plt Count MPV Absolute Nucleated RBC Nucleated RBC % (auto) VBG pH VBG pCO2 VBG pO2 VBG HCO3 VBG O2 Saturation VBG Base Excess Anion Gap Estim Creat Clear Calc Estimated GFR POC Glucose 143 H Random Glucose Calcium Phosphorus Magnesium C-Reactive Protein Beta-Hydroxybutyrate Microbiology Microbiology Results: Microbiology 02/09/23 16:30 Gram Stain - Final Elbow Routine Culture - Preliminary No growth to date. Anaerobic Culture - Preliminary No growth to date. 02/08/23 12:27 Blood Culture - Preliminary Blood - Venous No growth after 48 hours. 02/08/23 11:47 Blood Culture - Preliminary Blood - Venous No growth after 48 hours. Procedures Date of Service Date of Service: 02/11/23 Progress Note: A&P Assessment and plan (1) Cellulitis of left elbow: Status: Acute (2) Diabetes: Status: Acute (3) HTN (hypertension): Status: Acute (4) Osteomyelitis of foot, right, acute: Status: Acute Plan Interval improvement since yesterday's evaluation. Left upper extremity cellulitis management as per Ortho. Dr. Mejia will see the patient tomorrow, 02/12, however the patient's right foot osteo is secondary to his left arm cellulitis. Time Spent With Patient Time: Total time managing care of this patient today ____ minutes. Quality Stroke Does the patient have a stroke diagnosis?: No VTE Prior VTE?: No VTE Risk Level:: Medical - moderate - high VTE Device Contraindication: Treatment Not Indicated VTE Drug Contraindication: N/A - Med Ordered
[2023-02-11] MEDS: Enoxaparin Sodium 40 MG/0.4 ML SYRINGE SUBCUT (14:25)
[2023-02-11 15:34] VITALS: BP 129/62; PULSE 88; RESP 20; TEMP 36.5; O2SAT 98
[2023-02-11 19:25] VITALS: BP 119/56; PULSE 73; RESP 20; TEMP 36.3; O2SAT 96
[2023-02-11] MEDS: lisinopriL 10 MG TABLET PO (19:25)
[2023-02-12] VITALS (12 sets, daily range): BP systolic 113–150; BP diastolic 56–71; PULSE 64–76; RESP 14–18; TEMP 36.2–37.1; O2SAT 93–98
[2023-02-12] MEDS: traMADoL HCL 50 MG TABLET PO ×4 (03:24→20:20)
--- NOTE | 2023-02-12 07:15 | HE.PHANOTE ---
RE: VANCO Patient is on 1250 mg Q12H. Continue at this dose, level tomorrow at 0600. Predicted AUC 437 mg/L/hr
[2023-02-12] MEDS: Ascorbic Acid 500 MG TABLET PO (07:58)
[2023-02-12] MEDS: Pravastatin Sodium 20 MG TABLET PO (07:58)
[2023-02-12] MEDS: Cholecalciferol (Vitamin D3) 25 MCG TABLET PO (07:58)
[2023-02-12] MEDS: Fenofibrate 160 MG TABLET PO (07:58)
--- NOTE | 2023-02-12 10:26 | HO.PM.IMPN ---
Subjective Subjective Date of Service: 02/12/23 Interval History: to OR for drainage of any residual abscess around elbow no fever Review of Systems Review of Systems: Yes all other systems are reviewed and are negative Physical Exam Vital Signs: Vital Signs: Last Vital Signs Temp 98.2 F 02/12/23 07:16 Pulse 70 02/12/23 07:16 Resp 18 02/12/23 07:16 BP 113/56 L 02/12/23 07:16 Pulse Ox 97 02/12/23 07:16 O2 Del Method Room Air 02/12/23 07:16 BMI result Body Mass Index 25.5 Gen: in no acute distress HEENT: sclera anicteric, moist mucus membranes Neck: supple Lungs: clear to auscultation bilaterally Heart: regular rate and rhythm, no murmurs Abd: soft, non-tender, non-distended Ext: R 3rd toe red/swollen, L elbow with residual swelling and erythema Skin: warm/well-perfused Neuro: alert and oriented x3, no focal findings Psych: appropriate affect Objective Data Active Medications Acetaminophen (Acetaminophen 325 Mg Tablet) 650 mg PO Q6H PRN PRN Reason: Pain, Mild (Pain Scale 1-3) Last Admin: 02/11/23 04:54 Dose: 650 mg Documented By: RADHA Ascorbic Acid (Ascorbic Acid 500 Mg Tablet) 500 mg PO DAILY [facility] Last Admin: 02/12/23 07:58 Dose: 500 mg Documented By: LAURA Dextrose (Dextrose 50 % 25 Gm/50 Ml Syringe) 25 gm IVPUSH Q15M PRN; Protocol PRN Reason: per Hypoglycemia Standing Ord. Docusate Sodium (Docusate Sodium 100 Mg Capsule) 100 mg PO DAILY PRN PRN Reason: Constipation Enoxaparin Sodium (Enoxaparin Sodium 40 Mg/0.4 Ml Syringe) 40 mg SUBCUT Q24H [facility] Last Admin: 02/11/23 14:25 Dose: 40 mg Documented By: LAURA Fenofibrate (Fenofibrate 160 Mg Tablet) 160 mg PO DAILY [facility] Last Admin: 02/12/23 07:58 Dose: 160 mg Documented By: LAURA Glucose (Glucose Gel 15 Gm Gel..Gram.) 15 gm PO Q15M PRN; Protocol PRN Reason: per Hypoglycemia Standing Ord. Piperacillin Sod/Tazobactam (Sod 3.375 gm/ Sodium Chloride) 50 mls @ 100 mls/hr IV Q6H [facility] Last Infusion: 02/12/23 06:18 Dose: 0 mls/hr Documented By: ROBERT Vancomycin HCl 1,250 mg/ (Sodium Chloride) 250 mls @ 166.667 mls/hr IV Q12H [facility] Last Admin: 02/12/23 07:59 Dose: 166.66 mls/hr Documented By: LAURA Insulin Human Lispro (Insulin Lispro 100 Unit/Ml 3 Ml Vial) 0 unit SUBCUT Q4H [facility]; Protocol Last Admin: 02/12/23 05:46 Dose: 4 unit Documented By: ROBERT Lisinopril (Lisinopril 10 Mg Tablet) 10 mg PO BEDTIME [facility]; Protocol Last Admin: 02/11/23 19:25 Dose: 10 mg Documented By: ROBERT Ondansetron HCl (Ondansetron Hcl 4 Mg/2 Ml Vial) 4 mg IVPUSH Q8H PRN PRN Reason: Nausea and Vomiting Pharmacy Consult (Consult Rx Perform Med Rec) 1 each MISCELLANE ONCE PRN PRN Reason: Consult order Pharmacy Consult (Consult Rx Vancomycin Dosing) 1 each MISCELLANE DAILY PRN PRN Reason: Consult order Pravastatin Sodium (Pravastatin Sodium 20 Mg Tablet) 20 mg PO DAILY [facility] Last Admin: 02/12/23 07:58 Dose: 20 mg Documented By: LAURA Sodium Chloride (0.9 % Sodium Chloride Flush 3 Ml Syringe) 3 ml IVFLUSH QSHIFT [facility] Last Admin: 02/12/23 07:59 Dose: Not Given Documented By: LAURA Non-Admin Reason: IV Running Tramadol HCl (Tramadol Hcl 50 Mg Tablet) 50 mg PO Q6H [facility] Last Admin: 02/12/23 07:58 Dose: 50 mg Documented By: LAURA Vitamin D (Cholecalciferol (Vitamin D3) 25 Mcg Tablet) 25 mcg PO DAILY [facility] Last Admin: 02/12/23 07:58 Dose: 25 mcg Documented By: LAURA Labs 02/12/23 05:34 02/12/23 05:34 Labs: Laboratory Results - last 24 hr 02/11/23 02/11/23 02/11/23 14:14 17:58 18:10 MCV MCH MCHC RDW Plt Count MPV Absolute Nucleated RBC Nucleated RBC % (auto) Anion Gap Estim Creat Clear Calc Estimated GFR POC Glucose 244 H 182 H Fasting Glucose Calcium Vancomycin Trough 12.1 02/11/23 02/12/23 02/12/23 21:46 03:18 05:34 MCV 86.1 MCH 27.6 MCHC 32.1 RDW 13.9 Plt Count 299 MPV 10.9 Absolute Nucleated RBC 0.000 Nucleated RBC % (auto) 0.0 Anion Gap Estim Creat Clear Calc Estimated GFR POC Glucose 186 H 176 H Fasting Glucose Calcium Vancomycin Trough 02/12/23 02/12/23 02/12/23 05:34 05:37 07:18 MCV MCH MCHC RDW Plt Count MPV Absolute Nucleated RBC Nucleated RBC % (auto) Anion Gap 11 L Estim Creat Clear Calc 101.5 Estimated GFR > 60 POC Glucose 169 H 161 H Fasting Glucose 187 H Calcium 8.9 Vancomycin Trough Microbiology Microbiology Results: Microbiology 02/09/23 16:30 Gram Stain - Final Elbow Routine Culture - Final No growth after 2 days Anaerobic Culture - Preliminary No growth to date. Assessment and Plan (1) Cellulitis of elbow: Status: Acute (2) Redness and swelling of elbow: Status: Acute (3) Osteomyelitis of foot, right, acute: Status: Acute Plan d5 77yo M with DM2, HTN, osteomyelitis of distal R 3rd phalanx diagnosed in December for which he declined IV ABX and plans for amputation by Dr Mejia presenting with L elbow redness/pain/swelling x 4 days. ? Treated empirically for gout by PCP without improvement. Concern for bursitis or subcutaneous abscess/cellulitis, less likely septic arthritis Also found to have euglycemic DKA euglycemic DKA likely due to SGLT2i - resolved; d/c Jardiance # L elbow cellulitis/abscess - continue IV ABX [vanco + pip-gladys] d5, no growth in BCx or wound Cx today, to OR with Ortho today, to discuss ideal ABX regimen with ID # R 3rd toe osteomyelitis - may require inpt amputation of the R 3rd toe if the L elbow was hematogenously seeded, follow up Surg [Dr Mejia was planning amputation] # leukocytosis - attributable to steroids given for presumed gout; resolved # DM2 - hold GPZ/MTF, Trulicity; d/c Jardiance; gus-dose qidac - A1c 6.6 # HLD - statin # HTN - lisinopril # VTE ppx: LMWH # dispo: TBD reason for continued hospitalization: operatve management Time Spent With Patient Time: Total time managing care of this patient today __45__ minutes. Quality Stroke Does the patient have a stroke diagnosis?: No VTE Prior VTE?: No VTE Risk Level:: Medical - moderate - high VTE Device Contraindication: Treatment Not Indicated VTE Drug Contraindication: N/A - Med Ordered
--- NOTE | 2023-02-12 11:30 | PM.PNORT ---
Subjective Subjective Date of Service: 02/12/23 Principal diagnosis: Left elbow cellulitis Interval history: The patient is seen resting comfortably in bed this morning. He complains of continued discomfort along the medial aspect of his left elbow. He denies any fevers or chills. He continues with his range of motion exercises. Physical Exam Vital Signs: Vital Signs: Last Vital Signs Temp 98.2 F 02/12/23 07:16 Pulse 70 02/12/23 07:16 Resp 18 02/12/23 07:16 BP 113/56 L 02/12/23 07:16 Pulse Ox 97 02/12/23 07:16 O2 Del Method Room Air 02/12/23 07:16 BMI result Body Mass Index 25.5 Const: Other: Well-nourished well-developed very friendly male awake alert and oriented x3 in no acute distress Extrem: Other: Left elbow examination shows range of motion is similar to that of yesterday's exam with extension to -15 degrees and flexion to 120 degrees with mild to moderate discomfort, there is now a palpable fluid mass along the medial aspect of his elbow with overlying erythema, no overlying skin lesions, minimal fluid within his olecranon bursa Procedures Date of Service Date of Service: 02/12/23 Progress Note: A&P Assessment and plan (1) Cellulitis of left elbow: Status: Acute Assessment and Plan: Mr. Fritz presented with diffuse swelling and redness along his left elbow and forearm. Most of the redness has resolved at this point. Today he does have a palpable fluid mass along the medial aspect of his left elbow most likely due to a subcutaneous abscess. The risks and benefits of incision and drainage of the abscess were discussed at length with the patient. The patient wishes to proceed. Surgery is scheduled for later today as the operating room schedule allows. The patient will continue his NPO status until following the procedure. The the Time Spent With Patient Time: Total time managing care of this patient today ____ minutes. Quality Stroke Does the patient have a stroke diagnosis?: No VTE Prior VTE?: No VTE Risk Level:: Medical - moderate - high VTE Device Contraindication: Treatment Not Indicated VTE Drug Contraindication: N/A - Med Ordered
--- NOTE | 2023-02-12 13:23 | HO.ANESPROP2 ---
HPI - Anesthesia Eval Consult details Narrative: 77 yo M presenting for I&D of left elbow. DNR/DNI. 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) Suture of skin wound (Acute) Past Medical History Medical History Asthma Diabetes HTN (hypertension) Osteomyelitis of foot, right, acute Redness and swelling of elbow Septic arthritis Family History Family history of problems with anesthesia: No Surgical History Surgical History History of back surgery History of excision of pilonidal cyst Hx of colonoscopy Hx of hernia repair Hx of tonsillectomy History of Problems with Anesthesia: No Social History Social History Household Members: None Housing: House Alcohol intake: current Alcohol intake frequency: holidays/special occasions only Patient Tobacco Use Status: Former Tobacco user Quit Date: 20 years ago Smoked in Last 30 Days: No Patient Interested in Nicotine Replacement: No Patient Given Instructions on How to Stop Smoking: No Second Hand Smoke Exposure: No Use of substances other than those prescribed or required for medical reasons: No Currently Displaying Signs/Symptoms of Drug Intoxication Withdrawal: No Any prior treatment program specific to substance use: No Have you been hit, kicked, punched, or otherwise hurt by someone within the past year? If so, by whom?: No Do you feel safe in your current relationship?: Yes Is there a partner from a previous relationship who is making you feel unsafe now?: No Are you DNR?: No Advance Directives: No Advance Directives Information Provided: No (Declined) Advance Directives on File: No Do you have thoughts of harming others: None Do you have a plan to hurt others: No Plan Recently lost weight without trying: No How much weight loss: Not applicable Eating poorly because of decreased appetite: No Nutrition screen score: 0 Nutrition Risks: No Nutritional Risk Poor oral hygiene: No service: No Meds Allergies Allergy/AdvReac Type Severity Reaction Status Date / Time ENVIROMENTAL Allergy Unknown SNEEZING, Uncoded 02/08/23 10:36 ITCHY EYES Active Medications: Current Medications Acetaminophen (Acetaminophen 325 Mg Tablet) 650 mg PO Q6H PRN PRN Reason: Pain, Mild (Pain Scale 1-3) Last Admin: 02/11/23 04:54 Dose: 650 mg Ascorbic Acid (Ascorbic Acid 500 Mg Tablet) 500 mg PO DAILY [facility] Last Admin: 02/12/23 07:58 Dose: 500 mg Dextrose (Dextrose 50 % 25 Gm/50 Ml Syringe) 25 gm IVPUSH Q15M PRN; Protocol PRN Reason: per Hypoglycemia Standing Ord. Docusate Sodium (Docusate Sodium 100 Mg Capsule) 100 mg PO DAILY PRN PRN Reason: Constipation Enoxaparin Sodium (Enoxaparin Sodium 40 Mg/0.4 Ml Syringe) 40 mg SUBCUT Q24H [facility] Last Admin: 02/11/23 14:25 Dose: 40 mg Fenofibrate (Fenofibrate 160 Mg Tablet) 160 mg PO DAILY [facility] Last Admin: 02/12/23 07:58 Dose: 160 mg Glucose (Glucose Gel 15 Gm Gel..Gram.) 15 gm PO Q15M PRN; Protocol PRN Reason: per Hypoglycemia Standing Ord. Piperacillin Sod/Tazobactam (Sod 3.375 gm/ Sodium Chloride) 50 mls @ 100 mls/hr IV Q6H [facility] Last Infusion: 02/12/23 06:18 Dose: Infused Vancomycin HCl 1,250 mg/ (Sodium Chloride) 250 mls @ 166.667 mls/hr IV Q12H [facility] Last Infusion: 02/12/23 10:29 Dose: Infused Insulin Human Lispro (Insulin Lispro 100 Unit/Ml 3 Ml Vial) 0 unit SUBCUT QIDACHS [facility]; Protocol Last Admin: 02/12/23 11:37 Dose: Not Given Lisinopril (Lisinopril 10 Mg Tablet) 10 mg PO BEDTIME [facility]; Protocol Last Admin: 02/11/23 19:25 Dose: 10 mg Ondansetron HCl (Ondansetron Hcl 4 Mg/2 Ml Vial) 4 mg IVPUSH Q8H PRN PRN Reason: Nausea and Vomiting Pharmacy Consult (Consult Rx Perform Med Rec) 1 each MISCELLANE ONCE PRN PRN Reason: Consult order Pharmacy Consult (Consult Rx Vancomycin Dosing) 1 each MISCELLANE DAILY PRN PRN Reason: Consult order Pravastatin Sodium (Pravastatin Sodium 20 Mg Tablet) 20 mg PO DAILY [facility] Last Admin: 02/12/23 07:58 Dose: 20 mg Sodium Chloride (0.9 % Sodium Chloride Flush 3 Ml Syringe) 3 ml IVFLUSH QSHIFT [facility] Last Admin: 02/12/23 07:59 Dose: Not Given Tramadol HCl (Tramadol Hcl 50 Mg Tablet) 50 mg PO Q6H [facility] Last Admin: 02/12/23 07:58 Dose: 50 mg Vitamin D (Cholecalciferol (Vitamin D3) 25 Mcg Tablet) 25 mcg PO DAILY [facility] Last Admin: 02/12/23 07:58 Dose: 25 mcg Home Medications Medication Instructions Recorded Confirmed Last Taken Type dulaglutide 1.5 mg/0.5 mL 0.5 mg subcut WE@0900 08/17/22 02/08/23 02/07/23 History subcutaneous pen injector (Trulicity) empagliflozin 25 mg tablet 1 tab PO DAILY 08/17/22 02/08/23 02/04/23 History (Jardiance) fenofibrate 160 mg tablet 1 tab PO DAILY 08/17/22 02/08/23 02/04/23 History glipizide 5 mg-metformin 500 mg 2 tab PO BID 08/17/22 02/08/23 02/04/23 History tablet insulin glargine 100 unit/mL (3 38 unit subcut BEDTIME 08/17/22 02/08/23 02/07/23 History mL) subcutaneous pen (Basaglar KwikPen U-100 Insulin) lisinopril 10 mg tablet 1 tab PO BEDTIME 08/17/22 02/08/23 02/04/23 History pravastatin 20 mg tablet 1 tab PO DAILY 08/17/22 02/08/23 02/04/23 History cholecalciferol (vitamin D3) 25 25 mcg PO DAILY 01/15/23 02/08/23 02/04/23 History mcg (1,000 unit) capsule ascorbic acid (vitamin C) 500 mg 500 mg PO DAILY 02/08/23 02/08/23 02/04/23 History tablet (Vitamin C) prednisone 20 mg tablet 20 mg PO DAILY 02/08/23 02/08/23 02/07/23 History Exam Exam Date and Time: February 12, 2023 1323 Height,Weight and Vital Signs: Height 6 ft Weight 85.2 kg Last Vital Signs Temp 97.1 F 02/12/23 12:53 Pulse 66 02/12/23 12:53 Resp 16 02/12/23 12:53 BP 137/67 02/12/23 12:53 Pulse Ox 96 02/12/23 12:53 O2 Del Method Room Air 02/12/23 12:53 Pertinent Lab Results Pertinent Lab Results: Laboratory Tests 02/08/23 02/08/23 02/08/23 11:47 11:47 11:47 WBC 18.9 H RBC 4.44 L Hgb 12.4 L Hct 37.3 L MCV 84.0 MCH 27.9 MCHC 33.2 RDW 13.2 Plt Count 240 MPV 11.0 Immature Gran % (Auto) 0.5 H Neut % (Auto) 88.5 H Lymph % (Auto) 5.2 L [place] % (Auto) 5.6 Eos % (Auto) 0.0 Baso % (Auto) 0.2 Lymph # (Auto) 1.0 L [place] # (Auto) 1.1 Eos # (Auto) 0.0 Baso # (Auto) 0.0 Abs Immat Gran (auto) 0.10 H Absolute Neuts (auto) 16.7 H Absolute Nucleated RBC 0.000 Nucleated RBC % (auto) 0.0 ESR 81 H VBG pH VBG pCO2 VBG pO2 VBG HCO3 VBG O2 Saturation VBG Base Excess Sodium 134 L Potassium 4.4 Chloride 102 Carbon Dioxide 17 L Anion Gap 19 BUN 30 H Creatinine 1.15 Estim Creat Clear Calc 60.9 Estimated GFR > 60 POC Glucose Random Glucose 162 H Fasting Glucose Estimat Average Glucose Hemoglobin A1c % Lactic Acid Uric Acid 5.5 Calcium 10.6 H D Phosphorus Magnesium Total Bilirubin 1.8 H Direct Bilirubin 0.8 H AST 34 ALT 28 Alkaline Phosphatase 73 C-Reactive Protein 34.31 H Total Protein 7.5 Albumin 3.7 Beta-Hydroxybutyrate Urine Color Urine Appearance Urine pH Ur Specific [place] Urine Protein Urine Glucose (UA) Urine Ketones Urine Blood Urine Nitrite Ur Leukocyte Esterase Urine RBC Urine WBC Ur Squamous Epith Cells Urine Bacteria Hyaline Casts Synovial Source Synovial WBC Synovial RBC Synovial Neutrophils Synovial Lymphocytes Synovial Monocytes Vancomycin Trough 02/08/23 02/08/23 02/09/23 11:47 18:04 04:56 WBC 17.7 H RBC 4.19 L Hgb 11.7 L Hct 36.8 L MCV 87.8 MCH 27.9 MCHC 31.8 RDW 13.7 Plt Count 205 MPV 11.1 Immature Gran % (Auto) Neut % (Auto) Lymph % (Auto) [place] % (Auto) Eos % (Auto) Baso % (Auto) Lymph # (Auto) [place] # (Auto) Eos # (Auto) Baso # (Auto) Abs Immat Gran (auto) Absolute Neuts (auto) Absolute Nucleated RBC 0.000 Nucleated RBC % (auto) 0.0 ESR VBG pH VBG pCO2 VBG pO2 VBG HCO3 VBG O2 Saturation VBG Base Excess Sodium Potassium Chloride Carbon Dioxide Anion Gap BUN Creatinine Estim Creat Clear Calc Estimated GFR POC Glucose 132 H Random Glucose Fasting Glucose Estimat Average Glucose Hemoglobin A1c % Lactic Acid 2.0 Uric Acid Calcium Phosphorus Magnesium Total Bilirubin Direct Bilirubin AST ALT Alkaline Phosphatase C-Reactive Protein Total Protein Albumin Beta-Hydroxybutyrate Urine Color Urine Appearance Urine pH Ur Specific [place] Urine Protein Urine Glucose (UA) Urine Ketones Urine Blood Urine Nitrite Ur Leukocyte Esterase Urine RBC Urine WBC Ur Squamous Epith Cells Urine Bacteria Hyaline Casts Synovial Source Synovial WBC Synovial RBC Synovial Neutrophils Synovial Lymphocytes Synovial Monocytes Vancomycin Trough 02/09/23 02/09/23 02/09/23 04:56 04:56 04:56 WBC RBC Hgb Hct MCV MCH MCHC RDW Plt Count MPV Immature Gran % (Auto) Neut % (Auto) Lymph % (Auto) [place] % (Auto) Eos % (Auto) Baso % (Auto) Lymph # (Auto) [place] # (Auto) Eos # (Auto) Baso # (Auto) Abs Immat Gran (auto) Absolute Neuts (auto) Absolute Nucleated RBC Nucleated RBC % (auto) ESR VBG pH VBG pCO2 VBG pO2 VBG HCO3 VBG O2 Saturation VBG Base Excess Sodium 136 Potassium 4.8 Chloride 108 Carbon Dioxide 8 L* D Anion Gap 25 H BUN 27 H Creatinine 0.98 Cancelled Estim Creat Clear Calc 71.4 Cancelled Estimated GFR > 60 Cancelled POC Glucose Random Glucose 128 H Fasting Glucose Estimat Average Glucose 143 Hemoglobin A1c % 6.6 Lactic Acid Uric Acid Calcium 9.6 D Phosphorus Cancelled Magnesium Cancelled Total Bilirubin Direct Bilirubin AST ALT Alkaline Phosphatase C-Reactive Protein Total Protein Albumin Beta-Hydroxybutyrate Urine Color Urine Appearance Urine pH Ur Specific [place] Urine Protein Urine Glucose (UA) Urine Ketones Urine Blood Urine Nitrite Ur Leukocyte Esterase Urine RBC Urine WBC Ur Squamous Epith Cells Urine Bacteria Hyaline Casts Synovial Source Synovial WBC Synovial RBC Synovial Neutrophils Synovial Lymphocytes Synovial Monocytes Vancomycin Trough 02/09/23 02/09/23 02/09/23 07:30 08:02 08:02 WBC RBC Hgb Hct MCV MCH MCHC RDW Plt Count MPV Immature Gran % (Auto) Neut % (Auto) Lymph % (Auto) [place] % (Auto) Eos % (Auto) Baso % (Auto) Lymph # (Auto) [place] # (Auto) Eos # (Auto) Baso # (Auto) Abs Immat Gran (auto) Absolute Neuts (auto) Absolute Nucleated RBC Nucleated RBC % (auto) ESR VBG pH VBG pCO2 VBG pO2 VBG HCO3 VBG O2 Saturation VBG Base Excess Sodium 138 Potassium 4.4 Chloride 106 Carbon Dioxide 12 L Anion Gap 24 H BUN 28 H Creatinine 1.02 Estim Creat Clear Calc 68.6 Estimated GFR > 60 POC Glucose 123 H Random Glucose 136 H Fasting Glucose Estimat Average Glucose Hemoglobin A1c % Lactic Acid 1.1 Uric Acid Calcium 10.1 Phosphorus 3.6 Magnesium 2.2 Total Bilirubin Direct Bilirubin AST ALT Alkaline Phosphatase C-Reactive Protein Total Protein Albumin Beta-Hydroxybutyrate Urine Color Urine Appearance Urine pH Ur Specific [place] Urine Protein Urine Glucose (UA) Urine Ketones Urine Blood Urine Nitrite Ur Leukocyte Esterase Urine RBC Urine WBC Ur Squamous Epith Cells Urine Bacteria Hyaline Casts Synovial Source Synovial WBC Synovial RBC Synovial Neutrophils Synovial Lymphocytes Synovial Monocytes Vancomycin Trough 02/09/23 02/09/23 02/09/23 08:02 08:06 10:11 WBC RBC Hgb Hct MCV MCH MCHC RDW Plt Count MPV Immature Gran % (Auto) Neut % (Auto) Lymph % (Auto) [place] % (Auto) Eos % (Auto) Baso % (Auto) Lymph # (Auto) [place] # (Auto) Eos # (Auto) Baso # (Auto) Abs Immat Gran (auto) Absolute Neuts (auto) Absolute Nucleated RBC Nucleated RBC % (auto) ESR VBG pH 7.32 VBG pCO2 24 VBG pO2 89 VBG HCO3 12 L VBG O2 Saturation 99.0 VBG Base Excess -11.6 Sodium Potassium Chloride Carbon Dioxide Anion Gap BUN Creatinine Estim Creat Clear Calc Estimated GFR POC Glucose 240 H Random Glucose Fasting Glucose Estimat Average Glucose Hemoglobin A1c % Lactic Acid Uric Acid Calcium Phosphorus Magnesium Total Bilirubin Direct Bilirubin AST ALT Alkaline Phosphatase C-Reactive Protein Total Protein Albumin Beta-Hydroxybutyrate 5.82 H Urine Color Urine Appearance Urine pH Ur Specific [place] Urine Protein Urine Glucose (UA) Urine Ketones Urine Blood Urine Nitrite Ur Leukocyte Esterase Urine RBC Urine WBC Ur Squamous Epith Cells Urine Bacteria Hyaline Casts Synovial Source Synovial WBC Synovial RBC Synovial Neutrophils Synovial Lymphocytes Synovial Monocytes Vancomycin Trough 02/09/23 02/09/23 02/09/23 10:30 11:19 14:45 WBC RBC Hgb Hct MCV MCH MCHC RDW Plt Count MPV Immature Gran % (Auto) Neut % (Auto) Lymph % (Auto) [place] % (Auto) Eos % (Auto) Baso % (Auto) Lymph # (Auto) [place] # (Auto) Eos # (Auto) Baso # (Auto) Abs Immat Gran (auto) Absolute Neuts (auto) Absolute Nucleated RBC Nucleated RBC % (auto) ESR VBG pH VBG pCO2 VBG pO2 VBG HCO3 VBG O2 Saturation VBG Base Excess Sodium 138 Potassium 4.8 Chloride 106 Carbon Dioxide 16 L Anion Gap 21 H BUN 27 H Creatinine 1.08 Estim Creat Clear Calc 64.8 Estimated GFR > 60 POC Glucose 185 H Random Glucose 209 H Fasting Glucose Estimat Average Glucose Hemoglobin A1c % Lactic Acid Uric Acid Calcium 9.7 Phosphorus Magnesium Total Bilirubin Direct Bilirubin AST ALT Alkaline Phosphatase C-Reactive Protein Total Protein Albumin Beta-Hydroxybutyrate Urine Color Yellow Urine Appearance Clear Urine pH 5.5 Ur Specific [place] >= 1.030 H Urine Protein 30 (1+) H Urine Glucose (UA) >=1000 H Urine Ketones 80 Urine Blood Trace H Urine Nitrite Negative Ur Leukocyte Esterase Negative Urine RBC 0-2 Urine WBC 0-5 Ur Squamous Epith Cells 0-2 Urine Bacteria None Seen Hyaline Casts 0-2 Synovial Source Synovial WBC Synovial RBC Synovial Neutrophils Synovial Lymphocytes Synovial Monocytes Vancomycin Trough 02/09/23 02/09/23 02/09/23 15:04 16:30 18:32 WBC RBC Hgb Hct MCV MCH MCHC RDW Plt Count MPV Immature Gran % (Auto) Neut % (Auto) Lymph % (Auto) [place] % (Auto) Eos % (Auto) Baso % (Auto) Lymph # (Auto) [place] # (Auto) Eos # (Auto) Baso # (Auto) Abs Immat Gran (auto) Absolute Neuts (auto) Absolute Nucleated RBC Nucleated RBC % (auto) ESR VBG pH VBG pCO2 VBG pO2 VBG HCO3 VBG O2 Saturation VBG Base Excess Sodium Potassium Chloride Carbon Dioxide Anion Gap BUN Creatinine Estim Creat Clear Calc Estimated GFR POC Glucose 213 H 171 H Random Glucose Fasting Glucose Estimat Average Glucose Hemoglobin A1c % Lactic Acid Uric Acid Calcium Phosphorus Magnesium Total Bilirubin Direct Bilirubin AST ALT Alkaline Phosphatase C-Reactive Protein Total Protein Albumin Beta-Hydroxybutyrate Urine Color Urine Appearance Urine pH Ur Specific [place] Urine Protein Urine Glucose (UA) Urine Ketones Urine Blood Urine Nitrite Ur Leukocyte Esterase Urine RBC Urine WBC Ur Squamous Epith Cells Urine Bacteria Hyaline Casts Synovial Source elbow Synovial WBC 0.193 Synovial RBC 0.017 Synovial Neutrophils 76 Synovial Lymphocytes 6 Synovial Monocytes 18 Vancomycin Trough 02/09/23 02/10/23 02/10/23 23:00 03:17 05:48 WBC RBC Hgb Hct MCV MCH MCHC RDW Plt Count MPV Immature Gran % (Auto) Neut % (Auto) Lymph % (Auto) [place] % (Auto) Eos % (Auto) Baso % (Auto) Lymph # (Auto) [place] # (Auto) Eos # (Auto) Baso # (Auto) Abs Immat Gran (auto) Absolute Neuts (auto) Absolute Nucleated RBC Nucleated RBC % (auto) ESR VBG pH VBG pCO2 VBG pO2 VBG HCO3 VBG O2 Saturation VBG Base Excess Sodium Potassium Chloride Carbon Dioxide Anion Gap BUN Creatinine Estim Creat Clear Calc Estimated GFR POC Glucose 171 H 176 H Random Glucose Fasting Glucose Estimat Average Glucose Hemoglobin A1c % Lactic Acid Uric Acid Calcium Phosphorus Magnesium Total Bilirubin Direct Bilirubin AST ALT Alkaline Phosphatase C-Reactive Protein Total Protein Albumin Beta-Hydroxybutyrate Urine Color Urine Appearance Urine pH Ur Specific [place] Urine Protein Urine Glucose (UA) Urine Ketones Urine Blood Urine Nitrite Ur Leukocyte Esterase Urine RBC Urine WBC Ur Squamous Epith Cells Urine Bacteria Hyaline Casts Synovial Source Synovial WBC Synovial RBC Synovial Neutrophils Synovial Lymphocytes Synovial Monocytes Vancomycin Trough 8.8 L 02/10/23 02/10/23 02/10/23 05:48 05:48 05:48 WBC 17.2 H RBC 3.88 L Hgb 10.7 L Hct 33.4 L MCV 86.1 MCH 27.6 MCHC 32.0 RDW 13.9 Plt Count 266 D MPV 10.8 Immature Gran % (Auto) Neut % (Auto) Lymph % (Auto) [place] % (Auto) Eos % (Auto) Baso % (Auto) Lymph # (Auto) [place] # (Auto) Eos # (Auto) Baso # (Auto) Abs Immat Gran (auto) Absolute Neuts (auto) Absolute Nucleated RBC 0.000 Nucleated RBC % (auto) 0.0 ESR VBG pH VBG pCO2 VBG pO2 VBG HCO3 VBG O2 Saturation VBG Base Excess Sodium 141 Potassium 4.2 Chloride 108 Carbon Dioxide 19 L Anion Gap 18 BUN 22 H Creatinine 1.00 Estim Creat Clear Calc 70.0 Estimated GFR > 60 POC Glucose Random Glucose 139 H Fasting Glucose Estimat Average Glucose Hemoglobin A1c % Lactic Acid Uric Acid Calcium 9.6 Phosphorus Magnesium Total Bilirubin Direct Bilirubin AST ALT Alkaline Phosphatase C-Reactive Protein Total Protein Albumin Beta-Hydroxybutyrate 3.26 H Urine Color Urine Appearance Urine pH Ur Specific [place] Urine Protein Urine Glucose (UA) Urine Ketones Urine Blood Urine Nitrite Ur Leukocyte Esterase Urine RBC Urine WBC Ur Squamous Epith Cells Urine Bacteria Hyaline Casts Synovial Source Synovial WBC Synovial RBC Synovial Neutrophils Synovial Lymphocytes Synovial Monocytes Vancomycin Trough 02/10/23 02/10/23 02/10/23 05:52 06:30 10:17 WBC RBC Hgb Hct MCV MCH MCHC RDW Plt Count MPV Immature Gran % (Auto) Neut % (Auto) Lymph % (Auto) [place] % (Auto) Eos % (Auto) Baso % (Auto) Lymph # (Auto) [place] # (Auto) Eos # (Auto) Baso # (Auto) Abs Immat Gran (auto) Absolute Neuts (auto) Absolute Nucleated RBC Nucleated RBC % (auto) ESR VBG pH 7.36 VBG pCO2 35 VBG pO2 62 VBG HCO3 20 L VBG O2 Saturation 89.0 VBG Base Excess -4.3 Sodium Potassium Chloride Carbon Dioxide Anion Gap BUN Creatinine Estim Creat Clear Calc Estimated GFR POC Glucose 136 H 259 H Random Glucose Fasting Glucose Estimat Average Glucose Hemoglobin A1c % Lactic Acid Uric Acid Calcium Phosphorus Magnesium Total Bilirubin Direct Bilirubin AST ALT Alkaline Phosphatase C-Reactive Protein Total Protein Albumin Beta-Hydroxybutyrate Urine Color Urine Appearance Urine pH Ur Specific [place] Urine Protein Urine Glucose (UA) Urine Ketones Urine Blood Urine Nitrite Ur Leukocyte Esterase Urine RBC Urine WBC Ur Squamous Epith Cells Urine Bacteria Hyaline Casts Synovial Source Synovial WBC Synovial RBC Synovial Neutrophils Synovial Lymphocytes Synovial Monocytes Vancomycin Trough 02/10/23 02/10/23 02/10/23 14:16 17:57 22:32 WBC RBC Hgb Hct MCV MCH MCHC RDW Plt Count MPV Immature Gran % (Auto) Neut % (Auto) Lymph % (Auto) [place] % (Auto) Eos % (Auto) Baso % (Auto) Lymph # (Auto) [place] # (Auto) Eos # (Auto) Baso # (Auto) Abs Immat Gran (auto) Absolute Neuts (auto) Absolute Nucleated RBC Nucleated RBC % (auto) ESR VBG pH VBG pCO2 VBG pO2 VBG HCO3 VBG O2 Saturation VBG Base Excess Sodium Potassium Chloride Carbon Dioxide Anion Gap BUN Creatinine Estim Creat Clear Calc Estimated GFR POC Glucose 217 H 234 H 182 H Random Glucose Fasting Glucose Estimat Average Glucose Hemoglobin A1c % Lactic Acid Uric Acid Calcium Phosphorus Magnesium Total Bilirubin Direct Bilirubin AST ALT Alkaline Phosphatase C-Reactive Protein Total Protein Albumin Beta-Hydroxybutyrate Urine Color Urine Appearance Urine pH Ur Specific [place] Urine Protein Urine Glucose (UA) Urine Ketones Urine Blood Urine Nitrite Ur Leukocyte Esterase Urine RBC Urine WBC Ur Squamous Epith Cells Urine Bacteria Hyaline Casts Synovial Source Synovial WBC Synovial RBC Synovial Neutrophils Synovial Lymphocytes Synovial Monocytes Vancomycin Trough 02/11/23 02/11/23 02/11/23 02:43 06:06 06:06 WBC 12.4 H RBC 3.73 L Hgb 10.5 L Hct 31.9 L MCV 85.5 MCH 28.2 MCHC 32.9 RDW 13.9 Plt Count 277 MPV 10.9 Immature Gran % (Auto) Neut % (Auto) Lymph % (Auto) [place] % (Auto) Eos % (Auto) Baso % (Auto) Lymph # (Auto) [place] # (Auto) Eos # (Auto) Baso # (Auto) Abs Immat Gran (auto) Absolute Neuts (auto) Absolute Nucleated RBC 0.000 Nucleated RBC % (auto) 0.0 ESR VBG pH VBG pCO2 VBG pO2 VBG HCO3 VBG O2 Saturation VBG Base Excess Sodium 140 Potassium 3.6 Chloride 109 H Carbon Dioxide 21 L Anion Gap 14 BUN 14 Creatinine 0.76 Estim Creat Clear Calc 92.1 Estimated GFR > 60 POC Glucose 203 H Random Glucose 185 H Fasting Glucose Estimat Average Glucose Hemoglobin A1c % Lactic Acid Uric Acid Calcium 9.0 D Phosphorus 2.0 L Magnesium 1.8 Total Bilirubin Direct Bilirubin AST ALT Alkaline Phosphatase C-Reactive Protein 15.24 H Total Protein Albumin Beta-Hydroxybutyrate 1.02 H Urine Color Urine Appearance Urine pH Ur Specific [place] Urine Protein Urine Glucose (UA) Urine Ketones Urine Blood Urine Nitrite Ur Leukocyte Esterase Urine RBC Urine WBC Ur Squamous Epith Cells Urine Bacteria Hyaline Casts Synovial Source Synovial WBC Synovial RBC Synovial Neutrophils Synovial Lymphocytes Synovial Monocytes Vancomycin Trough 02/11/23 02/11/23 02/11/23 06:09 06:42 07:39 WBC RBC Hgb Hct MCV MCH MCHC RDW Plt Count MPV Immature Gran % (Auto) Neut % (Auto) Lymph % (Auto) [place] % (Auto) Eos % (Auto) Baso % (Auto) Lymph # (Auto) [place] # (Auto) Eos # (Auto) Baso # (Auto) Abs Immat Gran (auto) Absolute Neuts (auto) Absolute Nucleated RBC Nucleated RBC % (auto) ESR VBG pH 7.46 H VBG pCO2 32 VBG pO2 81 VBG HCO3 23 VBG O2 Saturation 98.0 VBG Base Excess 0.4 Sodium Potassium Chloride Carbon Dioxide Anion Gap BUN Creatinine Estim Creat Clear Calc Estimated GFR POC Glucose 173 H 143 H Random Glucose Fasting Glucose Estimat Average Glucose Hemoglobin A1c % Lactic Acid Uric Acid Calcium Phosphorus Magnesium Total Bilirubin Direct Bilirubin AST ALT Alkaline Phosphatase C-Reactive Protein Total Protein Albumin Beta-Hydroxybutyrate Urine Color Urine Appearance Urine pH Ur Specific [place] Urine Protein Urine Glucose (UA) Urine Ketones Urine Blood Urine Nitrite Ur Leukocyte Esterase Urine RBC Urine WBC Ur Squamous Epith Cells Urine Bacteria Hyaline Casts Synovial Source Synovial WBC Synovial RBC Synovial Neutrophils Synovial Lymphocytes Synovial Monocytes Vancomycin Trough 02/11/23 02/11/23 02/11/23 10:15 14:14 17:58 WBC RBC Hgb Hct MCV MCH MCHC RDW Plt Count MPV Immature Gran % (Auto) Neut % (Auto) Lymph % (Auto) [place] % (Auto) Eos % (Auto) Baso % (Auto) Lymph # (Auto) [place] # (Auto) Eos # (Auto) Baso # (Auto) Abs Immat Gran (auto) Absolute Neuts (auto) Absolute Nucleated RBC Nucleated RBC % (auto) ESR VBG pH VBG pCO2 VBG pO2 VBG HCO3 VBG O2 Saturation VBG Base Excess Sodium Potassium Chloride Carbon Dioxide Anion Gap BUN Creatinine Estim Creat Clear Calc Estimated GFR POC Glucose 153 H 244 H 182 H Random Glucose Fasting Glucose Estimat Average Glucose Hemoglobin A1c % Lactic Acid Uric Acid Calcium Phosphorus Magnesium Total Bilirubin Direct Bilirubin AST ALT Alkaline Phosphatase C-Reactive Protein Total Protein Albumin Beta-Hydroxybutyrate Urine Color Urine Appearance Urine pH Ur Specific [place] Urine Protein Urine Glucose (UA) Urine Ketones Urine Blood Urine Nitrite Ur Leukocyte Esterase Urine RBC Urine WBC Ur Squamous Epith Cells Urine Bacteria Hyaline Casts Synovial Source Synovial WBC Synovial RBC Synovial Neutrophils Synovial Lymphocytes Synovial Monocytes Vancomycin Trough 02/11/23 02/11/23 02/12/23 18:10 21:46 03:18 WBC RBC Hgb Hct MCV MCH MCHC RDW Plt Count MPV Immature Gran % (Auto) Neut % (Auto) Lymph % (Auto) [place] % (Auto) Eos % (Auto) Baso % (Auto) Lymph # (Auto) [place] # (Auto) Eos # (Auto) Baso # (Auto) Abs Immat Gran (auto) Absolute Neuts (auto) Absolute Nucleated RBC Nucleated RBC % (auto) ESR VBG pH VBG pCO2 VBG pO2 VBG HCO3 VBG O2 Saturation VBG Base Excess Sodium Potassium Chloride Carbon Dioxide Anion Gap BUN Creatinine Estim Creat Clear Calc Estimated GFR POC Glucose 186 H 176 H Random Glucose Fasting Glucose Estimat Average Glucose Hemoglobin A1c % Lactic Acid Uric Acid Calcium Phosphorus Magnesium Total Bilirubin Direct Bilirubin AST ALT Alkaline Phosphatase C-Reactive Protein Total Protein Albumin Beta-Hydroxybutyrate Urine Color Urine Appearance Urine pH Ur Specific [place] Urine Protein Urine Glucose (UA) Urine Ketones Urine Blood Urine Nitrite Ur Leukocyte Esterase Urine RBC Urine WBC Ur Squamous Epith Cells Urine Bacteria Hyaline Casts Synovial Source Synovial WBC Synovial RBC Synovial Neutrophils Synovial Lymphocytes Synovial Monocytes Vancomycin Trough 12.1 02/12/23 02/12/23 02/12/23 05:34 05:34 05:37 WBC 8.6 RBC 3.73 L Hgb 10.3 L Hct 32.1 L MCV 86.1 MCH 27.6 MCHC 32.1 RDW 13.9 Plt Count 299 MPV 10.9 Immature Gran % (Auto) Neut % (Auto) Lymph % (Auto) [place] % (Auto) Eos % (Auto) Baso % (Auto) Lymph # (Auto) [place] # (Auto) Eos # (Auto) Baso # (Auto) Abs Immat Gran (auto) Absolute Neuts (auto) Absolute Nucleated RBC 0.000 Nucleated RBC % (auto) 0.0 ESR VBG pH VBG pCO2 VBG pO2 VBG HCO3 VBG O2 Saturation VBG Base Excess Sodium 140 Potassium 3.4 Chloride 108 Carbon Dioxide 24 Anion Gap 11 L BUN 8 L Creatinine 0.69 Estim Creat Clear Calc 101.5 Estimated GFR > 60 POC Glucose 169 H Random Glucose Fasting Glucose 187 H Estimat Average Glucose Hemoglobin A1c % Lactic Acid Uric Acid Calcium 8.9 Phosphorus Magnesium Total Bilirubin Direct Bilirubin AST ALT Alkaline Phosphatase C-Reactive Protein Total Protein Albumin Beta-Hydroxybutyrate Urine Color Urine Appearance Urine pH Ur Specific [place] Urine Protein Urine Glucose (UA) Urine Ketones Urine Blood Urine Nitrite Ur Leukocyte Esterase Urine RBC Urine WBC Ur Squamous Epith Cells Urine Bacteria Hyaline Casts Synovial Source Synovial WBC Synovial RBC Synovial Neutrophils Synovial Lymphocytes Synovial Monocytes Vancomycin Trough 02/12/23 02/12/23 07:18 11:09 WBC RBC Hgb Hct MCV MCH MCHC RDW Plt Count MPV Immature Gran % (Auto) Neut % (Auto) Lymph % (Auto) [place] % (Auto) Eos % (Auto) Baso % (Auto) Lymph # (Auto) [place] # (Auto) Eos # (Auto) Baso # (Auto) Abs Immat Gran (auto) Absolute Neuts (auto) Absolute Nucleated RBC Nucleated RBC % (auto) ESR VBG pH VBG pCO2 VBG pO2 VBG HCO3 VBG O2 Saturation VBG Base Excess Sodium Potassium Chloride Carbon Dioxide Anion Gap BUN Creatinine Estim Creat Clear Calc Estimated GFR POC Glucose 161 H 126 H Random Glucose Fasting Glucose Estimat Average Glucose Hemoglobin A1c % Lactic Acid Uric Acid Calcium Phosphorus Magnesium Total Bilirubin Direct Bilirubin AST ALT Alkaline Phosphatase C-Reactive Protein Total Protein Albumin Beta-Hydroxybutyrate Urine Color Urine Appearance Urine pH Ur Specific [place] Urine Protein Urine Glucose (UA) Urine Ketones Urine Blood Urine Nitrite Ur Leukocyte Esterase Urine RBC Urine WBC Ur Squamous Epith Cells Urine Bacteria Hyaline Casts Synovial Source Synovial WBC Synovial RBC Synovial Neutrophils Synovial Lymphocytes Synovial Monocytes Vancomycin Trough Airway Mallampati Class: I TM Dist: >3cm Neck ROM: Full Loose/Missing/Broken Teeth: No (Edentulous upper jaw) Heart: S1S2 Lungs: CTAB Assessment and Plan Final Anesthetic Review Family History of Problems with Anesthesia: No History of Problems with Anesthesia: No ASA Class: III Final Preanesthetic Review: No Changes in Pt Med Stat, Meds/Allgs Chart Reviewed, Consent Obtained/Reviewed, Anes Risks/Benef Reviewed and DNR Form (If Appl.) (DNR/DNI reversed for surgery and PACU) Patient Risk: Intermediate Procedure Risk: Low Anesthetic Plan Anesthetic Plan: GA and Agree w/ Assess. and Plan Disposition: Standard PACU
--- NOTE | 2023-02-12 14:42 | PM.OP ---
Brief Operative Note Date of Service: 02/12/23 Pre-op diagnosis: Left elbow abscess Post-op diagnosis: same Procedure: incision and drainage of left elbow abscess Surgeon: David Thibodeaux MD Anesthesia: GLMA Was an Medical Leader used for this Procedure?: No Estimated blood loss (mL): 15 Tourniquet time (min): 0 Pathology: other (wound cultures X 2) Condition: stable Disposition: PACU
--- NOTE | 2023-02-12 14:43 | W.PM.OPN ---
Operative Note Operative Note Date of Service: 02/12/23 Narrative: After the patient was identified as Fahad Fritz and his left elbow was initialed by myself he was brought to the operating room where general anesthesia via LMA was induced by the anesthesiologist in routine fashion. The patient was given 2 g of IV Ancef preoperatively for infection prophylaxis. A tourniquet was placed on the patient's left upper arm in case it would be needed during the procedure. A formal time-out was completed. The patient's left lower extremity was prepped and draped in sterile fashion. A # 15 scalpel blade was used to make a 5 cm incision just anterior to the medial epicondyle centered over the palpable fluid collection. Upon entry into the subcutaneous tissues there was a fair amount of cloudy fluid as well as fibrinous exudate tissue. Two sets of wound cultures were taken. There was no serina purulence. Digital blunt dissection was used to palpate the depth of the abscess and remove all of the fibrinous tissue. The wound was irrigated with copious amounts of normal saline solution via bulb syringe. There was no necrotic tissue. The incision was then closed using 3-0 simple and vertical mattress sutures over a small iodoform wick. Dry sterile dressing and a loose Heladio bandage was applied over the patient's left elbow. He was awoken and extubated in the operating room. He was transferred to the recovery room in stable condition. Specimens: Wound cultures x2 Surgeon: David Thibodeaux MD
--- NOTE | 2023-02-12 15:47 | MHC.CM.PN ---
per rounds no dc date at this time dc plan remains home no servmariois
[2023-02-12] MEDS: 0.9 % Sodium Chloride Flush 3 ML SYRINGE IVFLUSH ×2 (16:25→20:21)
[2023-02-12] MEDS: Insulin Lispro 100 UNIT/ML 3 ML VIAL SUBCUT ×2 (16:55→20:21)
[2023-02-12 20:08] LABS: Glucose, Whole Blood 305 mg/dL (60-115)
[2023-02-12] MEDS: lisinopriL 10 MG TABLET PO (20:20)
[2023-02-13] VITALS (7 sets, daily range): BP systolic 109–145; BP diastolic 59–67; PULSE 62–74; RESP 6–18; TEMP 36–37.2; O2SAT 94–97
[2023-02-13] MEDS: traMADoL HCL 50 MG TABLET PO ×4 (02:15→21:00)
[2023-02-13 07:46] LABS: Glucose, Whole Blood 167 mg/dL (60-115)
--- NOTE | 2023-02-13 07:55 | PM.PNORT ---
Subjective Subjective Date of Service: 02/13/23 Principal diagnosis: Left elbow cellulitis Interval history: Mr. Fritz is seen resting comfortably in bed this morning with complaints of mild discomfort in his left elbow. He denies any fevers or chills, shortness of breath or chest pain. Physical Exam Vital Signs: Vital Signs: Last Vital Signs Temp 97.1 F 02/13/23 07:08 Pulse 62 02/13/23 07:08 Resp 18 02/13/23 07:08 BP 132/63 02/13/23 07:08 Pulse Ox 95 02/13/23 07:08 O2 Del Method Room Air 02/13/23 07:08 O2 Flow Rate 5 02/12/23 14:31 BMI result Body Mass Index 25.5 Const: Other: Left elbow examination shows a mild amount of serosanguineous drainage from his incision, improved swelling when compared to preop examination, mild discomfort with range of motion of his elbow with range of motion from -10 degrees to 125 degrees Procedures Date of Service Date of Service: 02/13/23 Progress Note: A&P Assessment and plan (1) Abscess of left elbow: Status: Acute Plan Mr. Fritz is doing well after undergoing incision and drainage of his left elbow abscess yesterday. He should continue with daily sterile dressing changes. At this point no further surgery is planned. He is encouraged to continue with his elbow and wrist range of motion exercises. He should keep his incision covered at all times. The patient is cleared from my standpoint for discharge to home. He may need home nursing for help with his daily dressing changes. I will see the patient back for a wound check this coming February 16 at 11:00. My office is located here at [facility], [address] [place] [address] [address]. I will continue to follow the patient while he is here at the hospital. The patient is stable from an orthopedic standpoint. Time Spent With Patient Time: Total time managing care of this patient today ____ minutes. Quality Stroke Does the patient have a stroke diagnosis?: No VTE Prior VTE?: No VTE Risk Level:: Medical - moderate - high VTE Device Contraindication: Treatment Not Indicated VTE Drug Contraindication: N/A - Med Ordered
[2023-02-13] MEDS: Insulin Lispro 100 UNIT/ML 3 ML VIAL SUBCUT ×3 (08:07→21:01)
[2023-02-13] MEDS: Pravastatin Sodium 20 MG TABLET PO (08:08)
[2023-02-13] MEDS: Fenofibrate 160 MG TABLET PO (08:08)
[2023-02-13] MEDS: Cholecalciferol (Vitamin D3) 25 MCG TABLET PO (08:08)
[2023-02-13] MEDS: Ascorbic Acid 500 MG TABLET PO (08:08)
[2023-02-13] MEDS: 0.9 % Sodium Chloride Flush 3 ML SYRINGE IVFLUSH ×2 (08:15→21:38)
[2023-02-13 08:17] LABS: Creatinine Clr Calc Pharmacy 86.4; Estimated Glomerular Filt Rate > 60
--- NOTE | 2023-02-13 09:10 | P.PNIM_ITS ---
Subjective Subjective Date of Service: 02/13/23 Interval History: no fever POD#1 I+D L elbow abscess Review of Systems Review of Systems: Yes all other systems are reviewed and are negative Physical Exam Vital Signs: Vital Signs: Last Vital Signs Temp 97.1 F 02/13/23 07:08 Pulse 62 02/13/23 07:08 Resp 18 02/13/23 07:08 BP 132/63 02/13/23 07:08 Pulse Ox 95 02/13/23 07:08 O2 Del Method Room Air 02/13/23 07:08 O2 Flow Rate 5 02/12/23 14:31 BMI result Body Mass Index 25.5 Gen: in no acute distress HEENT: sclera anicteric, moist mucus membranes Neck: supple Lungs: clear to auscultation bilaterally Heart: regular rate and rhythm, no murmurs Abd: soft, non-tender, non-distended Ext: R 3rd toe redness resolved, L elbow with some drainage from incision and less swelling L elbow with residual swelling and erythema Skin: warm/well-perfused Neuro: alert and oriented x3, no focal findings Psych: appropriate affect Objective Data Active Medications Acetaminophen (Acetaminophen 325 Mg Tablet) 650 mg PO Q6H PRN PRN Reason: Pain, Mild (Pain Scale 1-3) Last Admin: 02/11/23 04:54 Dose: 650 mg Documented By: RADHA Ascorbic Acid (Ascorbic Acid 500 Mg Tablet) 500 mg PO DAILY [facility] Last Admin: 02/13/23 08:08 Dose: 500 mg Documented By: ALEXANDRA Dextrose (Dextrose 50 % 25 Gm/50 Ml Syringe) 25 gm IVPUSH Q15M PRN; Protocol PRN Reason: per Hypoglycemia Standing Ord. Docusate Sodium (Docusate Sodium 100 Mg Capsule) 100 mg PO DAILY PRN PRN Reason: Constipation Enoxaparin Sodium (Enoxaparin Sodium 40 Mg/0.4 Ml Syringe) 40 mg SUBCUT Q24H [facility] Last Admin: 02/12/23 14:45 Dose: Not Given Documented By: LAURA Non-Admin Reason: Off Unit: Surgery Fenofibrate (Fenofibrate 160 Mg Tablet) 160 mg PO DAILY [facility] Last Admin: 02/13/23 08:08 Dose: 160 mg Documented By: ALEXANDRA Fentanyl (Fentanyl Citrate/Pf 100 Mcg/2 Ml Vial) 25 mcg IVPUSH Q5M PRN; Protocol PRN Reason: Pain, Moderate(Pain Scale 4-6) Glucose (Glucose Gel 15 Gm Gel..Gram.) 15 gm PO Q15M PRN; Protocol PRN Reason: per Hypoglycemia Standing Ord. Vancomycin HCl 1,250 mg/ (Sodium Chloride) 250 mls @ 166.667 mls/hr IV Q12H [facility] Last Admin: 02/13/23 08:08 Dose: 166.66 mls/hr Documented By: ALEAXNDRA Promethazine HCl 12.5 mg/ (Sodium Chloride) 50.5 mls @ 202 mls/hr IV ONCE PRN PRN Reason: Nausea and Vomiting Piperacillin Sod/Tazobactam (Sod 3.375 gm/ Sodium Chloride) 50 mls @ 100 mls/hr IV Q6H [facility] Last Infusion: 02/13/23 04:29 Dose: 0 mls/hr Documented By: SOFIYA Insulin Human Lispro (Insulin Lispro 100 Unit/Ml 3 Ml Vial) 0 unit SUBCUT QIDACHS [facility]; Protocol Last Admin: 02/13/23 08:07 Dose: 4 unit Documented By: ALEXANDRA Lisinopril (Lisinopril 10 Mg Tablet) 10 mg PO BEDTIME [facility]; Protocol Last Admin: 02/12/23 20:20 Dose: 10 mg Documented By: SOFIYA Ondansetron HCl (Ondansetron Hcl 4 Mg/2 Ml Vial) 4 mg IVPUSH Q8H PRN PRN Reason: Nausea and Vomiting Oxycodone HCl (Oxycodone Hcl Immed Release 5 Mg Tablet) 10 mg PO ONCE PRN PRN Reason: Pain, Severe (Pain Scale 7-10) Oxycodone HCl (Oxycodone Hcl Immed Release 5 Mg Tablet) 10 mg PO Q3H PRN PRN Reason: Pain, Severe (Pain Scale 7-10) Oxycodone HCl (Oxycodone Hcl Immed Release 5 Mg Tablet) 5 mg PO Q3H PRN PRN Reason: Pain, Moderate(Pain Scale 4-6) Pharmacy Consult (Consult Rx Perform Med Rec) 1 each MISCELLANE ONCE PRN PRN Reason: Consult order Pharmacy Consult (Consult Rx Vancomycin Dosing) 1 each MISCELLANE DAILY PRN PRN Reason: Consult order Pravastatin Sodium (Pravastatin Sodium 20 Mg Tablet) 20 mg PO DAILY [facility] Last Admin: 02/13/23 08:08 Dose: 20 mg Documented By: ALEXANDRA Sodium Chloride (0.9 % Sodium Chloride Flush 3 Ml Syringe) 3 ml IVFLUSH QSHIFT [facility] Last Admin: 02/13/23 08:15 Dose: 3 ml Documented By: ALEXANDRA Tramadol HCl (Tramadol Hcl 50 Mg Tablet) 50 mg PO Q6H [facility] Last Admin: 02/13/23 08:08 Dose: 50 mg Documented By: ALEXANDRA Vitamin D (Cholecalciferol (Vitamin D3) 25 Mcg Tablet) 25 mcg PO DAILY [facility] Last Admin: 02/13/23 08:08 Dose: 25 mcg Documented By: ALEXANDRA Labs 02/12/23 05:34 02/13/23 07:52 Labs: Laboratory Results - last 24 hr 02/12/23 02/12/23 02/12/23 11:09 16:06 20:00 Estim Creat Clear Calc Estimated GFR POC Glucose 126 H 141 H 305 H Vancomycin Trough 02/13/23 02/13/23 02/13/23 06:37 07:12 07:52 Estim Creat Clear Calc 86.4 Estimated GFR > 60 POC Glucose 167 H Vancomycin Trough 18.0 Microbiology Microbiology Results: Microbiology 02/09/23 16:30 Gram Stain - Final Elbow Routine Culture - Final No growth after 2 days Anaerobic Culture - Preliminary No growth to date. 02/12/23 Unknown Routine Culture - Preliminary Elbow Left No growth to date. 02/12/23 Unknown Routine Culture - Preliminary Elbow Left No growth to date. 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 ? Treated empirically for gout by PCP without improvement. Concern for bursitis or subcutaneous abscess/cellulitis, less likely septic arthritis Also found to have euglycemic DKA euglycemic DKA likely due to SGLT2i - resolved; d/c Virgilioance L elbow cellulitis/abscess - continue IV ABX [vanco + pip-gladys] d6, no growth in BCx, discuss ABX with ID - POD4 IR aspiration of abscess adjacent to triceps, no growth in wound Cx; no fluid aspirated from elbow - POD1 Ortho I+D L elbow, follow wound Cx x2 from I+D R 3rd toe osteomyelitis - may require inpt amputation of the R 3rd toe if the L elbow was hematogenously seeded, discuss with ID + Gen Surg leukocytosis - attributable to steroids given for presumed gout; resolved DM2 - hold GPZ/MTF, Trulicity; d/c Jardiance; correction-dose lispro - A1c 6.6 HLD - statin HTN - lisinopril VTE ppx: LMWH dispo: PT eval reason for continued hospitalization: IV ABX, possible amputation Time Spent With Patient Time: Total time managing care of this patient today __35__ minutes. Quality Stroke Does the patient have a stroke diagnosis?: No VTE Prior VTE?: No VTE Risk Level:: Medical - moderate - high VTE Device Contraindication: Treatment Not Indicated VTE Drug Contraindication: N/A - Med Ordered
--- NOTE | 2023-02-13 10:41 | HE.PHANOTE ---
Re: vanco dosing level today is 18.0, SCr 0.81. Will continue current regimen.
[2023-02-13 11:17] LABS: Glucose, Whole Blood 211 mg/dL (60-115)
--- NOTE | 2023-02-13 12:35 | P.CDIM_ITS ---
PROVIDER RESPONSE TEXT: To clarify, the appropriate diagnosis supported by the clinical indicators: Yes, Cellulitis left elbow is related to / associated with / due to Diabetes Mellitus QUERY TEXT: PHYSICIAN'S DOCUMENTATION REQUEST Date of Query: 02/12/2023 08:37 AM EDT Patient Name: Fahad Fritz Admit Date: 02/08/2023 Dear Amy Giles, A review of the medical record indicates additional documentation may be needed. Please review below and update the documentation accordingly. Documentation includes the conditions of Cellulits left elbow and DM2. Please clarify the relationship between these conditions: Yes, Cellulitis left elbow is related to / associated with / due to Diabetes Mellitus No, Cellulitis is not related to / associated with / due to Diabetes Mellitus Other (explain)Clinically unable to determine (explain)Thank you, Lindy Finn RN Use of terms such as suspected, likely, concern for, or probable (associated with a specific diagnosi s that is being evaluated, monitored, or treated as if it exists) are acceptable and can be coded in the inpatient se tting, when documented at the time of discharge. Please use your independent medical judgment in providing your response. THIS QUERY IS PART OF THE PERMANENT MEDICAL RECORD
--- NOTE | 2023-02-13 13:09 | PM.PNGS ---
Subjective Subjective Date of Service: 02/13/23 Interval history: Mr. Fritz is known to me he has osteomyelitis of the distal phalanx of the 3rd toe and has has a nonhealing ulcer since December 2022 he had been referred to me as an outpt for toe amputation, but he was admitted for a left elbow cellulitis last he says he wants to proceed with toe amputation before being discharged from current hospital stay he describes persistent drainage from his 3rd toe Physical Exam Vital Signs: Vital Signs: Last Vital Signs Temp 97.1 F 02/13/23 12:00 Pulse 68 02/13/23 12:00 Resp 6 L 02/13/23 12:00 BP 128/61 02/13/23 12:00 Pulse Ox 97 02/13/23 12:00 O2 Del Method Room Air 02/13/23 12:00 O2 Flow Rate 5 02/12/23 14:31 BMI result Body Mass Index 25.5 Const: General: comfortable and no acute distress Resp: Effort & Inspection: normal respiratory effort Cardio: Rate: regular rate GI: Palpation (GI): Soft to palpation Extrem: Other: 3rd toe right with ulcer at the tip, mild edema left elbow area wrapped in Heladio bandage Objective Data Active Medications Acetaminophen (Acetaminophen 325 Mg Tablet) 650 mg PO Q6H PRN PRN Reason: Pain, Mild (Pain Scale 1-3) Last Admin: 02/11/23 04:54 Dose: 650 mg Documented By: RADHA Ascorbic Acid (Ascorbic Acid 500 Mg Tablet) 500 mg PO DAILY [facility] Last Admin: 02/13/23 08:08 Dose: 500 mg Documented By: ALEXANDRA Dextrose (Dextrose 50 % 25 Gm/50 Ml Syringe) 25 gm IVPUSH Q15M PRN; Protocol PRN Reason: per Hypoglycemia Standing Ord. Docusate Sodium (Docusate Sodium 100 Mg Capsule) 100 mg PO DAILY PRN PRN Reason: Constipation Enoxaparin Sodium (Enoxaparin Sodium 40 Mg/0.4 Ml Syringe) 40 mg SUBCUT Q24H [facility] Last Admin: 02/12/23 14:45 Dose: Not Given Documented By: LAURA Non-Admin Reason: Off Unit: Surgery Fenofibrate (Fenofibrate 160 Mg Tablet) 160 mg PO DAILY [facility] Last Admin: 02/13/23 08:08 Dose: 160 mg Documented By: ALEXANDRA Fentanyl (Fentanyl Citrate/Pf 100 Mcg/2 Ml Vial) 25 mcg IVPUSH Q5M PRN; Protocol PRN Reason: Pain, Moderate(Pain Scale 4-6) Glucose (Glucose Gel 15 Gm Gel..Gram.) 15 gm PO Q15M PRN; Protocol PRN Reason: per Hypoglycemia Standing Ord. Vancomycin HCl 1,250 mg/ (Sodium Chloride) 250 mls @ 166.667 mls/hr IV Q12H [facility] Last Infusion: 02/13/23 10:25 Dose: 0 mls/hr Documented By: CARLOS A Promethazine HCl 12.5 mg/ (Sodium Chloride) 50.5 mls @ 202 mls/hr IV ONCE PRN PRN Reason: Nausea and Vomiting Piperacillin Sod/Tazobactam (Sod 3.375 gm/ Sodium Chloride) 50 mls @ 100 mls/hr IV Q6H [facility] Last Infusion: 02/13/23 10:59 Dose: 0 mls/hr Documented By: ALEXANDRA Insulin Human Lispro (Insulin Lispro 100 Unit/Ml 3 Ml Vial) 0 unit SUBCUT QIDACHS [facility]; Protocol Last Admin: 02/13/23 11:51 Dose: 6 unit Documented By: ALEXANDRA Lisinopril (Lisinopril 10 Mg Tablet) 10 mg PO BEDTIME [facility]; Protocol Last Admin: 02/12/23 20:20 Dose: 10 mg Documented By: SOFIYA Ondansetron HCl (Ondansetron Hcl 4 Mg/2 Ml Vial) 4 mg IVPUSH Q8H PRN PRN Reason: Nausea and Vomiting Oxycodone HCl (Oxycodone Hcl Immed Release 5 Mg Tablet) 10 mg PO ONCE PRN PRN Reason: Pain, Severe (Pain Scale 7-10) Oxycodone HCl (Oxycodone Hcl Immed Release 5 Mg Tablet) 10 mg PO Q3H PRN PRN Reason: Pain, Severe (Pain Scale 7-10) Oxycodone HCl (Oxycodone Hcl Immed Release 5 Mg Tablet) 5 mg PO Q3H PRN PRN Reason: Pain, Moderate(Pain Scale 4-6) Pharmacy Consult (Consult Rx Perform Med Rec) 1 each MISCELLANE ONCE PRN PRN Reason: Consult order Pharmacy Consult (Consult Rx Vancomycin Dosing) 1 each MISCELLANE DAILY PRN PRN Reason: Consult order Pravastatin Sodium (Pravastatin Sodium 20 Mg Tablet) 20 mg PO DAILY [facility] Last Admin: 02/13/23 08:08 Dose: 20 mg Documented By: ALEXANDRA Sodium Chloride (0.9 % Sodium Chloride Flush 3 Ml Syringe) 3 ml IVFLUSH QSHIFT [facility] Last Admin: 02/13/23 08:15 Dose: 3 ml Documented By: ALEXANDRA Tramadol HCl (Tramadol Hcl 50 Mg Tablet) 50 mg PO Q6H [facility] Last Admin: 02/13/23 08:08 Dose: 50 mg Documented By: ALEXANDRA Vitamin D (Cholecalciferol (Vitamin D3) 25 Mcg Tablet) 25 mcg PO DAILY [facility] Last Admin: 02/13/23 08:08 Dose: 25 mcg Documented By: ALEXANDRA Labs 02/12/23 05:34 02/13/23 07:52 Labs: Laboratory Results - last 24 hr 02/12/23 02/12/23 02/13/23 16:06 20:00 06:37 Estim Creat Clear Calc Estimated GFR POC Glucose 141 H 305 H Vancomycin Trough 18.0 02/13/23 02/13/23 02/13/23 07:12 07:52 11:05 Estim Creat Clear Calc 86.4 Estimated GFR > 60 POC Glucose 167 H 211 H Vancomycin Trough Microbiology Microbiology Results: Microbiology 02/12/23 Unknown Gram Stain - Final Elbow Left Routine Culture - Preliminary No growth to date. 02/12/23 Unknown Gram Stain - Final Elbow Left Routine Culture - Preliminary No growth to date. 02/09/23 16:30 Gram Stain - Final Elbow Routine Culture - Final No growth after 2 days Anaerobic Culture - Preliminary No growth to date. Procedures Date of Service Date of Service: 02/13/23 Progress Note: A&P Assessment and plan (1) Osteomyelitis of toe of right foot: Status: Acute Assessment and Plan: he has had persistent drainage and edema of the 3rd toe, right his MRI from December 2022 shows osteomyelitis of the distal phalanx of the 3rd toe he understands the technique of amputation of the 3rd toe, right he is aware of the risks, benefots and alterantives and wants to proceed he will be put on the OR schedule for tomorrow Time Spent With Patient Time: Total time managing care of this patient today ____ minutes. Quality Stroke Does the patient have a stroke diagnosis?: No VTE Prior VTE?: No VTE Risk Level:: Medical - moderate - high VTE Device Contraindication: Treatment Not Indicated VTE Drug Contraindication: N/A - Med Ordered
[2023-02-13] MEDS: Enoxaparin Sodium 40 MG/0.4 ML SYRINGE SUBCUT (15:12)
[2023-02-13 15:54] LABS: Glucose, Whole Blood 135 mg/dL (60-115)
[2023-02-13 20:51] LABS: Glucose, Whole Blood 177 mg/dL (60-115)
[2023-02-13] MEDS: lisinopriL 10 MG TABLET PO (21:00)
[2023-02-14] VITALS (11 sets, daily range): BP systolic 92–158; BP diastolic 45–72; PULSE 64–97; RESP 16–20; TEMP 36.1–37.2; O2SAT 94–100
[2023-02-14] MEDS: traMADoL HCL 50 MG TABLET PO ×3 (03:15→20:15)
[2023-02-14 06:14] LABS: Creatinine Clr Calc Pharmacy 85.4; Estimated Glomerular Filt Rate > 60
[2023-02-14] MEDS: 0.9 % Sodium Chloride Flush 3 ML SYRINGE IVFLUSH ×2 (07:22→20:15)
[2023-02-14 07:55] LABS: Glucose, Whole Blood 157 mg/dL (60-115)
--- NOTE | 2023-02-14 08:41 | P.PNIM_ITS ---
Subjective Subjective Date of Service: 02/14/23 Interval History: f/u on osteomylitis, abscess of elbow interval history: no pain or fever Physical Exam Vital Signs: Vital Signs: Last Vital Signs Temp 98.7 F 02/14/23 07:30 Pulse 89 02/14/23 07:30 Resp 20 02/14/23 07:30 BP 158/72 H 02/14/23 07:30 Pulse Ox 97 02/14/23 07:30 O2 Del Method Room Air 02/14/23 07:30 O2 Flow Rate 5 02/12/23 14:31 BMI result Body Mass Index 25.5 Const: Other: Gen: in no acute distress Lungs: clear to auscultation bilaterally Heart: regular rate and rhythm, no murmurs Abd: soft, non-tender, non-distended Ext: R 3rd toe redness, L elbow wound dressing in place Skin: warm/well-perfused, no rash Neuro: alert and oriented x3, no focal findings Psych: appropriate affect Objective Data Active Medications Acetaminophen (Acetaminophen 325 Mg Tablet) 650 mg PO Q6H PRN PRN Reason: Pain, Mild (Pain Scale 1-3) Last Admin: 02/11/23 04:54 Dose: 650 mg Documented By: RADHA Ascorbic Acid (Ascorbic Acid 500 Mg Tablet) 500 mg PO DAILY ON LICENSE OF [facility] Last Admin: 02/14/23 07:08 Dose: Not Given Documented By: ORIA Non-Admin Reason: NPO Dextrose (Dextrose 50 % 25 Gm/50 Ml Syringe) 25 gm IVPUSH Q15M PRN; Protocol PRN Reason: per Hypoglycemia Standing Ord. Docusate Sodium (Docusate Sodium 100 Mg Capsule) 100 mg PO DAILY PRN PRN Reason: Constipation Enoxaparin Sodium (Enoxaparin Sodium 40 Mg/0.4 Ml Syringe) 40 mg SUBCUT Q24H ON LICENSE OF [facility] Last Admin: 02/13/23 15:12 Dose: 40 mg Documented By: ALEXANDRA Fenofibrate (Fenofibrate 160 Mg Tablet) 160 mg PO DAILY ON LICENSE OF [facility] Last Admin: 02/14/23 07:08 Dose: Not Given Documented By: DABA Non-Admin Reason: NPO Fentanyl (Fentanyl Citrate/Pf 100 Mcg/2 Ml Vial) 25 mcg IVPUSH Q5M PRN; Protocol PRN Reason: Pain, Moderate(Pain Scale 4-6) Glucose (Glucose Gel 15 Gm Gel..Gram.) 15 gm PO Q15M PRN; Protocol PRN Reason: per Hypoglycemia Standing Ord. Vancomycin HCl 1,250 mg/ (Sodium Chloride) 250 mls @ 166.667 mls/hr IV Q12H ON LICENSE OF [facility] Last Admin: 02/14/23 07:20 Dose: 166.67 mls/hr Documented By: MARIBELL Promethazine HCl 12.5 mg/ (Sodium Chloride) 50.5 mls @ 202 mls/hr IV ONCE PRN PRN Reason: Nausea and Vomiting Piperacillin Sod/Tazobactam (Sod 3.375 gm/ Sodium Chloride) 50 mls @ 100 mls/hr IV Q6H ON LICENSE OF [facility] Last Infusion: 02/14/23 04:05 Dose: 0 mls/hr Documented By: SOFIYA Insulin Human Lispro (Insulin Lispro 100 Unit/Ml 3 Ml Vial) 0 unit SUBCUT QIDAC HS ON LICENSE OF [facility]; Protocol Last Admin: 02/14/23 07:59 Dose: Not Given Documented By: MARIBELL Non-Admin Reason: NPO Lisinopril (Lisinopril 10 Mg Tablet) 10 mg PO BEDTIME ON LICENSE OF [facility]; Protocol Last Admin: 02/13/23 21:00 Dose: 10 mg Documented By: SOFIYA Ondansetron HCl (Ondansetron Hcl 4 Mg/2 Ml Vial) 4 mg IVPUSH Q8H PRN PRN Reason: Nausea and Vomiting Oxycodone HCl (Oxycodone Hcl Immed Release 5 Mg Tablet) 10 mg PO ONCE PRN PRN Reason: Pain, Severe (Pain Scale 7-10) Oxycodone HCl (Oxycodone Hcl Immed Release 5 Mg Tablet) 10 mg PO Q3H PRN PRN Reason: Pain, Severe (Pain Scale 7-10) Oxycodone HCl (Oxycodone Hcl Immed Release 5 Mg Tablet) 5 mg PO Q3H PRN PRN Reason: Pain, Moderate(Pain Scale 4-6) Pharmacy Consult (Consult Rx Perform Med Rec) 1 each MISCELLANE ONCE PRN PRN Reason: Consult order Pharmacy Consult (Consult Rx Vancomycin Dosing) 1 each MISCELLANE DAILY PRN PRN Reason: Consult order Pravastatin Sodium (Pravastatin Sodium 20 Mg Tablet) 20 mg PO DAILY ON LICENSE OF [facility] Last Admin: 02/14/23 07:09 Dose: Not Given Documented By: MARIBELL Non-Admin Reason: NPO Sodium Chloride (0.9 % Sodium Chloride Flush 3 Ml Syringe) 3 ml IVFLUSH QSHIFT ON LICENSE OF [facility] Last Admin: 02/14/23 07:22 Dose: 3 ml Documented By: MARIBELL Tramadol HCl (Tramadol Hcl 50 Mg Tablet) 50 mg PO Q6H ON LICENSE OF [facility] Last Admin: 02/14/23 07:20 Dose: 50 mg Documented By: MARIBELL Vitamin D (Cholecalciferol (Vitamin D3) 25 Mcg Tablet) 25 mcg PO DAILY ON LICENSE OF [facility] Last Admin: 02/14/23 07:08 Dose: Not Given Documented By: MARIBELL Non-Admin Reason: NPO Labs 02/12/23 05:34 02/14/23 05:38 Labs: Laboratory Results - last 24 hr 02/13/23 02/13/23 02/13/23 11:05 15:42 20:38 Estim Creat Clear Calc Estimated GFR POC Glucose 211 H 135 H 177 H 02/14/23 02/14/23 05:38 07:37 Estim Creat Clear Calc 85.4 Estimated GFR > 60 POC Glucose 157 H Microbiology Microbiology Results: Microbiology 02/08/23 12:27 Blood Culture - Final Blood - Venous No growth after 5 days. 02/08/23 11:47 Blood Culture - Final Blood - Venous No growth after 5 days. 02/12/23 Unknown Gram Stain - Final Elbow Left Routine Culture - Preliminary No growth to date. 02/12/23 Unknown Gram Stain - Final Elbow Left Routine Culture - Preliminary No growth to date. 02/09/23 16:30 Gram Stain - Final Elbow Routine Culture - Final No growth after 2 days Anaerobic Culture - Preliminary No growth to date. Assessment and Plan (1) Cellulitis of elbow: Status: Acute (2) Redness and swelling of elbow: Status: Acute (3) Osteomyelitis of foot, right, acute: Status: Acute Plan 77yo M with DM2, HTN, osteomyelitis of distal R 3rd phalanx diagnosed in December for which he declined IV ABX and plans for amputation by Dr Mejia presenting with L elbow redness/pain/swelling x 4 days. ? Treated empirically for gout by PCP without improvement. Concern for bursitis or subcutaneous abscess/cellulitis, less likely septic arthritis Also found to have euglycemic DKA euglycemic DKA likely due to SGLT2i (jardiance)--resolved. Jardiance stopped L elbow cellulitis/abscess - continue IV ABX [vanco + Zosyn] 02/08, no growth in BCx, discuss ABX with ID - IR aspiration of abscess adjacent to triceps on , no growth in wound Cx; no fluid aspirated from elbow - Ortho I&D L elbow on 02/12, cultures fo far negative R 3rd toe osteomyelitis--planned for ampuation today 02/14 per ID after amputation d/c home on Augmentin + doxycycline x 14d leukocytosis - attributable to steroids given for presumed gout; resolved DM2 - hold GPZ/MTF, Trulicity; d/c'd Jardiance; correction-dose lispro - A1c 6.6 HLD - statin HTN - lisinopril VTE ppx: LMWH dispo: PT eval reason for continued hospitalization: IV ABX, amputation of toe Time Spent With Patient Time: Total time managing care of this patient today ____ minutes. Quality Stroke Does the patient have a stroke diagnosis?: No VTE Prior VTE?: No VTE Risk Level:: Medical - moderate - high VTE Device Contraindication: Treatment Not Indicated VTE Drug Contraindication: N/A - Med Ordered
--- NOTE | 2023-02-14 11:15 | P.OP_ITS ---
Operative Note Operative Note Date of Service: 02/14/23 Narrative: Preop diagnosis: Osteomyelitis, 3rd toe left Postop diagnosis: The same Procedure: Ray Amputation 3rd toe left Surgeon: Mario Mejia MD hotel assistant general manager: KAYE Neil The patient is a 77-year-old male, with a nonhealing ulcer of the 3rd toe, along with chronic osteomyelitis of the distal phalanx. He wanted to proceed with toe amputation. He understood the technique of amputation with 3rd toe and was aware of the risks, benefits, and alternatives. He was brought to the operating room and placed supine under had anesthesia care with a popliteal block done earlier. The left foot was prepped and draped in the usual sterile fashion. A surgical time-out was done. The patient was on scheduled IV antibiotics I made the incision on the skin proximal to the base of the toe using blade 15 and extended this circumferentially around the medial and lateral aspects . This was carried down through the full-thickness of the skin and subcutaneous fat with electrocautery and then I used a curved Pickard scissors to divide through soft tissue including tendons and exposed the distal metatarsal. I then used the bone cutter to divide the metatarsal head and completed amputation by dividing the rest of the attached soft tissue on the plantar aspect. This specimen was delivered and sent for pathology. I cauterized any oozing area. Once hemostasis was confirmed, I copiously irrigated. I then reapposed the subcutaneous layer with Polysorb 2-0 interrupted sutures. Skin closure was achieved with nylon 3-0 simple interrupted sutures. Thick dressings were applied and the procedure was completed The patient tolerated the procedure well. There were no immediate complications. Initial and final counts of sponges and instruments were correct. Estimated blood loss about 20 cc. The patient was then transferred to the recovery room with stable vital signs.
[2023-02-14 12:16] LABS: Glucose, Whole Blood 141 mg/dL (60-115)
[2023-02-14] MEDS: oxyCODONE HCl Immed Release 5 MG TABLET 10 MG PO ×2 (12:19→15:53)
[2023-02-14] MEDS: Enoxaparin Sodium 40 MG/0.4 ML SYRINGE SUBCUT (14:47)
--- NOTE | 2023-02-14 15:10 | MHC.CM.PN ---
per rounds pt in or today no dc date at this time
[2023-02-14 15:47] LABS: Glucose, Whole Blood 127 mg/dL (60-115)
[2023-02-14 19:33] LABS: Vancomycin Random 19.7 mcg/mL (15-20)
[2023-02-14] MEDS: vancomycin HCL 1,000 MG in 0.9 % Sodium Chloride 250 ML 270 MG IV (20:14)
[2023-02-14] MEDS: lisinopriL 10 MG TABLET PO (20:15)
[2023-02-14 20:43] LABS: Glucose, Whole Blood 156 mg/dL (60-115)
[2023-02-14] MEDS: Insulin Lispro 100 UNIT/ML 3 ML VIAL SUBCUT (21:16)
[2023-02-15 03:10] VITALS: BP 97/50; PULSE 70; RESP 18; TEMP 36.4; O2SAT 96
[2023-02-15] MEDS: traMADoL HCL 50 MG TABLET PO ×3 (03:13→14:42)
[2023-02-15 06:18] LABS: Creatinine Clr Calc Pharmacy 80.5; Estimated Glomerular Filt Rate > 60
[2023-02-15 07:25] VITALS: BP 128/60; PULSE 89; RESP 20; TEMP 36.6; O2SAT 97
[2023-02-15 07:42] LABS: Glucose, Whole Blood 150 mg/dL (60-115)
[2023-02-15] MEDS: Fenofibrate 160 MG TABLET PO (07:58)
[2023-02-15] MEDS: Pravastatin Sodium 20 MG TABLET PO (07:58)
--- NOTE | 2023-02-15 07:58 | PM.PNGS ---
Subjective Subjective Date of Service: 02/15/23 Interval history: feels well denies signifiicant pain Physical Exam Vital Signs: Vital Signs: Last Vital Signs Temp 97.8 F 02/15/23 07:25 Pulse 89 02/15/23 07:25 Resp 20 02/15/23 07:25 BP 128/60 02/15/23 07:25 Pulse Ox 97 02/15/23 07:25 O2 Del Method Room Air 02/15/23 07:25 O2 Flow Rate 2 02/14/23 11:42 BMI result Body Mass Index 25.5 Const: General: comfortable and no acute distress Resp: Effort & Inspection: normal respiratory effort Cardio: Rate: regular rate Extrem: Other: toe amputation site 3rd toe right clean, dry, appears to be healing well Objective Data Active Medications Acetaminophen (Acetaminophen 325 Mg Tablet) 650 mg PO Q6H PRN PRN Reason: Pain, Mild (Pain Scale 1-3) Last Admin: 02/11/23 04:54 Dose: 650 mg Documented By: RADHA Ascorbic Acid (Ascorbic Acid 500 Mg Tablet) 500 mg PO DAILY [facility] Last Admin: 02/14/23 07:08 Dose: Not Given Documented By: DABA Non-Admin Reason: NPO Dextrose (Dextrose 50 % 25 Gm/50 Ml Syringe) 25 gm IVPUSH Q15M PRN; Protocol PRN Reason: per Hypoglycemia Standing Ord. Docusate Sodium (Docusate Sodium 100 Mg Capsule) 100 mg PO DAILY PRN PRN Reason: Constipation Enoxaparin Sodium (Enoxaparin Sodium 40 Mg/0.4 Ml Syringe) 40 mg SUBCUT Q24H [facility] Last Admin: 02/14/23 14:47 Dose: 40 mg Documented By: JANES Fenofibrate (Fenofibrate 160 Mg Tablet) 160 mg PO DAILY [facility] Last Admin: 02/14/23 07:08 Dose: Not Given Documented By: DABA Non-Admin Reason: NPO Fentanyl (Fentanyl Citrate/Pf 100 Mcg/2 Ml Vial) 25 mcg IVPUSH Q5M PRN; Protocol PRN Reason: Pain, Moderate(Pain Scale 4-6) Glucose (Glucose Gel 15 Gm Gel..Gram.) 15 gm PO Q15M PRN; Protocol PRN Reason: per Hypoglycemia Standing Ord. Promethazine HCl 12.5 mg/ (Sodium Chloride) 50.5 mls @ 202 mls/hr IV ONCE PRN PRN Reason: Nausea and Vomiting Piperacillin Sod/Tazobactam (Sod 3.375 gm/ Sodium Chloride) 50 mls @ 100 mls/hr IV Q6H [facility] Last Infusion: 02/15/23 03:48 Dose: 0 mls/hr Documented By: MARVIN Vancomycin HCl 1,000 mg/ (Sodium Chloride) 270 mls @ 270 mls/hr IV Q12H [facility] Last Infusion: 02/14/23 21:24 Dose: 0 mls/hr Documented By: MARVIN Insulin Human Lispro (Insulin Lispro 100 Unit/Ml 3 Ml Vial) 0 unit SUBCUT QIDACHS [facility]; Protocol Last Admin: 02/15/23 07:47 Dose: Not Given Documented By: MARIBELL Non-Admin Reason: No Insulin Coverage Lisinopril (Lisinopril 10 Mg Tablet) 10 mg PO BEDTIME [facility]; Protocol Last Admin: 02/14/23 20:15 Dose: 10 mg Documented By: MARVIN Morphine Sulfate (Morphine Sulfate 2 Mg/Ml Cartridge) 2 mg IVPUSH Q3H PRN; Protocol PRN Reason: Pain, Severe (Pain Scale 7-10) Ondansetron HCl (Ondansetron Hcl 4 Mg/2 Ml Vial) 4 mg IVPUSH Q8H PRN PRN Reason: Nausea and Vomiting Oxycodone HCl (Oxycodone Hcl Immed Release 5 Mg Tablet) 10 mg PO Q3H PRN PRN Reason: Pain, Severe (Pain Scale 7-10) Last Admin: 02/14/23 15:53 Dose: 10 mg Documented By: JANES Oxycodone HCl (Oxycodone Hcl Immed Release 5 Mg Tablet) 5 mg PO Q3H PRN PRN Reason: Pain, Moderate(Pain Scale 4-6) Pharmacy Consult (Consult Rx Perform Med Rec) 1 each MISCELLANE ONCE PRN PRN Reason: Consult order Pharmacy Consult (Consult Rx Vancomycin Dosing) 1 each MISCELLANE DAILY PRN PRN Reason: Consult order Pravastatin Sodium (Pravastatin Sodium 20 Mg Tablet) 20 mg PO DAILY [facility] Last Admin: 02/14/23 07:09 Dose: Not Given Documented By: MARIBELL Non-Admin Reason: NPO Sodium Chloride (0.9 % Sodium Chloride Flush 3 Ml Syringe) 3 ml IVFLUSH QSHIFT [facility] Last Admin: 02/14/23 20:15 Dose: 3 ml Documented By: MARVIN Tramadol HCl (Tramadol Hcl 50 Mg Tablet) 50 mg PO Q6H [facility] Last Admin: 02/15/23 03:13 Dose: 50 mg Documented By: MARVIN Vitamin D (Cholecalciferol (Vitamin D3) 25 Mcg Tablet) 25 mcg PO DAILY [facility] Last Admin: 02/14/23 07:08 Dose: Not Given Documented By: MARIBELL Non-Admin Reason: NPO Labs 02/12/23 05:34 02/15/23 05:46 Labs: Laboratory Results - last 24 hr 02/14/23 02/14/23 02/14/23 12:12 15:39 18:45 Estim Creat Clear Calc Estimated GFR POC Glucose 141 H 127 H Random Vancomycin 19.7 02/14/23 02/15/23 02/15/23 20:38 05:46 07:28 Estim Creat Clear Calc 80.5 Estimated GFR > 60 POC Glucose 156 H 150 H Random Vancomycin Microbiology Microbiology Results: Microbiology 02/12/23 Unknown Gram Stain - Final Elbow Left Routine Culture - Preliminary No growth to date. 02/09/23 16:30 Gram Stain - Final Elbow Routine Culture - Final No growth after 2 days Anaerobic Culture - Final NO GROWTH AFTER 5 DAYS Procedures Date of Service Date of Service: 02/15/23 Progress Note: A&P Assessment and plan (1) Osteomyelitis of toe of right foot: Status: Acute Assessment and Plan: s/p toe amp dressings changed wound clean he wants to go home - ok to vt home with good wound care daily dry dressings with gauze, wrap foot with Emili roll ok to see me in office in 2-3 weeks for postop check Time Spent With Patient Time: Total time managing care of this patient today ____ minutes. Quality Stroke Does the patient have a stroke diagnosis?: No VTE Prior VTE?: No VTE Risk Level:: Medical - moderate - high VTE Device Contraindication: Treatment Not Indicated VTE Drug Contraindication: N/A - Med Ordered
[2023-02-15] MEDS: Cholecalciferol (Vitamin D3) 25 MCG TABLET PO (07:59)
[2023-02-15] MEDS: Ascorbic Acid 500 MG TABLET PO (07:59)
[2023-02-15] MEDS: vancomycin HCL 1,000 MG in 0.9 % Sodium Chloride 250 ML 270 MG IV (08:03)
[2023-02-15] MEDS: 0.9 % Sodium Chloride Flush 3 ML SYRINGE IVFLUSH ×2 (08:03→14:45)
[2023-02-15 11:44] LABS: Glucose, Whole Blood 161 mg/dL (60-115)
--- NOTE | 2023-02-15 11:46 | MHC.CM.PN ---
Addendum entered by Carmen Wooten 02/15/23 13:32: PTS SON WILL BE BEDSIDE AROUND 1600 HOURS FOR DRESSING TEACH [facility] WILL SEE PT AT HOME TOMORROW FOR FURTHER TEACHING SON TO TRANSPORT Original Note: CM MET WITH PT TO DISCUSS DC PLAN HE WAS INFORMED THE [facility] WOULD NOT BE ABLE TO PROVIDE DAILY DRESSING CHANGES HE REPORTS HE HAS 3 SONS IN THE AREA THAT MAY BE ABLE TO HELP HE WLL CALL TO SEE IF ONE OF HIS SONS, PREFERABLY THE ONE THAT LIVES WITH HIM, CAN COME IN TO LEARN DRESSINGS CM WILL RETURN ONCE CALLS ARE COMPLETE CM DID MAKE A REFERRAL TO [facility] INFORMING THEM THE PT WOULD NEED A NEXT DAY VISIT TO PROVIDE FURTHER TEACHING AWAITING RESPONSE.
[2023-02-15] MEDS: Insulin Lispro 100 UNIT/ML 3 ML VIAL SUBCUT (11:48)
--- NOTE | 2023-02-15 12:41 | W.MHC.F2F ---
Service Date Service Date: 02/15/23 Encounter Date of encounter: 02/15/23 Encounter: Left elbow cellulitis/abscess, status post right 3rd toe amputation need daily dressings Reasons for Services Signs and symptoms assessed: diabetes mellitus needs blood sugar monitoring and daily dressing to left elbow and right 3rd toe. Homebound: Leaving the home is medically contraindicated at this time without the asist of a device and/or another person due th the listed conditions above and below. Reason homebound: weakness related to hospital stay Homebound supporting statement: status post right 3rd toe amputation difficulty in ambulation, weakness post op Certification: Based on the above findings, I certify that this patient is confined to the home and needs intermittent custodial care, physical therapy and/or speech therapy, or continues to need occupational therapy. The patient is under my care, and I have initiated the establishment of the plan of care. The patient will be followed by a physician who will periodically review the plan of care. Time Spent With Patient Time: Total time managing care of this patient today ____ minutes.
--- NOTE | 2023-02-15 12:45 | PM.DS ---
DS: Providers Provider Date of Service: 02/15/23 Date of admission: 02/08/23 14:21 Primary care physician: Zeus Bartlett MD Consults: 02/08/23 14:23 Consult to Orthopedics Routine Consulting Provider: [facility] Reason for consultation: Left elbow redness, swelling, pain, ?septic arthritis 02/08/23 14:28 Consult to Infectious Diseases Routine Consulting Provider: [facility] Reason for consultation: Left elbow redness, swelling, pain, ?septic arthritis 02/10/23 07:37 Consult to General Surgery Routine Consulting Provider: [facility] Reason for consultation: osteo 3rd toe R- needs amputation. DS: Diagnosis Discharge Diagnosis (1) Osteomyelitis of toe of right foot: Status: Acute DS: Summary Hospital Course Hospital Course: History of presenting illness: Chief Complaint: ? ? ? Left elbow redness and pain?<KAYE Hanley - Last Filed: 02/08/23 16:47> ?Pt is a 77-year-old male with a PMH significant for?insulin-dependent diabetes type 2, HTN, and current acute osteomyelitis of the distal phalanx of 3rd right toe who presents to the ED with?left elbow redness, pain, and swelling for the past 4 days. Pt initially noticed some mild left elbow pain with exertion on Sunday.? On Sunday patient began to notice some redness to the area and called his PCP who prescribed him a short course of prednisone for treatment of possible gout.? Patient does not have a previous history of gout.? Pain and redness continue to worsen until today when patient noticed elbow was also swollen.? Patient was able to visit his PCP who advised patient to come to the ED after examining the arm. Pt first, though, kept his appointment with Dr. Mejia of general surgery for discussion of amputation of 3rd right toe. Pt denies systemic symptoms: no fever, chills, nausea, vomiting. No lightheadedness or dizziness. Denies chest pain/pressure, palpitations. No abdominal pain. In the ED patient was afebrile but slightly hypertensive at 145/66. Labs were significant for leukocytosis of 18.9, ESR of 81, C-reactive protein of 34.31. X-ray of left elbow pending.? CT?of left elbow pending. Pt was treated with IVF, vancomycin and Zosyn. Pt will be admitted to the hospital for treatment and further evaluation of possible left arm cellulitis.? Hospital course: 77yo M with DM2, HTN, osteomyelitis of distal R 3rd phalanx diagnosed in December for which he declined IV ABX and plans for amputation by Dr Mejia presenting with L elbow redness/pain/swelling x 4 days. ? Treated empirically for gout by PCP without improvement. Concern for bursitis or subcutaneous abscess/cellulitis, less likely septic arthritis Also found to have euglycemic DKA ?Euglycemic DKA likely due to SGLT2i (jardiance)--resolved. Jardiance stopped L elbow cellulitis/abscess, underwent IR aspiration of abscess [facility], blood cultures x2, showed no growth, underwent I&D left elbow on 02/12 by orthopedic surgeon , no growth from wound culture Patient treated with IV vancomycin and Zosyn, patient evaluated by ID, she recommend 2 weeks of antibiotic but will covered right 3rd toe infection as well, patient evaluated by orthopedic surgeon they recommend daily dressing and outpatient follow-up with them for wound check. R 3rd toe osteomyelitis--underwent 3rd toe ampuation on 02/14, id recommend po Augmentin + doxycycline x 14d, patient being followed closely by General surgery they recommend sterile dressing and outpatient follow-up in 2-3 weeks. leukocytosis - attributable to steroids given for presumed gout; resolved DM2 stable blood sugars recommend to continue glipizide and metformin, Trulicity dose of Lantus reduced to 10 units due to stable blood sugars hemoglobin A1c 6.6, Jardiance discontinued due to euglycemic DKA HLD - continue statin HTN stable blood sugar continue lisinopril Time Spent with Patient Time attestation: Total time managing care of this patient today ____ minutes. Discharge coordination time: Greater than 30 minutes Quality: Safe Use of Opioids Does Pt have an Active Cancer Diagnosis on the Problem List?: No Quality: Stroke Does the patient have a stroke diagnosis?: No Physical Exam Vital Signs: Vital Signs: Last Vital Signs Temp 97.8 F 02/15/23 07:25 Pulse 89 02/15/23 07:25 Resp 20 02/15/23 07:25 BP 128/60 02/15/23 07:25 Pulse Ox 97 02/15/23 07:25 O2 Del Method Room Air 02/15/23 12:19 O2 Flow Rate 2 02/14/23 11:42 BMI result Body Mass Index 25.5 Const: Other: Gen: Awake alert x3, in no acute distress Lungs: clear to auscultation bilaterally Heart: regular rate and rhythm, no murmurs Abd: soft, non-tender, non-distended Ext: R 3rd toe amputation site clean, dry healing well. Left elbow examina tion shows a mild amount of serosang uineous drainage f rom his incision, improved swelling when compared to p reop examination, mild discomfort wi th range of motion of his elbow with range of motion f rom -10 degrees to 125 degrees Skin: warm/well-perfused, no rash Neuro: alert and oriented x3, no focal findings Psych: appropriate affect DS: Data Data Completed and Pending Pending studies at discharge: Pending at discharge 02/14/23 11:07 Surgical [PTH] Routine Labs on day of discharge: Laboratory Results - last 24 hr 02/14/23 02/14/23 02/14/23 15:39 18:45 20:38 Creatinine Estim Creat Clear Calc Estimated GFR POC Glucose 127 H 156 H Random Vancomycin 19.7 02/15/23 02/15/23 02/15/23 05:46 07:28 11:41 Creatinine 0.87 Estim Creat Clear Calc 80.5 Estimated GFR > 60 POC Glucose 150 H 161 H Random Vancomycin Discharge Plan Discharge Anticipated Discharge Date/Time: 02/15/23 12:12 Patient Disposition: Home Health Service Discharge Diagnosis: Left elbow cellulitis/abscess Right 3rd toe osteomyelitis status post amputation 02/14 Referrals: Zeus Bartlett MD [Primary Care Provider] - 1 Week Discharge Medications: New amoxicillin-pot clavulanate 875-125 mg tablet 1 tab PO BID Qty: 28 0RF doxycycline hyclate 100 mg capsule 100 mg PO BID Qty: 28 0RF Continued tramadol 50 mg tablet 50 mg PO Q6H PRN (Reason: pain) Qty: 60 0RF lisinopril 10 mg tablet 1 tab PO BEDTIME pravastatin 20 mg tablet 1 tab PO DAILY glipizide-metformin 5-500 mg tablet 2 tab PO BID fenofibrate 160 mg tablet 1 tab PO DAILY Trulicity 1.5 mg/0.5 mL pen injector 0.5 mg subcut WE@0900 ascorbic acid (vitamin C) [Vitamin C] 500 mg Tablet 500 mg PO DAILY cholecalciferol (vitamin D3) 25 mcg (1,000 unit) capsule 25 mcg PO DAILY Changed insulin glargine [Basaglar KwikPen U-100 Insulin] 100 unit/mL (3 mL) insulin pen 10 unit subcut BEDTIME Qty: 15 0RF Discontinued Jardiance 25 mg tablet 1 tab PO DAILY prednisone 20 mg tablet 20 mg PO DAILY Rx Instructions: END DATE: 02/10/23 Discharge Orders: Discharge Order (Routine); Ordered 02/15/23 Ordered By: Oscar Fletcher Diet: Diabetic diet Activity on Discharge: As tolerated Stand Alone Forms: Patient Portal Discharge page Care Plan Goals: Left elbow daily dry dressing, keep incision covered at all times, follow up with Dr. David Thibodeaux for wound check on SundayFebruary 16 at 11:[address], continue [id number] exercises left elbow. Status post right 3rd toe amputation, continue dry dressings at 3rd toe incision site with gauze, wrap foot with Emili roll Follow-up with Dr. Mejia in office in 2-3 weeks for postop check, call Dr. Mario Mejia office for appointment Take antibiotics for 14 days as prescribed Monitor blood sugars closely or Health Concerns: Diabetes mellitus, follow blood sugars, dose of Lantus reduced to 10 units at bedtime, stop using Jardiance blood sugars less than 200 and hospital Plan of Treatment: Continue dressing change daily left elbow and right 3rd toe incision site follow-up with orthopedic surgeon and General surgery as above Assessment: As above
[2023-02-15 14:29] VITALS: BP 128/60; PULSE 89; O2SAT 97
--- NOTE | 2023-02-15 16:54 | HO.POSTANES ---
Post Anesthesia Evaluation Post Anesthesia Evaluation Date of Service: 02/15/23 Vital Signs: Vital Signs Temp Pulse Resp BP Pulse Ox O2 Del Method 02/15/23 14:29 89 128/60 97 02/15/23 12:19 Room Air 02/15/23 07:25 97.8 F 89 20 128/60 97 Room Air Anesthesia: Monitored Mental Status: Awake Pain Control: Satisfactory Nausea/Vomiting: None Hydration: Adequate Anesthesia-Related Issues: No Anes. Related Issues
== END 2023-02-15 16:44 | disposition home health service (06) | DRG 617 ==
LOC: HO.ED 11:44 → HO.EDOVER 14:42 → HO.S3 16:27
PROVIDERS: Family Medicine; Internal Medicine; Orthopaedic Surgery; Physician Assistant Medical; Surgery; Admitting Provider Student in an Organized Health Care Education/Training Program; Emergency Provider Emergency Medicine Emergency Medical Services; PCP Internal Medicine Medical Oncology; Visit Provider Hospitalist
PROC: 0J9H0ZZ Drainage of Left Lower Arm Subcutaneous Tissue and Fascia, Open Approach (ICD-10-PCS; principal; 2023-02-12 13:30)
PROC: 0Y6T0Z0 Detachment at Right 3rd Toe, Complete, Open Approach (ICD-10-PCS; principal; 2023-02-14 10:10)
DX: E11.69 Type 2 diabetes mellitus with other specified complication (principal); L02.414 Cutaneous abscess of left upper limb; M86.171 Other acute osteomyelitis, right ankle and foot; L03.114 Cellulitis of left upper limb; E11.10 Type 2 diabetes mellitus with ketoacidosis without coma; E78.5 Hyperlipidemia, unspecified; Z66 Do not resuscitate; E11.628 Type 2 diabetes mellitus with other skin complications; T38.0X5A Adverse effect of glucocorticoids and synthetic analogues, initial encounter; E11.621 Type 2 diabetes mellitus with foot ulcer; L97.519 Non-pressure chronic ulcer of other part of right foot with unspecified severity; G89.18 Other acute postprocedural pain; D72.829 Elevated white blood cell count, unspecified; Z87.891 Personal history of nicotine dependence; Z79.4 Long term (current) use of insulin; Z79.84 Long term (current) use of oral hypoglycemic drugs; Z79.899 Other long term (current) drug therapy
CPT/HCPCS: 10030; 36415; 73080; 73201; 80048; 80076; 80202; 81001; 82010; 82565; 82803; 82947; 83036; 83605; 83735; 84100; 84550; 85025; 85027; 85652; 86140; 87040; 87070; 87073; 87205; 88305; 88311; 89051; 89060; 97161; 99202; 99285; J0690; J1650; J2370; J2371; J2405; J2543; J3010; J3370; J3371; Q9967

== ENCOUNTER → 2023-02-08 14:21 | Outpatient (BNV) | payer MEDICARE, SELFPAY | PROVIDERS: Admitting Provider Student in an Organized Health Care Education/Training Program; Emergency Provider Emergency Medicine Emergency Medical Services; PCP Internal Medicine Medical Oncology; Visit Provider Orthopaedic Surgery | DX: L03.114 Cellulitis of left upper limb (principal) | CPT/HCPCS: 23930; 99024; 99231; 99232 ==

== ENCOUNTER → 2023-02-08 14:21 | Outpatient (BNV) | payer MEDICARE, SELFPAY | PROVIDERS: Admitting Provider Student in an Organized Health Care Education/Training Program; Emergency Provider Emergency Medicine Emergency Medical Services; PCP Internal Medicine Medical Oncology; Visit Provider Family Medicine | DX: M86.9 Osteomyelitis, unspecified (principal) | CPT/HCPCS: 99223; 99232; 99233; 99239; G0180 ==

== ENCOUNTER → 2023-02-08 14:21 | Outpatient (BNV) | payer MEDICARE, SELFPAY | PROVIDERS: Admitting Provider Student in an Organized Health Care Education/Training Program; Emergency Provider Emergency Medicine Emergency Medical Services; PCP Internal Medicine Medical Oncology; Visit Provider Surgery | DX: L03.031 Cellulitis of right toe (principal) | CPT/HCPCS: 28810; 99024; 99222; 99232 ==

== ENCOUNTER 2023-03-07 13:54 | Outpatient (AMB) | payer MEDICARE, SELFPAY ==
--- NOTE | 2023-03-07 14:29 | MHC.OFFVIS ---
Intake Vital Signs 03/07/23 14:37 Weight 167 lb BP 119/60 Blood Pressure Location Rt brachial Position Sitting Pulse 83 Intake Visit Reasons: S/p right 3rd toe amputation Intake Note: This patient presents for a post-op assessment status post 3rd toe amputation. Patient denies complaints at this time. Pulmonary Function Technologist Required: No Accompanied by: Self / Same As Patient Allergies ENVIROMENTAL Allergy (Unknown, Uncoded 03/07/23 14:37) SNEEZING, ITCHY EYES HPI S/p right 3rd toe amputation HPI Details He had undergone amputation of 3rd toe on the right February 14, 2023 for a nonhealing wound with osteomyelitis. He tolerated procedure well. He is here for a postop visit. Denies significant complaints. COUNT INCLUDES THE [facility] Medical History (Updated 03/07/23 @ 14:35 by Mario Mejia MD) Asthma Diabetes HTN (hypertension) Osteomyelitis of foot, right, acute Osteomyelitis of toe of right foot Redness and swelling of elbow Septic arthritis Surgical History History of back surgery History of complete ray amputation of third toe of left foot (~02/14/23) History of excision of pilonidal cyst Hx of colonoscopy Hx of hernia repair Hx of tonsillectomy Social History Household Members: None Housing: House Alcohol intake: current Alcohol intake frequency: holidays/special occasions only Patient Tobacco Use Status: Former Tobacco user Quit Date: 20 years ago Second Hand Smoke Exposure: No service: No Review of Systems Const Denies chills and Denies fever(s) Card Denies chest pain at rest Resp Denies cough Physical Exam Const General: comfortable and no acute distress Resp Effort & Inspection: normal respiratory effort Extrem Other: Amputation site 3rd toe right is well healed, not infected, no discharge, sutures intact Assessment & Plan Assessment & Plan (1) Osteomyelitis of foot, right, acute: Comment: He wants definitive therapy, not suppressive. This is not the great toe which may be useful in balance He is not interested in noncurative six weeks IV antibiotics especially for this toe which will subsequently be prone to recur or have pathologic fractures. Code(s): M86.171 - Other acute osteomyelitis, right ankle and foot Plan: Status post amputation of the 3rd toe right for nonhealing wound with osteomyelitis. The incision is well healing. I removed all his skin sutures. His path report actually does not show residual osteomyelitis. He did have a nonhealing wound and he had wanted this toe amputated at that time. He says that he is happy that he had the toe amputated as this is healing well. I emphasized to him the importance of good blood sugar control. I gave him the address and phone number for [facility] to see they can provide him any filler for his amputation so he can wear regular shoes. He can follow up on a p.r.n. basis Plan Status post amputation Coding Level of Care Code Global (16719) Diagnoses Osteomyelitis of foot, right, acute M86.171
[2023-03-07 14:37] VITALS: BP 119/60; PULSE 83
== END 2023-03-07 14:45 | disposition home or self-care (01) ==
PROVIDERS: PCP Internal Medicine Medical Oncology; Visit Provider Surgery
DX: M86.171 Other acute osteomyelitis, right ankle and foot (principal)
CPT/HCPCS: 99024

== ENCOUNTER → 2023-03-07 13:54 | Outpatient (BNVA) | payer MEDICARE, SELFPAY | PROVIDERS: PCP Internal Medicine Medical Oncology; Visit Provider Surgery ==

== ENCOUNTER 2023-03-08 11:05 | Outpatient (AMB) | payer MEDICARE, SELFPAY ==
--- NOTE | 2023-03-08 11:15 | MHC.OFFVIS ---
Intake Intake Visit Reasons: PO-I&D LT Elbow, wound check Intake Note: Fahad a 77 year old male who presents today for a post operative wound check of I&D of left elbow on 02/12/23. Patient reports he is doing well, he has no concerns today. He denies any fevers or chills. He finished his antibiotics several days ago. Allergies ENVIROMENTAL Allergy (Unknown, Uncoded 03/08/23 11:21) SNEEZING, ITCHY EYES Medication List - Last Reconciled 03/08/23 by David Thibodeaux MD amoxicillin-pot clavulanate 875-125 mg 1 tab PO BID ascorbic acid (vitamin C) (Vitamin C) 500 mg PO DAILY cholecalciferol (vitamin D3) 25 mcg PO DAILY doxycycline hyclate 100 mg PO BID dulaglutide (Trulicity) 0.5 mg subcut WE@0900 fenofibrate 1 tab PO DAILY glipizide-metformin 5-500 mg 2 tabs PO BID insulin glargine (Basaglar KwikPen U-100 Insulin) 10 units (0.1 mL) subcut BEDTIME lisinopril 1 tab PO BEDTIME pravastatin 1 tab PO DAILY tramadol 50 mg PO Q6H PRN PFSH Medical History (Updated 03/07/23 @ 14:35 by Mario Mejia MD) Asthma Diabetes HTN (hypertension) Osteomyelitis of foot, right, acute Osteomyelitis of toe of right foot Redness and swelling of elbow Septic arthritis Surgical History History of back surgery History of complete ray amputation of third toe of left foot (~02/14/23) History of excision of pilonidal cyst Hx of colonoscopy Hx of hernia repair Hx of tonsillectomy Social History Household Members: None Housing: House Alcohol intake: current Alcohol intake frequency: holidays/special occasions only Patient Tobacco Use Status: Former Tobacco user Quit Date: 20 years ago Second Hand Smoke Exposure: No service: No Physical Exam Const Other: Well-nourished well-developed very friendly male awake alert and oriented x3 in no acute distress Extrem Other: Left elbow examination shows that the surgical incision is well healed, minimal diffuse swelling, no erythema, full range of motion of his left elbow when compared to his right elbow with no pain Assessment & Plan Assessment & Plan (1) Cellulitis of left elbow: Code(s): L03.114 - Cellulitis of left upper limb Plan: Mr. Fritz is doing well after undergoing incision and drainage of his left elbow abscess on 02/12/2023. His sutures were removed and Steri-Strips placed over his incision. He will continue to progress to activities as tolerated. At this point he does not have any evidence of her current infection. He will follow up with me on an as-needed basis should any questions or concerns arise. Feel free to call me at any time should questions regarding his orthopedic management arise. Coding Level of Care Code Global (20083) Diagnoses Cellulitis of left elbow L03.114
== END 2023-03-08 11:26 | disposition home or self-care (01) ==
PROVIDERS: PCP Internal Medicine Medical Oncology; Visit Provider Orthopaedic Surgery
DX: L03.114 Cellulitis of left upper limb (principal)
CPT/HCPCS: 99024

== ENCOUNTER → 2023-03-08 11:05 | Outpatient (BNVA) | payer MEDICARE, SELFPAY | PROVIDERS: PCP Internal Medicine Medical Oncology; Visit Provider Orthopaedic Surgery ==

== ENCOUNTER 2023-03-23 05:58 | Outpatient (REF) | payer MEDICARE, SELFPAY ==
[2023-03-23 06:10] LABS: MANUAL DIFF FLAG NO
[2023-03-23 07:38] LABS: Basophils Percent Auto 0.5 % (0-2); Eosinophils Absolute Auto 0.6 X10*3/uL (0.0-0.4); Eosinophils Percent Auto 8.6 % (0-4); Hematocrit 36.8 % (42.0-52.0); Hemoglobin 11.9 g/dl (14.0-18.0); Imm Gran Abs Auto 0.02 X10*3/uL (0.00-0.03); Imm Gran Pct Auto 0.3 % (0.0-0.4); Lymphocytes Absolute Auto 2.2 X10*3/uL (1.2-4.9); Lymphocytes Percent Auto 33.1 % (20-40); Mean Corpuscular HGB Conc 32.3 g/dl (31.0-36.0); Mean Corpuscular Hemoglobin 27.8 pg (27.0-33.0); Mean Platelet Volume 10.4 fL (9.4-12.4); Monocytes Absolute Auto 0.5 X10*3/uL (0.1-1.2); Monocytes Percent Auto 7.3 % (2-11); Neutrophils Absolute Auto 3.3 x10*3/uL (2.0-8.3); Neutrophils Percent Auto 50.2 % (45-73); Platelet Count 338 X10*3/uL (160-400); Red Blood Count 4.28 X10*6/uL (4.60-5.80); Red Cell Distribution Width 14.5 % (11.0-16.0); White Blood Count 6.6 X10*3/uL (4.8-10.8)
[2023-03-23 07:41] LABS: Estimated Average Glucose 151 mg/dL; Hemoglobin A1c % 6.9 %
[2023-03-23 07:49] LABS: Alanine Aminotransferase 13 U/L (0-40); Albumin Level 3.9 g/dL (3.5-5.0); Alkaline Phosphatase 42 U/L (39-117); Anion Gap 12 (12-20); Aspartate Amino Transferase 16 U/L (5-37); Bilirubin Total 0.6 mg/dL (0.0-1.0); Blood Urea Nitrogen 12 mg/dL (9-16); Calcium 9.9 mg/dL (8.4-10.2); Carbon Dioxide 26 mmol/L (22-29); Chloride 106 mmol/L (96-108); Cholesterol 168 mg/dL; Estimated Glomerular Filt Rate > 60; Glucose Fasting 171 mg/dL (60-99); HDL Cholesterol 44 mg/dL; LDL Cholesterol Calculated 89 mg/dl; Potassium 4.6 mmol/L (3.3-5.1); Sodium 139 mmol/L (135-145); Total Protein 6.7 g/dL (6.5-8.0); Triglycerides 178 mg/dL
[2023-03-23 08:13] LABS: Prostate Specific Antigen 0.82 ng/mL (<0.05-4.0)
[2023-03-23 09:34] LABS: Microalbumin Urine < 5.0 mg/L
== END 2023-03-23 05:59 | disposition home or self-care (01) ==
LOC: HO.LAB 05:58
PROVIDERS: PCP Internal Medicine Medical Oncology; Visit Provider Internal Medicine Medical Oncology
DX: Z12.5 Encounter for screening for malignant neoplasm of prostate (principal); E78.01 Familial hypercholesterolemia; E66.3 Overweight; N40.0 Benign prostatic hyperplasia without lower urinary tract symptoms; E11.9 Type 2 diabetes mellitus without complications
CPT/HCPCS: 36415; 80053; 80061; 82043; 83036; 84153; 85025

== ENCOUNTER 2023-06-27 05:57 | Outpatient (REF) | payer MEDICARE, SELFPAY ==
[2023-06-27 06:12] LABS: MANUAL DIFF FLAG NO
[2023-06-27 06:57] LABS: Basophils Percent Auto 0.4 % (0-2); Eosinophils Absolute Auto 0.2 X10*3/uL (0.0-0.4); Eosinophils Percent Auto 3.3 % (0-4); Hematocrit 43.7 % (42.0-52.0); Hemoglobin 14.3 g/dl (14.0-18.0); Imm Gran Abs Auto 0.01 X10*3/uL (0.00-0.03); Imm Gran Pct Auto 0.1 % (0.0-0.4); Lymphocytes Absolute Auto 2.1 X10*3/uL (1.2-4.9); Lymphocytes Percent Auto 28.8 % (20-40); Mean Corpuscular HGB Conc 32.7 g/dl (31.0-36.0); Mean Corpuscular Hemoglobin 28.9 pg (27.0-33.0); Mean Corpuscular Volume 88.3 fL (80.0-98.0); Mean Platelet Volume 10.7 fL (9.4-12.4); Monocytes Absolute Auto 0.5 X10*3/uL (0.1-1.2); Monocytes Percent Auto 6.7 % (2-11); Neutrophils Absolute Auto 4.4 x10*3/uL (2.0-8.3); Neutrophils Percent Auto 60.7 % (45-73); Platelet Count 260 X10*3/uL (160-400); Red Blood Count 4.95 X10*6/uL (4.60-5.80); Red Cell Distribution Width 11.9 % (11.0-16.0); White Blood Count 7.3 X10*3/uL (4.8-10.8)
[2023-06-27 07:11] LABS: Estimated Average Glucose 180 mg/dL; Hemoglobin A1c % 7.9 % (<6.0)
[2023-06-27 07:15] LABS: Alanine Aminotransferase 13 U/L (0-40); Albumin Level 4.4 g/dL (3.5-5.0); Alkaline Phosphatase 55 U/L (39-117); Anion Gap 14 (12-20); Aspartate Amino Transferase 13 U/L (5-37); Bilirubin Total 0.5 mg/dL (0.0-1.0); Blood Urea Nitrogen 13 mg/dL (9-16); Calcium 10.1 mg/dL (8.4-10.2); Carbon Dioxide 27 mmol/L (22-29); Chloride 107 mmol/L (96-108); Cholesterol 177 mg/dL (<200); Estimated Glomerular Filt Rate > 60; Glucose Fasting 190 mg/dL (60-99); HDL Cholesterol 51 mg/dL (>40); LDL Cholesterol Calculated 97 mg/dL (<100); Potassium 4.5 mmol/L (3.3-5.1); Sodium 143 mmol/L (135-145); Total Protein 7.4 g/dL (6.5-8.0); Triglycerides 149 mg/dL (<150)
== END 2023-06-27 05:58 | disposition home or self-care (01) ==
LOC: HO.LAB 05:57
PROVIDERS: PCP Internal Medicine Medical Oncology; Visit Provider Internal Medicine Medical Oncology
DX: E66.3 Overweight (principal); E11.9 Type 2 diabetes mellitus without complications; E78.5 Hyperlipidemia, unspecified
CPT/HCPCS: 36415; 80053; 80061; 83036; 85025

== ENCOUNTER 2023-09-26 06:00 | Outpatient (REF) | payer MEDICARE, SELFPAY ==
[2023-09-26 06:14] LABS: MANUAL DIFF FLAG NO
[2023-09-26 07:01] LABS: Basophils Percent Auto 0.6 % (0-2); Eosinophils Absolute Auto 0.3 X10*3/uL (0.0-0.4); Hematocrit 44.6 % (42.0-52.0); Hemoglobin 14.2 g/dl (14.0-18.0); Imm Gran Abs Auto 0.02 X10*3/uL (0.00-0.03); Imm Gran Pct Auto 0.3 % (0.0-0.4); Lymphocytes Absolute Auto 2.5 X10*3/uL (1.2-4.9); Mean Corpuscular HGB Conc 31.8 g/dl (31.0-36.0); Mean Corpuscular Volume 87.8 fL (80.0-98.0); Mean Platelet Volume 10.6 fL (9.4-12.4); Monocytes Absolute Auto 0.5 X10*3/uL (0.1-1.2); Monocytes Percent Auto 6.3 % (2-11); Neutrophils Percent Auto 54.8 % (45-73); Platelet Count 283 X10*3/uL (160-400); Red Blood Count 5.08 X10*6/uL (4.60-5.80); Red Cell Distribution Width 13.1 % (11.0-16.0); White Blood Count 7.3 X10*3/uL (4.8-10.8)
[2023-09-26 07:10] LABS: Estimated Average Glucose 174 mg/dL; Hemoglobin A1c % 7.7 % (<6.0)
[2023-09-26 07:15] LABS: Alanine Aminotransferase 13 U/L (0-40); Albumin Level 4.5 g/dL (3.5-5.0); Alkaline Phosphatase 44 U/L (39-117); Anion Gap 14 (12-20); Aspartate Amino Transferase 13 U/L (5-37); Bilirubin Total 0.6 mg/dL (0.0-1.0); Blood Urea Nitrogen 20 mg/dL (9-16); Calcium 9.8 mg/dL (8.4-10.2); Carbon Dioxide 27 mmol/L (22-29); Chloride 106 mmol/L (96-108); Cholesterol 180 mg/dL (<200); Estimated Glomerular Filt Rate > 60; Glucose Fasting 139 mg/dL (60-99); HDL Cholesterol 52 mg/dL (>40); LDL Cholesterol Calculated 103 mg/dL (<100); Potassium 3.8 mmol/L (3.3-5.1); Sodium 143 mmol/L (135-145); Total Protein 7.3 g/dL (6.5-8.0); Triglycerides 129 mg/dL (<150)
[2023-09-26 07:36] LABS: Prostate Specific Antigen 0.57 ng/mL (<0.05-4.0)
== END 2023-09-26 06:01 | disposition home or self-care (01) ==
LOC: HO.LAB 06:00
PROVIDERS: PCP Internal Medicine Medical Oncology; Visit Provider Internal Medicine Medical Oncology
DX: Z12.5 Encounter for screening for malignant neoplasm of prostate (principal); E11.9 Type 2 diabetes mellitus without complications; N40.0 Benign prostatic hyperplasia without lower urinary tract symptoms; E78.5 Hyperlipidemia, unspecified
CPT/HCPCS: 36415; 80053; 80061; 83036; 84153; 85025

== ENCOUNTER 2023-12-26 06:00 | Outpatient (REF) | payer MEDICARE, SELFPAY ==
[2023-12-26 06:17] LABS: MANUAL DIFF FLAG NO
[2023-12-26 07:52] LABS: Basophils Percent Auto 0.6 % (0-2); Eosinophils Absolute Auto 0.3 X10*3/uL (0.0-0.4); Eosinophils Percent Auto 4.1 % (0-4); Hematocrit 43.4 % (42.0-52.0); Hemoglobin 14.1 g/dl (14.0-18.0); Imm Gran Abs Auto 0.04 X10*3/uL (0.00-0.03); Imm Gran Pct Auto 0.6 % (0.0-0.4); Lymphocytes Absolute Auto 2.3 X10*3/uL (1.2-4.9); Lymphocytes Percent Auto 34.5 % (20-40); Mean Corpuscular HGB Conc 32.5 g/dl (31.0-36.0); Mean Corpuscular Volume 89.3 fL (80.0-98.0); Mean Platelet Volume 10.8 fL (9.4-12.4); Monocytes Absolute Auto 0.5 X10*3/uL (0.1-1.2); Monocytes Percent Auto 7.2 % (2-11); Neutrophils Absolute Auto 3.6 x10*3/uL (2.0-8.3); Platelet Count 279 X10*3/uL (160-400); Red Blood Count 4.86 X10*6/uL (4.60-5.80); Red Cell Distribution Width 13.1 % (11.0-16.0); White Blood Count 6.8 X10*3/uL (4.8-10.8)
[2023-12-26 07:56] LABS: Estimated Average Glucose 177 mg/dL; Hemoglobin A1c % 7.8 % (<6.0)
[2023-12-26 08:47] LABS: Microalbum/Creatinine Ratio Ur 11.5 ug/mg cr (<30)
[2023-12-26 08:52] LABS: Alanine Aminotransferase 13 U/L (0-40); Albumin Level 4.2 g/dL (3.5-5.0); Alkaline Phosphatase 43 U/L (39-117); Anion Gap 15 (12-20); Aspartate Amino Transferase 13 U/L (5-37); Bilirubin Total 0.6 mg/dL (0.0-1.0); Blood Urea Nitrogen 16 mg/dL (9-16); Calcium 9.7 mg/dL (8.4-10.2); Carbon Dioxide 25 mmol/L (22-29); Chloride 106 mmol/L (96-108); Cholesterol 160 mg/dL (<200); Estimated Glomerular Filt Rate > 60; Glucose Fasting 117 mg/dL (60-99); HDL Cholesterol 51 mg/dL (>40); LDL Cholesterol Calculated 90 mg/dL (<100); Sodium 142 mmol/L (135-145); Total Protein 6.9 g/dL (6.5-8.0); Triglycerides 95 mg/dL (<150)
== END 2023-12-26 06:01 | disposition home or self-care (01) ==
LOC: HO.LAB 06:00
PROVIDERS: PCP Internal Medicine Medical Oncology; Visit Provider Internal Medicine Medical Oncology
DX: E11.9 Type 2 diabetes mellitus without complications (principal); E78.5 Hyperlipidemia, unspecified
CPT/HCPCS: 36415; 80053; 80061; 82043; 82570; 83036; 85025

== ENCOUNTER 2024-04-14 11:15 | Outpatient (REF) | payer MEDICARE, SELFPAY | END 2024-04-14 11:16 | disposition home or self-care (01) | LOC: HO.LNP 11:15 | PROVIDERS: Visit Provider Psychiatry & Neurology Neurology with Special Qualifications in Child Neurology | DX: L97.512 Non-pressure chronic ulcer of 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 (principal); R89.5 Abnormal microbiological findings in specimens from other organs, systems and tissues | CPT/HCPCS: 87070; 87077; 87186; 87205 ==

== ENCOUNTER 2024-04-28 06:02 | Outpatient (REF) | payer MEDICARE, SELFPAY ==
[2024-04-28 06:25] LABS: MANUAL DIFF FLAG NO
[2024-04-28 07:49] LABS: Basophils Absolute Auto 0.1 X10*3/uL (0.0-0.2); Basophils Percent Auto 0.6 % (0-2); Eosinophils Absolute Auto 1.4 X10*3/uL (0.0-0.4); Eosinophils Percent Auto 13.3 % (0-4); Hematocrit 47.6 % (42.0-52.0); Imm Gran Abs Auto 0.06 X10*3/uL (0.00-0.03); Imm Gran Pct Auto 0.6 % (0.0-0.4); Lymphocytes Absolute Auto 2.1 X10*3/uL (1.2-4.9); Lymphocytes Percent Auto 19.6 % (20-40); Mean Corpuscular HGB Conc 31.5 g/dl (31.0-36.0); Mean Corpuscular Hemoglobin 28.2 pg (27.0-33.0); Mean Corpuscular Volume 89.5 fL (80.0-98.0); Mean Platelet Volume 10.8 fL (9.4-12.4); Monocytes Absolute Auto 0.6 X10*3/uL (0.1-1.2); Monocytes Percent Auto 5.1 % (2-11); Neutrophils Absolute Auto 6.6 x10*3/uL (2.0-8.3); Neutrophils Percent Auto 60.8 % (45-73); Platelet Count 315 X10*3/uL (160-400); Red Blood Count 5.32 X10*6/uL (4.60-5.80); Red Cell Distribution Width 13.2 % (11.0-16.0); White Blood Count 10.8 X10*3/uL (4.8-10.8)
[2024-04-28 08:02] LABS: Estimated Average Glucose 154 mg/dL
[2024-04-28 08:18] LABS: Creatinine Urine 87.64 mg/dL; Microalbum/Creatinine Ratio Ur 18.2 ug/mg cr (<30)
[2024-04-28 08:20] LABS: Alanine Aminotransferase 14 U/L (0-40); Albumin Level 4.2 g/dL (3.5-5.0); Alkaline Phosphatase 56 U/L (39-117); Anion Gap 14 (12-20); Aspartate Amino Transferase 15 U/L (5-37); Bilirubin Total 0.5 mg/dL (0.0-1.0); Blood Urea Nitrogen 10 mg/dL (9-16); Carbon Dioxide 26 mmol/L (22-29); Chloride 109 mmol/L (96-108); Cholesterol 144 mg/dL (<200); Estimated Glomerular Filt Rate > 60; Glucose Fasting 87 mg/dL (60-99); HDL Cholesterol 41 mg/dL (>40); LDL Cholesterol Calculated 78 mg/dL (<100); Potassium 4.4 mmol/L (3.3-5.1); Sodium 145 mmol/L (135-145); Total Protein 7.3 g/dL (6.5-8.0); Triglycerides 125 mg/dL (<150)
[2024-04-28 08:30] LABS: Prostate Specific Antigen 0.62 ng/mL (<0.05-4.0)
== END 2024-04-28 06:03 | disposition home or self-care (01) ==
LOC: HO.LAB 06:02
PROVIDERS: PCP Internal Medicine Medical Oncology; Visit Provider Internal Medicine Medical Oncology
DX: E11.9 Type 2 diabetes mellitus without complications (principal); N40.0 Benign prostatic hyperplasia without lower urinary tract symptoms; E78.01 Familial hypercholesterolemia; Z12.5 Encounter for screening for malignant neoplasm of prostate
CPT/HCPCS: 36415; 80053; 80061; 82043; 82570; 83036; 84153; 85025

== ENCOUNTER 2024-06-04 16:24 | Outpatient (REF) | payer MEDICARE, SELFPAY | END 2024-06-04 16:25 | disposition home or self-care (01) | LOC: HO.LNP 16:24 | PROVIDERS: Visit Provider Surgery | DX: L98.499 Non-pressure chronic ulcer of skin of other sites with unspecified severity (principal) | CPT/HCPCS: 87070; 87073; 87077; 87186; 87205 ==

== ENCOUNTER 2024-06-23 13:35 | Outpatient (AMB) | payer MEDICARE, SELFPAY ==
[2024-06-23 13:49] VITALS: PULSE 116; O2SAT 98; BMI 18.0
--- NOTE | 2024-06-23 13:49 | A.OFFVIS_ITS ---
Vital Signs 3 06/23/24 13:49 Height 6 ft Weight 133 lb BMI 18.0 Pulse 116 H Pulse Source Pulse Oximeter Pulse Oximetry (%) 98 Oxygen Delivery Method Room Air Intake Visit Reasons: Wound care reff osteo Allergies ENVIROMENTAL Allergy (Unknown, Uncoded 06/23/24 13:51) SNEEZING, ITCHY EYES HPI Comments Details: [facility] for further evaluation/treatment right second toe. He had come there April with new wound at plantar aspect of foot for few weeks. He was suppsed to get a hammertoe release since thought this was causing pressure. He then developed right second toe erythema and swelling and mentions he had prior right third toe reddened and had amputation. He started omadocycline then (Nuzyra). Since then pathology of bone came back MSSA and enterobacter cloacae. there were no polys or organisms mentioned Foot looks no better with swelling ,redness and ulcer tip, He took two weeks of omadocycline. He has DM. He has been started back on Doxycycline. [facility] Medical History Osteomyelitis of toe of right foot Septic arthritis Redness and swelling of elbow Osteomyelitis of foot, right, acute Asthma HTN (hypertension) Diabetes Surgical History History of complete ray amputation of third toe of left foot (~02/14/23) Hx of hernia repair Hx of tonsillectomy History of excision of pilonidal cyst History of back surgery Hx of colonoscopy Social History Household Members: None Housing: House Alcohol intake: current Alcohol intake frequency: holidays/special occasions only Patient Tobacco Use Status: Former Tobacco user Second Hand Smoke Exposure: No service: No Review of Systems Const All systems reviewed & are unremarkable except as noted in HPI and below Physical Exam Vital Signs: Last Vital Signs Pulse 116 H 06/23/24 13:49 Pulse Ox 98 06/23/24 13:49 Oxygen Delivery Method Room Air 06/23/24 13:49 BMI result Body Mass Index 18.0 Const General: cooperative HEENT Head: Yes normal to inspection Face and sinus: Yes normal facial exam Mouth: Normal oral and palatal mucosa present Teeth and gingiva: dentition normal Eyes General: appearance normal, both eyes and all related structures Pupils: Equal, round and reactive pupils present Resp Effort & Inspection: normal respiratory effort Cardio Rate: regular rate Rhythm: regular rhythm GI Palpation (GI): Soft to palpation and nontender General: Yes no CVA tenderness Back/Spine/Pelvis Back: no CVA tenderness Skin General skin exam: no rashes or lesions noted Neuro General: moves all extremities Cranial nerves: Yes Equal, round and reactive pupils present Extrem Other: General: Yes normal to inspection Psych Appearance: grossly normal Assessment & Plan Assessment & Plan (1) Osteomyelitis of foot, right, acute: Comment: He has no toe improvement in swelling,ulcer tip or erythema He does not want po Cipro as has been taking antibiotics straight for several weeks.. Omadocycline has some use for EILEEN lung ,but studies are limited in scope despite extensive advertising in efforts to achieve healing and wound closure in diabetic foot infection. Would have patient revisit Dr Mejia for definitive amputation of affected digit per patient request. Code(s): M86.171 - Other acute osteomyelitis, right ankle and foot Category: Medical Plan as above Coding Level of Care Code New Pt Level 4 (99557) Diagnoses Osteomyelitis of foot, right, acute M86.171
== END 2024-06-23 15:09 | disposition home or self-care (01) ==
PROVIDERS: PCP Internal Medicine Medical Oncology; Visit Provider Internal Medicine
DX: M86.171 Other acute osteomyelitis, right ankle and foot (principal)
CPT/HCPCS: 99214

== ENCOUNTER → 2024-06-23 13:35 | Outpatient (BNVA) | payer MEDICARE, SELFPAY | PROVIDERS: PCP Internal Medicine Medical Oncology; Visit Provider Internal Medicine | DX: M86.171 Other acute osteomyelitis, right ankle and foot (principal) | CPT/HCPCS: 99212 ==

== ENCOUNTER 2024-07-23 11:22 | Outpatient (RCR) | payer MEDICARE, SELFPAY | END 2024-08-28 14:52 | disposition home or self-care (01) | LOC: HO.WCC 11:22 | PROVIDERS: PCP Internal Medicine Medical Oncology; Visit Provider Surgery | DX: E11.621 Type 2 diabetes mellitus with foot ulcer (principal); L97.512 Non-pressure chronic ulcer of 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; M86.071 Acute hematogenous osteomyelitis, right ankle and foot; L08.89 Other specified local infections of the skin and subcutaneous tissue; E11.69 Type 2 diabetes mellitus with other specified complication; Z79.84 Long term (current) use of oral hypoglycemic drugs; Z79.2 Long term (current) use of antibiotics; Z79.899 Other long term (current) drug therapy | CPT/HCPCS: 11042; 11044; 88304; 88305; 88311; 99212 ==

== ENCOUNTER 2024-10-09 06:00 | Outpatient (REF) | payer MEDICARE, SELFPAY ==
[2024-10-09 06:24] LABS: MANUAL DIFF FLAG NO
[2024-10-09 07:26] LABS: Basophils Percent Auto 0.5 % (0-2); Eosinophils Absolute Auto 0.3 X10*3/uL (0.0-0.4); Hematocrit 43.1 % (42.0-52.0); Hemoglobin 13.9 g/dl (14.0-18.0); Imm Gran Abs Auto 0.03 X10*3/uL (0.00-0.03); Imm Gran Pct Auto 0.4 % (0.0-0.4); Lymphocytes Absolute Auto 2.2 X10*3/uL (1.2-4.9); Lymphocytes Percent Auto 30.6 % (20-40); Mean Corpuscular HGB Conc 32.3 g/dl (31.0-36.0); Mean Corpuscular Hemoglobin 28.2 pg (27.0-33.0); Mean Corpuscular Volume 87.4 fL (80.0-98.0); Mean Platelet Volume 10.4 fL (9.4-12.4); Monocytes Absolute Auto 0.5 X10*3/uL (0.1-1.2); Monocytes Percent Auto 6.5 % (2-11); Neutrophils Absolute Auto 4.3 x10*3/uL (2.0-8.3); Platelet Count 319 X10*3/uL (160-400); Red Blood Count 4.93 X10*6/uL (4.60-5.80); Red Cell Distribution Width 13.7 % (11.0-16.0); White Blood Count 7.3 X10*3/uL (4.8-10.8)
[2024-10-09 07:59] LABS: Alanine Aminotransferase 19 U/L (0-40); Albumin Level 4.2 g/dL (3.5-5.0); Alkaline Phosphatase 43 U/L (39-117); Anion Gap 14 (12-20); Aspartate Amino Transferase 19 U/L (5-37); Bilirubin Total 0.5 mg/dL (0.0-1.0); Blood Urea Nitrogen 16 mg/dL (9-16); Calcium 9.5 mg/dL (8.4-10.2); Carbon Dioxide 25 mmol/L (22-29); Chloride 109 mmol/L (96-108); Cholesterol 158 mg/dL (<200); Estimated Glomerular Filt Rate > 60; Glucose Fasting 90 mg/dL (60-99); HDL Cholesterol 56 mg/dL (>40); LDL Cholesterol Calculated 86 mg/dL (<100); Potassium 3.8 mmol/L (3.3-5.1); Sodium 144 mmol/L (135-145); Total Protein 7.3 g/dL (6.5-8.0); Triglycerides 84 mg/dL (<150)
[2024-10-09 08:16] LABS: Prostate Specific Antigen 0.87 ng/mL (<0.05-4.0)
[2024-10-09 08:24] LABS: Creatinine Urine 78.98 mg/dL; Microalbum/Creatinine Ratio Ur 12.6 ug/mg cr (<30)
== END 2024-10-09 06:01 | disposition home or self-care (01) ==
LOC: HO.LAB 06:00
PROVIDERS: PCP Internal Medicine Medical Oncology; Visit Provider Internal Medicine Medical Oncology
DX: Z00.00 Encounter for general adult medical examination without abnormal findings (principal); Z12.5 Encounter for screening for malignant neoplasm of prostate; E11.9 Type 2 diabetes mellitus without complications; E78.5 Hyperlipidemia, unspecified; E66.9 Obesity, unspecified; N40.0 Benign prostatic hyperplasia without lower urinary tract symptoms
CPT/HCPCS: 36415; 80053; 80061; 82043; 82570; 84153; 85025

== ENCOUNTER 2025-01-29 06:01 | Outpatient (REF) | payer MEDICARE, SELFPAY ==
[2025-01-29 06:12] LABS: MANUAL DIFF FLAG NO
[2025-01-29 07:18] LABS: Basophils Percent Auto 0.4 % (0-2); Eosinophils Absolute Auto 0.3 X10*3/uL (0.0-0.4); Eosinophils Percent Auto 3.4 % (0-4); Hematocrit 40.3 % (42.0-52.0); Imm Gran Abs Auto 0.02 X10*3/uL (0.00-0.03); Imm Gran Pct Auto 0.3 % (0.0-0.4); Lymphocytes Absolute Auto 2.3 X10*3/uL (1.2-4.9); Mean Corpuscular HGB Conc 32.3 g/dl (31.0-36.0); Mean Corpuscular Hemoglobin 28.7 pg (27.0-33.0); Mean Platelet Volume 10.4 fL (9.4-12.4); Monocytes Absolute Auto 0.5 X10*3/uL (0.1-1.2); Monocytes Percent Auto 6.2 % (2-11); Neutrophils Absolute Auto 4.4 x10*3/uL (2.0-8.3); Neutrophils Percent Auto 58.7 % (45-73); Platelet Count 268 X10*3/uL (160-400); Red Blood Count 4.53 X10*6/uL (4.60-5.80); Red Cell Distribution Width 13.9 % (11.0-16.0); White Blood Count 7.4 X10*3/uL (4.8-10.8)
[2025-01-29 07:25] LABS: Estimated Average Glucose 131 mg/dL; Hemoglobin A1C 151.4278 umol/L; Hemoglobin A1c % 6.2 % (<6.0); Total Hemoglobin (HGBA1C) 3408.1827 umol/L
[2025-01-29 07:57] LABS: Alanine Aminotransferase 16 U/L (0-40); Albumin Level 4.4 g/dL (3.5-5.0); Alkaline Phosphatase 37 U/L (39-117); Anion Gap 14 (12-20); Aspartate Amino Transferase 19 U/L (5-37); Bilirubin Total 0.7 mg/dL (0.0-1.0); Blood Urea Nitrogen 12 mg/dL (9-16); Calcium 9.4 mg/dL (8.4-10.2); Carbon Dioxide 23 mmol/L (22-29); Chloride 109 mmol/L (96-108); Cholesterol 155 mg/dL (<200); Estimated Glomerular Filt Rate > 60; Glucose Fasting 101 mg/dL (60-99); HDL Cholesterol 50 mg/dL (>40); LDL Cholesterol Calculated 85 mg/dL (<100); Potassium 3.9 mmol/L (3.3-5.1); Sodium 142 mmol/L (135-145); Total Protein 6.7 g/dL (6.5-8.0); Triglycerides 100 mg/dL (<150)
[2025-01-29 08:18] LABS: Creatinine Urine 81.78 mg/dL; Microalbum/Creatinine Ratio Ur 8.5 ug/mg cr (<30)
== END 2025-01-29 06:02 | disposition home or self-care (01) ==
LOC: HO.LAB 06:01
PROVIDERS: PCP Internal Medicine Medical Oncology; Visit Provider Internal Medicine Medical Oncology
DX: E11.9 Type 2 diabetes mellitus without complications (principal); E78.5 Hyperlipidemia, unspecified; E66.9 Obesity, unspecified
CPT/HCPCS: 36415; 80053; 80061; 82043; 82570; 83036; 85025

== ENCOUNTER 2025-05-01 06:04 | Outpatient (REF) | payer MEDICARE, SELFPAY ==
--- OUTSIDE RECORDS SUMMARY | 2025-01-26 18:24 | XMS_ITS ---
Author Organization Zeus Bartlett III, MD Address [address] [place] [address] Care Team Providers Care Field Service Manager Name Role Phone Dr. Zeus Bartlett III [...] Date Provider Diagnosis Zeus Bartlett III, MD [address] [place] [address] [place] [address] 01/26/2025 Zeus Bartlett Type 2 diabetes mellitus [...] Next Appt Details Provider Name:Zeus Lorane , 05/07/2025 10:30:00 AM, [address] [place] [address] [address], [place], [address], Provider Name:Zeus Bartlett , 10/09/2025 11:00:00 AM, [address] [place] [address] [address], [place], [address], Progress Notes * Fahad FRITZ JrDOB:1945 (79 yo M)Acc No.[id number]:01/26/2025 Patient: Fahad RUTHERFORD Jr :1945 A ge:79 Y S ex:Male Address:[address] [place] [address] , [facility] [place] [address] * Refills Refill Vitamin D Tablet, 25 MCG (1000 UT), Orally, 90, 1 tablet, Once a day, 90 days, Refills=3 Refill Lisinopril Tablet, 10 MG, Orally, 90, TAKE 1 TABLET BY MOUTH EVERY DAY, Once a day, 90 days, Refills=3 * true * Date: Generated for Katie pinzon/Nathaniel/Jeanneitting on: 0 05/01/2025 06:07 AM EDT
--- OUTSIDE RECORDS SUMMARY | 2025-02-05 07:00 | XMS_ITS ---
Author Organization Zeus Bartlett III, MD Address [address] [facility] [place] [address] Care Team Providers Care Process Environmental Technician Name Role Phone Dr. Zeus Bartlett III [...] Date Provider Diagnosis Zeus Bartlett III, MD [address] [place] [address] [place] [address] 02/05/2025 Zeus Bartlett Type 2 diabetes marquis [...] - M20.41) He will return to the early childhood coordinator to arrange the correction of the hammertoe. [...] ov review labs Provider Name:Zeus Bartlett , 05/07/2025 10:30:00 AM, [address] [facility] [address], [place], [address], Provider Name:Zeus Bartlett , 10/09/2025 11:00:00 AM, [address] [facility] [address], [place], [phone], Progress Notes * Fahad FRITZ JrDOB:1945 (79 yo M)Acc No.[id number]:02/05/2025 Progress Notes Patient: Fahad RUTHERFORD Jr Provider: Shayy Bartlett MD :1945 A ge:79 Y S ex:Male Date:02/05/2025 Address:[address] [place] [address] , [id number] Subjective: * Chief Complaints: * [...] 2013laceration dorsum right foot, 6 sutures 2017colonoscopy, [facility], Dr. 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 His , Mia, in 2013 of lung cancer. He was born in [place], [place]. He is not aware of any [...] Temp:97.2, Wt-k.67. * P ast Orders: Lab:Ok [place]. Erinn l Fast * Collection Date 01/29/2025 [...] May have water,PLEASE FAX COMPLETED RESULTS TO [phone] * Lab:Lipid Panel * Collection Date 01/29/2025 [...] May have water,PLEASE FAX COMPLETED RESULTS TO [phone] * Lab:Hemoglobin A1c * Collection Date 01/29/2025 [...] Clinical Info: PLEASE FAX COMPLETED RESULTS TO [phone] * Imaging:Diabetic Eye Exam * Performed Date [...] N otes :He will return to the early childhood coordinator to arrange the correction of the hammertoe. [...] MD Date: 0 02/05/2025 Generated for Katie pinzon/Nathaniel/Skylersmitting on: 0 05/01/2025 06:06 AM EDT History and Physical Notes * HPI (History [...]
--- OUTSIDE RECORDS SUMMARY | 2025-02-12 07:30 | XMS_ITS ---
Author Organization Zeus Bartlett III, MD Address [address] [place] [address] Care Team Providers Care Extraction Supervisor Name Role Phone Dr. Zeus Bartlett III Primary Care Provider [phone] Allergies Allergen (clinical drug ingredient) Drug/Non Drug [...] Date Provider Diagnosis Zeus Bartlett III, MD [address] [place] [address] [address] [place] [phone] 02/12/2025 Zeus Bartlett Impacted cerumen, unspecified ear [...] Next Appt Details Provider Name:Zeus Bartlett , 05/07/2025 10:30:00 AM, [address] [place] [address] [address], [place], [address], Provider Name:Zeus Bartlett , 10/09/2025 11:00:00 AM, [address] [place] [address] [address], [place], [address], Procedure Notes * Category Sub-Category Detail Notes Ear lavage Procedure Under direct vis ualization, both ears, irrigated with warm water Post-procedure right ear Successful , left ear Not successful. Patient tolerated procedure well. Patient scheduled to come back in a week after using Debrox for 7 days to flush left ear. Progress Notes * Fahad FRITZ JrDOB:1945 (79 yo M)Acc No.[id number]:02/12/2025 Patient: Lucia MARINELLIFahad Provider: Shayy Bartlett MD :1945 A ge:79 Y S ex:Male Date:02/12/2025 Address:[address] [place] [address] , [facility] [id number] Subjective: * Chief Complaints: * E ar Lavage * Medical History: * Surgical History: c olonoscopy 2003colonoscopy 2008left inguinal herniorrhaphy pilonidal cystectomy spinal disc surgery lacerations to hip, left thumb February 2014colonoscopy, + polyps, Q3y 2014laceration dorsum right foot, 6 sutures 2017colonoscopy, [facility], Dr. 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 His , Mia, in 2013 of lung cancer. He was born in [place], [place]. He is not aware of any [...] true * Provider: Shayy Bartlett MD Date: 02/12/2025 Generated for Katie pinzon/Nathaniel/Fauzia on: 05/01/2025 06:06 AM EDT
--- OUTSIDE RECORDS SUMMARY | 2025-02-19 10:30 | XMS_ITS ---
Author Organization Zeus Bartlett III, MD Address [address] [place] [address] Care Team Providers Care Air Technician Name Role Phone Dr. Zeus Bartlett [...] M edicine Referred Provider [facility], of [facility], [facility] Referred Provider Specialty Otolaryngolo gy General Notes Radha Booth CMA 03/04 01:38:27 PM >ref/demo/progress note faxed to [facility], Radha Booth CMA 03/26/2025 03:41:50 PM > patient called [facility] made patient appt for 04/20/2025 arrival at 10am with appt at 10:15am with Dr Omer Colon at [address] [place] [address] . I called patient to verify he [...] Problem Status W/U Status Risk Notes Problem [id number] Impacted cerumen, unspecified laterality (H61.20) Active confirmed He will come back in a week after more of the medication for another attempted reducing the cerumen impaction. Encounters Encounter Location Date Provider Diagnosis Zeus Bartlett III, MD [address] [place] [address] [address] [place], [place] [address] 02/19/2025 Zeus Bartlett Impacted cerumen, unspecified laterality [...] severe l eft ear cerumen impaction, of [facility], [facility] E.N.T. Surgeons Next Appt Details Follow Up: as scheduled, Duyen son: OV Provider Name:Zeus Bartlett , 05/07/2025 10:30:00 AM, [address] [facility] [address], [place], [address], Provider Name:Zeus Bartlett , 10/09/2025 11:00:00 AM, [address] [facility] [address], [place], [address], Procedure Notes * Category Sub-Category Detail Notes Ear lavage Procedure -, the left ear, irrigated with warm water Post-procedure -, Not successful, e ar wax unable to be removed from, left ear Progress Notes * Fahad FRITZ JrDOB:1945 (79 yo M)Acc No.[id number]:02/19/2025 Patient: Fahad RUTHERFORD Provider: Shayy Bartlett MD :1945 A ge:79 Y S ex:Male Date:02/19/2025 Address: [address], [facility] [id number] Subjective: * Chief Complaints: * E ar [...] 2013laceration dorsum right foot, 6 sutures 2017colonoscopy, [facility], Dr. 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 His , Mia, in 2013 of lung cancer. He was born in [place], [place]. He is not aware of any [...] 0 02/19/2025 Generated for Katie pinzon/Nathaniel/Jeanneitting on: 0 05/01/2025 06:06 AM EDT History and Physical Notes * Examination Category [...] Referral Date Referring Provider Referred Provider Not es 02/19/2025 Zeus Bartlett Sur[facility], of [facility], [facility] severe left ear cerumen impaction
--- OUTSIDE RECORDS SUMMARY | 2025-03-14 05:51 | XMS_ITS ---
Author Organization Zeus Bartlett III, MD Address [address] [place] [address] Care Team Providers Care Paper Coating Supervisor Name Role Phone Dr. Zeus Bartlett III Primary Care Provider [phone] REASON FOR VISIT New Refill Request Medications [...] Provider Diagnosis Zeus Bartlett III, MD [address] [place] [address] [place] [address] 03/14/2025 Zeus Bartlett Impacted cerumen, unspecified laterality [...] Provider Name:Zeus Bartlett , 05/07/2025 10:30:00 AM, [address] [place] [address] [address], [place], [address], Provider Name:Zeus Bartlett , 10/09/2025 11:00:00 AM, [address] [place] [address] [address], [place], [address], Progress Notes * Fahad FRITZ JrDOB:1945 (79 yo M)Acc No.[id number]:03/14/2025 Patient: Fahad RUTHERFORD Jr :1945 A ge:79 Y S ex:Male Address:[address], [place] [address] * Refills Start Accu-Chek Guide Test Strip, -, 100 Strip, use to test blood sugars three times a day, 30 days, Refills=11 * true * Date: Generated for Katie pinzon/Nathaniel/eTransmitting on: 0 05/01/2025 06:06 AM EDT
--- OUTSIDE RECORDS SUMMARY | 2025-05-01 06:06 | XMS_ITS | Encounter Summary ---
Author Organization [facility] Address [address] [place] [address] Phone Care Team Providers Care Sailing Master Name Role Phone Zeus Bartlett MD Primary Care Provider [phone] Encounter Details Date Type Department Care Team (Late st Contact Info) Description 08/31/2023 Procedure Pass OR Admitting Dept - Virtual Department [address] [place] [address] Social History Tobacco Use Types Packs/Day Years Used Date Smoking Tobacco: Never Assessed Education Answer Date Recorded Are you interested in more education? Not on wilber e 06/27/2023 Are you concerned about learning? Not on file 06/27/2023 No 06/27/2023 No 06/27/2023 Digital Access Answer Date Recorded No 06/27/2023 No 06/27/2023 Reliable internet access at home? Not on file 06/27/2023 Device with a working camera? Not on file Sex and Gender Information Value Date Recorded Sex Assigned at Not on file Legal Sex Male 11:16 AM EST Gender Identity Not on file Sexual Orientation Not on file documented as of this encounter Plan of Treatment Not on file documented as of this encounter Visit Diagnoses Not on filedocumented in this encounter Care Teams Sailing Master Relationship Specialty Start Date End Date Zeus Bartlett MD [address] [place] [address] [place] [address] PCP - General Medical Oncology 06/27/23 documented as of this encounter Additional Source Comments The information contained in this document represents components of the legal health record. It is not the complete legal health record.[facility]
--- OUTSIDE RECORDS SUMMARY | 2025-05-01 06:07 | XMS_ITS | Clinical Summary ---
Author Organization [facility] Address [address] [place] [id number] Phone Care Team Providers Care Eye Surgeon Name Role Phone Zeus Bartlett MD Primary Care Provider [phone] Allergies No known active allergies Medications TRULICITY 1.5 mg/0.5 mL subcutaneous injection 06/21/2023 Active JARDIANCE 25 mg tablet 07/04/2023 Active fenofibrate (LOFIBRA) 160 MG tablet 06/26/2023 Active BASAGLAR KWIKPEN U-100 INSULIN 100 unit/mL (3 mL) InPn injection pen 04/02/2023 Activ e lisinopril (PRINIVIL,ZESTRIL) 10 MG tablet 04/09/2023 Active BD INSULIN PEN NEEDLE UF SHORT 31 gauge x 5/16 Ndle 04/30/2023 Active pravastatin (PRAVACHOL) 20 MG tablet 03/29/2023 Active triamcinolone acetonide 0.1 % cream 04/27/2023 Active Social History Tobacco Use Types Packs/Day Years [...] on file Sexual Orientation Not on file Last Filed Vital Signs Vital Sign Reading Time Taken Comments Blood Pressure 134/72 08/31/2023 8:56 AM EST Pulse 68 08/31/2023 8:56 AM EST Temperature - - Respiratory Rate - - Oxygen Saturation 98% 08/31/2023 8:56 AM EST Inhaled Oxygen Concentration - - Weight - - Height - - Body Mass Index - - Plan of Treatment Health Maintenance Due Date Last Done Comments CREATININE LEVEL 1947 LIPID PANEL 1947 POTASSIUM LEVEL 1947 DEPRESSION SCREENING 1959 SMOKING Hx and SMOKELESS TOBACCO SCREENING 1960 HEPATITIS C SCREENING 1965 ZOSTER VACCINES (1 of 2) 1997 RSV VACCINE (1 - 1-dose 75+ series) 2022 INFLUENZA VACCINE (#1) 2025 , 07/17/2022, 07/09/2021, Additional history exists COVID-19 VACCINE ( season) 2025 05/25/2023, 08/26/2021, 12/21/2020, Additional history exists Adult Td,Tdap Booster 10/07/2031 10/06/2021 , 06/04/2021, 03/30/2015, Additional history exists PNEUMOCOCCAL VACCINES (50+ years) Completed 05/25/2023, 12/19/2016 HEPATITIS A VACCINES Aged Out No long er eligible based on patient's age to complete this topic HIB VACCINES Aged Out No longer eligi ble based on patient's age to complete this topic MENINGOCOCCAL VACCINES (ACWY) Aged Out No longer eligible based on patient's age to complete this topic MENINGOCOCCAL VACCINES (B) Aged Out N o longer eligible based on patient's age to complete this topic Medical Devices Not on file Insurance MEDICARE PART A & B [employer] MEDEX SUPPLEMENT MEDICARE PART A & B [employer] MEDEX SUPPLEMENT MEDICARE PART A & B Member Subscriber Plan / Payer (Ef fective 2013-Present) Name:Fahad Fritz Member ID:[id number] Relation to Subscriber:Self Name:Fahad Fritz Subscriber ID:[id number] Payer ID:[id number] Group ID:Not on file Type:Medicare Address: [place] [id number] [employer] MEDEX SUPPLEMENT MEDICARE PART A & B [employer] MEDEX SUPPLEMENT MEDICARE PART A & B [employer] MEDEX SUPPLEMENT MEDICARE PART A & B [employer] MEDEX SUPPLEMENT Care Teams Eye Surgeon Relationship Specialty Start Date End Date Zeus Bartlett MD [address] [place] [address] [place] [address] PCP - General Medical Oncology 06/27/23 Additional Source Comments The information contained in this document represents components of the legal health record. It is not the complete legal health record.[facility]
--- OUTSIDE RECORDS SUMMARY | 2025-05-01 06:07 | XMS_ITS | Patient Health Record ---
Author Organization Zeus Bartlett III, MD Address [address] [place] [place] [address] Care Team Providers Care Supervisor Aircraft Cleaning Name Role Phone Dr. Zeus Bartlett III Primary Care Provider [phone] Allergies Allergen (clinical drug ingredient) Drug/Non Drug Allergy documented on EMR Reaction Allergy Type Onset Date Status No Known Drug Allergy Unknown Drug Allergy Active Results Component Value Reference Range Notes URINE DIP STICK Reviewed date:10/06/2024 11:12:46 AM Interpretation: Performing Lab: Notes/Report: SG 1.015 1.005 - 1.025 pH 5.0 5.0 - 9.0 OJ Negative Negative - NIT Negative Negative - PRO 15 Negative - Trace GLU 1000 Negative - KET 5 Negative - UBG 0.2 0.1 - 1.8 ASHWINI Negative 0.2 - 1.3 BLD Negative Negative - Lipid Panel Reviewed date:01/04/2025 08:19:16 PM Interpretation: Performing Lab:[facility], [address] [place] [phone] Notes/Report: Triglycerides 84 <150 mg/dL Desirable Triglyceride: less than 150 mg/dL Borderline High Triglyceride 150-199 mg/dL High Triglyceride: 200-499 mg/dL Very High Triglyceride: greater than or equal to 5OO mg/dL Cholesterol 158 <200 mg/dL Desirable Cholesterol: less than 200 mg/dL Borderline High Cholesterol: 200-239 mg/dL High Cholesterol: greater than 239 mg/dL LDL Cholesterol Calculated 86 <100 mg/dL Desirable LDL: less than 100 mg/dL Near Optimal/Above Optimal LDL: 110-129 mg/dL Borderline High LDL: 130-159 mg/dL High LDL: 160-189 mg/dL Very High LDL: greater than or equal to 190 mg/dL HDL Cholesterol 56 >40 mg/dL Desirable HDL: greater than 40 mg/dL Note: This HDL assay may give artificially low results in patients with liver disease. Microalbumin, Random Reviewed date:01/04/2025 08:19:16 PM Interpretation: Performing Lab:[facility], [address] [place] [phone] Notes/Report: Creatinine Urine 78.98 Microalbumin Urine 10.0 Microalbum/Creatinine Ratio Ur 12.6 <30 ug/mg cr Albumin/Creatinine Ratio Reference Ranges: Normal: < 30 ug/mg creatinine Microalbuminuria: 30 - 300 ug/mg creatinine Clinical Albuminuria: > 300 ug/mg creatinine Hemoglobin A1c Reviewed date:02/04/2025 03:56:47 PM Interpretation: Performing Lab:[facility], [address] [place] [phone] Notes/Report: Hemoglobin A1c % 6.2 <6.0 % [...] average glucose, using the formula of the [id number] Average Glucose study (ADAG), Diabetes Care, Vol.31,#8, 2007 Pathology Reviewed date:06/08/2024 07:06:26 PM Interpretation: Performing Lab:[facility], [address] [place] [phone] Notes/Report: -- ---- Name: Fahad Fritz Jr Age/Sex: 78/M : 1945 Unit#: [id number] Attend Dr: Corry Puentes MD Re04/15/24 Status : [facility] Location: [facility] Disch: -- ---- SPEC : [id number] RECD : 06/05/24 STATUS: BANDAR CARIAS NUM: [id number] VIRGIL: 06/04/[address]: Corry Puentes MD ENTERED: 06/05/24 SP TYPE: Surgical OTHR DR: Zeus Bartlett MD ORDERED: Gross Micro L3, Decal Diagnosis Bone, right 2nd toe wound, biopsy: Acute osteomyelitis. Clinical History Non-healing wound right foot, r/o osteomyelitis Microscopic Description Microscopic sections reviewed. Material Received Bone right 2nd toe wound Gross Description Received in formalin labeled ?right foot wound bone? are 2 peters fragments of hard bone measuring 0.1 and 0. 4 cm in greatest dimension, submitted in toto in a cassette labeled A following decalcification. CEDS Copies To: Zeus Bartlett MD [address] [facility], [address] [place], [place] [id number] Corry Puentes MD [address] [place] [address] -- ---- Signed (signature on file) Karla Sara 06/06/24 1443 -- ---- END OF REPORT Complete Blood Count Auto Di ff Reviewed date:01/04/2025 08:19:16 PM Interpretation: Performing Lab:[facility], [address] [place] [phone] Notes/Report: White Blood Count 7.3 4.8-10.8 X10*3/uL Red Blood Count 4.93 4.60-5.80 X10*6/uL Hemoglobin 13.9 14.0-18.0 g/dl Hematocrit 43.1 42.0-52.0 % Mean Corpuscular Volume 87.4 80.0-98.0 fL Mean Corpuscular Hemoglobin 28.2 27.0-33.0 pg Mean Corpuscular HGB Conc 32.3 31.0-36.0 g/dl Red Cell Distribution Width 13.7 11.0-16.0 % Platelet Count 319 160-400 X10*3/uL Mean Platelet Volume 10.4 9.4-12.4 fL Neutrophils Percent Auto 58.0 45-73 % Imm Gran Pct Auto 0.4 0.0-0.4 % Lymphocytes Percent Auto 30.6 20-40 % Monocytes Percent Auto 6.5 2-11 % Eosinophils Percent Auto 4.0 0-4 % Basophils Percent Auto 0.5 0-2 % NRBC Pct Auto 0.0 0.0-0.2 /100WBC Neutrophils Absolute Auto 4.3 2.0-8.3 x10*3/u L Imm Gran Abs Auto 0.03 0.00-0.03 X10*3/uL Lymphocytes Absolute Auto 2.2 1.2-4.9 X10*3/u L Monocytes Absolute Auto 0.5 0.1-1.2 X10*3/uL Eosinophils Absolute Auto 0.3 0.0-0.4 X10*3/u L Basophils Absolute Auto 0.0 0.0-0.2 X10*3/uL NRBC Abs Auto 0.000 0.0-0.012 X10*3/uL Comprehensive Cope. Panel Fa st Reviewed date:01/04/2025 08:19:16 PM Interpretation: Performing Lab:[facility], [address] [place] [phone] Notes/Report: Sodium 144 135-145 mmol/L Potassium 3.8 3.3-5.1 mmol/L Chloride 109 96-108 mmol/L Carbon Dioxide 25 22-29 mmol/L Anion Gap 14 12-20 Blood Urea Nitrogen 16 9-16 mg/dL Creatinine 0.99 0.5-1.4 mg/dL Estimated Glomerular Filt Rate > 60 Chronic Kidney Disease: Estimated GFR < 60 mL/min/1.73m2 Severe Kidney Disease: Estimated GFR < 15 mL/min/1.73m2 Glucose Fasting 90 60-99 mg/dL Calcium 9.5 8.4-10.2 mg/dL Bilirubin Total 0.5 0.0-1.0 mg/dL Aspartate Amino Transferase 19 5-37 U/L Alanine Aminotransferase 19 0-40 U/L Total Protein 7.3 6.5-8.0 g/dL Albumin Level 4.2 3.5-5.0 g/dL Alkaline Phosphatase 43 39-117 U/L Prostate Specific Antigen Reviewed date:01/04/2025 08:19:16 PM Interpretation: Performing Lab:[facility], [address] [place] [phone] Notes/Report: Prostate Specific Antigen 0.87 <0.05-4.0 ng/mL PSA methodology: Ambrosio Alinity i Chemiluminescent Microparticle Immunoassay (CMIA) Diabetic Eye Exam Reviewed date:02/03/2025 01:35:03 PM Interpretation:undefined Performing Lab: Notes/Report: undefined Complete Blood Count Auto Di ff Reviewed date:02/04/2025 03:56:47 PM Interpretation: Performing Lab:[facility], [address] [place] [phone] Notes/Report: White Blood Count 7.4 4.8-10.8 X10*3/uL Red Blood Count 4.53 4.60-5.80 X10*6/uL Hemoglobin 13.0 14.0-18.0 g/dl Hematocrit 40.3 42.0-52.0 % Mean Corpuscular Volume 89.0 80.0-98.0 fL Mean Corpuscular Hemoglobin 28.7 27.0-33.0 pg Mean Corpuscular HGB Conc 32.3 31.0-36.0 g/dl Red Cell Distribution Width 13.9 11.0-16.0 % Platelet Count 268 160-400 X10*3/uL Mean Platelet Volume 10.4 9.4-12.4 fL Neutrophils Percent Auto 58.7 45-73 % Imm Gran Pct Auto 0.3 0.0-0.4 % Lymphocytes Percent Auto 31.0 20-40 % Monocytes Percent Auto 6.2 2-11 % Eosinophils Percent Auto 3.4 0-4 % Basophils Percent Auto 0.4 0-2 % NRBC Pct Auto 0.0 0.0-0.2 /100WBC Neutrophils Absolute Auto 4.4 2.0-8.3 x10*3/u L Imm Gran Abs Auto 0.02 0.00-0.03 X10*3/uL Lymphocytes Absolute Auto 2.3 1.2-4.9 X10*3/u L Monocytes Absolute Auto 0.5 0.1-1.2 X10*3/uL Eosinophils Absolute Auto 0.3 0.0-0.4 X10*3/u L Basophils Absolute Auto 0.0 0.0-0.2 X10*3/uL NRBC Abs Auto 0.000 0.0-0.012 X10*3/uL Comprehensive Cope. Panel Fa st Reviewed date:02/04/2025 03:56:47 PM Interpretation: Performing Lab:[facility], [address] [place] [phone] Notes/Report: Sodium 142 135-145 mmol/L Potassium 3.9 3.3-5.1 mmol/L Chloride 109 96-108 mmol/L Carbon Dioxide 23 22-29 mmol/L Anion Gap 14 12-20 Blood Urea Nitrogen 12 9-16 mg/dL Creatinine 1.05 0.5-1.4 mg/dL Estimated Glomerular Filt Rate > 60 Chronic Kidney Disease: Estimated GFR < 60 mL/min/1.73m2 Severe Kidney Disease: Estimated GFR < 15 mL/min/1.73m2 Glucose Fasting 101 60-99 mg/dL A fasting glucose from 100-125 mg/dl is considered impaired (pre-diabetes). Calcium 9.4 8.4-10.2 mg/dL Bilirubin Total 0.7 0.0-1.0 mg/dL Aspartate Amino Transferase 19 5-37 U/L Alanine Aminotransferase 16 0-40 U/L Total Protein 6.7 6.5-8.0 g/dL Albumin Level 4.4 3.5-5.0 g/dL Alkaline Phosphatase 37 39-117 U/L Lipid Panel Reviewed date:02/04/2025 03:56:47 PM Interpretation: Performing Lab:[address] [address] Notes/Report: Triglycerides 100 <150 mg/dL Desirable Triglyceride: less than 150 mg/dL Borderline High Triglyceride 150-199 mg/dL High Triglyceride: 200-499 mg/dL Very High Triglyceride: greater than or equal to 5OO mg/dL Cholesterol 155 <200 mg/dL Desirable Cholesterol: less than 200 mg/dL Borderline High Cholesterol: 200-239 mg/dL High Cholesterol: greater than 239 mg/dL LDL Cholesterol Calculated 85 <100 mg/dL Desirable LDL: less than 100 mg/dL Near Optimal/Above Optimal LDL: 110-129 mg/dL Borderline High LDL: 130-159 mg/dL High LDL: 160-189 mg/dL Very High LDL: greater than or equal to 190 mg/dL HDL Cholesterol 50 >40 mg/dL Desirable HDL: greater than 40 mg/dL Note: This HDL assay may give artificially low results in patients with liver disease. Microalbumin, Random Reviewed date:02/04/2025 03:56:47 PM Interpretation: Performing Lab:[address] [phone] Notes/Report: Creatinine Urine 81.78 Microalbumin Urine 7.0 Microalbum/Creatinine Ratio Ur 8.5 <30 ug/mg cr Albumin/Creatinine Ratio Reference Ranges: Normal: < 30 ug/mg creatinine Microalbuminuria: 30 - 300 ug/mg creatinine Clinical Albuminuria: > 300 ug/mg creatinine Reason For Referral Reason severe left ear ceru men impaction Diagnosis 1 Impacted cerumen, un specified laterality (H61.20) Referral Organization Zeus Bartlett III, MD Referring Provider First Name Zeus Referring Provider Last Name Dhruv Referring Provider Speciality Internal M edicine Referred Provider [facility], [facility] Referred Provider Specialty Otolaryngolo gy General Notes Emmy Radha TIPPLE SUPERVISOR 03/04 01:38:27 PM >ref/demo/progress note faxed to [facility], Radha Booth TIPPLE SUPERVISOR 03/26/2025 03:41:50 PM > patient called [facility] made patient appt for 04/20/2025 arrival at 10am with appt at 10:15am with Dr Omer Colon at [address] [place] [address] . I called patient to verify he is aware of this appt Referral Priority Routine Referral Appointment Date 04/20/2025 Medications Medication SIG (Take, Route, Frequency, Duration) Notes Start Date End Date Status Jardiance 25 MG 1 tablet Orally Once a day Active Accu-Chek Guide - as directed In Vitro test blood sugars three times a day Active BD Pen Needle Short U/F 31G X 8 MM Active GlipiZIDE-Metformin HCl 5-500 MG take 2 tablets by mouth twice a day Oral Active Pravastatin Sodium 20 MG 1 tablet Orally Once a day for 90 days Active Basaglar KwikPen 10 UNIT/ML as directed Subcutaneous 10 units daily Active Accu-Chek Guide Test - use to test blood sugars three times a day for 30 days DX: Diabetes E11.9 DX: Diabetes E 11.9 03/16/2025 Active Vitamin D 25 MCG (1000 UT) 1 tablet Orally Once a day 12/26/2022 Active Mounjaro 5 MG/0.5ML as directed Subcutaneous 05/05/2024 Active Triamcinolone Acetonide 0.1 % 1 application Externally Two times a day As needed Active Lisinopril 10 MG TAKE 1 TABLET BY MOUTH EVERY DAY Orally Once a day Active Fenofibrate 160 MG TAKE 1 TABLET BY MOUTH EVERY DAY WITH A MEAL Active Immunizations Vaccine Route Administration Date Status Amilcar gee Zostavax SC Subcutaneous 11/02/2013 Administered Influenza Unknown 04/24/2014 Administered Pneumococcal Unknown 05/09/2014 Administered Influenza no Preserv 3 and > Unknown 04/13/2020 Administered COVID- 19 Vaccine Unknown 11/30/2020 Administered Tdap Unknown 10/06/2021 Administered COVID PFIZER Unknown 12/21/2020 Administered Tdap Unknown 06/04/2021 Administered Td (adult) Unknown 03/04/2014 Administered PCV20 Unknown 05/25/2023 Administered PCV13 Unknown 12/19/2016 Administered Tdap Unknown 03/30/2015 Administered COVID PFIZER Unknown 08/26/2021 Administered COVID PFIZER Unknown 11/30/2020 Administered COVID-19 Comirnaty Pfizer-BioNTech Unknown 05/25/2023 Administered Influenza-iiv4 p-free high dose Unknown 05/25/2023 Administered Social History Tobacco Use: Social History Observation Description Date Details (start date - stop date) Former Smoker NA - NA Sex Assigned At : Social History Observation Description Sex Assigned At Male Tobacco Control (Standard) Question Answer Notes Tobacco use: Former smoker How long has it been since you last smoked? Grea ter than 10 years Additional Findings: Tobacco non-user Ex-cigaret te smoker AUDIT-C (Standard) Question Answer Notes Did you have a drink contain ing alcohol in the past year? Yes How often did you have six o r more drinks on one occasion in the past year? Never (0 point) How many drinks did you have on a typical day when you were drinking in the past year? 1 or 2 drinks (0 point) How often did you have a dri nk containing alcohol in the past year? Never (0 point) Points 0 Interpretation Negative Problems Problem Type SNOMED Code ICD Code Onset Dates Problem Status W/U Status Risk Notes Problem 1125150 Former smoker (Z87.891) Active confirmed I have had a long discussion with him today about maintaining abstinence in times of stress. Problem Hyperlipidemia (03764798) Hyperlipidemia (E78.5) Active confirmed His lipids are well controlled and his total cholesterol is 155. Problem 663613835 Obesity (E66.9) Active confirmed Problem 933925700 Type 2 diabetes mellitus without complications (E11.9) Active confirmed He has gained two pounds and is following his diet. His hemoglobin A1c has fallen to 6.2. He has been compliant with his insulin. No change in his regimen was needed.A repeat hemoglobin A1c has been ordered. 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 Problem No known drug allergy (situation) (712572000) Other nonmedicinal substance allergy status (Z91.048) Active confirmed Problem Benign prostatic hypertrophy without outflow obstruction (852241669) BPH (benign prostatic hypertrophy) (N40.0) Active confirmed He rises from sleep once or twice a night to urinate. We have discussed lifestyle modifications he can make or has made in the past to reduce this. Problem 71936522 Cataracts, bilateral (H26.9) Active confirmed Problem 349502645 Environmental allergies (Z91.09) Active confirmed His allergies have been quiescent recently. He has not needed to take medication. Problem 69042085 Colonic polyp (K63.5) Active confirmed Problem 26752350 Pilonidal cyst (L05.91) Active confirmed Problem 74563845 Eczema (L30.9) Active confirmed His eczema seems well controlled today. Current therapy was continued without change. Problem 27362820 Vitamin D deficiency (E55.9) Active confirmed His vitamin D level last month was 11. He is now taking vitamin D supplementatio n. Problem 448084892 Hernia of abdominal wall (K43.9) Active confirmed He has a left inguinal hernia that took some effort to reduce. He will be seen back in 2 weeks. I offered her frontal her surgeon, but he wanted to wait 2 weeks to see if it reappears. I instructed him on what an incarcerated hernia was what to do with that happens. He will go to the nearest emergency room. Problem Basal cell carcinoma (9734393) Basal cell carcinoma (C44.91) Active confirmed Problem Pure hypercholesterolemi a (215852203) Hyperlipidemia type II (E78.01) Active confirmed His lipids are currently in their target range. His weight is stable. I recommend he continue his low-calorie low lipid diabetic diet Problem 35662283 Impacted cerumen, unspecified laterality (H61.20) Active confirmed He will come back in a week after more of the medication for another attempted reducing the cerumen impaction. Problem 805665241 Osteomyelitis of toe (M86.9) Active confirmed He recently underwent amputation of the affected toe and this has resolved. Problem 364707842 Amputation of toe of right foot (S98.131A) Active confirmed The wound is well-healed. He is ambulating without difficulty and has no pain. Problem 471895877 Hammertoe of right foot (M20.41) Active confirmed He will return to the [facility] we[facility] to arrange the correction of the hammertoe. Current therapy was continued. Vital Signs Heart Rate 72 /min 02/12/2025 Temperature 97.2 degrees Fahrenheit 02/05/2025 Blood pressure diastolic 66 mm Hg 02/12/2025 Height 72 in 02/12/2025 Blood pressure systolic 126 mm Hg 02/12/2025 Weight 160 lbs 02/12/2025 BMI 21.7 kg/m2 02/12/2025 Encounters Encounter Location Date Provider Diagnosis Zeus Bartlett III, MD [address] [place] [address] [place] [address] 05/05/2024 Zeus Bartlett Type 2 diabetes marquis itus without complications E11.9 ; Eczema L30.9 ; Environmental allergies Z91.09 ; BPH (benign prostatic hypertrophy) N40.0 ; Hammertoe of right foot M20.41 ; Former smoker Z87.891 and Spinal stenosis, lumbar region M48.06 Zeus Bartlett III, MD [address] [place] [address] [place] [address] 07/02/2024 Zeus Bartlett Type 2 diabetes marquis itus without complications E11.9 ; Former smoker Z87.891 ; Spinal stenosis, lumbar region M48.06 ; Hyperlipidemia type II E78.0 ; Eczema L30.9 and Other nonmedicinal substance allergy status Z91.048 Zeus Bartlett III, MD [address] [place] [address] [place] [address] 10/06/2024 Zeus Bartlett Type 2 diabetes marquis itus without complications E11.9 ; Hyperlipidemia E78.5 ; BPH (benign prostatic hypertrophy) N40.0 ; Former smoker Z87.891 ; Spinal stenosis, lumbar region M48.06 and Eczema L30.9 Zeus Bartlett III, MD [address] [place] [address] [place] [address] 02/05/2025 Zeus Bartlett Type 2 diabetes marquis itus without complications E11.9 ; Hyperlipidemia E78.5 ; BPH (benign prostatic hypertrophy) N40.0 ; Eczema L30.9 ; Environmental allergies Z91.09 ; Presbyopia H52.4 ; Pilonidal cyst L05.91 ; Former smoker Z87.891 ; Hyperlipidemia type II E78.01 and Hammertoe of right foot M20.41 Zeus Bartlett III, MD [address] [place] [address] [place] [address] 02/12/2025 Zeus Bartlett Impacted cerumen, unspecified ear H61.20 Zeus Bartlett III, MD [address] [place] [address] [place] [address] 02/19/2025 Zeus Bartlett Impacted cerumen, unspecified laterality H61.20 ; Environmental allergies Z91.09 ; Eczema L30.9 ; Type 2 diabetes mellitus without complications E11.9 ; Former smoker Z87.891 ; Pilonidal cyst L05.91 and BPH (benign prostatic hypertrophy) N40.0 Zeus Bartlett III, MD [address] [place] [address] [place] [address] 07/01/2024 Zeus Bartlett III, MD [address] [place] [address] [place] [address] 01/26/2025 Zeus Bartlett Type 2 diabetes marquis itus without complications E11.9 Zeus Bartlett III, MD [address] [place] [address] [place] [address] 10/12/2024 Zeus Bartlett Type 2 diabetes marquis itus without complications E11.9 Zeus Bartlett III, MD [address] [place] [address] [place] [address] 10/13/2024 Zeus Bartlett III, MD [address] [place] [address] [place] [address] 12/28/2024 Zeus Bartlett III, MD [address] [place] [address] [place] [address] 01/26/2025 Zeus Bartlett Type 2 diabetes marquis itus without complications E11.9 Zeus Bartlett III, MD [address] [place] [address] [place] [address] 03/14/2025 Zeus Bartlett Impacted cerumen, unspecified laterality H61.20 Assessments Encounter Date Diagnosis (ICD Code) Assessment Notes Treat ment Notes Treatment Clinical Notes 05/05/2024 Type 2 diabetes mellitus without complications (ICD-10 - E11.9) His weight is stable. His hemoglobin A1c is 7.0. He will resume his previous healthy diet, maintain his weight in the normal limits. Repeat values have been ordered. 05/05/2024 Eczema (ICD-10 - L30.9) His eczema seems well controlled today. Current therapy was continued without change. 07/02/2024 Former smoker (ICD-1 0 - Z87.891) I have had a long discussion with him today about maintaining abstinence in times of stress. 07/02/2024 Type 2 diabetes mellitus without complications (ICD-10 - E11.9) He has lost 9 pounds and is following his diet. His hemoglobin A1c has fallen from 7.8-7.0. He has been compliant with his insulin. No change in his regimen was needed. 10/06/2024 Hyperlipidemia (ICD-10 - E78.5) Comprehensive blood work has been ordered to be done in the next few days. His lipids have been well controlled. He has been compliant with his medications. 10/06/2024 Type 2 diabetes mellitus without complications (ICD-10 - E11.9) He has gained two pounds and is following his diet. His hemoglobin A1c has fallen from 7.8-7.0. He has been compliant with his insulin. No change in his regimen was needed.A repeat hemoglobin A1c has been ordered. 02/05/2025 Hyperlipidemia (ICD-10 - E78.5) His lipids are well controlled and his total cholesterol is 155. 02/05/2025 Type 2 diabetes mellitus without complications (ICD-10 - E11.9) He has gained two pounds and is following his diet. His hemoglobin A1c has fallen to 6.2. He has been compliant with his insulin. No change in his regimen was needed.A repeat hemoglobin A1c has been ordered. 02/12/2025 Impacted cerumen, unspecified ear (ICD-10 - H61.20) 02/19/2025 Environmental allergies (ICD-10 - Z91.09) His allergies have been quiescent recently. He has not needed to take medication. 02/19/2025 Impacted cerumen, unspecified laterality (ICD-10 - H61.20) He will come back in a week after more of the medication for another attempted reducing the cerumen impaction. 01/26/2025 Type 2 diabetes mellitus without complications (ICD-10 - E11.9) 10/12/2024 Type 2 diabetes mellitus without complications (ICD-10 - E11.9) He has gained two pounds and is following his diet. His hemoglobin A1c has fallen from 7.8-7.0. He has been compliant with his insulin. No change in his regimen was needed.A repeat hemoglobin A1c has been ordered. 01/26/2025 Type 2 diabetes mellitus without complications (ICD-10 - E11.9) He has gained two pounds and is following his diet. His hemoglobin A1c has fallen from 7.8-7.0. He has been compliant with his insulin. No change in his regimen was needed.A repeat hemoglobin A1c has been ordered. 03/14/2025 Impacted cerumen, unspecified laterality (ICD-10 - H61.20) He will come back in a week after more of the medication for another attempted reducing the cerumen impaction. 05/05/2024 Environmental allergies (ICD-10 - Z91.09) His allergies have been quiescent recently. He has not needed to take medication. 07/02/2024 Spinal stenosis, lumbar region (ICD-10 - M48.06) His back pain is much improved and he is conducting all of the activities of daily life without impairment. 10/06/2024 BPH (benign prostati c hypertrophy) (ICD-10 - N40.0) He rises from sleep about once a night to urinate. Sometimes twice. We have discussed lifestyle modifications he could employee to reduce nocturia. 02/05/2025 BPH (benign prostati c hypertrophy) (ICD-10 - N40.0) He rises from sleep once or twice a night to urinate. We have discussed lifestyle modifications he can make or has made in the past to reduce this. 02/19/2025 Eczema (ICD-10 - L30.9) His eczema seems well controlled today. Current therapy was continued without change. 05/05/2024 BPH (benign prostati c hypertrophy) (ICD-10 - N40.0) He rises from sleep once a night to urinate. He is using lifestyle modification to reduce nocturia. 07/02/2024 Hyperlipidemia type II (ICD-10 - E78.0) The current fasting lipid profile showed good control of his lipids in no change in his regimen was needed today. 10/06/2024 Former smoker (ICD-1 0 - Z87.891) I have had a long discussion with him today about maintaining abstinence in times of stress. 02/05/2025 Eczema (ICD-10 - L30.9) His eczema [...] needed.A repeat hemoglobin A1c has been ordered. 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 Current therapy was continued. 07/02/2024 Eczema (ICD-10 - L30.9) His eczema seems well controlled today. Current therapy was continued without change. 10/06/2024 Spinal stenosis, lumbar region (ICD-10 - M48.06) His back pain is much improved and he is conducting all of the activities of daily life without impairment. 02/05/2025 Environmental allergies (ICD-10 - Z91.09) His allergies have been quiescent recently. He has not needed to take medication. 02/19/2025 Former smoker (ICD-1 0 - Z87.891) I have had a long discussion with him today about maintaining abstinence in times of stress. 05/05/2024 Former smoker (ICD-1 0 - Z87.891) I have had a long discussion with him today about maintaining abstinence in times of stress. 07/02/2024 Other nonmedicinal substance allergy status (ICD-10 - Z91.048) 10/06/2024 Eczema (ICD-10 - L30.9) His eczema seems well controlled today. Current therapy was continued without change. 02/05/2025 Presbyopia (ICD-10 - H52.4) 02/19/2025 Pilonidal cyst (ICD-10 - L05.91) 05/05/2024 Spinal stenosis, lumbar region (ICD-10 - M48.06) His back pain is much improved and he is conducting all of the activities of daily life without impairment. 02/05/2025 Pilonidal cyst (ICD-10 - L05.91) 02/19/2025 BPH (benign prostati c hypertrophy) (ICD-10 - N40.0) He rises from sleep once or twice a night to urinate. We have discussed lifestyle modifications he can make or has made in the past to reduce this. 02/05/2025 Former smoker (ICD-1 0 - Z87.891) [...] - M20.41) He will return to the [facility] to arrange the correction of the hammertoe. Current therapy was continued. Plan Of Treatment Pending Test Test Name Order Date PROFILE, FASTING (COMPREHENSIVE METABOLI C) 10/04/2023 PROFILE, FASTING (COMPREHENSIVE METABOLI C) 09/28/2022 PROFILE, FASTING (COMPREHENSIVE METABOLI C) 07/12/2023 PROFILE, FASTING (COMPREHENSIVE METABOLI C) 10/11/2020 PROFILE, FASTING (COMPREHENSIVE METABOLI C) 05/23/2022 PROFILE, FASTING (COMPREHENSIVE METABOLI C) 06/30/2019 PROFILE, FASTING (COMPREHENSIVE METABOLI C) 01/04/2024 PROFILE, FASTING (COMPREHENSIVE METABOLI C) 01/26/2023 PROFILE, FASTING (COMPREHENSIVE METABOLI C) 04/01/2020 PROFILE, FASTING (COMPREHENSIVE METABOLI C) 10/06/2024 PROFILE, FASTING (COMPREHENSIVE METABOLI C) 03/30/2023 PROFILE, FASTING (COMPREHENSIVE METABOLI C) 07/05/2020 PROFILE, FASTING (COMPREHENSIVE METABOLI C) 02/13/2022 PROFILE, FASTING (COMPREHENSIVE METABOLI C) 12/31/2019 PROFILE, FASTING (COMPREHENSIVE METABOLI C) 11/07/2021 PROFILE, FASTING (COMPREHENSIVE METABOLI C) 08/16/2021 PROFILE, FASTING (COMPREHENSIVE METABOLI C) 04/13/2021 PROFILE, FASTING (COMPREHENSIVE METABOLI C) 02/05/2025 PROFILE, FASTING (COMPREHENSIVE METABOLI C) 01/11/2021 PROFILE, RANDOM (COMPREHENSIVE METABOLIC ) 09/30/2019 HEMOGLOBIN A1C (GLYCOHEMOGLOBIN) 021 HEMOGLOBIN A1C (GLYCOHEMOGLOBIN) 023 HEMOGLOBIN A1C (GLYCOHEMOGLOBIN) 020 HEMOGLOBIN A1C (GLYCOHEMOGLOBIN) 023 HEMOGLOBIN A1C (GLYCOHEMOGLOBIN) 020 HEMOGLOBIN A1C (GLYCOHEMOGLOBIN) 022 HEMOGLOBIN A1C (GLYCOHEMOGLOBIN) 020 HEMOGLOBIN A1C (GLYCOHEMOGLOBIN) 022 HEMOGLOBIN A1C (GLYCOHEMOGLOBIN) 022 HEMOGLOBIN A1C (GLYCOHEMOGLOBIN) 020 LIPID PANEL 11/07/2021 LIPID PANEL 08/16/2021 LIPID PANEL 09/30/2019 LIPID PANEL 05/23/2022 LIPID PANEL 06/30/2019 LIPID PANEL 10/11/2020 LIPID PANEL 01/26/2023 LIPID PANEL 04/01/2020 LIPID PANEL 03/30/2023 LIPID PANEL 07/05/2020 LIPID PANEL 02/13/2022 LIPID PANEL 12/31/2019 PSA, TOTAL 02/05/2025 PSA, TOTAL 07/12/2023 PSA, TOTAL 01/04/2024 PSA, TOTAL 10/06/2024 PSA, TOTAL 05/23/2022 PSA, TOTAL 01/26/2023 PSA, TOTAL 04/01/2020 PSA, TOTAL+FREE 08/16/2021 MICROALBUMIN, RANDOM 04/13/2021 MICROALBUMIN, RANDOM 01/26/2023 MICROALBUMIN, RANDOM 04/01/2020 CBC w DIFF 02/13/2022 CBC w DIFF 12/31/2019 CBC w DIFF 01/11/2021 CBC w DIFF 04/13/2021 CBC w DIFF 01/26/2023 CBC w DIFF 04/01/2020 CBC w DIFF 11/07/2021 CBC w DIFF 02/05/2025 CBC w DIFF 10/04/2023 CBC w DIFF 09/28/2022 CBC w DIFF 09/30/2019 CBC w DIFF 08/16/2021 CBC w DIFF 06/30/2019 CBC w DIFF 10/11/2020 CBC w DIFF 05/23/2022 CBC w DIFF 03/30/2023 CBC w DIFF 07/05/2020 VITAMIN D 25-OH TOTAL 05/23/2022 CBC WITH AUTO DIFF 07/12/2023 CBC WITH AUTO DIFF 01/04/2024 CBC WITH AUTO DIFF 10/06/2024 Lipid Panel 01/11/2021 Lipid Panel 04/13/2021 Lipid Panel 02/05/2025 Lipid Panel 10/04/2023 Lipid Panel 09/28/2022 Lipid Panel 07/12/2023 Lipid Panel 01/04/2024 Vitamin D 25-OH Total 09/28/2022 Microalbumin, Random 01/11/2021 Microalbumin, Random 02/05/2025 Microalbumin, Random 10/04/2023 Microalbumin, Random 09/28/2022 Microalbumin, Random 01/04/2024 Hemoglobin A1c 09/28/2022 Hemoglobin A1c 01/04/2024 Hemoglobin A1c 04/13/2021 Hemoglobin A1c 01/11/2021 Hemoglobin A1c 02/05/2025 Hemoglobin A1c 10/04/2023 Hemoglobin A1c 07/12/2023 Next Appt Details Provider Name:Zeus Bartlett , 05/07/2025 10:30:00 AM, [address] [place] [address] [address], [place], [address], Provider Name:Zeus Bartlett , 10/09/2025 11:00:00 AM, [address] [place] [address] [address], [place], [address], Insurance Providers Payer Name Payer Address Payer Phone Subscriber Number Group Number Insured Name Patient Relationship to Insured Coverage Start Date Coverage End Date MEDICARE NGS [address] [place] [address] [id number] Fahad Fritz Self - patient is the insured [facility] [email or web address] [address] [place], [place] [phone] [id number] Fahad Fritz Self - patient is the insured Medical (General) History Medical History History ICD Code degenerative disc disease Pilonidal cyst 20 years ago left inguinal hernia surgery three times History of bronchitis eczema allergies bronchitis diabetes mellitus type 2 obesity cataracts presbyopia 2003, 2017 tubular adenoma, last colonos copy 2017, 3 year plan hyperlipidemia back pain spinal stenosis Healed diabetic ulcer, medial right thir d toe December 2022 Ulcerated hammertoe right foot April 2024 Surgical History Surgery Date(Month/Year) No history Basal Cell removal, Left ear 08/2023 removal middle toe right foot 02/2023 elbow surgery 02/2023 Healed diabetic ulcer Right third toe 2022 colonoscopy, [facility], Dr. Guthrie, tubular adenoma 05/2017 laceration dorsum right foot, 6 sutures 2017 colonoscopy, + polyps, Q3y 2013 2 lacerations to hip, left thumb February 22 spinal disc surgery 1990 pilonidal cystectomy left inguinal herniorrhaphy colonoscopy 2008 colonoscopy 2003 Hospitalization History Reason Date(Month/Year) No history
--- OUTSIDE RECORDS SUMMARY | 2025-05-01 06:07 | XMS_ITS | Patient Health Record ---
Author Organization [facility] Address [address] [place] [address] Care Team Providers Care Screen Printing Inspector Name Role Phone Zeus Bartlett MD Primary Care Provider Unavailab Sapna Prakash Unavailable [phone] Bora Short Unavailable [phone] Allergies No Known Allergies Results Component Value Reference Range Notes HEMOGLOBIN A1C (GLYCOHEMOGLO BIN) Reviewed date:05/12/2024 10:15:38 AM Interpretation: Performing Lab: Notes/Report: TOTAL HEMOGLOBIN (HGBA1C) 7.0 HEMOGLOBIN A1C (GLYCOHEMOGLO BIN) Reviewed date:11/19/2024 11:50:01 AM Interpretation: Performing Lab: Notes/Report: HEMOGLOBIN A1C % (HH) 7.0 HEMOGLOBIN A1C (GLYCOHEMOGLO BIN) Reviewed date:02/19/2025 11:03:59 AM Interpretation: Performing Lab: Notes/Report: HEMOGLOBIN A1C % (HH) 6.2 Reason For Referral No Information Medications Medication SIG (Take, Route, Frequency, Duration) Notes Start Date End Date Status Augmentin 500-125 MG 1 tablet Orally Twi ce a day; Duration: 30 days 04/14/2024 Not-Takin g Trulicity 1.5 MG/0.5ML as directed Subcutaneous Not-Taking Extra Depth Diabetic Shoes with 3 Pair Custom heat-molded multi-density innersoles for 1 year Dx: 09/03/2023 A ctive Mounjaro 5 MG/0.5ML Subcutaneous; Durati on: 28 Days Active Jardiance 25 MG 1 tablet Orally Once a day Active glipiZIDE-metFORMIN HCl 5-500 MG 1 tablet with a meal Orally Once a day Active Pravastatin Sodium 20 MG 1 tablet Orally Once a day Active Fenofibrate 160 MG 1 tablet Orally Once a day Active Basaglar KwikPen 100 UNIT/ML as directed Subcutaneous Act ann Lisinopril 10 MG 1 tablet Orally Once a day Active Vitamin D3 1000 UNIT 1 capsule Orally On ce a day Active Immunizations Vaccine Route Administration Date Status Comme nts Influenza Unknown 04/06/2023 Administered Influenza Unknown 05/06/2024 Administered Social History Tobacco Use: Social History Observation Description Date Details (start date - stop date) Never Smoker NA - NA Tobacco use other than smoking: Question Answer Notes Are you an other tobacco user? No Tobacco Control (Standard) Question Answer Notes Tobacco use: Nonsmoker Additional Findings: Tobacco non-user Current no nsmoker AUDIT-C (Standard) Question Answer Notes Did you have a drink containing alcohol in the p ast year? No Points 0 Interpretation Negative Problems Problem Type SNOMED Code ICD Code Onset Dates Problem Status W/U Status Risk Notes Problem Polyneuropathy due to type 2 diabetes mellitus (151406392) Type 2 diabetes mellitus with diabetic polyneuropathy (E11.42) Active confirmed Problem Skin ulcer of toe of right foot with fat layer exposed (L97.512) Active confirmed Response to treatment- Resolved Vital Signs Blood pressure diastolic 60 mm Hg 02/19/2025 Height 6ft in 02/19/2025 Blood pressure systolic 128 mm Hg 02/19/2025 Weight 265 lbs 02/19/2025 BMI 35.94 kg/m2 02/19/2025 Procedures Procedure Date Ordered Date Performed Result Body Sit e 71676-YEEGHMX SKIN/TISSUE 05/12/2024 N/A 10555-IUYEVQI NAIL, 6 OR MORE 06/26/2024 N/A 86769-RQSQFOF SKIN/TISSUE 06/26/2024 N/A 87994-AMUG SKIN LESIONS, OVER 4 06/26/2024 N/A 96082-LDQMGUV NAIL, 6 OR MORE 11/19/2024 N/A 20986-FNNW SKIN LESIONS, 2 TO 4 11/19/2024 N/A 01304-XQHABRJ NAIL, 6 OR MORE 02/19/2025 N/A 69466-WXQO SKIN LESIONS, 2 TO 4 02/19/2025 N/A Encounters Encounter Location Date Provider Diagnosis [facility] [address] 05/12/2024 Bora Short Non-pressure chronic ulcer of 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 L97.512 ; Pain in right toe(s) M79.674 ; Type 1 diabetes mellitus with diabetic polyneuropathy E10.42 ; Other hammer toe(s) (acquired), right foot M20.41 and Allergic contact dermatitis due to adhesives L23.[address] [address] 06/26/2024 Sapna Navas Type 2 diabetes mellitus with diabetic polyneuropathy E11.42 ; Tinea unguium B35.1 and Skin ulcer of toe of right foot with fat layer exposed L97.[address] [address] 07/10/2024 Sapna Navas Skin ulcer of toe of right foot with fat layer exposed L97.[address] [address] 11/19/2024 Sapna Navas Type 2 diabetes mellitus with diabetic polyneuropathy E11.42 and Tinea unguium B35.[address] [address] 02/19/2025 Sapna Navas Type 2 diabetes mellitus with diabetic polyneuropathy E11.42 and Tinea unguium B35.1 Assessments Encounter Date Diagnosis (ICD Code) Assessment Notes Treatment Notes Treatment Clinical Notes Section Notes 05/12/2024 Non-pressure chronic ulcer of 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 (ICD-10 - L97.512) 05/12/2024 Pain in right toe(s) (ICD-10 - M79.674) 06/26/2024 Type 2 diabetes mellitus with diabetic polyneuropathy (ICD-10 - E11.42) 06/26/2024 Tinea unguium (ICD-10 - B35.1) 07/10/2024 Skin ulcer of toe of right foot with fat layer exposed (ICD-10 - L97.512) Response to treatment-Resol genevieve Patient Educated with: WOUND CARE INSTRUCTIONS. pdf (WOUND CARE INSTRUCTIONS. pdf) 11/19/2024 Type 2 diabetes mellitus with diabetic polyneuropathy (ICD-10 - E11.42) 11/19/2024 Tinea unguium (ICD-10 - B35.1) 02/19/2025 Type 2 diabetes mellitus with diabetic polyneuropathy (ICD-10 - E11.42) 02/19/2025 Tinea unguium (ICD-10 - B35.1) 05/12/2024 Type 1 diabetes mellitus with diabetic polyneuropathy (ICD-10 - E10.42) 06/26/2024 Skin ulcer of toe of right foot with fat layer exposed (ICD-10 - L97.512) Response to treatment Patient Educated with: WOUND CARE INSTRUCTIONS. pdf (WOUND CARE INSTRUCTIONS. pdf) 05/12/2024 Other hammer toe(s) (acquired), right foot (ICD-10 - M20.41) 05/12/2024 Allergic contact dermatitis due to adhesives (ICD-10 - L23.1) 06/26/2024 Other Patient Educated with: WOUND CARE INSTRUCTIONS. pdf (WOUND CARE INSTRUCTIONS. pdf) Plan Of Treatment Pending Test Test Name Order Date X ray : Foot, right 3V 04/14/2024 X ray : Foot, right 3V 05/12/2024 03813-OCIOPGZ NAIL, 6 OR MORE 06/26/2024 06210-EETIAUK NAIL, 6 OR MORE 11/19/2024 88379-DWFLSVW NAIL, 6 OR MORE 02/19/2025 40678-RDCRVTN SKIN/TISSUE 06/26/2024 64336-IZKSCEJ SKIN/TISSUE 05/12/2024 48204-HZFWJCD SKIN/TISSUE 04/14/2024 87048-QXYK SKIN LESIONS, OVER 4 09/03/19 24 13510-EAZK SKIN LESIONS, OVER 4 12/24/19 24 72954-XCZM SKIN LESIONS, OVER 4 06/26/20 24 66565-XWGG SKIN LESIONS, 2 TO 4 02/20/20 25 34814-AXTV SKIN LESIONS, 2 TO 4 11/20/19 25 94216-Rwwa. Subungual Hematoma Next Appt Details Provider Name:Sapna Paul avelar, 05/21/2025 01:00:00 PM, [address] [place] [address], [place], [address], Insurance Providers Payer Name Payer Address Payer Phone Subscriber Number Group Number Insured Name Patient Relationship to Insured Coverage Start Date Coverage End Date Medicare National [employer] [address] [place] [address] [id number] Fahad Fritz Jr Self - patient is the insured [employer] [address] [place] [address] [id number] Fahad Fritz Jr Self - patient is the insured Medical (General) History Medical History History ICD Code asthma Back,Hip,and Knee pain Diabetic Hiatal hernia High blood pressure Psoriasis/eczema Measles Mumps Surgical History Surgery Date(Month/Year) Right Foot 02/2023 Middle toe 02/2023 Hernia Repair back surgery Left elbow 02/2023
[2025-05-01 06:24] LABS: MANUAL DIFF FLAG NO
[2025-05-01 07:59] LABS: Total Hemoglobin (HGBA1C) 3365.9908 umol/L
[2025-05-01 08:03] LABS: Hematocrit 41.2 % (42.0-52.0); Hemoglobin 13.3 g/dl (14.0-18.0); Imm Gran Abs Auto 0.01 X10*3/uL (0.00-0.03); Imm Gran Pct Auto 0.1 % (0.0-0.4); Lymphocytes Absolute Auto 1.8 X10*3/uL (1.2-4.9); Mean Corpuscular HGB Conc 32.3 g/dl (31.0-36.0); Mean Corpuscular Hemoglobin 28.2 pg (27.0-33.0); Mean Corpuscular Volume 87.5 fL (80.0-98.0); NRBC Abs Auto 0.000 X10*3/uL (0.0-0.012); NRBC Pct Auto 0.0 /100WBC (0.0-0.2); Platelet Count 242 X10*3/uL (160-400); Red Blood Count 4.71 X10*6/uL (4.60-5.80); White Blood Count 7.2 X10*3/uL (4.8-10.8)
[2025-05-01 08:17] LABS: Alanine Aminotransferase 15 U/L (0-40); Albumin Level 4.7 g/dL (3.5-5.0); Alkaline Phosphatase 46 U/L (39-117); Anion Gap 15 (12-20); Aspartate Amino Transferase 22 U/L (5-37); Blood Urea Nitrogen 17 mg/dL (9-16); Calcium 9.5 mg/dL (8.4-10.2); Carbon Dioxide 26 mmol/L (22-29); Chloride 109 mmol/L (96-108); Cholesterol 186 mg/dL (<200); Estimated Glomerular Filt Rate 54; HDL Cholesterol 53 mg/dL (>40); Potassium 4.5 mmol/L (3.3-5.1); Sodium 145 mmol/L (135-145); Total Protein 7.1 g/dL (6.5-8.0); Triglycerides 89 mg/dL (<150)
[2025-05-01 08:31] LABS: Prostate Specific Antigen 0.84 ng/mL (<0.05-4.0)
[2025-05-01 09:04] LABS: Microalbum/Creatinine Ratio Ur 72.9 ug/mg cr (<30)
== END 2025-05-01 06:05 | disposition home or self-care (01) ==
LOC: HO.LAB 06:04
PROVIDERS: PCP Internal Medicine Medical Oncology; Visit Provider Internal Medicine Medical Oncology
DX: Z12.5 Encounter for screening for malignant neoplasm of prostate (principal); E11.9 Type 2 diabetes mellitus without complications; N40.0 Benign prostatic hyperplasia without lower urinary tract symptoms; E78.5 Hyperlipidemia, unspecified
CPT/HCPCS: 36415; 80053; 80061; 82043; 82570; 83036; 84153; 85025

== ENCOUNTER 2025-07-24 13:07 | Outpatient (REF) | payer MEDICARE, SELFPAY ==
--- OUTSIDE RECORDS SUMMARY | 2024-05-05 07:00 | XMS_ITS ---
Author Organization [facility] Address [address] [place] [address] Care Team Providers Care Grey Goods Tester Name Role Phone Zeus Bartlett MD Primary Care Provider Unavailab Sapna Prakash Unavailable [phone] Bora Chris [phone] Encounters Encounter Location Date Provider Diagnosis [address] [address] 05/05/2024 Bora Chris Plan Of Treatment Next Appt Details Provider Name:Sapna Paul avelar, 08/31/2025 01:00:00 PM, [address] [place] [address], [phone], Progress Notes * Fahad FRITZ JR EDOB:1945 (79 yo M)Acc No.[id number]:05/05/2024 Progress Note Patient: Fahad RUTHERFORD JR Provider: Anne Short DPM :1945 A ge:78 Y S ex:Male Date:05/05/2024 Address:[address], [place] Pcp:Zeus Bartlett MD Subjective: * Chief Complaints: [...] 0 05/05/2024 Generated for Katie pinzon/Nathaniel/Fauzia on: 1 09/24/2024 02:56 PM EST
--- OUTSIDE RECORDS SUMMARY | 2024-10-13 14:15 | XMS_ITS ---
Author Organization Zeus Bartlett III, MD Address [address] [place] [address] Care Team Providers Care Battalion Fire Chief Name Role Phone Dr. Zeus Bartlett III Primary Care Provider [phone] REASON FOR VISIT RE:New Refill Request Social History Sex Assigned At : Social History Observation Description Sex Assigned At Male Encounters Encounter Location Date Provider Diagnosis Zeus Bartlett III, MD [address] [place] [address] [place] [address] 10/13/2024 Zeus Bartlett Plan Of Treatment Next Appt Details Provider Name:Zeus Bartlett , 08/07/2025 10:30:00 AM, [address] [place] [address] [place], [address], Provider Name:Zeus Bartlett , 10/09/2025 11:00:00 AM, [address] [place] [address] [place], [address], Progress Notes * Fahad FRITZ JrDOB:1945 (79 yo M)Acc No.[id number]:10/13/2024 Patient: Fahad RUTHERFORD Jr :1945 A ge:79 Y S ex:Male Address: [address], [place] [address] * true * Date: Generated for Katie pinzon/Nathaniel/Fauzia on: 09/24/2024 02:55 PM EST
--- OUTSIDE RECORDS SUMMARY | 2024-12-28 06:09 | XMS_ITS ---
Author Organization Zeus Bartlett III, MD Address [address] [place] [address] Care Team Providers Care Pediatric Dental Assistant Name Role Phone Dr. Zeus Bartlett III Primary Care Provider REASON FOR VISIT New Refill Request Social History Sex Assigned At : Social History Observation Description Sex Assigned At Male Encounters Encounter Location Date Provider Diagnosis Zeus Bartlett III, MD [address] [place] [address] [place] [address] 12/28/2024 Zeus Bartlett Plan Of Treatment Next Appt Details Provider Name:Zeus Bartlett , 08/07/2025 10:30:00 AM, [address] [place] [address] [place], [address], Provider Name:Zeus Bartlett , 10/09/2025 11:00:00 AM, [address] [place] [address] [place], [address], Progress Notes * Fahad FRITZ JrDOB:1945 (79 yo M)Acc No.[id number]:12/28/2024 Patient: Fahad RUTHERFORD Jr :1945 A ge:79 Y S ex:Male Address: [address], [facility] [address] * true * Date: Generated for Katie pinzon/Nathaniel/Fauzia on: 09/24/2024 02:56 PM EST
--- OUTSIDE RECORDS SUMMARY | 2025-01-26 05:47 | XMS_ITS ---
Author Organization Zeus Bartlett III, MD Address [address] [place] [address] Care Team Providers Care C Unix Developer Name Role Phone Dr. Zeus Bartlett III Primary Care Provider Results Component Value Reference Range Notes Hemoglobin A1c Reviewed date:02/04/2025 03:56:47 PM Interpretation: Performing Lab:[facility], [address] [place] [id number] Notes/Report: Hemoglobin A1c % 6.2 <6.0 % Hemoglobin A1C Reference Range Adults: 4.8 - 6.0 % Non diabetic: < 6.0 % Goal: < 7.0 % Additional Action Suggested: > 8.0 % Note: Hemoglobin A1c results are invalid for patients with abnormal amounts of HbF. Blood transfusions may impact the HbA1c concentration in the patient sample. Estimated Average Glucose 131 eAG = Estimated average glucose which is %A1C expressed as average glucose, using the formula of the R6O-Bdkloaw Average Glucose study (ADAG), Diabetes Care, Vol.31,#8, Mar. 2007 REASON FOR VISIT Lab Social History Sex Assigned At : Social History Observation Description Sex Assigned At Male Encounters Encounter Location Date Provider Diagnosis Zeus Bartlett III, MD [address] [place] [address] [place] [address] 01/26/2025 Zeus Bartlett Type 2 diabetes mellitus without complications E11.9 Assessments Encounter Date Diagnosis (ICD Code) Assessment Notes Treat ment Notes Treatment Clinical Notes 01/26/2025 Type 2 diabetes mellitus without complications (ICD-10 - E11.9) Plan Of Treatment Next Appt Details Provider Name:Zeus Bartlett , 08/07/2025 10:30:00 AM, [address] [place] [address] [address], [place], [address], Provider Name:Zeus Bartlett , 10/09/2025 11:00:00 AM, [address] [place] [address] [address], [place], [address], Progress Notes * Fahad FRITZ JrDOB:1945 (79 yo M)Acc No.[id number]:01/26/2025 Patient: Lucia MARKDAEFahad Jr :1945 A ge:79 Y S ex:Male Address: [address], [facility] [place] [address] Subjective: * Chief Complaints: * L ab * Medical History: * Surgical History: * Hospitalization/Major Diagno stic Procedure: * Medications: Objective: * Vitals: * Physical Examination: Assessment: * Assessment: 1. T ype 2 diabetes mellitus without complications - E11.9 Plan: * Treatment: * Procedure Codes: * true * Date: Generated for Katie pinzon/Nathaniel/Fauzia on: 09/24/2024 02:55 PM EST
--- OUTSIDE RECORDS SUMMARY | 2025-01-26 17:24 | XMS_ITS ---
Author Organization Zeus Bartlett III, MD Address [address] [place] [address] Care Team Providers Care Client Account Specialist Name Role Phone Dr. Zeus Bartlett III Primary Care Provider REASON FOR VISIT New Refill Request Medications Medication SIG (Take, Route, Frequency, Duration) Notes Start Date End Date Status Vitamin D 25 MCG (1000 UT) 1 tablet Orally Once a day for 90 days 12/26/2022 01/23/2026 Active Lisinopril 10 MG TAKE 1 TABLET BY MARISSA TH EVERY DAY Orally Once a day for 90 days Active Social History Sex Assigned At : Social History Observation Description Sex Assigned At Male Encounters Encounter Location Date Provider Diagnosis Zeus Bartlett III, MD [address] [place] [address] [place] [address] 01/26/2025 Zeus Bartlett Type 2 diabetes mellitus without complications E11.9 Assessments Encounter Date Diagnosis (ICD Code) Assessment Notes Treat ment Notes Treatment Clinical Notes 01/26/2025 Type 2 diabetes mellitus without complications (ICD-10 - E11.9) He has gained two pounds and is following his diet. His hemoglobin A1c has fallen from 7.8-7.0. He has been compliant with his insulin. No change in his regimen was needed.A repeat hemoglobin A1c has been ordered. Plan Of Treatment Medication Medication Name Sig Start Date Stop Date Notes Vitamin D 25 MCG (1000 UT) 1 tablet Oral ly Once a day for 90 days 12/26/2022 01/23/2026 Lisinopril 10 MG TAKE 1 TABLET BY MARISSA TH EVERY DAY Orally Once a day for 90 days Next Appt Details Provider Name:Zeus Bartlett , 08/07/2025 10:30:00 AM, [address] [facility] [address], [place], [address], Provider Name:Zeus Bartlett , 10/09/2025 11:00:00 AM, [address] [place] [address] [address], [place], [address], Progress Notes * Fahad FRITZ JrDOB:1945 (79 yo M)Acc No.[id number]:01/26/2025 Patient: Fahad RUTHERFORD Jr :1945 A ge:79 Y S ex:Male [facility] [place] [address] * Refills Refill Vitamin D Tablet, 25 MCG (1000 UT), Orally, 90, 1 tablet, Once a day, 90 days, Refills=3 Refill Lisinopril Tablet, 10 MG, Orally, 90, TAKE 1 TABLET BY MOUTH EVERY DAY, Once a day, 90 days, Refills=3 * true * Date: Generated for Katie pinzon/Nathaniel/Fauzia on: 09/24/2024 02:56 PM EST
--- OUTSIDE RECORDS SUMMARY | 2025-02-05 06:00 | XMS_ITS ---
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 Zeus Bartlett III Primary Care Provider Allergies Allergen (clinical drug ingredient) Drug/Non Drug Allergy documented on EMR Reaction Allergy Type Onset Date Status No Known Drug Allergy Unknown Drug Allergy Active REASON FOR VISIT Environmental allergy, Diabetes mellitus type 2, Hyperlipidemia, Benign prostatic, Amputation firsttoe right foot, Grief reaction Medications Medication SIG (Take, Route, Frequency, Duration) Notes Start Date End Date Status Fenofibrate 160 MG TAKE 1 TABLET BY MARISSA TH EVERY DAY WITH A MEAL Active Triamcinolone Acetonide 0.1 % 1 application Externally Two times a day As needed Active Lisinopril 10 MG TAKE 1 TABLET BY MARSISA TH EVERY DAY Orally Once a day Active Vitamin D 25 MCG (1000 UT) 1 tablet Oral ly Once a day 12/26/2022 Active Mounjaro 5 MG/0.5ML as directed Subcutaneous 05/05 Active Basaglar KwikPen 10 UNIT/ML as directed Subcutaneous 10 units daily Active BD Pen Needle Short U/F 31G X 8 MM Active GlipiZIDE-Metformin HCl 5-500 MG take 2 tablets by mouth twice a day Oral Active Jardiance 25 MG 1 tablet Orally Once a day Active Accu-Chek Guide - as directed In Vitro test blood sugars three times a day Active Pravastatin Sodium 20 MG TAKE 1 TABLET B Y MOUTH EVERY DAY Active Social History Tobacco Use: Social History Observation Description Date Details (start date - stop date) Former Smoker NA - NA Sex Assigned At : Social History Observation Description Sex Assigned At Male Tobacco Control (Standard) Question Answer Notes Tobacco use: Former smoker How long has it been since you last smoked? Matthewa ter than 10 years Additional Findings: Tobacco non-user Ex-cigaret te smoker Vital Signs Temperature 97.2 degrees Fahrenheit 02/06/20 25 Blood pressure systolic 113 mm Hg 02/06/20 25 Blood pressure diastolic 59 mm Hg 025 Heart Rate 85 /min 02/05/2025 Height 72 in 02/05/2025 Weight 158 lbs 02/05/2025 BMI 21.43 kg/m2 02/05/2025 Encounters Encounter Location Date Provider Diagnosis Zeus Bartlett III, MD [address] [place] [address] [place] [address] 02/05/2025 Zeus Bartlett Type 2 diabetes marquis itus without complications E11.9 ; Hyperlipidemia E78.5 ; BPH (benign prostatic hypertrophy) N40.0 ; Eczema L30.9 ; Environmental allergies Z91.09 ; Presbyopia H52.4 ; Pilonidal cyst L05.91 ; Former smoker Z87.891 ; Hyperlipidemia type II E78.01 and Hammertoe of right foot M20.41 Assessments Encounter Date Diagnosis (ICD Code) Assessment Notes Treat ment Notes Treatment Clinical Notes 02/05/2025 Type 2 diabetes mellitus without complications (ICD-10 - E11.9) He has gained two pounds and is following his diet. His hemoglobin A1c has fallen to 6.2. He has been compliant with his insulin. No change in his regimen was needed.A repeat hemoglobin A1c has been ordered. 02/05/2025 Hyperlipidemia (ICD-10 - E78.5) His lipids are well controlled and his total cholesterol is 155. 02/05/2025 BPH (benign prostati c hypertrophy) (ICD-10 - N40.0) He rises from sleep once or twice a night to urinate. We have discussed lifestyle modifications he can make or has made in the past to reduce this. 02/05/2025 Eczema (ICD-10 - L30.9) His eczema seems well controlled today. Current therapy was continued without change. 02/05/2025 Environmental allergies (ICD-10 - Z91.09) His allergies have been quiescent recently. He has not needed to take medication. 02/05/2025 Presbyopia (ICD-10 - H52.4) 02/05/2025 Pilonidal cyst (ICD-10 - L05.91) 02/05/2025 Former smoker (ICD-1 0 - Z87.891) I have had a long discussion with him today about maintaining abstinence in times of stress. 02/05/2025 Hyperlipidemia type II (ICD-10 - E78.01) His lipids are currently in their target range. His weight is stable. I recommend he continue his low-calorie low lipid diabetic diet 02/05/2025 Hammertoe of right foot (ICD-10 - M20.41) He will return to the [employer] to arrange the correction of the hammertoe. Current therapy was continued. Plan Of Treatment Medication Medication Name Sig Start Date Stop Date Notes Fenofibrate 160 MG TAKE 1 TABLET BY MARISSA TH EVERY DAY WITH A MEAL Triamcinolone Acetonide 0.1 % 1 applicat ion Externally Two times a day Lisinopril 10 MG TAKE 1 TABLET BY MARISSA TH EVERY DAY Orally Once a day Vitamin D 25 MCG (1000 UT) 1 tablet Orally Once a day 12/05 Mounjaro 5 MG/0.5ML as directed Subcutaneous 05/05/2024 Basaglar KwikPen 10 UNIT/ML as directed Subcutaneous 10 units daily BD Pen Needle Short U/F 31G X 8 MM GlipiZIDE-Metformin HCl 5-50 0 MG take 2 tablets by mouth twice a day Oral Jardiance 25 MG 1 tablet Orally Once a day Accu-Chek Guide - as directed In Vitro test blood sugars three times a day Pravastatin Sodium 20 MG TAKE 1 TABLET B Y MOUTH EVERY DAY Pending Test Test Name Order Date PROFILE, FASTING (COMPREHENSIVE METABOLI C) 02/05/2025 PSA, TOTAL 02/05/2025 CBC w DIFF 02/05/2025 Lipid Panel 02/05/2025 Microalbumin, Random 02/05/2025 Hemoglobin A1c 02/05/2025 Next Appt Details Follow Up: 3 Months, Reason: ov review labs Provider Name:Zeus aBrtlett , 08/07/2025 10:30:00 AM, [address] [facility] [address] [address], [place], [address], Provider Name:Zeus Bartlett , 10/09/2025 11:00:00 AM, [address] [facility] [address], [place], [id number], Progress Notes * Fahad FRITZ JrDOB:1945 (79 yo M)Acc No.[id number]:02/05/2025 Progress Notes Patient: Fahad RUTHERFORD Jr Provider: Shayy Bartlett MD :1945 A ge:79 Y S ex:Male Date:02/05/2025 Address:[address] [place] [address] , [id number] Subjective: * Chief Complaints: * E nvironmental allergyDiabetes mellitus type 2HyperlipidemiaBenign prostaticAmputation first toe right footGrief reaction * HPI: C OVID-19 Screening: S he returns for medical management. He says his mental health is poor but his physical health is excellent. He lost his for 11 years ago. In November of this month his son Rohan in the context of being committed suicide. Fahad is trying to cope with his losses. He seems to be doing fairly well. His blood work was unremarkable. He has lost additional weight and his A1c is now improved. He has been compliant with all of his medications. Questions H ave you had any new onset fever, chills, cough, congestion, sore throat, shortness of breath, muscle aches? N o * ROS: G eneral/Constitutional: pain o nly normal aches and pains. C hills d enies.?Fatigue a dmits. F ever d enies. E NT: Decreased hearing d enies. R espiratory: Cough d enies. C ardiovascular: Chest pain with exertion d enies. D yspnea on exertion?denies. S hortness of breath d enies. G astrointestinal: Constipation o ccasional. D ecreased appetite d enies. D iarrhea d enies. H eartburn o ccasional. N ausea d enies. R ectal bleeding d enies. V omiting d enies. H ematology: bruising d enies. p etechiae d enies. S wollen glands n one have been noted. G enitourinary: Frequent urination o nce a night. M usculoskeletal: Muscle aches d enies. P ainful joints d enies. S ciatica d enies. W eakness d enies. S kin: Itching d enies. R juanita d enies. S kin lesion(s)?denies. N eurologic: Difficulty speaking d enies. D izziness d enies.?Headache d enies. L ow back pain d enies. P sychiatric: Depressed mood g rief. * Medical History: * Surgical History: c olonoscopy 2003colonoscopy 2008left inguinal herniorrhaphy pilonidal cystectomy spinal disc surgery lacerations to hip, left thumb February 2014colonoscopy, + polyps, Q3y 2013laceration dorsum right foot, 6 sutures 2017colonoscopy, [facility], Dr. Guthrie, tubular adenoma 05/2017Healed diabetic ulcer Right third toe 12/2022elbow surgery 02/2023removal middle toe right foot asal Cell removal, Left ear 08/2023No history * Hospitalization/Major Diagno stic Procedure: N o history * Family History: F ather: 98 yrs, natural causes. M other: 78 yrs, 1991 of lung disease. S pouse: alive. 1 sister(s) - healthy. 4 son(s) - healthy. . 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 His , Mia, in 2013 of lung cancer. He was born in [place], [place]. He is not aware of any family history is substance use disorder or addiction or mental illness. * Medications: T akingFenofibrate 160 MG Tablet TAKE 1 TABLET BY MOUTH EVERY DAY WITH A MEAL Pravastatin Sodium 20 MG Tablet TAKE 1 TABLET BY MOUTH EVERY DAY Accu-Chek Guide - Strip as directed In Vitro test blood sugars three times a day Jardiance 25 MG Tablet 1 tablet Orally Once a day GlipiZIDE-Metformin HCl 5-500 MG Tablet take 2 tablets by mouth twice a day Oral BD Pen Needle Short U/F 31G X 8 MM Miscellaneous Basaglar KwikPen 10 UNIT/ML Solution Pen-injector as directed Subcutaneous 10 units daily Mounjaro 5 MG/0.5ML Solution Pen-injector as directed Subcutaneous Triamcinolone Acetonide 0.1 % Cream 1 application Externally Two times a day As neededVitamin D 25 MCG (1000 UT) Tablet 1 tablet Orally Once a day , stop date 01/23/2026Lisinopril 10 MG Tablet TAKE 1 TABLET BY MOUTH EVERY DAY Orally Once a day Medication List reviewed and reconciled with the patientTaking Fenofibrate 160 MG Tablet TAKE 1 TABLET BY MOUTH EVERY DAY WITH A MEAL Taking Pravastatin Sodium 20 MG Tablet TAKE 1 TABLET BY MOUTH EVERY DAY Taking Accu-Chek Guide - Strip as directed In Vitro test blood sugars three times a day Taking Jardiance 25 MG Tablet 1 tablet Orally Once a day Taking GlipiZIDE-Metformin HCl 5-500 MG Tablet take 2 tablets by mouth twice a day Oral Taking BD Pen Needle Short U/F 31G X 8 MM Miscellaneous Taking Basaglar KwikPen 10 UNIT/ML Solution Pen-injector as directed Subcutaneous 10 units daily Taking Mounjaro 5 MG/0.5ML Solution Pen-injector as directed Subcutaneous Taking Triamcinolone Acetonide 0.1 % Cream 1 application Externally Two times a day As neededTaking Vitamin D 25 MCG (1000 UT) Tablet 1 tablet Orally Once a day , stop date 01/23/2026Taking Lisinopril 10 MG Tablet TAKE 1 TABLET BY MOUTH EVERY DAY Orally Once a day Medication List reviewed and reconciled with the patient * Allergies: N o Known Drug Allergyno[Allergies Verified] Objective: * Vitals: H t: 72, Wt:158, BMI:21.43, BP:113/59, HR:85, Temp:97.2, Wt-k.67. * P ast Orders: Lab:[place]. Erinn l Fast * Collection Date 01/29/2025 10/09/2024 04/28/2024 Collection Time 06:11 AM 06:22 AM 06:19 AM Order Date 01/29/2025 10/09/2024 04/28/2024 Sodium 142 (Ref Range: 135-145 mmol/L) 144 (Ref Range: 135-145 mmol/L) 145 (Ref Range: 135-145 mmol/L) Bilirubin Total 0.7 (Ref Range: 0.0-1.0 mg/dL) 0.5 (Ref Range: 0.0-1.0 mg/dL) 0.5 (Ref Range: 0.0-1.0 mg/dL) Aspartate Amino Transferase 19 (Ref Range: 5-37 U/L) 19 (Ref Range: 5-37 U/L) 15 (Ref Range: 5-37 U/L) Alanine Aminotransferase 16 (Ref Range: 0-40 U/L) 19 (Ref Range: 0-40 U/L) 14 (Ref Range: 0-40 U/L) Total Protein 6.7 (Ref Range: 6.5-8.0 g/dL) 7.3 (Ref Range: 6.5-8.0 g/dL) 7.3 (Ref Range: 6.5-8.0 g/dL) Albumin Level 4.4 (Ref Range: 3.5-5.0 g/dL) 4.2 (Ref Range: 3.5-5.0 g/dL) 4.2 (Ref Range: 3.5-5.0 g/dL) Alkaline Phosphatase 37 L (Ref Range: 39-117 U/L) 43 (Ref Range: 39-117 U/L) 56 (Ref Range: 39-117 U/L) Potassium 3.9 (Ref Range: 3.3-5.1 mmol/L) 3.8 (Ref Range: 3.3-5.1 mmol/L) 4.4 (Ref Range: 3.3-5.1 mmol/L) Chloride 109 H (Ref Range: 96-108 mmol/L) 109 H (Ref Range: 96-108 mmol/L) 109 H (Ref Range: 96-108 mmol/L) Carbon Dioxide 23 (Ref Range: 22-29 mmol/L) 25 (Ref Range: 22-29 mmol/L) 26 (Ref Range: 22-29 mmol/L) Anion Gap 14 (Ref Range: 12-20) 14 (Ref Range: 12-20) 14 (Ref Range: 12-20) Blood Urea Nitrogen 12 (Ref Range: 9-16 mg/dL) 16 (Ref Range: 9-16 mg/dL) 10 (Ref Range: 9-16 mg/dL) Creatinine 1.05 (Ref Range: 0.5-1.4 mg/dL) 0.99 (Ref Range: 0.5-1.4 mg/dL) 1.00 (Ref Range: 0.5-1.4 mg/dL) Estimated Glomerular Filt Rate > 60 > 60 > 60 Glucose Fasting 101 H (Ref Range: 60-99 mg/dL) 90 (Ref Range: 60-99 mg/dL) 87 (Ref Range: 60-99 mg/dL) Calcium 9.4 (Ref Range: 8.4-10.2 mg/dL) 9.5 (Ref Range: 8.4-10.2 mg/dL) 10.0 (Ref Range: 8.4-10.2 mg/dL) * Lab:Complete Blood Count Aut o Diff * Collection Date 01/29/2025 10/09/2024 04/28/2024 Collection Time 06:11 AM 06:22 AM 06:19 AM Order Date 01/29/2025 10/09/2024 04/28/2024 White Blood Count 7.4 (Ref Range: 4.8-10.8 X10*3/uL) 7.3 (Ref Range: 4.8-10.8 X10*3/uL) 10.8 (Ref Range: 4.8-10.8 X10*3/uL) Red Blood Count 4.53 L (Ref Range: 4.60-5.80 X10*6/uL) 4.93 (Ref Range: 4.60-5.80 X10*6/uL) 5.32 (Ref Range: 4.60-5.80 X10*6/uL) Hemoglobin 13.0 L (Ref Range: 14.0-18.0 g/dl) 13.9 L (Ref Range: 14.0-18.0 g/dl) 15.0 (Ref Range: 14.0-18.0 g/dl) Hematocrit 40.3 L (Ref Range: 42.0-52.0 %) 43.1 (Ref Range: 42.0-52.0 %) 47.6 (Ref Range: 42.0-52.0 %) Mean Corpuscular Volume 89.0 (Ref Range: 80.0-98.0 fL) 87.4 (Ref Range: 80.0-98.0 fL) 89.5 (Ref Range: 80.0-98.0 fL) Mean Corpuscular Hemoglobin 28.7 (Ref Range: 27.0-33.0 pg) 28.2 (Ref Range: 27.0-33.0 pg) 28.2 (Ref Range: 27.0-33.0 pg) Mean Corpuscular HGB Conc 32.3 (Ref Range: 31.0-36.0 g/dl) 32.3 (Ref Range: 31.0-36.0 g/dl) 31.5 (Ref Range: 31.0-36.0 g/dl) Red Cell Distribution Width 13.9 (Ref Range: 11.0-16.0 %) 13.7 (Ref Range: 11.0-16.0 %) 13.2 (Ref Range: 11.0-16.0 %) Platelet Count 268 (Ref Range: 160-400 X10*3/uL) 319 (Ref Range: 160-400 X10*3/uL) 315 (Ref Range: 160-400 X10*3/uL) Mean Platelet Volume 10.4 (Ref Range: 9.4-12.4 fL) 10.4 (Ref Range: 9.4-12.4 fL) 10.8 (Ref Range: 9.4-12.4 fL) Neutrophils Percent Auto 58.7 (Ref Range: 45-73 %) 58.0 (Ref Range: 45-73 %) 60.8 (Ref Range: 45-73 %) Imm Gran Pct Auto 0.3 (Ref Range: 0.0-0.4 %) 0.4 (Ref Range: 0.0-0.4 %) 0.6 H (Ref Range: 0.0-0.4 %) Lymphocytes Percent Auto 31.0 (Ref Range: 20-40 %) 30.6 (Ref Range: 20-40 %) 19.6 L (Ref Range: 20-40 %) Monocytes Percent Auto 6.2 (Ref Range: 2-11 %) 6.5 (Ref Range: 2-11 %) 5.1 (Ref Range: 2-11 %) Eosinophils Percent Auto 3.4 (Ref Range: 0-4 %) 4.0 (Ref Range: 0-4 %) 13.3 H (Ref Range: 0-4 %) Basophils Percent Auto 0.4 (Ref Range: 0-2 %) 0.5 (Ref Range: 0-2 %) 0.6 (Ref Range: 0-2 %) NRBC Pct Auto 0.0 (Ref Range: 0.0-0.2 /100WBC) 0.0 (Ref Range: 0.0-0.2 /100WBC) 0.0 (Ref Range: 0.0-0.2 /100WBC) Neutrophils Absolute Auto 4.4 (Ref Range: 2.0-8.3 x10*3/uL) 4.3 (Ref Range: 2.0-8.3 x10*3/uL) 6.6 (Ref Range: 2.0-8.3 x10*3/uL) Imm Gran Abs Auto 0.02 (Ref Range: 0.00-0.03 X10*3/uL) 0.03 (Ref Range: 0.00-0.03 X10*3/uL) 0.06 H (Ref Range: 0.00-0.03 X10*3/uL) Lymphocytes Absolute Auto 2.3 (Ref Range: 1.2-4.9 X10*3/uL) 2.2 (Ref Range: 1.2-4.9 X10*3/uL) 2.1 (Ref Range: 1.2-4.9 X10*3/uL) Monocytes Absolute Auto 0.5 (Ref Range: 0.1-1.2 X10*3/uL) 0.5 (Ref Range: 0.1-1.2 X10*3/uL) 0.6 (Ref Range: 0.1-1.2 X10*3/uL) Eosinophils Absolute Auto 0.3 (Ref Range: 0.0-0.4 X10*3/uL) 0.3 (Ref Range: 0.0-0.4 X10*3/uL) 1.4 H (Ref Range: 0.0-0.4 X10*3/uL) Basophils Absolute Auto 0.0 (Ref Range: 0.0-0.2 X10*3/uL) 0.0 (Ref Range: 0.0-0.2 X10*3/uL) 0.1 (Ref Range: 0.0-0.2 X10*3/uL) NRBC Abs Auto 0.000 (Ref Range: 0.0-0.012 X10*3/uL) 0.000 (Ref Range: 0.0-0.012 X10*3/uL) 0.000 (Ref Range: 0.0-0.012 X10*3/uL) * Lab:Microalbumin, Random * Collection Date 01/29/2025 10/09/2024 04/28/2024 Collection Time 06:05 AM 06:09 AM 06:22 AM Order Date 01/29/2025 10/06/2024 04/28/2024 Creatinine Urine 81.78 (Ref Range: mg/dL) 78.98 (Ref Range: mg/dL) 87.64 (Ref Range: mg/dL) Microalbumin Urine 7.0 (Ref Range: mg/L) 10.0 (Ref Range: mg/L) 16.0 (Ref Range: mg/L) Microalbum Creatinine Ratio Ur 8.5 (Ref Range: <30 ug/mg cr) 12.6 (Ref Range: <30 ug/mg cr) 18.2 (Ref Range: <30 ug/mg cr) Clinical Info: Please fast for 12-14 hours prior to having this labwork done. You may have black coffee or tea with no milk or sugar. May have water,PLEASE FAX COMPLETED RESULTS TO [phone] * Lab:Lipid Panel * Collection Date 01/29/2025 10/09/2024 04/28/2024 Collection Time 06:11 AM 06:22 AM 06:19 AM Order Date 01/29/2025 10/06/2024 04/28/2024 Triglycerides 100 (Ref Range: <150 mg/dL) 84 (Ref Range: <150 mg/dL) 125 (Ref Range: <150 mg/dL) Cholesterol 155 (Ref Range: <200 mg/dL) 158 (Ref Range: <200 mg/dL) 144 (Ref Range: <200 mg/dL) LDL Cholesterol Calculated 85 (Ref Range: <100 mg/dL) 86 (Ref Range: <100 mg/dL) 78 (Ref Range: <100 mg/dL) HDL Cholesterol 50 (Ref Range: >40 mg/dL) 56 (Ref Range: >40 mg/dL) 41 (Ref Range: >40 mg/dL) Clinical Info: Please fast for 12-14 hours prior to having this labwork done. You may have black coffee or tea with no milk or sugar. May have water,PLEASE FAX COMPLETED RESULTS TO [phone] * Lab:Hemoglobin A1c * Collection Date 01/29/2025 04/28/2024 12/26/2023 Collection Time 06:11 AM 06:19 AM 06:15 AM Order Date 01/26/2025 04/28/2024 12/26/2023 Hemoglobin A1c % 6.2 H (Ref Range: <6.0 %) 7.0 H (Ref Range: <6.0 %) 7.8 H (Ref Range: <6.0 %) Estimated Average Glucose 131 (Ref Range: mg/dL) 154 (Ref Range: mg/dL) 177 (Ref Range: mg/dL) Clinical Info: PLEASE FAX COMPLETED RESULTS TO [phone] * Imaging:Diabetic Eye Exam * Performed Date 01/19/2025 11/05/2023 Order Date 01/19/2025 11/05/2023 10/20/2016 Result: undefined undefined No diabetic ret inopathy * Examination: G eneral Examination: GENERAL APPEARANCE: p leasant, well nourished, well developed, in no acute distress, calm and relaxed, elderly man. HEAD: a traumatic, normocephalic. EYES: e maritza, perrla, anicteric, conjugate. EARS: n ormal. NOSE: s eptum intact. ORAL CAVITY: n ormal, unremarkable. NECK/THYROID: n o jugular venous distention, no carotid bruit, thyroid normal. LYMPH NODES: n o enlarged lymph nodes,spleen normal. SKIN: n o suspicious lesions, anicteric. HEART: n o clicks, gallops, murmurs, or rubs, regular rhythm, S1, S2 normal, no s3, or vascular bruits. LUNGS: c lear to auscultation . BREASTS: no masses palpable bilaterally. ABDOMEN: b owel sounds normal, no ascites, no organomegaly, no mass. RECTAL EXAM: n ot examined. MUSCULOSKELETAL: e xtremities unremarkable, no clubbing, cyanosis or edema, Old amputation right first toe, no diabetic ulcers on feet. PERIPHERAL PULSES: n ormal. NEUROLOGIC: a lert and oriented, cranial nerves 2-12 grossly intact, deep tendon reflexes 2+ symmetrical, motor strength normal upper and lower extremities, sensory exam intact. PSYCH: a lert, oriented,, thought process logical, goal directed, speech clear, cognitive function intact, cooperative with exam, good eye contact, Grieving.? Assessment: * Assessment: 1. T ype 2 diabetes mellitus without complications - E11.9 (Primary) N otes :He has gained two pounds and is following his diet. His hemoglobin A1c has fallen to 6.2. He has been compliant with his insulin. No change in his regimen was needed.A repeat hemoglobin A1c has been ordered. 2 . H yperlipidemia - E78.5 N otes :His lipids are well controlled and his total cholesterol is 155. 3 . B PH (benign prostatic hypertrophy) - N40.0 N otes :He rises from sleep once or twice a night to urinate. We have discussed lifestyle modifications he can make or has made in the past to reduce this. 4 . E czema - L30.9 N otes :His eczema seems well controlled today. Current therapy was continued without change. 5 . E nvironmental allergies - Z91.09 N otes :His allergies have been quiescent recently. He has not needed to take medication. 6 . P resbyopia - H52.4 7 . P ilonidal cyst - L05.91 ? 8 . F ormer smoker - Z87.891 N otes :I have had a long discussion with him today about maintaining abstinence in times of stress. 9 . H yperlipidemia type II - E78.01 N otes :His lipids are currently in their target range. His weight is stable. I recommend he continue his low-calorie low lipid diabetic diet 1 0. H ammertoe of right foot - M20.41 N otes :He will return to the [employer] and [employer] to arrange the correction of the hammertoe. Current therapy was continued. Plan: * Treatment: 2. H yperlipidemia L AB: PROFILE, FASTING (COMPREHENSIVE METABOLIC) L AB: PSA, TOTAL L AB: CBC w DIFF L AB: Lipid Panel L AB: Microalbumin, Random L AB: Hemoglobin A1c 3. B PH (benign prostatic hypertrophy) L AB: PROFILE, FASTING (COMPREHENSIVE METABOLIC) L AB: PSA, TOTAL L AB: CBC w DIFF L AB: Lipid Panel L AB: Microalbumin, Random L AB: Hemoglobin A1c 4. O thers Continue Fenofibrate Tablet, 160 MG, TAKE 1 TABLET BY MOUTH EVERY DAY WITH A MEAL. * Procedure Codes: * Preventive Medicine: Counseling: C are goal follow-up plan: Counseling for abnormal BMI given Y es Below Normal BMI Follow-up D ietary education for weight gain, Dietary management education, guidance, and counseling, Feeding regime, Lifestyle education regarding diet, Nutrition / feeding management, Prescribed diet education, Special diet education, Intervention, Order not done: Medical or Other reason not done S moking/Tobacco Use Patient counseled on the dangers of tobacco use and urged to quit. 0 02/05/2025 DM Care Plan: P atient Lifestyle Goals P atient wants to be able to manage diabetes without too much effort. T reatment Goals H bA1C < 7.0, Blood Sugars less than < 115. B arriers n o barriers. S elf-Managment Goals W ork on weight loss, with a goal of losing 1 lb per week. * Follow Up: 3 Months (Reason: ov review labs) * Images: * Sign off status: Completed true * Provider: Shayy Bartlett MD Date: 0 02/05/2025 Generated for Katie pinzon/Nathaniel/eTramossmitting on: 1 09/24/2024 02:56 PM EST History and Physical Notes * HPI (History of Present Illness) Category Sub-Category Detail Notes COVID-19 Screening Questions Have you had any new onset fever, chills, cough, congestion, sore throat, shortness of breath, muscle aches?: No Examination Category Sub-Category Detail Notes General Examination GENERAL APPEARANCE: pleasant , well nourished, well developed, in no acute distress, calm and relaxed, elderly man HEAD: atraumatic, normocep halic EYES: eomi, perrla, anicte shalonda, conjugate EARS: normal NOSE: septum intact NECK/THYROID: no jugular venous di stention, no carotid bruit, thyroid normal HEART: no clicks, gallops, murmurs, or rubs, regular rhythm, S1, S2 normal, no s3, or vascular bruits LUNGS: clear to auscultatio n ABDOMEN: bowel sounds normal, no ascites, no organomegaly, no mass NEUROLOGIC: alert and oriented, cranial nerves 2-12 grossly intact, deep tendon reflexes 2+ symmetrical, motor strength normal upper and lower extremities, sensory exam intact SKIN: no suspicious lesion s, anicteric PERIPHERAL PULSES: normal BREASTS: no masses palpable b ilaterally MUSCULOSKELETAL: extremities unremark able, no clubbing, cyanosis or edema, 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
--- OUTSIDE RECORDS SUMMARY | 2025-02-12 06:30 | XMS_ITS ---
Author Organization Zeus Bartlett III, MD Address [address] [facility] [place] [address] Care Team Providers Care Four Corner Former Machine Operator Name Role Phone Dr. Zeus Bartlett III Primary Care Provider [phone] Allergies Allergen (clinical drug ingredient) Drug/Non Drug [...] Date Provider Diagnosis Zeus Bartlett III, MD [address] [place] [address] [address] [place] [address] 02/12/2025 Zeus Bartlett Impacted cerumen, unspecified ear [...] Provider Name:Zeus Bartlett , 08/07/2025 10:30:00 AM, [address] [place] [address] [address], [place], [address], Provider Name:Zeus Bartlett , 10/09/2025 11:00:00 AM, [address] [place] [address] [address], [place], [address], Procedure Notes * Category Sub-Category Detail Notes Ear lavage Procedure Under direct vis ualization, both ears, irrigated with warm water Post-procedure right ear Successful , left ear Not successful. Patient tolerated procedure well. Patient scheduled to come back in a week after using Debrox for 7 days to flush left ear. Progress Notes * Fahad FRITZ JrDOB:1945 (79 yo M)Acc No.[id number]:02/12/2025 Patient: Lucia MARINELLIFahad Provider: Shayy Bartlett MD :1945 A ge:79 Y S ex:Male Date:02/12/2025 Address:[address] [place] [address] , [facility] [id number] Subjective: * Chief Complaints: * E ar Lavage * Medical History: * Surgical History: c olonoscopy 2003colonoscopy 2008left inguinal herniorrhaphy pilonidal cystectomy spinal disc surgery lacerations to hip, left thumb February 2014colonoscopy, + polyps, Q3y 2014laceration dorsum right foot, 6 sutures 2017colonoscopy, [facility], Dr. 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 His , Mia, in 2013 of lung cancer. He was born in [place], [place]. He is not aware of any [...] 0 02/12/2025 Generated for Katie pinzon/Nathaniel/Fauzia on: 1 09/24/2024 02:55 PM EST
--- OUTSIDE RECORDS SUMMARY | 2025-02-19 09:30 | XMS_ITS ---
Author Organization Zeus Bartlett III, MD Address [address] [place] [address] Care Team Providers Care Telephone Installer Name Role Phone Dr. Zeus Bartlett III Primary Care Provider [phone] Allergies Allergen (clinical drug ingredient) Drug/Non Drug Allergy documented on EMR Reaction Allergy Type Onset Date Status No Known Drug Allergy Unknown Drug Allergy Active Reason For Referral Reason severe left ear ceru men impaction Diagnosis 1 Impacted cerumen, un specified laterality (H61.20) Referral Organization Zeus Bartlett III, MD Referring Provider First Name Zeus Referring Provider Last Name Dhruv Referring Provider Speciality Internal M edicine Referred Provider [facility], of [facility], [facility] Referred Provider Specialty Otolaryngolo gy General Notes Radha Booth BUDGET ENGINEER 03/04 01:38:27 PM >ref/demo/progress note faxed to [facility], Radha Booth CMA 03/26/2025 03:41:50 PM > patient called [facility] made patient appt for 04/20/2025 arrival at 10am with appt at 10:15am with Dr Omer Colon at [address] [place] [address] . I called patient to verify he is aware of this appt Referral Priority Routine Referral Appointment Date 04/20/2025 REASON FOR VISIT Ear Lavage, Cerumen impaction Medications Medication SIG (Take, Route, Frequency, Duration) Notes Start Date End Date Status Jardiance 25 MG 1 tablet Orally Once a day Active BD Pen Needle Short U/F 31G X 8 MM Active GlipiZIDE-Metformin HCl 5-500 MG take 2 tablets by mouth twice a day Oral Active Basaglar KwikPen 10 UNIT/ML as directed Subcutaneous 10 units daily Active Mounjaro 5 MG/0.5ML as directed Subcutaneous 05/05 Active Accu-Chek Guide - as directed In Vitro test blood sugars three times a day Active Triamcinolone Acetonide 0.1 % 1 application Externally Two times a day As needed Active Lisinopril 10 MG TAKE 1 TABLET BY MARISSA TH EVERY DAY Orally Once a day Active Pravastatin Sodium 20 MG TAKE 1 TABLET B Y MOUTH EVERY DAY Active Fenofibrate 160 MG TAKE 1 TABLET BY MARISSA TH EVERY DAY WITH A MEAL Active Vitamin D 25 MCG (1000 UT) [...] has it been since you last smoked? Soo ter than 10 years Additional Findings: Tobacco non-user Ex-cigaret te smoker Problems Problem Type SNOMED Code ICD Code Onset Dates Problem Status W/U Status Risk Notes Problem [id number] Impacted cerumen, unspecified laterality (H61.20) Active confirmed This problem has been resolved and he has an appointment with audiology in the next couple of weeks to be evaluated for hearing aids. Encounters Encounter Location Date Provider Diagnosis Zeus Bartlett III, MD [address] [place] [address] [address] [place], [place] [address] 02/19/2025 Zeus Bartlett Impacted cerumen, unspecified laterality H61.20 ; Environmental allergies Z91.09 ; Eczema L30.9 ; Type 2 diabetes mellitus without complications E11.9 ; Former smoker Z87.891 ; Pilonidal cyst L05.91 and BPH (benign prostatic hypertrophy) N40.0 Assessments Encounter Date Diagnosis (ICD Code) Assessment Notes Treat ment Notes Treatment Clinical Notes 02/19/2025 Impacted cerumen, unspecified laterality (ICD-10 - H61.20) He will come back in a week after more of the medication for another attempted reducing the cerumen impaction. 02/19/2025 Environmental allergies (ICD-10 - Z91.09) His allergies have been quiescent recently. He has not needed to take medication. 02/19/2025 Eczema (ICD-10 - L30.9) His eczema seems well controlled today. Current therapy was continued without change. 02/19/2025 Type 2 diabetes mellitus without complications (ICD-10 - E11.9) He has gained two pounds and is following his diet. His hemoglobin A1c has fallen to 6.2. He has been compliant with his insulin. No change in his regimen was needed.A repeat hemoglobin A1c has been ordered. 02/19/2025 Former smoker (ICD-10 - Z87.891) I have had a long discussion with him today about maintaining abstinence in times of stress. 02/19/2025 Pilonidal cyst (ICD-10 - L05.91) 02/19/2025 BPH (benign prostatic hypertrophy) (ICD-10 - N40.0) He rises from sleep once or twice a night to urinate. We have discussed lifestyle modifications he can make or has made in the past to reduce this. Plan Of Treatment Medication Medication Name Sig Start Date Stop Date Notes Jardiance 25 MG 1 tablet Orally Once a day BD Pen Needle Short U/F 31G X 8 MM GlipiZIDE-Metformin HCl 5-50 0 MG take 2 tablets by mouth twice a day Oral Basaglar KwikPen 10 UNIT/ML as directed Subcutaneous 10 units daily Mounjaro 5 MG/0.5ML as directed Subcutaneous 05/05/2024 Accu-Chek Guide - as directed In Vitro test blood sugars three times a day Triamcinolone Acetonide 0.1 % 1 applicat ion Externally Two times a day Lisinopril 10 MG TAKE 1 TABLET BY MARISSA TH EVERY DAY Orally Once a day Pravastatin Sodium 20 MG TAKE 1 TABLET B Y MOUTH EVERY DAY Fenofibrate 160 MG TAKE 1 TABLET BY MARISSA TH EVERY DAY WITH A MEAL Vitamin D 25 MCG (1000 UT) 1 tablet Orally Once a day 12/05 Referrals Referral Date Details 02/19/2025 02/19/2025, severe l eft ear cerumen impaction, of [facility], [facility]geons Next Appt Details Follow Up: as scheduled, Duyen son: OV Provider Name:Zeus Bartlett , 08/07/2025 10:30:00 AM, [address] [place] [address] [address], [place], [address], Provider Name:Zeus Bartlett , 10/09/2025 11:00:00 AM, [address] [place] [address] [address], [place], [address], Procedure Notes * Category Sub-Category Detail Notes Ear lavage Procedure -, the left ear, irrigated with warm water Post-procedure -, Not successful, e ar wax unable to be removed from, left ear Progress Notes * Fahad FRITZ JrDOB:1945 (79 yo M)Acc No.[id number]:02/19/2025 Patient: Lucia Fahad MARINELLI Provider: Shayy Bartlett MD :1945 A ge:79 Y S ex:Male Date:02/19/2025 Address: [address], [place], [id number] Subjective: * Chief Complaints: * E ar LavageCerumen impaction * HPI: C OVID-19 Screening: He returns for warm water irrigation of cerumen impactions in both ears. He has used 4 drops of Debrox in each ear twice a day for a week. The right ear was cleared without difficulty and his hearing improved. Impaction left ear could not be removed with the water spray.? Multiple attempts were made. He is going to use the medication another week and return back to the office to try and achieve success. * ROS: G eneral/Constitutional: pain o nly normal aches and pains. C hills d enies.?Fatigue a dmits. F ever d enies. E NT: Decreased hearing i n both ears. R espiratory: Cough d enies. C ardiovascular: Chest pain with exertion d enies. D yspnea on exertion?denies. S hortness of breath d enies. G astrointestinal: Constipation o ccasional. D ecreased appetite d enies. D iarrhea d enies. H eartburn d enies. N ausea d enies. R ectal bleeding [...] pain d enies. P sychiatric: Depressed mood d enies. * Medical History: * Surgical History: c olonoscopy 2003colonoscopy 2008left inguinal herniorrhaphy pilonidal cystectomy spinal disc surgery lacerations to hip, left thumb February 2014colonoscopy, + polyps, Q3y 2013laceration dorsum right foot, 6 sutures 2017colonoscopy, [facility], Dr. 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 His , Mia, in 2013 of lung cancer. He was born in [place], [place]. He is not aware of any [...] Known Drug Allergyno[Allergies Verified] Objective: * Vitals: * Examination: G eneral Examination: GENERAL APPEARANCE: p leasant, well nourished, well developed, in no acute distress, calm and relaxed, man. HEAD: a traumatic, normocephalic. EYES: e maritza, perrla, anicteric, conjugate. EARS: B ilateral cerumen impaction. Left impaction has not yet been cleared. After removal on the right the anatomy was normal and hearing was improved.. NOSE: s eptum intact. ORAL CAVITY: n [...] e xtremities unremarkable, no clubbing, cyanosis or edema. PERIPHERAL PULSES: n ormal. NEUROLOGIC: a lert and oriented, cranial nerves 2-12 grossly intact, deep tendon reflexes 2+ symmetrical, motor strength normal upper and lower extremities, sensory exam intact. PSYCH: a lert, oriented. Assessment: * Assessment: 1. I mpacted cerumen, unspecified laterality - H61.20 (Primary) N otes :He will come back in a week after more of the medication for another attempted reducing the cerumen impaction. 2 . E nvironmental allergies - Z91.09 N otes :His allergies have been quiescent recently. He has not needed to take medication. 3 . E czema - L30.9 N otes :His eczema seems well controlled today. Current therapy was continued without change. 4 . T ype 2 diabetes mellitus without complications - E11.9 N otes :He has gained two pounds and is following his diet. His hemoglobin A1c has fallen to 6.2. He has been compliant with his insulin. No change in his regimen was needed.A repeat hemoglobin A1c has been ordered. 5 . F ormer smoker - Z87.891 N otes :I have had a long discussion with him today about maintaining abstinence in times of stress. 6 . P ilonidal cyst - L05.91 7 . B PH (benign prostatic hypertrophy) - N40.0 N otes :He rises from sleep once or twice a night to urinate. We have discussed lifestyle modifications he can make or has made in the past to reduce this. Plan: * Treatment: * Procedures: E ar lavage: Procedure - , the left ear, irrigated with warm water. Post-procedure - , Not successful, ear wax unable to be removed from, left ear. * Procedure Codes: 6 9210 EAR IRRIGATION * Preventive Medicine: Counseling: S moking/Tobacco Use Patient counseled on the dangers of tobacco use and urged to quit. 0 02/18/2025 DM Care Plan: P atient Lifestyle Goals P atient wants to be able to manage diabetes without too much effort. T reatment Goals B lood Sugars less than < 115, HbA1C < 7.0. B arriers n o barriers. S elf-Managment Goals I ncrease exercise to 3 times a week for 30 mins, Work on weight loss, with a goal of losing 1 lb per week, Stop drinking juice and/or soda, replace with more water. * Follow Up: a s scheduled (Reason: OV) * Images: * Sign off status: Completed true * Provider: Shayy Bartlett MD Date: 0 02/19/2025 Generated for Katie pinzon/Nathaniel/Jeanneitting on: 1 09/24/2024 02:56 PM EST History and Physical Notes * Examination Category Sub-Category Detail Notes General Examination GENERAL APPEARANCE: pleasant , well nourished, well developed, in no acute distress, calm and relaxed, man HEAD: atraumatic, normocep halic EYES: eomi, perrla, anicte shalonda, conjugate EARS: Bilateral cerumen im paction. Left impaction has not yet been cleared. After removal on the right the anatomy was normal and hearing was improved. NOSE: septum intact NECK/THYROID: no jugular venous [...] extremities unremark able, no clubbing, cyanosis or edema LYMPH NODES: no enlarged lymph no arnold,spleen normal RECTAL EXAM: not examined PSYCH: alert, oriented ORAL CAVITY: normal, unremarkable Consultation Request Notes Referral Date Referring Provider Referred Provider Not 02/19/2025 Zeus Bartlett [facility], of [facility], [facility] severe left ear cerumen impaction
--- OUTSIDE RECORDS SUMMARY | 2025-03-14 04:51 | XMS_ITS ---
Author Organization Zeus Bartlett III, MD Address [address] [place] [address] Care Team Providers Care Inspector Publications Name Role Phone Dr. Zeus Bartlett III [...] Provider Diagnosis Zeus Bartlett III, MD [address] [place] [address] [place] [address] 03/14/2025 Zeus Bartlett Impacted cerumen, unspecified laterality [...] Name:Zeus Bartlett , 08/07/2025 10:30:00 AM, [address] [facility] [address], [place], [address], Provider Name:Zeus Bartlett , 10/09/2025 11:00:00 AM, [address] [place] [address] [address], [place], [address], Progress Notes * Fahad FRITZ JrDOB:1945 (79 yo M)Acc No.[id number]:03/14/2025 Patient: Fahad RUTHERFORD Jr :1945 A ge:79 Y S ex:Male Address:[address], [place] [address] * Refills Start Accu-Chek Guide Test Strip, -, 100 Strip, use to test blood sugars three times a day, 30 days, Refills=11 * true * Date: Generated for Katie pinzon/Nathaniel/eTransmitting on: 1 09/24/2024 02:55 PM EST
--- OUTSIDE RECORDS SUMMARY | 2025-05-07 05:30 | XMS_ITS ---
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 Zeus Bartlett III Primary Care Provider Allergies Allergen (clinical drug ingredient) Drug/Non Drug Allergy documented on EMR Reaction Allergy Type Onset Date Status No Known Drug Allergy Unknown Drug Allergy Active REASON FOR VISIT Diabetes, Eczema, Allergies, Hyperlipidemia, Osteomyelitis of the toe, amputated Medications Medication SIG (Take, Route, Frequency, Duration) Notes Start Date End Date Status BD Pen Needle Short U/F 31G X 8 MM Active Basaglar KwikPen 10 UNIT/ML as directed Subcutaneous 10 units daily Active Mounjaro 5 MG/0.5ML as directed Subcutaneous 05/05/2024 Active Jardiance 25 MG 1 tablet Orally Once a day Active GlipiZIDE-Metformin HCl 5-500 MG take 2 tablets by mouth twice a day Oral Active Fenofibrate 160 MG TAKE 1 TABLET BY MOUTH EVERY DAY WITH A MEAL Active Accu-Chek Guide - as directed In Vitro test blood sugars three times a day Active Vitamin D 25 MCG (1000 UT) 1 tablet Orally Once a day 12/26/2022 Active Lisinopril 10 MG TAKE 1 TABLET BY MOUTH EVERY DAY Orally Once a day Active Triamcinolone Acetonide 0.1 % 1 application Externally Two times a day As needed Active Accu-Chek Guide Test - use to test blood sugars three times a day DX: Diabetes E11.9 DX: Diabetes E 11.9 03/16/2025 Active Pravastatin Sodium 20 MG 1 tablet Orally Once a day Active Social History Tobacco Use: Social History [...] smoker Vital Signs Temperature 97.2 degrees Fahrenheit 05/07/20 25 Blood pressure systolic 137 mm Hg 05/07/20 25 Blood pressure diastolic 69 mm Hg 025 Heart Rate 69 /min 05/07/2025 Height 72 in 05/07/2025 Weight 163 lbs 05/07/2025 BMI 22.1 kg/m2 05/07/2025 Encounters Encounter Location Date Provider Diagnosis Zeus Bartlett III, MD [address] [place] [address] [place] [address] 05/07/2025 Zeus Bartlett Impacted cerumen, unspecified laterality H61.20 ; Type 2 diabetes mellitus without complications E11.9 ; Hyperlipidemia type II E78.01 ; BPH (benign prostatic hypertrophy) N40.0 ; Spinal stenosis, lumbar region M48.06 ; Former smoker Z87.891 ; Environmental allergies Z91.09 ; Eczema L30.9 and Basal cell carcinoma C44.91 Assessments Encounter Date Diagnosis (ICD Code) Assessment Notes Treat ment Notes Treatment Clinical Notes 05/07/2025 Impacted cerumen, unspecified laterality (ICD-10 - H61.20) This problem has been resolved and he has an appointment with audiology in the next couple of weeks to be evaluated for hearing aids. 05/07/2025 Type 2 diabetes mellitus without complications (ICD-10 - E11.9) He has been compliant with all of his medications and diet. His weight is in the normal range. This hemoglobin A1c is 6.8. No change in his regimen was needed. He is up-to-date with ophthalmology. 05/07/2025 Hyperlipidemia type II (ICD-10 - E78.01) His lipids are currently stable and will be checked 3 times a year. No change in his regimen was needed. 05/07/2025 BPH (benign prostati c hypertrophy) (ICD-10 - N40.0) He rises from sleep once or twice a night. We have discussed lifestyle modifications that would reduce this. 05/07/2025 Spinal stenosis, lumbar region (ICD-10 - M48.06) His back pain is much improved and he is conducting all of the activities of daily life without impairment. 05/07/2025 Former smoker (ICD-1 0 - Z87.891) I have had a long discussion with him today about maintaining abstinence in times of stress. 05/07/2025 Environmental allergies (ICD-10 - Z91.09) His allergies have been quiescent recently. He has not needed to take medication. 05/07/2025 Eczema (ICD-10 - L30.9) His eczema seems well controlled today. Current therapy was continued without change. 05/07/2025 Basal cell carcinoma (ICD-10 - C44.91) Plan Of Treatment Medication Medication Name Sig Start Date Stop Date Notes BD Pen Needle Short U/F 31G X 8 MM Basaglar KwikPen 10 UNIT/ML as directed Subcutaneous 10 units daily Mounjaro 5 MG/0.5ML as directed Subcutaneous 05/05/2024 Jardiance 25 MG 1 tablet Orally Once a day GlipiZIDE-Metformin HCl 5-500 MG take 2 tablets by mouth twice a day Oral Fenofibrate 160 MG TAKE 1 TABLET BY MARISSA TH EVERY DAY WITH A MEAL Accu-Chek Guide - as directed In Vitro test blood sugars three times a day Vitamin D 25 MCG (1000 UT) 1 tablet Orally Once a day 12/26/2022 Lisinopril 10 MG TAKE 1 TABLET BY MARISSA TH EVERY DAY Orally Once a day Triamcinolone Acetonide 0.1 % 1 application Externally Two times a day Accu-Chek Guide Test - use to test blood sugars three times a day 03/16/2025 DX: Diabetes E 11.9 Pravastatin Sodium 20 MG 1 tablet Orally Once a day Pending Test Test Name Order Date PROFILE, FASTING (COMPREHENSIVE METABOLI C) 05/07/2025 PSA, TOTAL 05/07/2025 CBC w DIFF 05/07/2025 Lipid Panel 05/07/2025 Microalbumin, Random 05/07/2025 Hemoglobin A1c 05/07/2025 Next Appt Details Follow Up: 3 Months, Reason: OV Provider Name:Zeus Bartlett , 08/07/2025 10:30:00 AM, [address] [place] [address] [address], [place], [address], Provider Name:Zeus Bartlett , 10/09/2025 11:00:00 AM, [address] [place] [address] [address], [place], [address], Progress Notes * Fahad FRITZ JrDOB:1945 (79 yo M)Acc No.[id number]:05/07/2025 Progress Notes Patient: Fahad RUTHERFORD Provider: Shayy Bartlett MD :1945 A ge:79 Y S ex:Male Date:05/07/2025 Address[facility] Subjective: * Chief Complaints: * D iabetesEczemaAllergiesHyperlipidemiaOsteomyelitis of the toe, amputated * HPI: C OVID-19 Screening: Ashley estevez returns for ongoing medical maintenance. The cerumen impactions in both ears have been normal moved and he is now hearing clearly. He says his diabetes is well controlled with today's fasting glucose of 126. His remaining 9 toes are pink and warm and have no sign of infection. He is going to audiology within a few weeks to be evaluated for hearing aids. He admits to rising from sleep once a night to urinate. We have discussed modifications to his lifestyle that would reduce this. He has had no chest pain or shortness of breath. He is maintaining his weight in the normal range for BMI. No changes were necessary in his regimen today.? Follow-up was arranged. Questions H ave you had any new [...] 2013laceration dorsum right foot, 6 sutures 2017colonoscopy, [facility], Dr. 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 His , Mia, in 2013 of lung cancer. He was born in [place], [place]. He is not aware of any [...] BY MOUTH EVERY DAY WITH A MEAL Accu-Chek Guide - Strip as directed In [...] 5 MG/0.5ML Solution Pen-injector as directed Subcutaneous Pravastatin Sodium 20 MG Tablet 1 tablet Orally Once a day Accu-Chek Guide Test - Strip use to test blood sugars three times a day DX: Diabetes E11.9, Notes to Pharmacist: DX: Diabetes E 11.9Medication List reviewed and reconciled with the patientTaking [...] MOUTH EVERY DAY WITH A MEAL Taking Accu-Chek Guide - Strip as directed [...] MG/0.5ML Solution Pen-injector as directed Subcutaneous Taking Pravastatin Sodium 20 MG Tablet 1 tablet Orally Once a day Taking Accu-Chek Guide Test - Strip use to test blood sugars three times a day DX: Diabetes E11.9, Notes to Pharmacist: DX: Diabetes E 11.9Medication List reviewed and reconciled with the patient * Allergies: N o Known Drug Allergyno[Allergies Verified] Objective: * Vitals: H t: 72, Wt:163, BMI:22.1, BP:137/69, HR:69, Temp:97.2, Wt-k.94. * P ast Orders: Lab:Prostate Specific Antige n * Collection Date 05/01/2025 10/09/2024 04/28/2024 Collection Time 06:23 AM 06:22 AM 06:19 AM Order Date 05/01/2025 10/09/2024 04/28/2024 Prostate Specific Antigen 0.84 (Ref Range: <0.05-4.0 ng/mL) 0.87 (Ref Range: <0.05-4.0 ng/mL) 0.62 (Ref Range: <0.05-4.0 ng/mL) * Lab:Lipid Panel * Collection Date 05/01/2025 01/29/2025 10/09/2024 Collection Time 06:23 AM 06:11 AM 06:22 AM Order Date 05/01/2025 01/29/2025 10/06/2024 Triglycerides 89 (Ref Range: <150 mg/dL) 100 (Ref Range: <150 mg/dL) 84 (Ref Range: <150 mg/dL) Cholesterol 186 (Ref Range: <200 mg/dL) 155 (Ref Range: <200 mg/dL) 158 (Ref Range: <200 mg/dL) LDL Cholesterol Calculated 116 H (Ref Range: <100 mg/dL) 85 (Ref Range: <100 mg/dL) 86 (Ref Range: <100 mg/dL) HDL Cholesterol 53 (Ref Range: >40 mg/dL) 50 (Ref Range: >40 mg/dL) 56 (Ref Range: >40 mg/dL) Clinical Info: Please fast f or 12-14 hours prior to having this labwork done. You may have black coffee or tea with no milk or sugar. May have water,PLEASE FAX COMPLETED RESULTS TO [phone] * Lab:Ok puga Fast * Collection Date 05/01/2025 01/29/2025 10/09/2024 Collection Time 06:23 AM 06:11 AM 06:22 AM Order Date 05/01/2025 01/29/2025 10/09/2024 Sodium 145 (Ref Range: 135-145 mmol/L) 142 (Ref Range: 135-145 mmol/L) 144 (Ref Range: 135-145 mmol/L) Bilirubin Total 0.6 (Ref Range: 0.0-1.0 mg/dL) 0.7 (Ref Range: 0.0-1.0 mg/dL) 0.5 (Ref Range: 0.0-1.0 mg/dL) Aspartate Amino Transferase 22 (Ref Range: 5-37 U/L) 19 (Ref Range: 5-37 U/L) 19 (Ref Range: 5-37 U/L) Alanine Aminotransferase 15 (Ref Range: 0-40 U/L) 16 (Ref Range: 0-40 U/L) 19 (Ref Range: 0-40 U/L) Total Protein 7.1 (Ref Range: 6.5-8.0 g/dL) 6.7 (Ref Range: 6.5-8.0 g/dL) 7.3 (Ref Range: 6.5-8.0 g/dL) Albumin Level 4.7 (Ref Range: 3.5-5.0 g/dL) 4.4 (Ref Range: 3.5-5.0 g/dL) 4.2 (Ref Range: 3.5-5.0 g/dL) Alkaline Phosphatase 46 (Ref Range: 39-117 U/L) 37 L (Ref Range: 39-117 U/L) 43 (Ref Range: 39-117 U/L) Potassium 4.5 (Ref Range: 3.3-5.1 mmol/L) 3.9 (Ref Range: 3.3-5.1 mmol/L) 3.8 (Ref Range: 3.3-5.1 mmol/L) Chloride 109 H (Ref Range: 96-108 mmol/L) 109 H (Ref Range: 96-108 mmol/L) 109 H (Ref Range: 96-108 mmol/L) Carbon Dioxide 26 (Ref Range: 22-29 mmol/L) 23 (Ref Range: 22-29 mmol/L) 25 (Ref Range: 22-29 mmol/L) Anion Gap 15 (Ref Range: 12-20) 14 (Ref Range: 12-20) 14 (Ref Range: 12-20) Blood Urea Nitrogen 17 H (Ref Range: 9-16 mg/dL) 12 (Ref Range: 9-16 mg/dL) 16 (Ref Range: 9-16 mg/dL) Creatinine 1.30 (Ref Range: 0.5-1.4 mg/dL) 1.05 (Ref Range: 0.5-1.4 mg/dL) 0.99 (Ref Range: 0.5-1.4 mg/dL) Estimated Glomerular Filt Rate 54 > 60 > 60 Glucose Fasting 124 H (Ref Range: 60-99 mg/dL) 101 H (Ref Range: 60-99 mg/dL) 90 (Ref Range: 60-99 mg/dL) Calcium 9.5 (Ref Range: 8.4-10.2 mg/dL) 9.4 (Ref Range: 8.4-10.2 mg/dL) 9.5 (Ref Range: 8.4-10.2 mg/dL) * Lab:Complete Blood Count Aut o Diff * Collection Date 05/01/2025 01/29/2025 10/09/2024 Collection Time 06:23 AM 06:11 AM 06:22 AM Order Date 05/01/2025 01/29/2025 10/09/2024 White Blood Count 7.2 (Ref Range: 4.8-10.8 X10*3/uL) 7.4 (Ref Range: 4.8-10.8 X10*3/uL) 7.3 (Ref Range: 4.8-10.8 X10*3/uL) Red Blood Count 4.71 (Ref Range: 4.60-5.80 X10*6/uL) 4.53 L (Ref Range: 4.60-5.80 X10*6/uL) 4.93 (Ref Range: 4.60-5.80 X10*6/uL) Hemoglobin 13.3 L (Ref Range: 14.0-18.0 g/dl) 13.0 L (Ref Range: 14.0-18.0 g/dl) 13.9 L (Ref Range: 14.0-18.0 g/dl) Hematocrit 41.2 L (Ref Range: 42.0-52.0 %) 40.3 L (Ref Range: 42.0-52.0 %) 43.1 (Ref Range: 42.0-52.0 %) Mean Corpuscular Volume 87.5 (Ref Range: 80.0-98.0 fL) 89.0 (Ref Range: 80.0-98.0 fL) 87.4 (Ref Range: 80.0-98.0 fL) Mean Corpuscular Hemoglobin 28.2 (Ref Range: 27.0-33.0 pg) 28.7 (Ref Range: 27.0-33.0 pg) 28.2 (Ref Range: 27.0-33.0 pg) Mean Corpuscular HGB Conc 32.3 (Ref Range: 31.0-36.0 g/dl) 32.3 (Ref Range: 31.0-36.0 g/dl) 32.3 (Ref Range: 31.0-36.0 g/dl) Red Cell Distribution Width 13.1 (Ref Range: 11.0-16.0 %) 13.9 (Ref Range: 11.0-16.0 %) 13.7 (Ref Range: 11.0-16.0 %) Platelet Count 242 (Ref Range: 160-400 X10*3/uL) 268 (Ref Range: 160-400 X10*3/uL) 319 (Ref Range: 160-400 X10*3/uL) Mean Platelet Volume 10.4 (Ref Range: 9.4-12.4 fL) 10.4 (Ref Range: 9.4-12.4 fL) 10.4 (Ref Range: 9.4-12.4 fL) Neutrophils Percent Auto 64.5 (Ref Range: 45-73 %) 58.7 (Ref Range: 45-73 %) 58.0 (Ref Range: 45-73 %) Imm Gran Pct Auto 0.1 (Ref Range: 0.0-0.4 %) 0.3 (Ref Range: 0.0-0.4 %) 0.4 (Ref Range: 0.0-0.4 %) Lymphocytes Percent Auto 25.0 (Ref Range: 20-40 %) 31.0 (Ref Range: 20-40 %) 30.6 (Ref Range: 20-40 %) Monocytes Percent Auto 6.8 (Ref Range: 2-11 %) 6.2 (Ref Range: 2-11 %) 6.5 (Ref Range: 2-11 %) Eosinophils Percent Auto 3.2 (Ref Range: 0-4 %) 3.4 (Ref Range: 0-4 %) 4.0 (Ref Range: 0-4 %) Basophils Percent Auto 0.4 (Ref Range: 0-2 %) 0.4 (Ref Range: 0-2 %) 0.5 (Ref Range: 0-2 %) NRBC Pct Auto 0.0 (Ref Range: 0.0-0.2 /100WBC) 0.0 (Ref Range: 0.0-0.2 /100WBC) 0.0 (Ref Range: 0.0-0.2 /100WBC) Neutrophils Absolute Auto 4.6 (Ref Range: 2.0-8.3 x10*3/uL) 4.4 (Ref Range: 2.0-8.3 x10*3/uL) 4.3 (Ref Range: 2.0-8.3 x10*3/uL) Imm Gran Abs Auto 0.01 (Ref Range: 0.00-0.03 X10*3/uL) 0.02 (Ref Range: 0.00-0.03 X10*3/uL) 0.03 (Ref Range: 0.00-0.03 X10*3/uL) Lymphocytes Absolute Auto 1.8 (Ref Range: 1.2-4.9 X10*3/uL) 2.3 (Ref Range: 1.2-4.9 X10*3/uL) 2.2 (Ref Range: 1.2-4.9 X10*3/uL) Monocytes Absolute Auto 0.5 (Ref Range: 0.1-1.2 X10*3/uL) 0.5 (Ref Range: 0.1-1.2 X10*3/uL) 0.5 (Ref Range: 0.1-1.2 X10*3/uL) Eosinophils Absolute Auto 0.2 (Ref Range: 0.0-0.4 X10*3/uL) 0.3 (Ref Range: 0.0-0.4 X10*3/uL) 0.3 (Ref Range: 0.0-0.4 X10*3/uL) Basophils Absolute Auto 0.0 (Ref Range: 0.0-0.2 X10*3/uL) 0.0 (Ref Range: 0.0-0.2 X10*3/uL) 0.0 (Ref Range: 0.0-0.2 X10*3/uL) NRBC Abs Auto 0.000 (Ref Range: 0.0-0.012 X10*3/uL) 0.000 (Ref Range: 0.0-0.012 X10*3/uL) 0.000 (Ref Range: 0.0-0.012 X10*3/uL) * Lab:Hemoglobin A1c * Collection Date 05/01/2025 01/29/2025 04/28/2024 Collection Time 06:23 AM 06:11 AM 06:19 AM Order Date 05/01/2025 01/26/2025 04/28/2024 Hemoglobin A1c % 6.8 H (Ref Range: <6.0 %) 6.2 H (Ref Range: <6.0 %) 7.0 H (Ref Range: <6.0 %) Estimated Average Glucose 148 (Ref Range: mg/dL) 131 (Ref Range: mg/dL) 154 (Ref Range: mg/dL) Clinical Info: PLEASE FAX COMPL ETED RESULTS TO [phone] * Lab:Microalbumin, Random * Collection Date 05/01/2025 01/29/2025 10/09/2024 Collection Time 06:20 AM 06:05 AM 06:09 AM Order Date 05/01/2025 01/29/2025 10/06/2024 Creatinine Urine 123.40 (Ref Range: mg/dL) 81.78 (Ref Range: mg/dL) 78.98 (Ref Range: mg/dL) Microalbumin Urine 90.0 (Ref Range: mg/L) 7.0 (Ref Range: mg/L) 10.0 (Ref Range: mg/L) Microalbum Creatinine Ratio Ur 72.9 H (Ref Range: <30 ug/mg cr) 8.5 (Ref Range: <30 ug/mg cr) 12.6 (Ref Range: <30 ug/mg cr) Clinical Info: Please fast f or 12-14 hours prior to having this labwork done. You may have black coffee or tea with no milk or sugar. May have water,PLEASE FAX COMPLETED RESULTS TO [phone] * Examination: G eneral Examination: GENERAL APPEARANCE: p leasant, well nourished, well developed, in no acute distress, calm and relaxed: man. HEAD: a traumatic, normocephalic. EYES: e maritza, perrla, anicteric, conjugate. EARS: : Normal anatomy with bilateral hearing loss, Without cerumen. NOSE: s eptum intact. ORAL CAVITY: n [...] extremities, sensory exam intact. PSYCH: a lert, oriented: cognitive function intact: cooperative with exam: good eye contact: mood/affect full range: speech clear: thought process logical, goal directed. Assessment: * Assessment: 1. T ype 2 diabetes mellitus without complications - E11.9 (Primary) N otes :He has been compliant with all of his medications and diet. His weight is in the normal range. This hemoglobin A1c is 6.8. No change in his regimen was needed. He is up-to-date with ophthalmology. 2 . I mpacted cerumen, unspecified laterality - H61.20 N otes :This problem has been resolved and he has an appointment with audiology in the next couple of weeks to be evaluated for hearing aids. 3 . H yperlipidemia type II - E78.01 N otes :His lipids are currently stable and will be checked 3 times a year. No change in his regimen was needed. 4 . B PH (benign prostatic hypertrophy) - N40.0 N otes :He rises from sleep once or twice a night. We have discussed lifestyle modifications that would reduce this. 5 . S arthur stenosis, lumbar region - M48.06 N otes :His back pain is much improved and he is conducting all of the activities of daily life without impairment. 6 . F ormer smoker - Z87.891 N otes :I have had a long discussion with him today about maintaining abstinence in times of stress. 7 . E nvironmental allergies - Z91.09 N otes :His allergies have been quiescent recently. He has not needed to take medication. 8 . E czema - L30.9 N otes :His eczema seems well controlled today. Current therapy was continued without change. 9 . B marisol cell carcinoma - C44.91 Plan: * Treatment: 2. I mpacted cerumen, unspecified laterality Continue Pravastatin Sodium Tablet, 20 MG, 1 tablet, Orally, Once a day; C ontinue Vitamin D Tablet, 25 MCG (1000 UT), 1 tablet, Orally, Once a day; C ontinue Lisinopril Tablet, 10 MG, TAKE 1 TABLET BY MOUTH EVERY DAY, Orally, Once a day; C ontinue Triamcinolone Acetonide Cream, 0.1 %, 1 application, Externally, Two times a day As needed; C ontinue Fenofibrate Tablet, 160 MG, TAKE 1 TABLET BY MOUTH EVERY DAY WITH A MEAL; C ontinue Accu-Chek Guide Strip, -, as directed, In Vitro, test blood sugars three times a day; C ontinue Jardiance Tablet, 25 MG, 1 tablet, Orally, Once a day; C ontinue GlipiZIDE-Metformin HCl Tablet, 5-500 MG, take 2 tablets by mouth twice a day, Oral; C ontinue BD Pen Needle Short U/F Miscellaneous, 31G X 8 MM; C ontinue Basaglar KwikPen Solution Pen-injector, 10 UNIT/ML, as directed, Subcutaneous, 10 units daily; C ontinue Mounjaro Solution Pen-injector, 5 MG/0.5ML, as directed, Subcutaneous. 3. H yperlipidemia type II L AB: PROFILE, FASTING (COMPREHENSIVE METABOLIC) L AB: PSA, TOTAL L AB: CBC w DIFF L AB: Lipid Panel L AB: Microalbumin, Random L AB: Hemoglobin A1c 4. B PH (benign prostatic hypertrophy) L AB: PROFILE, FASTING (COMPREHENSIVE METABOLIC) L AB: PSA, TOTAL L AB: CBC w DIFF L AB: Lipid Panel L AB: Microalbumin, Random L AB: Hemoglobin A1c 5. O thers Continue Accu-Chek Guide Test Strip, -, use to test blood sugars three times a day DX: Diabetes E11.9, Notes to Pharmacist: DX: Diabetes E 11.9. * Procedure Codes: * Preventive Medicine: Counseling: S moking/Tobacco Use Patient counseled on the dangers of tobacco use and urged to quit. 1 DM Care Plan: P atient Lifestyle Goals P atient wants to be able to manage diabetes without too much effort. T reatment Goals B lood Sugars less than < 115, HbA1C < 7.0. B arriers n o barriers. S elf-Managment Goals I ncrease exercise to 3 times a week for 30 mins, Stop drinking juice and/or soda, replace with more water. * Follow Up: 3 Months (Reason: OV) * Images: * Sign off status: Completed true * Provider: Shayy Bartlett MD Date: 1 Generated for Katie pinzon/Nathaniel/Jeanneitting on: 09/24/2024 02:55 PM EST History and Physical Notes * HPI (History of Present Illness) Category Sub-Category Detail Notes COVID-19 Screening Questions Have you had any new onset fever, chills, cough, congestion, sore throat, shortness of breath, muscle aches?: No Examination Category Sub-Category Detail Notes General Examination GENERAL APPEARANCE: pleasant , well nourished, well developed, in no acute distress, calm and relaxed: man HEAD: atraumatic, normocep halic EYES: eomi, perrla, anicte shalonda, conjugate EARS: : Normal anatomy wit h bilateral hearing loss, Without cerumen NOSE: septum intact NECK/THYROID: no jugular venous [...] normal RECTAL EXAM: not examined PSYCH: alert, oriented: cog nitive function intact: cooperative with exam: good eye contact: mood/affect full range: speech clear: thought process logical, goal directed ORAL CAVITY: normal, unremarkable
--- OUTSIDE RECORDS SUMMARY | 2025-07-24 05:30 | XMS_ITS ---
Author Organization Zeus Bartlett III, MD Address [address] [place] [address] Care Team Providers Care Ad Terminal Makeup Operator Name Role Phone Dr. Zeus Bartlett III Primary Care Provider Results Component Value Reference Range Notes URINE DIP STICK (Not yet rev iewed by provider) Interpretation:abnormal Performing Lab: Notes/Report: abnormal SG 1.000 1.005 - 1.025 pH 5.0 5.0 - 9.0 OJ 70+++ Negative - NIT negative Negative - PRO 100 Negative - Trace GLU negative Negative - KET negative Negative - UBG negative 0.1 - 1.8 ASHWINI negative 0.2 - 1.3 BLD +++ Negative - Menstrating N/A REASON FOR VISIT New Concern, painful urinating Medications Medication SIG (Take, Route, Frequency, Duration) Notes Start Date End Date Status BD Pen Needle Short U/F 31G X 8 MM Active Basaglar KwikPen 10 UNIT/ML as directed Subcutaneous 10 units daily Active Mounjaro 5 MG/0.5ML as directed Subcutaneous 05/05/2024 Active Sulfamethoxazole-Trime thoprim 800-160 MG 1 tablet Orally twice a day for 10 days 07/24/2025 08/03/2025 Active GlipiZIDE-Metformin HCl 5-500 MG take 2 tablets by mouth twice a day Oral Active Lisinopril 10 MG TAKE 1 TABLET BY MOUTH EVERY DAY Orally Once a day Active Triamcinolone Acetonide 0.1 % 1 application Externally Two times a day As needed Active Fenofibrate 160 MG TAKE 1 TABLET BY MOUTH EVERY DAY WITH A MEAL Active Accu-Chek Guide - as directed In Vitro test blood sugars three times a day Active Jardiance 25 MG 1 tablet Orally Once a day Active Accu-Chek Guide Test - use to test blood sugars three times a day DX: Diabetes E11.9 DX: Diabetes E 11.9 03/16/2025 Active Pravastatin Sodium 20 MG 1 tablet Orally Once a day Active Phenazopyridine HCl 200 MG 1 tablet Orally Three times a day for 5 days 07/24/2025 07/29/2025 Active Vitamin D 25 MCG (1000 UT) 1 tablet Orally Once a day 12/26/2022 Active Social History Sex Assigned At : Social History Observation Description Sex Assigned At Male Vital Signs Height 72 in 07/24/2025 Weight 154 lbs 07/24/2025 BMI 20.88 kg/m2 07/24/2025 Encounters Encounter Location Date Provider Diagnosis Zeus Bartlett III, MD [address] [place] [address] 07/24/2025 Zeus Bartlett Hematuria R31.9 Assessments Encounter Date Diagnosis (ICD Code) Assessment Notes Treatment Notes Treatment Clinical Notes 07/24/2025 Hematuria (ICD-10 - R31.9) Plan Of Treatment Medication Medication Name Sig Start Date Stop Date Notes Sulfamethoxazole-Trimethopri m 800-160 MG 1 tablet Orally twice a day for 10 days 07/24/2025 08/03/2025 Phenazopyridine HCl 200 MG 1 tablet Oral ly Three times a day for 5 days 07/24/2025 07/29/2025 Pending Test Test Name Order Date URINE DIP STICK 07/24/2025 Urine Culture 07/24/2025 Next Appt Details Provider Name:Zeus Bartlett , 08/07/2025 10:30:00 AM, [address] [facility] [place], [address], Provider Name:Zeus Bartlett , 10/09/2025 11:00:[address] [place], [address], Progress Notes * Fahad FRITZ JrDOB:1945 (79 yo M)Acc No.[id number]:07/24/2025 Progress Notes Patient: Fahad RUTHERFORD Jr Provider: Shayy Bartlett MD :1945 A ge:79 Y S ex:Male Date:07/24/2025 Address:[address] [place] [address] , [facility] Subjective: * Chief Complaints: * 1 . New Concern. 2. Painful urinating. * HPI: v : 3 days dysuria small amounts, no chlls, no gross heme. * Medical History: * Medications: T aking Accu-Chek Guide Test - Strip use to test blood sugars three times a day DX: Diabetes E11.9, Notes to Pharmacist: DX: Diabetes E 11.9, Taking Pravastatin Sodium 20 MG Tablet 1 tablet Orally Once a day , Taking Vitamin D 25 MCG (1000 UT) Tablet 1 tablet Orally Once a day , Taking Lisinopril 10 MG Tablet TAKE 1 TABLET BY MOUTH EVERY DAY Orally Once a day , Taking Triamcinolone Acetonide 0.1 % Cream 1 application Externally Two times a day As needed, Taking Fenofibrate 160 MG Tablet TAKE 1 TABLET BY MOUTH EVERY DAY WITH A MEAL , Taking Accu-Chek Guide - Strip as directed In Vitro test blood sugars three times a day , Taking Jardiance 25 MG Tablet 1 tablet Orally Once a day , Taking GlipiZIDE-Metformin HCl 5-500 MG Tablet take 2 tablets by mouth twice a day Oral , Taking BD Pen Needle Short U/F 31G X 8 MM Miscellaneous , Taking Basaglar KwikPen 10 UNIT/ML Solution Pen-injector as directed Subcutaneous 10 units daily , Taking Mounjaro 5 MG/0.5ML Solution Pen-injector as directed Subcutaneous Objective: * Vitals: H t: 72, Wt:154, BMI:20.88, Wt-k.85. * P ast Orders: Lab:Prostate Specific Antige [...] May have water,PLEASE FAX COMPLETED RESULTS TO [phone] * Lab:Comprehensive [place]. [place] Fast * Collection Date 05/01/2025 01/29/2025 10/09/2024 [...] mg/dL) 9.5 (Ref Range: 8.4-10.2 mg/dL) * Lab:Microalbumin, Random * Collection Date 05/01/2025 [...] May have water,PLEASE FAX COMPLETED RESULTS TO [phone] * Lab:Complete Blood Count Aut o Diff [...] Info: PLEASE FAX COMPL ETED RESULTS TO [phone] Assessment: * Assessment: 1. H ematuria - R31.9 (Primary) Plan: * Treatment: Value Reference Range S G 1.000 1.005 - 1.025 * p H 5.0 5.0 - 9.0 * L EU 70+++ Negative - * N IT negative Negative - * P RO 100 Negative - Trace * G ROBIN negative Negative - * K ET negative Negative - * U BG negative 0.1 - 1.8 * B IL negative 0.2 - 1.3 * B LD +++ Negative - * M enstrating N/A ?LAB: Urine Culture2.?Others? Start Sulfamethoxazole-Trimethoprim Tablet, 800-160 MG, 1 tablet, Orally, twice a day, 10 days, 20 Tablet, Refills 0;?Start Phenazopyridine HCl Tablet, 200 MG, 1 tablet, Orally, Three times a day, 5 days, 15 Tablet, Refills 0.?? * Procedure Codes: 8 1002 URINE-NO MICRO * Images: * The named appointment provid er may or may not be the originator of this progress note, and it is not deemed complete until electronically signed by the appointment provider. Sign off status: Pending * Provider: Shayy Bartlett MD Date: 09/24/2024 Generated for Katie pinzon/Nathaniel/Fauzia on: 09/24/2024 02:55 PM EST
--- OUTSIDE RECORDS SUMMARY | 2025-07-24 14:55 | XMS_ITS | Encounter Summary ---
Author Organization [facility] Address [address] [place] [address] Phone Care Team Providers Care Tanker Truck Driver Name Role Phone Zeus Bartlett MD Primary Care Provider +1- [phone] Encounter Details Date Type Department Care Team (Late st Contact Info) Description 08/31/2023 Procedure Pass OR Admitting Dept - Virtual Department [address] [place] [address] Social History Tobacco Use Types Packs/Day Years [...] on filedocumented in this encounter Care Teams Tanker Truck Driver Relationship Specialty Start Date End Date Zeus Bartlett MD [address] [place] [address] [place] [address] PCP - General Medical Oncology 06/27/23 documented as of this encounter Additional Source Comments The information contained in this document represents components of the legal health record. It is not the complete legal health record.[facility]
--- OUTSIDE RECORDS SUMMARY | 2025-07-24 14:56 | XMS_ITS | Clinical Summary ---
Author Organization [facility] Address [address] [place] [address] Phone Care Team Providers Care Group Cio Name Role Phone Zeus Bartlett MD Primary Care Provider +1- [phone] Allergies No known active allergies Medications TRULICITY [...] file Insurance MEDICARE PART A & B [employer] MEDEX SUPPLEMENT MEDICARE PART A & B [employer] MEDEX SUPPLEMENT MEDICARE PART A & B Member Subscriber Plan / Payer (Ef fective 2013-Present) Name:Fahad Fritz Member ID:[id number] Relation to Subscriber:Self Name:Fahad Fritz Subscriber ID:[id number] Payer ID:[id number] Group ID:Not on file Type:Medicare Address: [employer] [address] [place] MEDEX SUPPLEMENT MEDICARE PART A & B [place] MEDEX SUPPLEMENT MEDICARE PART A & B [place] MEDEX SUPPLEMENT MEDICARE PART A & B [employer] MEDEX SUPPLEMENT Care Teams Group Cio Relationship Specialty Start Date End Date Zeus Bartlett MD [address] [place] [address] [place] [address] PCP - General Medical Oncology 06/27/23 Additional Source Comments The information contained in this document represents components of the legal health record. It is not the complete legal health record.[facility]
--- OUTSIDE RECORDS SUMMARY | 2025-07-24 14:56 | XMS_ITS | Patient Health Record ---
Author Organization [facility] Address [address] [address] Care Team Providers Care Assistant Spa Director Name Role Phone Zeus Bartlett MD Primary Care Provider Sapna Akins Unavailable [phone] Allergies No Known Allergies Results Component Value Reference Range Notes HEMOGLOBIN A1C (GLYCOHEMOGLO BIN) Reviewed date:11/19/2024 11:50:01 AM Interpretation: Performing Lab: Notes/Report: HEMOGLOBIN A1C % (HH) 7.0 HEMOGLOBIN A1C (GLYCOHEMOGLO BIN) Reviewed date:02/19/2025 11:03:59 AM Interpretation: Performing Lab: Notes/Report: HEMOGLOBIN A1C % (HH) 6.2 HEMOGLOBIN A1C (GLYCOHEMOGLO BIN) Reviewed date:05/21/2025 01:05:57 PM Interpretation: Performing Lab: Notes/Report: HEMOGLOBIN A1C % (HH) 6.7 Reason For Referral No Information Medications Medication SIG (Take, Route, Frequency, Duration) Notes Start Date End Date Status Fenofibrate 160 MG 1 tablet Orally Once a day Active Jardiance 25 MG 1 tablet Orally Once a day Active Lisinopril 10 MG 1 tablet Orally Once a day Active Pravastatin Sodium 20 MG 1 tablet Orally Once a day Active Vitamin D3 1000 UNIT 1 capsule Orally On ce a day Active Basaglar KwikPen 100 UNIT/ML as directed Subcutaneous Act ann Augmentin 500-125 MG 1 tablet Orally Twi ce a day; Duration: 30 days 04/14/2024 Not-Takin g Trulicity 1.5 MG/0.5ML as directed Subcutaneous Not-Taking Extra Depth Diabetic Shoes with 3 Pair Custom heat-molded multi-density innersoles for 1 year Dx: 09/03/2023 A ctive Mounjaro 5 MG/0.5ML Subcutaneous; Durati on: 28 Days Active glipiZIDE-metFORMIN HCl 5-500 MG 1 tablet with a meal Orally Once a day Active Immunizations Vaccine Route Administration Date Status Comme nts Influenza Unknown 04/06/2023 Administered Influenza Unknown 05/06/2024 Administered Influenza Unknown 05/06/2025 Administered Social History Tobacco Use: Social History [...] Polyneuropathy due to type 2 diabetes mellitus (311394136) Type 2 diabetes mellitus with diabetic polyneuropathy (E11.42) Active confirmed Problem Skin ulcer of toe of right foot with fat layer exposed (L97.512) Active confirmed Response to treatment- Resolved Vital Signs Blood pressure diastolic 75 mm Hg 05/21/2025 Height 6ft in 05/21/2025 Blood pressure systolic 120 mm Hg 05/21/2025 Weight 155 lbs 05/21/2025 BMI 21.02 kg/m2 05/21/2025 Procedures Procedure Date Ordered Date Performed Result Body Sit e 60554-FATMUTW NAIL, 6 OR MORE 11/19/2024 N/A 81741-ZIBD SKIN LESIONS, 2 TO 4 11/19/2024 N/A 05935-NYFWMPC NAIL, 6 OR MORE 02/19/2025 N/A 17004-LQHF SKIN LESIONS, 2 TO 4 02/19/2025 N/A 11801-YPQHKBW NAIL, 6 OR MORE 05/21/2025 N/A 10527-BWCR SKIN LESIONS, 2 TO 4 05/21/2025 N/A Encounters Encounter Location Date Provider Diagnosis [facility] [address] [place] [address] 11/19/2024 Sapna Navas Type 2 diabetes mellitus with diabetic polyneuropathy E11.42 and Tinea unguium B35.1 [facility] [address] [place] [address] 02/19/2025 Sapna Navas Type 2 diabetes mellitus with diabetic polyneuropathy E11.42 and Tinea unguium B35.[address] [address] 05/21/2025 aSpna Navas Type 2 diabetes mellitus with diabetic polyneuropathy E11.42 and Tinea unguium B35.1 Assessments Encounter Date Diagnosis (ICD Code) Assessment Notes Treatment Notes Treatment Clinical Notes Section Notes 11/19/2024 Type 2 diabetes mellitus with diabetic polyneuropathy (ICD-10 - E11.42) 11/19/2024 Tinea unguium (ICD-10 - B35.1) 02/19/2025 Type 2 diabetes mellitus with diabetic polyneuropathy (ICD-10 - E11.42) 02/19/2025 Tinea unguium (ICD-10 - B35.1) 05/21/2025 Type 2 diabetes mellitus with diabetic polyneuropathy (ICD-10 - E11.42) 05/21/2025 Tinea unguium (ICD-10 - B35.1) Plan Of Treatment Pending Test Test Name Order Date X ray : Foot, right 3V 04/14/2024 X ray : Foot, right 3V 05/12/2024 70425-FLFGJVW NAIL, 6 OR MORE 06/26/2024 55731-SDZFXRB NAIL, 6 OR MORE 11/19/2024 56916-JUVDNVY NAIL, 6 OR MORE 02/19/2025 15520-NYQOQTN NAIL, 6 OR MORE 05/21/2025 22937-FRKIGSL SKIN/TISSUE 06/26/2024 85965-JOFTEBM SKIN/TISSUE 05/12/2024 52794-NZHXREJ SKIN/TISSUE 04/14/2024 13370-BJMM SKIN LESIONS, OVER 4 09/03/19 24 76988-HTGX SKIN LESIONS, OVER 4 12/24/19 24 03480-WRVP SKIN LESIONS, OVER 4 06/26/20 24 28459-JENX SKIN LESIONS, 2 TO 4 05/21/20 25 75181-GLDN SKIN LESIONS, 2 TO 4 02/20/20 25 40082-YRTX SKIN LESIONS, 2 TO 4 11/20/19 25 45548-Gszu. Subungual Hematoma 4 Next Appt Details Provider Name:Sapna avelar, 08/31/2025 01:00:00 PM, [address] [place], [address], Insurance Providers Payer Name Payer Address Payer Phone Subscriber Number Group Number Insured Name Patient Relationship to Insured Coverage Start Date Coverage End Date Medicare National [employer] [address] [place] [address] [id number] Fahad Fritz Jr Self - patient is the insured [employer] [address] [place] [address] [id number] Fahad Fritz Jr Self - patient is the insured Medical (General) History Medical History History ICD Code asthma Back,Hip,and Knee pain Diabetic Hiatal hernia High blood pressure Psoriasis/eczema Measles Mumps Surgical History Surgery Date(Month/Year) Right Foot 02/2023 Middle toe 02/2023 Hernia Repair back surgery Left elbow 02/2023
--- OUTSIDE RECORDS SUMMARY | 2025-07-24 14:57 | XMS_ITS | Patient Health Record ---
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 Zeus Bartlett [...] 1.3 BLD +++ Negative - Menstrating N/A URINE DIP STICK Reviewed date:10/06/2024 11:12:46 AM [...] Panel Reviewed date:01/04/2025 08:19:16 PM Interpretation: Performing Lab:[facility], [address] [place] [phone] Notes/Report: Triglycerides 84 <150 mg/dL Desirable Triglyceride: [...] Random Reviewed date:01/04/2025 08:19:16 PM Interpretation: Performing Lab:[facility], [address] [place] [address] Notes/Report: Creatinine Urine 78.98 Microalbumin Urine 10.0 Microalbum/Creatinine Ratio Ur 12.6 <30 ug/mg cr Albumin/Creatinine Ratio Reference Ranges: Normal: < 30 ug/mg creatinine Microalbuminuria: 30 - 300 ug/mg creatinine Clinical Albuminuria: > 300 ug/mg creatinine Hemoglobin A1c Reviewed date:02/04/2025 03:56:47 PM Interpretation: Performing Lab:[facility], [address] [place] [phone] Notes/Report: Hemoglobin A1c % 6.2 <6.0 % [...] average glucose, using the formula of the G2G-Rxodaht Average Glucose study (ADAG), Diabetes Care, Vol.31,#8, Mar. 2007 Complete Blood Count Auto Di ff Reviewed date:01/04/2025 08:19:16 PM Interpretation: Performing Lab:[facility], [address] [place] [phone] Notes/Report: White Blood Count 7.3 4.8-10.8 X10*3/uL [...] NRBC Abs Auto 0.000 0.0-0.012 X10*3/uL Comprehensive [place]. Panel Fa st Reviewed date:01/04/2025 08:19:16 PM Interpretation: Performing Lab:[facility], [address] [place] [phone] Notes/Report: Sodium 144 135-145 mmol/L Potassium 3.8 [...] Antigen Reviewed date:01/04/2025 08:19:16 PM Interpretation: Performing Lab:[address] [address] Notes/Report: Prostate Specific Antigen 0.87 <0.05-4.0 ng/mL PSA methodology: Ambrosio Alinity i Chemiluminescent Microparticle Immunoassay (CMIA) Diabetic Eye Exam Reviewed date:02/03/2025 01:35:03 PM Interpretation:undefined Performing Lab: Notes/Report: undefined Complete Blood Count Auto Di ff Reviewed date:02/04/2025 03:56:47 PM Interpretation: Performing Lab:[address] [address] Notes/Report: White Blood Count 7.4 4.8-10.8 X10*3/uL [...] NRBC Abs Auto 0.000 0.0-0.012 X10*3/uL Comprehensive [place]. Panel Fa st Reviewed date:02/04/2025 03:56:47 PM Interpretation: Performing Lab:[facility], [address] [place] [phone] Notes/Report: Sodium 142 135-145 mmol/L Potassium 3.9 [...] Panel Reviewed date:02/04/2025 03:56:47 PM Interpretation: Performing Lab:[address] [phone] Notes/Report: Triglycerides 100 <150 mg/dL Desirable Triglyceride: [...] Random Reviewed date:02/04/2025 03:56:47 PM Interpretation: Performing Lab:[facility], [address] [place] [phone] Notes/Report: Creatinine Urine 81.78 Microalbumin Urine 7.0 Microalbum/Creatinine Ratio Ur 8.5 <30 ug/mg cr Albumin/Creatinine Ratio Reference Ranges: Normal: < 30 ug/mg creatinine Microalbuminuria: 30 - 300 ug/mg creatinine Clinical Albuminuria: > 300 ug/mg creatinine Complete Blood Count Auto Di ff Reviewed date:05/02/2025 07:43:08 PM Interpretation: Performing Lab:[facility], [address] [place] [phone] Notes/Report: White Blood Count 7.2 4.8-10.8 X10*3/uL Red Blood Count 4.71 4.60-5.80 X10*6/uL Hemoglobin 13.3 14.0-18.0 g/dl Hematocrit 41.2 42.0-52.0 % Mean Corpuscular Volume 87.5 80.0-98.0 fL Mean Corpuscular Hemoglobin 28.2 27.0-33.0 pg Mean Corpuscular HGB Conc 32.3 31.0-36.0 g/dl Red Cell Distribution Width 13.1 11.0-16.0 % Platelet Count 242 160-400 X10*3/uL Mean Platelet Volume 10.4 9.4-12.4 fL Neutrophils Percent Auto 64.5 45-73 % Imm Gran Pct Auto 0.1 0.0-0.4 % Lymphocytes Percent Auto 25.0 20-40 % Monocytes Percent Auto 6.8 2-11 % Eosinophils Percent Auto 3.2 0-4 % Basophils Percent Auto 0.4 0-2 % NRBC Pct Auto 0.0 0.0-0.2 /100WBC Neutrophils Absolute Auto 4.6 2.0-8.3 x10*3/u L Imm Gran Abs Auto 0.01 0.00-0.03 X10*3/uL Lymphocytes Absolute Auto 1.8 1.2-4.9 X10*3/u L Monocytes Absolute Auto 0.5 0.1-1.2 X10*3/uL Eosinophils Absolute Auto 0.2 0.0-0.4 X10*3/u L Basophils Absolute Auto 0.0 0.0-0.2 X10*3/uL NRBC Abs Auto 0.000 0.0-0.012 X10*3/uL Comprehensive [place]. Panel Fa st Reviewed date:05/02/2025 07:43:08 PM Interpretation: Performing Lab:[facility], [address] [place] [phone] Notes/Report: Sodium 145 135-145 mmol/L Potassium 4.5 3.3-5.1 mmol/L Chloride 109 96-108 mmol/L Carbon Dioxide 26 22-29 mmol/L Anion Gap 15 12-20 Blood Urea Nitrogen 17 9-16 mg/dL Creatinine 1.30 0.5-1.4 mg/dL Estimated Glomerular Filt Rate 54 Chronic Kidney Disease: Estimated GFR < 60 mL/min/1.73m2 Severe Kidney Disease: Estimated GFR < 15 mL/min/1.73m2 Glucose Fasting 124 60-99 mg/dL A fasting glucose from 100-125 mg/dl is considered impaired (pre-diabetes). Calcium 9.5 8.4-10.2 mg/dL Bilirubin Total 0.6 0.0-1.0 mg/dL Aspartate Amino Transferase 22 5-37 U/L Alanine Aminotransferase 15 0-40 U/L Total Protein 7.1 6.5-8.0 g/dL Albumin Level 4.7 3.5-5.0 g/dL Alkaline Phosphatase 46 39-117 U/L Lipid Panel Reviewed date:05/02/2025 07:43:08 PM Interpretation: Performing Lab:[facility], [address] [place] [phone] Notes/Report: Triglycerides 89 <150 mg/dL Desirable Triglyceride: less than 150 mg/dL Borderline High Triglyceride 150-199 mg/dL High Triglyceride: 200-499 mg/dL Very High Triglyceride: greater than or equal to 5OO mg/dL Cholesterol 186 <200 mg/dL Desirable Cholesterol: less than 200 mg/dL Borderline High Cholesterol: 200-239 mg/dL High Cholesterol: greater than 239 mg/dL LDL Cholesterol Calculated 116 <100 mg/dL Desirable LDL: less than 100 mg/dL Near Optimal/Above Optimal LDL: 110-129 mg/dL Borderline High LDL: 130-159 mg/dL High LDL: 160-189 mg/dL Very High LDL: greater than or equal to 190 mg/dL HDL Cholesterol 53 >40 mg/dL Desirable HDL: greater than 40 mg/dL Note: This HDL assay may give artificially low results in patients with liver disease. Prostate Specific Antigen Reviewed date:05/02/2025 07:43:08 PM Interpretation: Performing Lab:[facility], [address] [place] [phone] Notes/Report: Prostate Specific Antigen 0.84 <0.05-4.0 ng/mL PSA methodology: Ambrosio Alinity i Chemiluminescent Microparticle Immunoassay (CMIA) Microalbumin, Random Reviewed date:05/02/2025 07:43:08 PM Interpretation: Performing Lab:[facility], [address] [place] [phone] Notes/Report: Creatinine Urine 123.40 Microalbumin Urine 90.0 Microalbum/Creatinine Ratio Ur 72.9 <30 ug/mg cr Albumin/Creatinine Ratio Reference Ranges: Normal: < 30 ug/mg creatinine Microalbuminuria: 30 - 300 ug/mg creatinine Clinical Albuminuria: > 300 ug/mg creatinine Hemoglobin A1c Reviewed date:05/02/2025 07:43:08 PM Interpretation: Performing Lab:[facility], [address] [facility] [place] [address] Notes/Report: Hemoglobin A1c % 6.8 <6.0 % Hemoglobin A1C Reference Range Adults: 4.8 - 6.0 % Non diabetic: < 6.0 % Goal: < 7.0 % Additional Action Suggested: > 8.0 % Note: Hemoglobin A1c results are invalid for patients with abnormal amounts of HbF. Blood transfusions may impact the HbA1c concentration in the patient sample. Estimated Average Glucose 148 eAG = Estimated average glucose which is %A1C expressed as average glucose, using the formula of the M0E-Sknidqo Average Glucose study (ADAG), Diabetes Care, Vol.31,#8, 2007 Reason For Referral Reason severe left ear ceru men impaction Diagnosis 1 Impacted cerumen, un specified laterality (H61.20) Referral Organization Zeus Bartlett III, MD Referring Provider First Name Zeus Referring Provider Last Name Dhruv Referring Provider Speciality Internal M edicine Referred Provider [facility], [facility] Referred Provider Specialty Otolaryngolo gy General Notes Emmy Radha [facility] 03/04 01:38:27 PM >ref/demo/progress note faxed to [facility], Radha Booth [facility] 03/26/2025 03:41:50 PM > patient called [facility] made patient appt for 04/20/2025 arrival at 10am with appt at 10:15am with Dr Omer Colon at [address] [place] [address] . I called patient to verify he [...] day for 10 days 07/24/2025 08/03/2025 Active Pravastatin Sodium 20 MG 1 tablet [...] by mouth twice a day Oral Active Immunizations Vaccine Route Administration Date Status Comme nts Zostavax SC Subcutaneous 11/02/2013 Administered Influenza Unknown [...] Problem Status W/U Status Risk Notes Problem 9906648 Former smoker (Z87.891) Active confirmed I have had a long discussion with him today about maintaining abstinence in times of stress. Problem Hyperlipidemia (35639245) Hyperlipidemia (E78.5) Active confirmed His lipids are well controlled and his total cholesterol is 155. Problem 099629621 Obesity (E66.9) Active confirmed Problem 355496453 Type 2 diabetes mellitus without complications (E11.9) Active confirmed He has been compliant with all of his medications and diet. His weight is in the normal range. This hemoglobin A1c is 6.8. No change in his regimen was needed. He is up-to-date with ophthalmology. 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 Problem No known drug allergy (situation) (654799176) Other nonmedicinal substance allergy status (Z91.048) Active confirmed Problem Benign prostatic hypertrophy without outflow obstruction (448412316) BPH (benign prostatic hypertrophy) (N40.0) Active confirmed He rises from sleep once or twice a night. We have discussed lifestyle modifications that would reduce this. Problem 39595162 Cataracts, bilateral (H26.9) Active confirmed Problem 857901831 Environmental allergies (Z91.09) Active confirmed His allergies have been quiescent recently. He has not needed to take medication. Problem 32241494 Colonic polyp (K63.5) Active confirmed Problem 78296025 Pilonidal cyst (L05.91) Active confirmed Problem 24347354 Eczema (L30.9) Active confirmed His eczema seems well controlled today. Current therapy was continued without change. Problem 04585729 Vitamin D deficiency (E55.9) Active confirmed His vitamin D level last month was 11. He is now taking vitamin D supplementatio n. Problem 826442106 Hernia of abdominal wall (K43.9) Active confirmed [...] nearest emergency room. Problem Basal cell carcinoma (9078657) Basal cell carcinoma (C44.91) Active confirmed Problem Pure hypercholesterolemi a (352714058) Hyperlipidemia type II (E78.01) Active confirmed His lipids are currently stable and will be checked 3 times a year. No change in his regimen was needed. Problem 89680512 Impacted cerumen, unspecified laterality (H61.20) Active confirmed This problem has been resolved and he has an appointment with audiology in the next couple of weeks to be evaluated for hearing aids. 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 Problem 565217352 Amputation of toe of right foot (S98.131A) Active confirmed The wound is well-healed. He is ambulating without difficulty and has no pain. 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 Current therapy was continued. Vital Signs Heart Rate 69 /min 05/07/2025 Temperature 97.2 degrees Fahrenheit 05/07/2025 Blood pressure diastolic 69 mm Hg 05/07/2025 Height 72 in 07/24/2025 Blood pressure systolic 137 mm Hg 05/07/2025 Weight 154 lbs 07/24/2025 BMI 20.88 kg/m2 07/24/2025 Encounters Encounter Location Date Provider Diagnosis Zeus Bartlett III, MD [address] [place] [address] [place] [address] 07/24/2025 Zeus Bartlett Hematuria R31.9 Zeus Bartlett III, MD [address] [place] [address] [place] [address] 10/06/2024 Zeus Bartlett Type 2 diabetes marquis itus without complications E11.9 ; Hyperlipidemia E78.5 ; BPH (benign prostatic hypertrophy) N40.0 ; Former smoker Z87.891 ; Spinal stenosis, lumbar region M48.06 and Eczema L30.9 Zues Bartlett III, MD [address] [place] [address] [place] [address] 02/05/2025 Zeus Bartlett Type 2 diabetes marquis itus without complications E11.9 ; Hyperlipidemia E78.5 ; BPH (benign prostatic hypertrophy) N40.0 ; Eczema L30.9 ; Environmental allergies Z91.09 ; Presbyopia H52.4 ; Pilonidal cyst L05.91 ; Former smoker Z87.891 ; Hyperlipidemia type II E78.01 and Hammertoe of right foot M20.41 Zeus Bartlett III, MD [address] [place] [address] [place] [address] 02/12/2025 Zeus Bartlett Impacted cerumen, unspecified ear H61.20 Zeus Bartlett III, MD [address] [place] [address] [place] [address] 02/19/2025 Zeus Bartlett Impacted cerumen, unspecified laterality H61.20 ; Environmental allergies Z91.09 ; Eczema L30.9 ; Type 2 diabetes mellitus without complications E11.9 ; Former smoker Z87.891 ; Pilonidal cyst L05.91 and BPH (benign prostatic hypertrophy) N40.0 Zeus Bartlett III, MD [address] [place] [address] [place] [address] 05/07/2025 Zeus Bartlett Impacted cerumen, unspecified laterality H61.20 ; Type 2 diabetes mellitus without complications E11.9 ; Hyperlipidemia type II E78.01 ; BPH (benign prostatic hypertrophy) N40.0 ; Spinal stenosis, lumbar region M48.06 ; Former smoker Z87.891 ; Environmental allergies Z91.09 ; Eczema L30.9 and Basal cell carcinoma C44.91 Zeus Bartlett III, MD [address] [place] [address] [place] [address] 01/26/2025 Zeus Bartlett Type 2 diabetes marquis itus without complications E11.9 Zeus Bartlett III, MD [address] [place] [address] [place] [address] 10/12/2024 Zeus Bartlett Type 2 diabetes marquis itus without complications E11.9 Zeus Bartlett III, MD [address] [place] [address] [place] [address] 10/13/2024 Zeus Bartlett III, MD [address] [place] [address] [place] [address] 12/28/2024 Zeus Bartlett III, MD [address] [place] [address] [address] [place], [place] [address] 01/26/2025 Zeus Bartlett Type 2 diabetes marquis itus without complications E11.9 Zeus Bartlett III, MD [address] [place] [address] [address] [place], [place] [address] 03/14/2025 Zeus Bartlett Impacted cerumen, unspecified laterality H61.20 Assessments Encounter Date Diagnosis (ICD Code) Assessment Notes Treat ment Notes Treatment Clinical Notes 07/24/2025 Hematuria (ICD-10 - R31.9) 10/06/2024 Hyperlipidemia (ICD-10 - E78.5) Comprehensive blood [...] for another attempted reducing the cerumen impaction. 05/07/2025 Type 2 diabetes mellitus without complications (ICD-10 - E11.9) He has been compliant with all of his medications and diet. His weight is in the normal range. This hemoglobin A1c is 6.8. No change in his regimen was needed. He is up-to-date with ophthalmology. 05/07/2025 Impacted cerumen, unspecified laterality (ICD-10 - H61.20) This problem has been resolved and he has an appointment with audiology in the next couple of weeks to be evaluated for hearing aids. 01/26/2025 Type 2 diabetes mellitus without complications [...] for another attempted reducing the cerumen impaction. 10/06/2024 BPH (benign prostati c hypertrophy) (ICD-10 [...] Current therapy was continued without change. 05/07/2025 Hyperlipidemia type II (ICD-10 - E78.01) His lipids are currently stable and will be checked 3 times a year. No change in his regimen was needed. 10/06/2024 Former smoker (ICD-1 0 - Z87.891) [...] needed.A repeat hemoglobin A1c has been ordered. 05/07/2025 BPH (benign prostati c hypertrophy) (ICD-10 - N40.0) He rises from sleep once or twice a night. We have discussed lifestyle modifications that would reduce this. 10/06/2024 Spinal stenosis, lumbar region (ICD-10 - [...] maintaining abstinence in times of stress. 05/07/2025 Spinal stenosis, lumbar region (ICD-10 - M48.06) His back pain is much improved and he is conducting all of the activities of daily life without impairment. 10/06/2024 Eczema (ICD-10 - L30.9) His eczema seems well controlled today. Current therapy was continued without change. 02/05/2025 Presbyopia (ICD-10 - H52.4) 02/19/2025 Pilonidal cyst (ICD-10 - L05.91) 05/07/2025 Former smoker (ICD-1 0 - Z87.891) I have had a long discussion with him today about maintaining abstinence in times of stress. 02/05/2025 Pilonidal cyst (ICD-10 - L05.91) 02/19/2025 BPH (benign prostati c hypertrophy) (ICD-10 - N40.0) He rises from sleep once or twice a night to urinate. We have discussed lifestyle modifications he can make or has made in the past to reduce this. 05/07/2025 Environmental allergies (ICD-10 - Z91.09) His allergies have been quiescent recently. He has not needed to take medication. 02/05/2025 Former smoker (ICD-1 0 - Z87.891) I have had a long discussion with him today about maintaining abstinence in times of stress. 05/07/2025 Eczema (ICD-10 - L30.9) His eczema seems well controlled today. Current therapy was continued without change. 02/05/2025 Hyperlipidemia type II (ICD-10 - E78.01) His lipids are currently in their target range. His weight is stable. 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 Current therapy was continued. Plan Of Treatment Pending Test Test Name Order Date URINE DIP STICK 07/24/2025 PROFILE, FASTING (COMPREHENSIVE METABOLI C) 11/07/2021 PROFILE, FASTING (COMPREHENSIVE METABOLI C) 08/16/2021 PROFILE, FASTING (COMPREHENSIVE METABOLI C) 04/13/2021 PROFILE, FASTING (COMPREHENSIVE METABOLI C) 02/05/2025 PROFILE, FASTING (COMPREHENSIVE METABOLI C) 01/11/2021 PROFILE, FASTING (COMPREHENSIVE METABOLI C) 05/07/2025 PROFILE, FASTING (COMPREHENSIVE METABOLI C) 10/04/2023 PROFILE, FASTING (COMPREHENSIVE METABOLI C) 07/12/2023 PROFILE, FASTING (COMPREHENSIVE METABOLI C) 10/11/2020 PROFILE, FASTING (COMPREHENSIVE METABOLI C) 01/04/2024 PROFILE, FASTING (COMPREHENSIVE METABOLI C) 09/28/2022 PROFILE, FASTING (COMPREHENSIVE METABOLI C) 05/23/2022 PROFILE, FASTING (COMPREHENSIVE METABOLI C) 06/30/2019 PROFILE, FASTING (COMPREHENSIVE METABOLI C) 10/06/2024 PROFILE, FASTING (COMPREHENSIVE METABOLI C) 01/26/2023 PROFILE, FASTING (COMPREHENSIVE METABOLI C) 04/01/2020 PROFILE, FASTING (COMPREHENSIVE METABOLI C) 03/30/2023 PROFILE, FASTING (COMPREHENSIVE METABOLI C) 07/05/2020 PROFILE, FASTING (COMPREHENSIVE METABOLI C) 02/13/2022 PROFILE, FASTING (COMPREHENSIVE METABOLI C) 12/31/2019 PROFILE, RANDOM (COMPREHENSIVE METABOLIC ) 09/30/2019 HEMOGLOBIN A1C (GLYCOHEMOGLOBIN) 023 HEMOGLOBIN A1C (GLYCOHEMOGLOBIN) 020 HEMOGLOBIN A1C (GLYCOHEMOGLOBIN) 022 HEMOGLOBIN A1C (GLYCOHEMOGLOBIN) 020 HEMOGLOBIN A1C (GLYCOHEMOGLOBIN) 022 HEMOGLOBIN A1C (GLYCOHEMOGLOBIN) 022 HEMOGLOBIN A1C (GLYCOHEMOGLOBIN) 020 HEMOGLOBIN A1C (GLYCOHEMOGLOBIN) 021 HEMOGLOBIN A1C (GLYCOHEMOGLOBIN) 023 HEMOGLOBIN A1C (GLYCOHEMOGLOBIN) 020 LIPID PANEL 01/26/2023 LIPID PANEL 04/01/2020 LIPID PANEL 03/30/2023 LIPID PANEL 07/05/2020 LIPID PANEL 02/13/2022 LIPID PANEL 12/31/2019 LIPID PANEL 11/07/2021 LIPID PANEL 08/16/2021 LIPID PANEL 09/30/2019 LIPID PANEL 05/23/2022 LIPID PANEL 06/30/2019 LIPID PANEL 10/11/2020 PSA, TOTAL 05/23/2022 PSA, TOTAL 01/26/2023 PSA, TOTAL 04/01/2020 PSA, TOTAL 02/05/2025 PSA, TOTAL 05/07/2025 PSA, TOTAL 07/12/2023 PSA, TOTAL 01/04/2024 PSA, TOTAL 10/06/2024 PSA, TOTAL+FREE 08/16/2021 MICROALBUMIN, RANDOM 04/13/2021 MICROALBUMIN, RANDOM 01/26/2023 MICROALBUMIN, RANDOM 04/01/2020 CBC w DIFF 06/30/2019 CBC w DIFF 10/11/2020 CBC w DIFF 05/23/2022 CBC w DIFF 07/05/2020 CBC w DIFF 03/30/2023 CBC w DIFF 02/13/2022 CBC w DIFF 01/11/2021 CBC w DIFF 12/31/2019 CBC w DIFF 04/13/2021 CBC w DIFF 02/05/2025 CBC w DIFF 01/26/2023 CBC w DIFF 04/01/2020 CBC w DIFF 10/04/2023 CBC w DIFF 11/07/2021 CBC w DIFF 09/28/2022 CBC w DIFF 09/30/2019 CBC w DIFF 05/07/2025 CBC w DIFF 08/16/2021 VITAMIN D 25-OH TOTAL 05/23/2022 CBC WITH AUTO DIFF 10/06/2024 CBC WITH AUTO DIFF 07/12/2023 CBC WITH AUTO DIFF 01/04/2024 Lipid Panel 07/12/2023 Lipid Panel 01/04/2024 Lipid Panel 01/11/2021 Lipid Panel 04/13/2021 Lipid Panel 02/05/2025 Lipid Panel 10/04/2023 Lipid Panel 09/28/2022 Lipid Panel 05/07/2025 Vitamin D 25-OH Total 09/28/2022 Microalbumin, Random 02/05/2025 Microalbumin, Random 05/07/2025 Microalbumin, Random 10/04/2023 Microalbumin, Random 01/04/2024 Microalbumin, Random 09/28/2022 Microalbumin, Random 01/11/2021 Urine Culture 07/24/2025 Hemoglobin A1c 04/13/2021 Hemoglobin A1c 01/11/2021 Hemoglobin A1c 02/05/2025 Hemoglobin A1c 07/12/2023 Hemoglobin A1c 05/07/2025 Hemoglobin A1c 10/04/2023 Hemoglobin A1c 01/04/2024 Hemoglobin A1c 09/28/2022 Next Appt Details Provider Name:Zeus Bartlett , 08/07/2025 10:30:00 AM, [address] [place] [address] JUAN RAMON [place], [place], [address], Provider Name:Zeus Bartlett , 10/09/2025 11:00:00 AM, [address] [place] [address] JUAN RAM[place], [place], [address], Insurance Providers Payer Name Payer Address Payer Phone Subscriber Number Group Number Insured Name Patient Relationship to Insured Coverage Start Date Coverage End Date MEDICARE NGS [address] [place] [phone] [id number] Fahad Fritz Self - patient is the insured [facility] [address] [place], [place] [id number] Fahad Fritz Self - patient is the insured Medical (General) History Medical History History ICD Code degenerative disc disease Pilonidal cyst 20 years ago left inguinal hernia surgery three times History of bronchitis eczema allergies bronchitis diabetes mellitus type 2 obesity cataracts presbyopia 2003, 2016 tubular adenoma, last colonos copy 2016, 3 year plan hyperlipidemia back pain spinal stenosis Healed diabetic ulcer, medial right thir d toe December 2022 Ulcerated hammertoe right foot April 2024 Surgical History Surgery Date(Month/Year) No history Basal Cell removal, Left ear 08/2023 removal middle toe right foot 02/2023 elbow surgery 02/2023 Healed diabetic ulcer Right third toe 2022 colonoscopy, [facility], Dr. Guthrie, tubular adenoma 05/2017 laceration dorsum right foot, 6 sutures 2018 colonoscopy, + polyps, Q3y 2013 2 lacerations to hip, left thumb February 22 spinal disc surgery 1990 pilonidal cystectomy left inguinal herniorrhaphy colonoscopy 2008 colonoscopy 2003 Hospitalization History Reason Date(Month/Year) No history
== END 2025-07-24 13:08 | disposition home or self-care (01) ==
LOC: HO.LNP 13:07
PROVIDERS: Visit Provider Internal Medicine Medical Oncology
DX: R31.9 Hematuria, unspecified (principal)
CPT/HCPCS: 87086

== ENCOUNTER 2025-08-04 09:51 | Outpatient (REF) | payer MEDICARE, SELFPAY ==
--- OUTSIDE RECORDS SUMMARY | 2024-05-05 07:00 | XMS_ITS ---
Author Organization [facility] Address [address] [place] [address] Care Team Providers Care Revenue Coordinator Name Role Phone Zeus Bartlett MD Primary Care Provider Unavailab Sapna Prakash Unavailable [phone] Bora Chris [phone] Encounters Encounter Location Date Provider Diagnosis [address] [address] 05/05/2024 Bora Chris Plan Of Treatment Next Appt Details Provider Name:Sapna Paul avelar, 08/31/2025 01:00:00 PM, [address] [place] [address], [address], Progress Notes * Fahad FRITZ JR EDOB:1945 (79 yo M)Acc No.[id number]:05/05/2024 Progress Note Patient: Fahad RUTHERFORD JR Provider: Anne Short DPM :1945 A ge:78 Y S ex:Male Date:05/05/2024 Address:[address], [place] Pcp:Zeus Bartlett MD Subjective: * Chief Complaints: * * Medical History: Objective: * Vitals: Assessment: Plan: * Treatment: * Images: * The named appointment provid er may or may not be the originator of this progress note, and it is not deemed complete until electronically signed by the appointment provider. Sign off status: Pending * Provider: Anne Short DPM Date: 0 05/05/2024 Generated for Katie pinzon/Nathaniel/Fauzia on: 12:50 PM EST
--- OUTSIDE RECORDS SUMMARY | 2024-10-13 14:15 | XMS_ITS ---
Author Organization Zeus Bartlett III, MD Address [address] [place] [address] Care Team Providers Care Rough Rice Tender Name Role Phone Dr. Zeus Bartlett III Primary Care Provider REASON FOR VISIT RE:New Refill Request Social History Sex Assigned At : Social History Observation Description Sex Assigned At Male Encounters Encounter Location Date Provider Diagnosis Zeus Bartlett III, MD [address] [place] [address] [place] [address] 10/13/2024 Zeus Bartlett Plan Of Treatment Next Appt Details Provider Name:Zeus Bartlett , 08/07/2025 10:30:00 AM, [address] [place] [address] [place], [address], Provider Name:Zeus Bartlett , 10/09/2025 11:00:00 AM, [address] [place] [address] [place], [address], Progress Notes * Fahad FRITZ JrDOB:1945 (79 yo M)Acc No.[id number]:10/13/2024 Patient: Fahad RUTHERFORD Jr :1945 A ge:79 Y S ex:Male Address: [address], [place] [address] * true * Date: Generated for Katie pinzon/Nathaniel/Fauzia on: 12:49 PM EST
--- OUTSIDE RECORDS SUMMARY | 2024-12-28 06:09 | XMS_ITS ---
Author Organization Zeus Bartlett III, MD Address [address] [place] [address] Care Team Providers Care Senior Software Engineer Analytics Name Role Phone Dr. Zeus Bartlett III Primary Care Provider REASON FOR VISIT New Refill Request Social History Sex Assigned At : Social History Observation Description Sex Assigned At Male Encounters Encounter Location Date Provider Diagnosis Zeus Bartlett III, MD [address] [place] [address] [place] [address] 12/28/2024 Zeus Bartlett Plan Of Treatment Next Appt Details Provider Name:Zeus Bartlett , 08/07/2025 10:30:00 AM, [address] [place] [address] [place], [address], Provider Name:Zeus Bartlett , 10/09/2025 11:00:00 AM, [address] [place] [address] [place], [address], Progress Notes * Fahad FRITZ JrDOB:1945 (79 yo M)Acc No.[id number]:12/28/2024 Patient: Fahad RUTHERFORD Jr :1945 A ge:79 Y S ex:Male Address: [address], [facility] [address] * true * Date: Generated for Katie pinzon/Nathaniel/Fauzia on: 12:50 PM EST
--- OUTSIDE RECORDS SUMMARY | 2025-01-26 05:47 | XMS_ITS ---
Author Organization Zeus Bartlett III, MD Address [address] [place] [address] Care Team Providers Care Merchandise Support Associate Name Role Phone Dr. Zeus Bartlett III Primary Care Provider Results Component Value Reference Range Notes Hemoglobin A1c Reviewed date:02/04/2025 03:56:47 PM Interpretation: Performing Lab:[facility], [address] [place] [phone] Notes/Report: Hemoglobin A1c % 6.2 <6.0 % [...] average glucose, using the formula of the R8W-Jnpzgob Average Glucose study (ADAG), Diabetes Care, Vol.31,#8, Mar. 2007 REASON FOR VISIT Lab Social History Sex Assigned At : Social History Observation Description Sex Assigned At Male Encounters Encounter Location Date Provider Diagnosis Zeus Bartlett III, MD [address] [place] [address] [place] [address] 01/26/2025 Zeus Bartlett Type 2 diabetes mellitus without complications E11.9 Assessments Encounter Date Diagnosis (ICD Code) Assessment Notes Treat ment Notes Treatment Clinical Notes 01/26/2025 Type 2 diabetes mellitus without complications (ICD-10 - E11.9) Plan Of Treatment Next Appt Details Provider Name:Zeus Bartlett , 08/07/2025 10:30:00 AM, [address] [place] [address] [address], [place], [address], Provider Name:Zeus Bartlett , 10/09/2025 11:00:00 AM, [address] [place] [address] [address], [place], [address], Progress Notes * Fahad FRITZ JrDOB:1945 (79 yo M)Acc No.[id number]:01/26/2025 Patient: Lucia MARKDAEFahad Jr :1945 A ge:79 Y S ex:Male Address: [address], [place] [address] Subjective: * Chief Complaints: * L ab * Medical History: * Surgical History: * Hospitalization/Major Diagno stic Procedure: * Medications: Objective: * Vitals: * Physical Examination: Assessment: * Assessment: 1. T ype 2 diabetes mellitus without complications - E11.9 Plan: * Treatment: * Procedure Codes: * true * Date: Generated for Katie pinzon/Nathaniel/Skylersmitting on: 12:49 PM EST
--- OUTSIDE RECORDS SUMMARY | 2025-01-26 17:24 | XMS_ITS ---
Author Organization Zeus Bartlett III, MD Address [address] [place] [address] Care Team Providers Care Panel Flow Machine Operator Name Role Phone Dr. Zeus Bartlett III Primary Care Provider [phone] REASON FOR VISIT New Refill Request Medications [...] Date Provider Diagnosis Zeus Bartlett III, MD [address] [place] [address] [place] [address] 01/26/2025 Zeus Bartlett Type 2 diabetes mellitus [...] 90 days Next Appt Details Provider Name:Zeus Lorane , 08/07/2025 10:30:00 AM, [address] [facility], [place], [address], Provider Name:Zeus Bartlett , 10/09/2025 11:00:00 AM, [address] [place] [address] [address], [place], [address], Progress Notes * Fahad FRITZ JrDOB:1945 (79 yo M)Acc No.[id number]:01/26/2025 Patient: Fahad RUTHERFORD Jr :1945 A ge:79 Y S ex:Male [facility] [place] [facility] [place] [place] [address] * Refills Refill Vitamin D Tablet, 25 MCG (1000 UT), Orally, 90, 1 tablet, Once a day, 90 days, Refills=3 Refill Lisinopril Tablet, 10 MG, Orally, 90, TAKE 1 TABLET BY MOUTH EVERY DAY, Once a day, 90 days, Refills=3 * true * Date: Generated for Katie pinzon/Nathaniel/Fauzia on: 12:50 PM EST
--- OUTSIDE RECORDS SUMMARY | 2025-02-05 06:00 | XMS_ITS ---
Author Organization Zeus Bartlett III, MD Address [address] [facility] [address] Care Team Providers Care Sleep Technologist Name Role Phone Dr. Zeus Bartlett III [...] Date Provider Diagnosis Zeus Bartlett III, MD [address] [place] [address] [place] [address] 02/05/2025 Zeus Bartlett Type 2 diabetes marquis [...] - M20.41) He will return to the decoration checker to arrange the correction of the hammertoe. [...] Months, Reason: ov review labs Provider Name:Zeus Bartlett , 08/07/2025 10:30:00 AM, [address] [facility] [address], [place], [phone], Provider Name:Zeus Bartlett , 10/09/2025 11:00:00 AM, [address] [facility] [address], [place], [address], Progress Notes * Fahad FRITZ JrDOB:1945 (79 yo M)Acc No.[id number]:02/05/2025 Progress Notes Patient: Fahad RUTHERFORD Jr Provider: Shayy Bartlett MD :1945 A ge:79 Y S ex:Male Date:02/05/2025 Address:[address] [place] [address] , [id number] Subjective: * Chief Complaints: * E nvironmental [...] 2013laceration dorsum right foot, 6 sutures 2017colonoscopy, [facility], Dr. 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 His , Mia, in 2013 of lung cancer. He was born in [place], [place]. He is not aware of any [...] Temp:97.2, Wt-k.67. * P ast Orders: Lab:Ok [place]. Erinn l Fast * Collection Date 01/29/2025 [...] May have water,PLEASE FAX COMPLETED RESULTS TO [phone] * Lab:Lipid Panel * Collection Date 01/29/2025 [...] May have water,PLEASE FAX COMPLETED RESULTS TO [phone] * Lab:Hemoglobin A1c * Collection Date 01/29/2025 [...] Clinical Info: PLEASE FAX COMPLETED RESULTS TO [phone] * Imaging:Diabetic Eye Exam * Performed Date [...] N otes :He will return to the decoration checker to arrange the correction of the hammertoe. [...] 02/05/2025 Generated for Katie pinzon/Nathaniel/eTramossmitting on: 1 12:50 PM EST History and Physical Notes * [...]
--- OUTSIDE RECORDS SUMMARY | 2025-02-12 06:30 | XMS_ITS ---
Author Organization Zeus Bartlett III, MD Address [address] [place] [address] Care Team Providers Care Veneer Sheet Repairer Name Role Phone Dr. Zeus Bartlett III Primary Care Provider Allergies Allergen (clinical drug ingredient) Drug/Non Drug Allergy documented on EMR Reaction Allergy Type Onset Date Status No Known Drug Allergy Unknown Drug Allergy Active REASON FOR VISIT Ear Lavage Medications Medication SIG (Take, Route, Frequency, Duration) Notes Start Date End Date Status GlipiZIDE-Metformin HCl 5-500 MG take 2 tablets by mouth twice a day Oral Active BD Pen Needle Short U/F 31G X 8 MM Active Basaglar KwikPen 10 UNIT/ML as directed Subcutaneous 10 units daily Active Mounjaro 5 MG/0.5ML as directed Subcutaneous 05/05 Active Jardiance 25 MG 1 tablet Orally Once a day Active Lisinopril 10 MG TAKE 1 TABLET BY MARISSA TH EVERY DAY Orally Once a day Active Triamcinolone Acetonide 0.1 % 1 application Externally Two times a day As needed Active Fenofibrate 160 MG TAKE 1 TABLET BY MARISSA TH EVERY DAY WITH A MEAL Active Pravastatin Sodium 20 MG TAKE 1 TABLET B Y MOUTH EVERY DAY Active Accu-Chek Guide - as directed In Vitro test blood sugars three times a day Active Vitamin D 25 MCG (1000 UT) 1 tablet Oral ly Once a day 12/26/2022 Active Social History Tobacco Use: Social History Observation Description Date Details (start date - stop date) Former Smoker NA - NA Sex Assigned At : Social History Observation Description Sex Assigned At Male Tobacco Control (Standard) Question Answer Notes Tobacco use: Former smoker How long has it been since you last smoked? Grea ter than 10 years Additional Findings: Tobacco non-user Ex-cigaret te smoker Vital Signs Blood pressure systolic 126 mm Hg 02/13/20 25 Blood pressure diastolic 66 mm Hg 025 Heart Rate 72 /min 02/12/2025 Height 72 in 02/12/2025 Weight 160 lbs 02/12/2025 BMI 21.7 kg/m2 02/12/2025 Encounters Encounter Location Date Provider Diagnosis Zeus Bartlett III, MD [address] [place] [address] [address] [place] [address] 02/12/2025 Zeus Bartlett Impacted cerumen, unspecified ear H61.20 Assessments Encounter Date Diagnosis (ICD Code) Assessment Notes Treat ment Notes Treatment Clinical Notes 02/12/2025 Impacted cerumen, unspecified ear (ICD-10 - H61.20) Plan Of Treatment Medication Medication Name Sig Start Date Stop Date Notes GlipiZIDE-Metformin HCl 5-50 0 MG take 2 tablets by mouth twice a day Oral BD Pen Needle Short U/F 31G X 8 MM Basaglar KwikPen 10 UNIT/ML as directed Subcutaneous 10 units daily Mounjaro 5 MG/0.5ML as directed Subcutaneous 05/05/2024 Jardiance 25 MG 1 tablet Orally Once a day Lisinopril 10 MG TAKE 1 TABLET BY MARISSA TH EVERY DAY Orally Once a day Triamcinolone Acetonide 0.1 % 1 applicat ion Externally Two times a day Fenofibrate 160 MG TAKE 1 TABLET BY MARISSA TH EVERY DAY WITH A MEAL Pravastatin Sodium 20 MG TAKE 1 TABLET B Y MOUTH EVERY DAY Accu-Chek Guide - as directed In Vitro test blood sugars three times a day Vitamin D 25 MCG (1000 UT) 1 tablet Orally Once a day 12/05 Next Appt Details Provider Name:Zeus Bartlett , 08/07/2025 10:30:00 AM, [address] [place] [address] [address], [place], [address], Provider Name:Zeus Bartlett , 10/09/2025 11:00:00 AM, [address] [place] [address] [address], [place], [address], Procedure Notes * Category Sub-Category Detail Notes Ear lavage Procedure Under direct vis ualization, both ears, irrigated with warm water Post-procedure right ear Successful , left ear Not successful. Patient tolerated procedure well. Patient scheduled to come back in a week after using Debrox for 7 days to flush left ear. Progress Notes * Fahad FRITZ JrDOB:1945 (79 yo M)Acc No.[id number]:02/12/2025 Patient: Lucia MARINELLIFahad Provider: Shayy Bartlett MD :1945 A ge:79 Y S ex:Male Date:02/12/2025 Address:[address] [place] [address] , [facility] [id number] Subjective: * Chief Complaints: * E ar Lavage * Medical History: * Surgical History: c olonoscopy 2003colonoscopy 2008left inguinal herniorrhaphy pilonidal cystectomy spinal disc surgery lacerations to hip, left thumb February 2014colonoscopy, + polyps, Q3y 2014laceration dorsum right foot, 6 sutures 2017colonoscopy, [facility], Dr. 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 His , Mia, in 2013 of lung cancer. He was born in [place], [place]. He is not aware of any family history is substance use disorder or addiction or mental illness. * Medications: T akingVitamin D 25 MCG (1000 UT) Tablet 1 tablet Orally Once a day Lisinopril 10 MG Tablet TAKE 1 TABLET BY MOUTH EVERY DAY Orally Once a day Triamcinolone Acetonide 0.1 % Cream 1 application Externally Two times a day As neededFenofibrate 160 MG Tablet TAKE 1 TABLET BY [...] 5 MG/0.5ML Solution Pen-injector as directed Subcutaneous Medication List reviewed and reconciled with the patientTaking Vitamin D 25 MCG (1000 UT) Tablet 1 tablet Orally Once a day Taking Lisinopril 10 MG Tablet TAKE 1 TABLET BY MOUTH EVERY DAY Orally Once a day Taking Triamcinolone Acetonide 0.1 % Cream 1 application Externally Two times a day As neededTaking Fenofibrate 160 MG Tablet TAKE 1 TABLET BY MOUTH EVERY DAY WITH A MEAL Taking Pravastatin Sodium 20 MG Tablet TAKE 1 TABLET BY MOUTH EVERY DAY Taking Accu-Chek Guide - Strip as directed In Vitro test blood sugars three times a day Taking Jardiance 25 MG Tablet 1 tablet Orally Once a day Taking GlipiZIDE- Metformin HCl 5-500 MG Tablet take 2 tablets by mouth twice a day Oral Taking BD Pen Needle Short U/F 31G X 8 MM Miscellaneous Taking Basaglar KwikPen 10 UNIT/ML Solution Pen-injector as directed Subcutaneous 10 units daily Taking Mounjaro 5 MG/0.5ML Solution Pen-injector as directed Subcutaneous Medication List reviewed and reconciled with the patient * Allergies: N o Known Drug Allergyno[Allergies Verified] Objective: * Vitals: H t: 72, Wt:160, BMI:21.7, BP:126/66, HR:72, Wt-k.57. Assessment: * Assessment: 1. I mpacted cerumen, unspecified ear - H61.20 (Primary) Plan: * Treatment: * Procedures: E ar lavage: Procedure U nder direct visualization, both ears, irrigated with warm water. Post-procedure r ight ear Successful, left ear Not successful. P atient tolerated procedure well. Patient scheduled to come back in a week after using Debrox for 7 days to flush left ear. . * Procedure Codes: 6 9210 EAR IRRIGATION * Preventive Medicine: Counseling: C are goal follow-up plan: Counseling for abnormal BMI given Y es Above Normal BMI Follow-up D ietary management education, guidance, and counseling, Dietary needs education, Exercise promotion: strength training, Exercise promotion: stretching, Feeding regime, Giving encouragement to exercise, Lifestyle education regarding diet, Nutrition / feeding management, Nutrition therapy, Prescribed activity/exercise education, Prescribed diet education, Prescribed dietary intake, Special diet education, Weight monitoring , Intervention, Order not done: Medical or Other reason not done * Images: * Sign off status: Completed true * Provider: Shayy Bartlett MD Date: 0 02/12/2025 Generated for Katie pinzon/Nathaniel/Fauzia on: 12:49 PM EST
--- OUTSIDE RECORDS SUMMARY | 2025-02-19 09:30 | XMS_ITS ---
Author Organization Zeus Bartlett III, MD Address [address] [place] [address] Care Team Providers Care Nursing Specialist Name Role Phone Dr. Zeus Bartlett [...] M edicine Referred Provider [facility], of [facility], [facility] Referred Provider Specialty Otolaryngolo gy General Notes Radha Booth CMA 03/04 01:38:27 PM >ref/demo/progress note faxed to [facility], Radha Booth CMA 03/26/2025 03:41:50 PM > patient called [facility] made patient appt for 04/20/2025 arrival at 10am with appt at 10:15am with Dr Omer Colon at [address] [place] [address] . I called patient to verify he [...] Problem Status W/U Status Risk Notes Problem [id number] Impacted cerumen, unspecified laterality (H61.20) Active confirmed This problem has been resolved and he has an appointment with audiology in the next couple of weeks to be evaluated for hearing aids. Encounters Encounter Location Date Provider Diagnosis Zeus Bartlett III, MD [address] [place] [address] [address] [place], [place] [address] 02/19/2025 Zeus Bartlett Impacted cerumen, unspecified laterality [...] severe l eft ear cerumen impaction, of [facility], [facility] E[facility]N.T. Surgeons Next Appt Details Follow Up: as scheduled, Duyen son: OV Provider Name:Zeus Barltett , 08/07/2025 10:30:00 AM, [address] [place] [address] [address], [place], [address], Provider Name:Zeus Bartlett , 10/09/2025 11:00:00 AM, [address] [place] [address] [address], [place], [address], Procedure Notes * Category Sub-Category Detail Notes Ear lavage Procedure -, the left ear, irrigated with warm water Post-procedure -, Not successful, e ar wax unable to be removed from, left ear Progress Notes * Fahad FRITZ JrDOB:1945 (79 yo M)Acc No.[id number]:02/19/2025 Patient: Lucia Fahad MARINELLI Provider: Shayy Bartlett MD :1945 A ge:79 Y S ex:Male Date:02/19/2025 Address: [address], [place], [place] Subjective: * Chief Complaints: * E [...] 2013laceration dorsum right foot, 6 sutures 2017colonoscopy, [facility], Dr. 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 His , Mia, in 2013 of lung cancer. He was born in [place], [place]. He is not aware of any [...] 0 02/19/2025 Generated for Katie pinzon/Nathaniel/Jeanneitting on: 12:50 PM EST History and Physical Notes [...] Provider Not 02/19/2025 Zeus Bartlett [facility], of [facility], [facility] severe left ear cerumen impaction
--- OUTSIDE RECORDS SUMMARY | 2025-03-14 04:51 | XMS_ITS ---
Author Organization Zeus Bartlett III, MD Address [address] [place] [address] Care Team Providers Care Director Employee Safety And Health Name Role Phone Dr. Zeus Bartlett III Primary Care Provider REASON FOR VISIT New Refill Request Medications Medication SIG (Take, Route, Frequency, Duration) Notes Start Date End Date Status Accu-Chek Guide Test - use to test blood sugars three times a day for 30 days DX: Diabetes E11.9 DX: Diabetes E 11.9 03/16/2025 Active Social History Sex Assigned At : Social History Observation Description Sex Assigned At Male Encounters Encounter Location Date Provider Diagnosis Zeus Bartlett III, MD [address] [place] [address] [place] [address] 03/14/2025 Zeus Bartlett Impacted cerumen, unspecified laterality H61.20 Assessments Encounter Date Diagnosis (ICD Code) Assessment Notes Treatment Notes Treatment Clinical Notes 03/14/2025 Impacted cerumen, unspecified laterality (ICD-10 - H61.20) He will come back in a week after more of the medication for another attempted reducing the cerumen impaction. Plan Of Treatment Medication Medication Name Sig Start Date Stop Date Notes Accu-Chek Guide Test - use to test blood sugars three times a day for 30 days 03/16/2025 DX: Diabetes E 11.9 Next Appt Details Provider Name:Zeus Bartlett , 08/07/2025 10:30:00 AM, [address] [facility] [address], [place], [address], Provider Name:Zeus Bartlett , 10/09/2025 11:00:00 AM, [address] [place] [address] [address], [place], [address], Progress Notes * Fahad FRITZ JrDOB:1945 (79 yo M)Acc No.[id number]:03/14/2025 Patient: Fahad RUTHERFORD Jr :1945 A ge:79 Y S ex:Male Address:[address], [place] [address] * Refills Start Accu-Chek Guide Test Strip, -, 100 Strip, use to test blood sugars three times a day, 30 days, Refills=11 * true * Date: Generated for Katie pinzon/Nathaniel/eTransmitting on: 1 12:49 PM EST
--- OUTSIDE RECORDS SUMMARY | 2025-05-07 05:30 | XMS_ITS ---
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 Zeus Bartlett III Primary Care Provider [phone] Allergies Allergen (clinical drug ingredient) Drug/Non Drug [...] Date Provider Diagnosis Zeus Bartlett III, MD [address] [place] [address] [place] [address] 05/07/2025 Zeus Bartlett Impacted cerumen, unspecified laterality [...] Provider Name:Zeus Bartlett , 08/07/2025 10:30:00 AM, [address] [place] [address] [address], [place], [address], Provider Name:Zeus Bartlett , 10/09/2025 11:00:00 AM, [address] [place] [address] [address], [place], [address], Progress Notes * Fahad FRITZ JrDOB:1945 (79 yo M)Acc No.[id number]:05/07/2025 Progress Notes Patient: Fahad R[place]HERFORD Provider: Shayy Bartlett MD :1945 A ge:79 Y S ex:Male Date:05/07/2025 [facility] Subjective: * Chief Complaints: * D iabetesEczemaAllergiesHyperlipidemiaOsteomyelitis [...] 2013laceration dorsum right foot, 6 sutures 2017colonoscopy, [facility], Dr. 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 His , Mia, in 2013 of lung cancer. He was born in [place], [place]. He is not aware of any [...] May have water,PLEASE FAX COMPLETED RESULTS TO [phone] * Lab:Ok puga Fast * Collection Date [...] Info: PLEASE FAX COMPL ETED RESULTS TO [phone] * Lab:Microalbumin, Random * Collection Date 05/01/2025 [...] May have water,PLEASE FAX COMPLETED RESULTS TO [phone] * Examination: G eneral Examination: GENERAL APPEARANCE: [...] Date: 1 Generated for Katie pinzon/Nathaniel/Jeanneitting on: 12:49 PM EST History and Physical Notes * [...]
--- OUTSIDE RECORDS SUMMARY | 2025-07-24 05:30 | XMS_ITS ---
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 Zeus Bartlett III Primary Care Provider Allergies Allergen (clinical drug ingredient) Drug/Non Drug Allergy documented on EMR Reaction Allergy Type Onset Date Status No Known Drug Allergy Unknown Drug Allergy Active Results Component Value Reference Range Notes URINE DIP STICK Reviewed date:07/27/2025 05:44:43 AM Interpretation:abnormal Performing Lab: Notes/Report: abnormal SG 1.000 1.005 - 1.025 pH 5.0 5.0 - 9.0 OJ 70+++ Negative - NIT negative Negative - PRO 100 Negative - Trace GLU negative Negative - KET negative Negative - UBG negative 0.1 - 1.8 ASHWINI negative 0.2 - 1.3 BLD +++ Negative - Menstrating N/A Urine Culture Reviewed date:07/27/2025 05:44:43 AM Interpretation: Performing Lab:[facility], [address] [place] [id number] Notes/Report: Urine Culture Report Result Urine Culture 10,000 to 50,000 cfu/ml Urine Culture Mixed bacterial meghan a characteristic of Urine Culture urogenital contamination. REASON FOR VISIT Dysuria, Diabetes, Benign prostatic hypertrophy, Obesity, History of osteomyelitis of the toe Medications Medication SIG (Take, Route, Frequency, Duration) Notes Start Date End Date Status Pravastatin Sodium 20 MG 1 tablet Orally Once a day Active Sulfamethoxazole-Trime thoprim 800-160 MG 1 tablet Orally twice a day for 10 days 07/24/2025 08/03/2025 Active Vitamin D 25 MCG (1000 UT) 1 tablet Orally Once a day 12/26/2022 Active Lisinopril 10 MG TAKE 1 TABLET BY MOUTH EVERY DAY Orally Once a day Active Triamcinolone Acetonide 0.1 % 1 application Externally Two times a day As needed Active Basaglar KwikPen 10 UNIT/ML as directed Subcutaneous 10 units daily Active Accu-Chek Guide Test - use to test blood sugars three times a day DX: Diabetes E11.9 DX: Diabetes E 11.9 03/16/2025 Active Mounjaro 5 MG/0.5ML as directed Subcutaneous 05/05/2024 Active GlipiZIDE-Metformin HCl 5-500 MG take 2 tablets by mouth twice a day Oral Active BD Pen Needle Short U/F 31G X 8 MM Active Phenazopyridine HCl 200 MG 1 tablet Orally Three times a day for 5 days 07/24/2025 07/29/2025 Active Fenofibrate 160 MG TAKE 1 TABLET [...] Problem Status W/U Status Risk Notes Problem [id number] Acute UTI (urinary tract infection ) (N39.0) Active confirmed He was given a prescription for Bactrim and a culture was sent to the hospital. 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 07/24/2025 Former smoker (ICD-10 - Z87.891) I have had a long discussion with him today about maintaining abstinence in times of stress. 07/24/2025 Environmental allergies (ICD-10 - Z91.09) His allergies have been quiescent recently. He has not needed to take medication. 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 07/24/2025 Type 2 diabetes mellitus without complications (ICD-10 - E11.9) He has been compliant with all of his medications and diet. His weight is in the normal range. This hemoglobin A1c is 6.8. No change in his regimen was needed. He is up-to-date with ophthalmology. 07/24/2025 Pilonidal cyst (ICD-10 - L05.91) 07/24/2025 BPH (benign prostatic hypertrophy) (ICD-10 - N40.0) He rises from sleep once or twice a night. We have discussed lifestyle modifications that would reduce this. 07/24/2025 Vitamin D deficiency (ICD-10 - E55.9) His vitamin D level last month was 11. He is now taking vitamin D supplementation. 07/24/2025 Osteomyelitis of toe (ICD-10 - M86.9) He recently underwent amputation of the affected toe and this has resolved. 07/24/2025 Amputation of toe of right foot (ICD-10 - S98.131A) The wound is well-healed. He is ambulating without difficulty and has no pain. Plan Of Treatment Medication Medication Name Sig Start Date Stop Date Notes Pravastatin Sodium 20 MG 1 tablet Orally Once a day Sulfamethoxazole-Trimetho prim 800-160 MG 1 tablet Orally twice a day for 10 days 07/24/2025 08/03/2025 Vitamin D 25 MCG (1000 UT) 1 tablet Orally Once a day 12/26/2022 Lisinopril 10 MG TAKE 1 TABLET BY MOUTH EVERY DAY Orally Once a day Triamcinolone Acetonide 0.1 % 1 application Externally Two times a day Basaglar KwikPen 10 UNIT/ML as directed Subcutaneous 10 units daily Accu-Chek Guide Test - use to test blood sugars three times a day 03/16/2025 DX: Diabetes E 11.9 Mounjaro 5 MG/0.5ML as directed Subcutaneous 05/05/2024 GlipiZIDE-Metformin HCl 5-500 MG take 2 tablets by mouth twice a day Oral BD Pen Needle Short U/F 31G X 8 MM Phenazopyridine HCl 200 MG 1 tablet Orally Three times a day for 5 days 07/24/2025 07/29/2025 Fenofibrate 160 MG TAKE 1 TABLET BY MOUTH EVERY DAY WITH A MEAL Accu-Chek Guide - as directed In Vitro test blood sugars three times a day Jardiance 25 MG 1 tablet Orally Once a day Next Appt Details Follow Up: 2 - 3 Days, Reaso n: ov Provider Name:Zeus Bartlett , 08/07/2025 10:30:00 AM, [address] [place] [address] [address], [place], [address], Provider Name:Zeus Bartlett , 10/09/2025 11:00:00 AM, [address] [place] [address] [place], [address], Progress Notes * Fahad FRITZ JrDOB:1945 (79 yo M)Acc No.[id number]:07/24/2025 Progress Notes Patient: Fahad RUTHERFORD Jr Provider: Shayy Bartlett MD :1945 A ge:79 Y S ex:Male Date:07/24/2025 Address:[address] , [place], [id number] Subjective: * Chief Complaints: * D ysuriaDiabetesBenign prostatic hypertrophyObesityHistory of osteomyelitis of the toe * HPI: v : Ashley estevez called for a visit saying that for 3 days he has been urinating frequently in small amounts burning. He has had no hematuria but his urine is cloudy. On examination in the office it was cloudy. There was pyuria and microscopic hematuria And proteinuria. A culture was sent. His examination showed no signs of sepsis. He obviously had an infection of his genitourinary tract. He was given a prescription for Bactrim double strength. Close follow-up visit was arranged. * ROS: G eneral/Constitutional: pain D ysuria for 3 days. C hills d enies. F atigue a dmits. F ever d enies. E NT: Decreased hearing m ild. R espiratory: Cough d enies. C ardiovascular: Chest pain with exertion d enies. D yspnea on exertion?denies. S hortness of breath d enies. G astrointestinal: Constipation d enies. D ecreased appetite d enies.?Diarrhea d enies. H eartburn o ccasional. N ausea d enies. R ectal bleeding d enies. V omiting d enies. H ematology: bruising d enies. p etechiae d enies. S wollen glands n one have been noted. G enitourinary: Frequent urination a small amount. M usculoskeletal: Muscle aches d enies. P [...] 2013laceration dorsum right foot, 6 sutures 2017colonoscopy, [facility], Dr. 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 His , Mia, in 2013 of lung cancer. He was born in [place], [place]. He is not aware of any family history is substance use disorder or addiction or mental illness. * Medications: T akingAccu-Chek Guide Test - Strip use to test blood sugars three times a day DX: Diabetes E11.9, Notes to Pharmacist: DX: Diabetes E 11.9Pravastatin Sodium 20 MG Tablet 1 tablet Orally Once a day Vitamin D 25 MCG (1000 UT) Tablet [...] MG/0.5ML Solution Pen-injector as directed Subcutaneous Taking Accu-Chek Guide Test - Strip use to test blood sugars three times a day DX: Diabetes E11.9, Notes to Pharmacist: DX: Diabetes E 11.9Taking Pravastatin Sodium 20 MG Tablet 1 tablet Orally Once a day Taking Vitamin D 25 MCG (1000 UT) [...] 5 MG/0.5ML Solution Pen-injector as directed Subcutaneous * Allergies: N o Known Drug Allergy Objective: * Vitals: H t: 72, Wt:154, BMI:20.88, BP:136/62, HR:72, Wt-k.85. * P ast Orders: Lab:Prostate Specific [...] May have water,PLEASE FAX COMPLETED RESULTS TO [phone] * Lab:[place] Fast * Collection Date [...] May have water,PLEASE FAX COMPLETED RESULTS TO [phone] * Lab:Complete Blood Count Aut o Diff [...] Info: PLEASE FAX COMPL ETED RESULTS TO [phone] * Examination: G eneral Examination: GENERAL APPEARANCE: [...] sensory exam intact. PSYCH: a lert, oriented. G enitourinary - Male: PENIS: N o discharge, unremarkable. URETHRAL MEATUS: U nremarkable. Assessment: * Assessment: 1. A cute UTI (urinary tract infection) - N39.0 (Primary) N otes :He was given a prescription for Bactrim and a culture was sent to the hospital. 2 . F ormer smoker - Z87.891 N otes :I have had a long discussion with him today about maintaining abstinence in times of stress. 3 . E nvironmental allergies - Z91.09 N otes :His allergies have been quiescent recently. He has not needed to take medication. 4 . L yahaira term (current) use of insulin - Z79.4 N otes :He was continued on his Trulicity. 5 . T ype 2 diabetes mellitus without complications - E11.9 N otes :He has been compliant with all of his medications and diet. His weight is in the normal range. This hemoglobin A1c is 6.8. No change in his regimen was needed. He is up-to-date with ophthalmology. 6 . P ilonidal cyst - L05.91 7 . B PH (benign prostatic hypertrophy) - N40.0 N otes :He rises from sleep once or twice a night. We have discussed lifestyle modifications that would reduce this. 8 . V itamin D deficiency - E55.9 N otes :His vitamin D level last month was 11. He is now taking vitamin D supplementation. 9 . O steomyelitis of toe - M86.9 N otes :He recently underwent amputation of the affected toe and this has resolved. 1 0. A mputation of toe of right foot - S98.131A N otes :The wound is well-healed. He is ambulating without difficulty and has no pain. Plan: * Treatment: 2. O thers Start Sulfamethoxazole-Trimethoprim Tablet, 800-160 MG, 1 tablet, Orally, twice a day, 10 days, 20 Tablet, Refills 0; S tart Phenazopyridine HCl Tablet, 200 MG, 1 tablet, Orally, Three times a day, 5 days, 15 Tablet, Refills 0. * Labs: * L ab: URINE DIP STICK (Collection Date & Time - 07/24/2025 10:45 AM) a bnormal Value Reference Range S G 1.000 1.005 [...] +++ Negative - * M enstrating N/A ?Lab: Urine Culture (Collection Date & Time - 07/24/2025 10:45 AM)* Value Reference Range U rine Culture urogenital contamination. - * Procedure Codes: 8 1002 URINE-NO MICRO * Preventive Medicine: Counseling: S moking/Tobacco Use Patient counseled on the dangers of tobacco use and urged to quit. 1 09/24/2024 DM Care Plan: P atient Lifestyle Goals P atient wants to be able to manage diabetes without too much effort. T reatment Goals B lood Sugars less than < 115, HbA1C < 7.0. B arriers n o barriers. S elf-Managment Goals I ncrease exercise to 3 times a week for 30 mins. * Follow Up: 2 - 3 Days (Reason: ov) * Images: * Sign off status: Completed true * Provider: Shayy Bartlett MD Date: 09/24/2024 Generated for Printi ng/Fasujathag/eTransmitting on: 12:49 PM EST History and Physical Notes * Examination Category Sub-Category Detail Notes Genitourinary - Male PENIS: No discharg e, unremarkable URETHRAL MEATUS: Unremarkable General Examination GENERAL APPEARANCE: pleasant , well [...]
[2025-08-04 10:19] LABS: MANUAL DIFF FLAG NO
[2025-08-04 10:51] LABS: Hematocrit 44.4 % (42.0-52.0); Hemoglobin 14.4 g/dl (14.0-18.0); Imm Gran Abs Auto 0.01 X10*3/uL (0.00-0.03); Imm Gran Pct Auto 0.2 % (0.0-0.4); Lymphocytes Absolute Auto 1.7 X10*3/uL (1.2-4.9); Mean Corpuscular HGB Conc 32.4 g/dl (31.0-36.0); Mean Corpuscular Hemoglobin 28.9 pg (27.0-33.0); Mean Corpuscular Volume 89.0 fL (80.0-98.0); NRBC Abs Auto 0.000 X10*3/uL (0.0-0.012); NRBC Pct Auto 0.0 /100WBC (0.0-0.2); Platelet Count 249 X10*3/uL (160-400); Red Blood Count 4.99 X10*6/uL (4.60-5.80); White Blood Count 6.0 X10*3/uL (4.8-10.8)
[2025-08-04 11:48] LABS: Microalbum/Creatinine Ratio Ur 44.3 ug/mg cr (<30)
[2025-08-04 11:48] LABS: Anion Gap 19 (12-20); Blood Urea Nitrogen 17 mg/dL (9-16); Carbon Dioxide 20 mmol/L (22-29); Chloride 105 mmol/L (96-108); Potassium 4.5 mmol/L (3.3-5.1); Sodium 139 mmol/L (135-145)
[2025-08-04 11:49] LABS: Alanine Aminotransferase 13 U/L (0-40); Albumin Level 4.9 g/dL (3.5-5.0); Alkaline Phosphatase 59 U/L (39-117); Aspartate Amino Transferase 21 U/L (5-37); Calcium 9.7 mg/dL (8.4-10.2); Cholesterol 149 mg/dL (<200); Estimated Glomerular Filt Rate 50; HDL Cholesterol 56 mg/dL (>40); Total Protein 7.6 g/dL (6.5-8.0); Triglycerides 78 mg/dL (<150)
[2025-08-04 12:06] LABS: Prostate Specific Antigen 1.50 ng/mL (<0.05-4.0)
--- OUTSIDE RECORDS SUMMARY | 2025-08-04 12:49 | XMS_ITS | Encounter Summary ---
Author Organization [facility] Address [address] [place] [id number] Phone Care Team Providers Care Chart Calculator Name Role Phone Zeus Bartlett MD Primary Care Provider [phone]- [phone] Encounter Details Date Type Department Care Team (Late st Contact Info) Description 08/31/2023 Procedure Pass OR Admitting Dept - Virtual Department [address] [place] [address] Social History Tobacco Use Types Packs/Day Years [...] on filedocumented in this encounter Care Teams Chart Calculator Relationship Specialty Start Date End Date Zeus Bartlett MD [address] [place] [address] [place] [address] PCP - General Medical Oncology 06/27/23 documented as of this encounter Additional Source Comments The information contained in this document represents components of the legal health record. It is not the complete legal health record.[facility]
--- OUTSIDE RECORDS SUMMARY | 2025-08-04 12:50 | XMS_ITS | Clinical Summary ---
Author Organization [facility] Address [address] [place] [address] Phone Care Team Providers Care Welfare Investigator Name Role Phone Zeus Bartlett MD Primary Care Provider [phone]- [phone] Allergies No known active allergies Medications TRULICITY [...] file Insurance MEDICARE PART A & B [employer] MEDEX SUPPLEMENT MEDICARE PART A & B [employer] MEDEX SUPPLEMENT MEDICARE PART A & B Member Subscriber Plan / Payer (Ef fective 2013-Present) Name:Fahad Fritz Member ID:[id number] Relation to Subscriber:Self Name:Fahad Fritz Subscriber ID:[id number] Payer ID:[id number] Group ID:Not on file Type:Medicare Address: [employer] [id number] [employer] MEDEX SUPPLEMENT MEDICARE PART A & B [employer] MED[employer] SUPPLEMENT MEDICARE PART A & B [employer] MEDEX SUPPLEMENT MEDICARE PART A & B [employer] MEDEX SUPPLEMENT Care Teams Welfare Investigator Relationship Specialty Start Date End Date Zeus Bartlett MD [address] [place] [address] [place] [address] PCP - General Medical Oncology 06/27/23 Additional Source Comments The information contained in this document represents components of the legal health record. It is not the complete legal health record.[facility]
--- OUTSIDE RECORDS SUMMARY | 2025-08-04 12:50 | XMS_ITS | Patient Health Record ---
Author Organization [facility] Address [address] [place] [address] Care Team Providers Care Dumper Bulk System Name Role Phone Zeus Bartlett MD Primary Care Provider Sapna Akins Unavailable [phone] Allergies No Known Allergies Results Component Value [...] Polyneuropathy due to type 2 diabetes mellitus ([id number]) Type 2 diabetes mellitus with diabetic polyneuropathy [...] Ordered Date Performed Result Body Sit e 07714-OHHDDEX NAIL, 6 OR MORE 11/19/2024 N/A 67766-MATW SKIN LESIONS, 2 TO 4 11/19/2024 N/A 59895-ZKKFQES NAIL, 6 OR MORE 02/19/2025 N/A 84512-KEXR SKIN LESIONS, 2 TO 4 02/19/2025 N/A 47362-XKATZWG NAIL, 6 OR MORE 05/21/2025 N/A 69186-JDHE SKIN LESIONS, 2 TO 4 05/21/2025 N/A Encounters Encounter Location Date Provider Diagnosis [facility] [place] [address] [place] [address] 11/19/2024 Sapna Navas Type 2 diabetes mellitus with diabetic polyneuropathy E11.42 and Tinea unguium B35.1 [facility] [address] [place] [address] 02/19/2025 Sapna Navas Type 2 diabetes mellitus with diabetic polyneuropathy E11.42 and Tinea unguium B35.[address] [address] 05/21/2025 Sapna Navas Type 2 diabetes mellitus with [...] X ray : Foot, right 3V 05/12/2024 95177-ZUTQKJB NAIL, 6 OR MORE 06/26/2024 68537-HYERWZJ NAIL, 6 OR MORE 11/19/2024 12501-AARCYIX NAIL, 6 OR MORE 02/19/2025 79879-WASKCUG NAIL, 6 OR MORE 05/21/2025 32180-QMKQCZA SKIN/TISSUE 06/26/2024 54006-ZZFNWGD SKIN/TISSUE 05/12/2024 86499-NDLXWUZ SKIN/TISSUE 04/14/2024 72624-PNWY SKIN LESIONS, OVER 4 09/03/19 24 34756-PAXE SKIN LESIONS, OVER 4 12/24/19 24 22996-TEVJ SKIN LESIONS, OVER 4 06/26/20 24 00992-GGSY SKIN LESIONS, 2 TO 4 05/21/20 25 90443-GRKT SKIN LESIONS, 2 TO 4 02/20/20 25 16413-JZWP SKIN LESIONS, 2 TO 4 11/20/19 25 27462-Mbga. Subungual Hematoma 4 Next Appt Details Provider Name:Sapna avelar, 08/31/2025 01:00:00 PM, [address] [place], [address], Insurance Providers Payer Name Payer Address Payer Phone Subscriber Number Group Number Insured Name Patient Relationship to Insured Coverage Start Date Coverage End Date Medicare [employer] [address] [place] [address] [id number] Fahad Fritz Jr Self - patient is the insured [employer] [address] [place] [address] [phone] [id number] Fahad Fritz Jr Self - patient is the insured Medical (General) History Medical History History ICD Code asthma Back,Hip,and Knee pain Diabetic Hiatal hernia High blood pressure Psoriasis/eczema Measles Mumps Surgical History Surgery Date(Month/Year) Right Foot 02/2023 Middle toe 02/2023 Hernia Repair back surgery Left elbow 02/2023
--- OUTSIDE RECORDS SUMMARY | 2025-08-04 12:51 | XMS_ITS | Patient Health Record ---
Author Organization Zeus Bartlett III, MD Address [address] [place] [address] Care Team Providers Care Stage Manager Name Role Phone Dr. Zeus Bartlett [...] Panel Reviewed date:01/04/2025 08:19:16 PM Interpretation: Performing Lab:[facility], [address] [place] [phone] Notes/Report: Triglycerides 84 <150 mg/dL Desirable Triglyceride: [...] Random Reviewed date:01/04/2025 08:19:16 PM Interpretation: Performing Lab:[address] [address] Notes/Report: Creatinine Urine 78.98 Microalbumin Urine 10.0 Microalbum/Creatinine Ratio Ur 12.6 <30 ug/mg cr Albumin/Creatinine Ratio Reference Ranges: Normal: < 30 ug/mg creatinine Microalbuminuria: 30 - 300 ug/mg creatinine Clinical Albuminuria: > 300 ug/mg creatinine URINE DIP STICK Reviewed date:07/27/2025 05:44:43 AM [...] Culture Reviewed date:07/27/2025 05:44:43 AM Interpretation: Performing Lab:[address] [address] Notes/Report: Urine Culture Report Result Urine Culture 10,000 to 50,000 cfu/ml Urine Culture Mixed bacterial meghan a characteristic of Urine Culture urogenital contamination. Hemoglobin A1c Reviewed date:02/04/2025 03:56:47 PM Interpretation: Performing Lab:[address] [address] Notes/Report: Hemoglobin A1c % 6.2 <6.0 % [...] average glucose, using the formula of the C1A-Zcdlvfr Average Glucose study (ADAG), Diabetes Care, Vol.31,#8, Mar. 2007 Complete Blood Count Auto Di ff Reviewed date:01/04/2025 08:19:16 PM Interpretation: Performing Lab:[facility], [address] [place] [phone] Notes/Report: White Blood Count 7.3 4.8-10.8 X10*3/uL [...] NRBC Abs Auto 0.000 0.0-0.012 X10*3/uL Comprehensive Warren. Panel Fa Reviewed date:01/04/2025 08:19:16 PM Interpretation: Performing Lab:[address] [address] Notes/Report: Sodium 144 135-145 mmol/L Potassium 3.8 [...] Antigen Reviewed date:01/04/2025 08:19:16 PM Interpretation: Performing Lab:[facility], [address] [place] [phone] Notes/Report: Prostate Specific Antigen 0.87 <0.05-4.0 ng/mL PSA methodology: Ambrosio Alinity i Chemiluminescent Microparticle Immunoassay (CMIA) Diabetic Eye Exam Reviewed date:02/03/2025 01:35:03 PM Interpretation:undefined Performing Lab: Notes/Report: undefined Complete Blood Count Auto Di ff Reviewed date:02/04/2025 03:56:47 PM Interpretation: Performing Lab:[address] [address] Notes/Report: White Blood Count 7.4 4.8-10.8 X10*3/uL [...] NRBC Abs Auto 0.000 0.0-0.012 X10*3/uL Comprehensive Warren. Panel Fa st Reviewed date:02/04/2025 03:56:47 PM Interpretation: Performing Lab:[facility], [address] [place] [phone] Notes/Report: Sodium 142 135-145 mmol/L Potassium 3.9 [...] Panel Reviewed date:02/04/2025 03:56:47 PM Interpretation: Performing Lab:[address] [phone] Notes/Report: Triglycerides 100 <150 mg/dL Desirable Triglyceride: [...] Random Reviewed date:02/04/2025 03:56:47 PM Interpretation: Performing Lab:[address] [address] Notes/Report: Creatinine Urine 81.78 Microalbumin Urine 7.0 Microalbum/Creatinine Ratio Ur 8.5 <30 ug/mg cr Albumin/Creatinine Ratio Reference Ranges: Normal: < 30 ug/mg creatinine Microalbuminuria: 30 - 300 ug/mg creatinine Clinical Albuminuria: > 300 ug/mg creatinine Complete Blood Count Auto Di ff Reviewed date:05/02/2025 07:43:08 PM Interpretation: Performing Lab:[address] [address] Notes/Report: White Blood Count 7.2 4.8-10.8 X10*3/uL [...] NRBC Abs Auto 0.000 0.0-0.012 X10*3/uL Comprehensive Warren. Panel Fa st Reviewed date:05/02/2025 07:43:08 PM Interpretation: Performing Lab:[facility], [address] [place] [phone] Notes/Report: Sodium 145 135-145 mmol/L Potassium 4.5 [...] Panel Reviewed date:05/02/2025 07:43:08 PM Interpretation: Performing Lab:[address] [address] Notes/Report: Triglycerides 89 <150 mg/dL Desirable Triglyceride: [...] Antigen Reviewed date:05/02/2025 07:43:08 PM Interpretation: Performing Lab:[address] [address] Notes/Report: Prostate Specific Antigen 0.84 <0.05-4.0 ng/mL PSA methodology: Ambrosio Alinity i Chemiluminescent Microparticle Immunoassay (CMIA) Microalbumin, Random Reviewed date:05/02/2025 07:43:08 PM Interpretation: Performing Lab:[address] [address] Notes/Report: Creatinine Urine 123.40 Microalbumin Urine 90.0 Microalbum/Creatinine Ratio Ur 72.9 <30 ug/mg cr Albumin/Creatinine Ratio Reference Ranges: Normal: < 30 ug/mg creatinine Microalbuminuria: 30 - 300 ug/mg creatinine Clinical Albuminuria: > 300 ug/mg creatinine Hemoglobin A1c Reviewed date:05/02/2025 07:43:08 PM Interpretation: Performing Lab:[facility], [address] [place] [phone] Notes/Report: Hemoglobin A1c % 6.8 <6.0 % [...] average glucose, using the formula of the E9F-Hrdauar Average Glucose study (ADAG), Diabetes Care, Vol.31,#8, Mar. 2007 Complete Blood Count Auto Di ff (Not yet reviewed by provider) Interpretation: Performing Lab:[facility], [address] [place] [phone] Notes/Report: White Blood Count 6.0 4.8-10.8 X10*3/uL Red Blood Count 4.99 4.60-5.80 X10*6/uL Hemoglobin 14.4 14.0-18.0 g/dl Hematocrit 44.4 42.0-52.0 % Mean Corpuscular Volume 89.0 80.0-98.0 fL Mean Corpuscular Hemoglobin 28.9 27.0-33.0 pg Mean Corpuscular HGB Conc 32.4 31.0-36.0 g/dl Red Cell Distribution Width 12.7 11.0-16.0 % Platelet Count 249 160-400 X10*3/uL Mean Platelet Volume 10.4 9.4-12.4 fL Neutrophils Percent Auto 64.0 45-73 % Imm Gran Pct Auto 0.2 0.0-0.4 % Lymphocytes Percent Auto 27.6 20-40 % Monocytes Percent Auto 5.2 2-11 % Eosinophils Percent Auto 2.2 0-4 % Basophils Percent Auto 0.8 0-2 % NRBC Pct Auto 0.0 0.0-0.2 /100WBC Neutrophils Absolute Auto 3.9 2.0-8.3 x10*3/u L Imm Gran Abs Auto 0.01 0.00-0.03 X10*3/uL Lymphocytes Absolute Auto 1.7 1.2-4.9 X10*3/u L Monocytes Absolute Auto 0.3 0.1-1.2 X10*3/uL Eosinophils Absolute Auto 0.1 0.0-0.4 X10*3/u L Basophils Absolute Auto 0.1 0.0-0.2 X10*3/uL NRBC Abs Auto 0.000 0.0-0.012 X10*3/uL Comprehensive Warren. Panel Fa st (Not yet reviewed by provider) Interpretation: Performing Lab:[address] [address] Notes/Report: Sodium 139 135-145 mmol/L Potassium 4.5 3.3-5.1 mmol/L Chloride 105 96-108 mmol/L Carbon Dioxide 20 22-29 mmol/L Anion Gap 19 12-20 Blood Urea Nitrogen 17 9-16 mg/dL Creatinine 1.38 0.5-1.4 mg/dL Estimated Glomerular Filt Rate 50 Chronic Kidney Disease: Estimated GFR < 60 mL/min/1.73m2 Severe Kidney Disease: Estimated GFR < 15 mL/min/1.73m2 Glucose Fasting 114 60-99 mg/dL A fasting glucose from 100-125 mg/dl is considered impaired (pre-diabetes). Calcium 9.7 8.4-10.2 mg/dL Bilirubin Total 0.7 0.0-1.0 mg/dL Aspartate Amino Transferase 21 5-37 U/L Alanine Aminotransferase 13 0-40 U/L Total Protein 7.6 6.5-8.0 g/dL Albumin Level 4.9 3.5-5.0 g/dL Alkaline Phosphatase 59 39-117 U/L Lipid Panel (Not yet reviewe d by provider) Interpretation: Performing Lab:[address] [address] Notes/Report: Triglycerides 78 <150 mg/dL Desirable Triglyceride: less than 150 mg/dL Borderline High Triglyceride 150-199 mg/dL High Triglyceride: 200-499 mg/dL Very High Triglyceride: greater than or equal to 5OO mg/dL Cholesterol 149 <200 mg/dL Desirable Cholesterol: less than 200 mg/dL Borderline High Cholesterol: 200-239 mg/dL High Cholesterol: greater than 239 mg/dL LDL Cholesterol Calculated 78 <100 mg/dL Desirable LDL: less than 100 mg/dL Near Optimal/Above Optimal LDL: 110-129 mg/dL Borderline High LDL: 130-159 mg/dL High LDL: 160-189 mg/dL Very High LDL: greater than or equal to 190 mg/dL HDL Cholesterol 56 >40 mg/dL Desirable HDL: greater than 40 mg/dL Note: This HDL assay may give artificially low results in patients with liver disease. Prostate Specific Antigen (N ot yet reviewed by provider) Interpretation: Performing Lab:[address] [address] Notes/Report: Prostate Specific Antigen 1.50 <0.05-4.0 ng/mL PSA methodology: Ambrosio Alinity i Chemiluminescent Microparticle Immunoassay (CMIA) Microalbumin, Random (Not ye t reviewed by provider) Interpretation: Performing Lab:[address] [address] Notes/Report: Creatinine Urine 137.67 Microalbumin Urine 61.0 Microalbum/Creatinine Ratio Ur 44.3 <30 ug/mg cr Albumin/Creatinine Ratio Reference Ranges: Normal: < 30 ug/mg creatinine Microalbuminuria: 30 - 300 ug/mg creatinine Clinical Albuminuria: > 300 ug/mg creatinine Hemoglobin A1c (Not yet revi ewed by provider) Interpretation: Performing Lab:[address] [address] Notes/Report: Hemoglobin A1c % 6.6 <6.0 % Hemoglobin A1C Reference Range Adults: 4.8 - 6.0 % Non diabetic: < 6.0 % Goal: < 7.0 % Additional Action Suggested: > 8.0 % Note: Hemoglobin A1c results are invalid for patients with abnormal amounts of HbF. Blood transfusions may impact the HbA1c concentration in the patient sample. Estimated Average Glucose 143 eAG = Estimated average glucose which is %A1C expressed as average glucose, using the formula of the Y0F-Fqrsroh Average Glucose study (ADAG), Diabetes Care, Vol.31,#8, 2007 Reason For Referral Reason severe left ear ceru men impaction Diagnosis 1 Impacted cerumen, un specified laterality (H61.20) Referral Organization Zeus Bartlett III, MD Referring Provider First Name Zeus Referring Provider Last Name Dhruv Referring Provider Speciality Internal M edicine Referred Provider [facility], [facility] Referred Provider Specialty Otolaryngolo gy General Notes Radha Booth [facility] 03/04 01:38:27 PM >ref/demo/progress note faxed to [facility], Emmy Radha [facility] 03/26/2025 03:41:50 PM > patient called [facility] made patient appt for 04/20/2025 arrival at 10am with appt at 10:15am with Dr Omer Colon at [address] [place] [address] . I called patient to verify he is aware of this appt Referral Priority Routine Referral Appointment Date 04/20/2025 Medications Medication SIG (Take, Route, Frequency, Duration) Notes Start Date End Date Status Basaglar KwikPen 10 UNIT/ML as directed Subcutaneous 10 units daily Active Accu-Chek Guide Test - use to test blood sugars three times a day DX: Diabetes E11.9 DX: Diabetes E 11.9 03/16/2025 Active Mounjaro 5 MG/0.5ML as directed Subcutaneous 05/05/2024 Active Pravastatin Sodium 20 MG 1 tablet Orally Once a day Active Vitamin D [...] Short U/F 31G X 8 MM Active Immunizations Vaccine Route Administration Date Status [...] Problem Status W/U Status Risk Notes Problem 9281902 Former smoker (Z87.891) Active confirmed I have had a long discussion with him today about maintaining abstinence in times of stress. Problem Hyperlipidemia (32737912) Hyperlipidemia (E78.5) Active confirmed His lipids are well controlled and his total cholesterol is 155. Problem 125658525 Obesity (E66.9) Active confirmed Problem 932998939 Type 2 diabetes mellitus without complications (E11.9) Active confirmed He has been compliant with all of his medications and diet. His weight is in the normal range. This hemoglobin A1c is 6.8. No change in his regimen was needed. He is up-to-date with ophthalmology. 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 Problem No known drug allergy (situation) (907620565) Other nonmedicinal substance allergy status (Z91.048) Active confirmed Problem Benign prostatic hypertrophy without outflow obstruction (685600811) BPH (benign prostatic hypertrophy) (N40.0) Active confirmed He rises from sleep once or twice a night. We have discussed lifestyle modifications that would reduce this. Problem 30031638 Cataracts, bilateral (H26.9) Active confirmed Problem 292515903 Environmental allergies (Z91.09) Active confirmed His allergies have been quiescent recently. He has not needed to take medication. Problem 80616096 Colonic polyp (K63.5) Active confirmed Problem 84605529 Pilonidal cyst (L05.91) Active confirmed Problem 13228196 Eczema (L30.9) Active confirmed His eczema seems well controlled today. Current therapy was continued without change. Problem 92455919 Vitamin D deficiency (E55.9) Active confirmed His vitamin D level last month was 11. He is now taking vitamin D supplementatio n. Problem 617411011 Hernia of abdominal wall (K43.9) Active confirmed [...] nearest emergency room. Problem Basal cell carcinoma (0953920) Basal cell carcinoma (C44.91) Active confirmed Problem Pure hypercholesterolemi a (740870773) Hyperlipidemia type II (E78.01) Active confirmed His lipids are currently stable and will be checked 3 times a year. No change in his regimen was needed. Problem 24366785 Impacted cerumen, unspecified laterality (H61.20) Active confirmed This problem has been resolved and he has an appointment with audiology in the next couple of weeks to be evaluated for hearing aids. 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 Problem 698775971 Amputation of toe of right foot (S98.131A) Active confirmed The wound is well-healed. He is ambulating without difficulty and has no pain. Problem 612960998 Hammertoe of right foot (M20.41) Active confirmed He will return to the clinical research assistant to arrange the correction of the hammertoe. Current therapy was continued. Problem 193725365 Acute UTI (urinary tract infection) (N39.0) Active confirmed He was given a prescription for Bactrim and a culture was sent to the hospital. Vital Signs Heart Rate 72 /min 07/24/2025 Temperature 97.2 degrees Fahrenheit 05/07/2025 Blood pressure diastolic 62 mm Hg 07/24/2025 Height 72 in 07/24/2025 Blood pressure systolic 136 mm Hg 07/24/2025 Weight 154 lbs 07/24/2025 BMI 20.88 kg/m2 07/24/2025 Encounters Encounter Location Date Provider Diagnosis Zeus Bartlett III, MD [address] [place] [address] [place] [address] 10/06/2024 Zeus Bartlett Type 2 diabetes marquis itus without complications E11.9 ; Hyperlipidemia E78.5 ; BPH (benign prostatic hypertrophy) N40.0 ; Former smoker Z87.891 ; Spinal stenosis, lumbar region M48.06 and Eczema L30.9 Zeus Bartlett III, MD [address] [place] [address] [place] [address] 02/05/2025 Zeus Bartlett Type 2 diabetes marquis itus without complications E11.9 ; Hyperlipidemia E78.5 ; BPH (benign prostatic hypertrophy) N40.0 ; Eczema L30.9 ; Environmental allergies Z91.09 ; Presbyopia H52.4 ; Pilonidal cyst L05.91 ; Former smoker Z87.891 ; Hyperlipidemia type II E78.01 and Hammertoe of right foot M20.41 Zeus Bartlett III, MD [address] [place] [address] [place] [address] 02/12/2025 Zeus Bartlett Impacted cerumen, unspecified ear H61.20 Zeus Bartlett III, MD [address] [place] [address] [place] [address] 02/19/2025 Zeus Bartlett Impacted cerumen, unspecified laterality H61.20 ; Environmental allergies Z91.09 ; Eczema L30.9 ; Type 2 diabetes mellitus without complications E11.9 ; Former smoker Z87.891 ; Pilonidal cyst L05.91 and BPH (benign prostatic hypertrophy) N40.0 Zeus Bartlett III, MD [address] [place] [address] [place] [address] 05/07/2025 Zeus Bartlett Impacted cerumen, unspecified laterality H61.20 ; Type 2 diabetes mellitus without complications E11.9 ; Hyperlipidemia type II E78.01 ; BPH (benign prostatic hypertrophy) N40.0 ; Spinal stenosis, lumbar region M48.06 ; Former smoker Z87.891 ; Environmental allergies Z91.09 ; Eczema L30.9 and Basal cell carcinoma C44.91 Zeus Bartlett III, MD [address] [place] [address] [place] [address] 07/24/2025 Zeus Bartlett Acute UTI (urinary t ract infection) N39.0 ; Former smoker Z87.891 ; Environmental allergies Z91.09 ; prison (current) use of insulin Z79.4 ; Type 2 diabetes mellitus without complications E11.9 ; Pilonidal cyst L05.91 ; BPH (benign prostatic hypertrophy) N40.0 ; Vitamin D deficiency E55.9 ; Osteomyelitis of toe M86.9 and Amputation of toe of right foot S98.131A Zeus Bartlett III, MD [address] [place] [address] [place] [address] 01/26/2025 Zeus Bartlett Type 2 diabetes marquis itus without complications E11.9 Zeus Bartlett III, MD [address] [place] [address] [place] [address] 10/12/2024 Zeus Bartlett Type 2 diabetes marquis itus without complications E11.9 Zeus Bartlett III, MD [address] [place] [address] [place] [address] 10/13/2024 Zeus Bartlett III, MD [address] [place] [address] [place] [address] 12/28/2024 Zeus Bartlett III, MD [address] [place] [address] [place] [address] 01/26/2025 Zeus Bartlett Type 2 diabetes marquis itus without complications E11.9 Zeus Bartlett III, MD [address] [place] [address] [place] [address] 03/14/2025 Zeus Bartlett Impacted cerumen, unspecified laterality H61.20 Assessments Encounter Date Diagnosis (ICD Code) Assessment Notes Treat ment Notes Treatment Clinical Notes 10/06/2024 Hyperlipidemia (ICD-10 - E78.5) Comprehensive blood [...] weeks to be evaluated for hearing aids. 07/24/2025 Former smoker (ICD-1 0 - Z87.891) I have had a long discussion with him today about maintaining abstinence in times of stress. 07/24/2025 Acute UTI (urinary tract infection) (ICD-10 - N39.0) He was given a prescription for Bactrim and a culture was sent to the hospital. 01/26/2025 Type 2 diabetes mellitus without complications [...] No change in his regimen was needed. 07/24/2025 Environmental allergies (ICD-10 - Z91.09) His allergies have been quiescent recently. He has not needed to take medication. 10/06/2024 Former smoker (ICD-1 0 - Z87.891) [...] lifestyle modifications that would reduce this. 07/24/2025 prison (current) use of insulin (ICD-10 - Z79.4) He was continued on his Trulicity. 10/06/2024 Spinal stenosis, lumbar region (ICD-10 - [...] the activities of daily life without impairment. 07/24/2025 Type 2 diabetes mellitus without complications (ICD-10 - E11.9) He has been compliant with all of his medications and diet. His weight is in the normal range. This hemoglobin A1c is 6.8. No change in his regimen was needed. He is up-to-date with ophthalmology. 10/06/2024 Eczema (ICD-10 - L30.9) His eczema seems well controlled today. Current therapy was continued without change. 02/05/2025 Presbyopia (ICD-10 - H52.4) 02/19/2025 Pilonidal cyst (ICD-10 - L05.91) 05/07/2025 Former smoker (ICD-1 0 - Z87.891) I have had a long discussion with him today about maintaining abstinence in times of stress. 07/24/2025 Pilonidal cyst (ICD-10 - L05.91) 02/05/2025 Pilonidal cyst (ICD-10 - L05.91) 02/19/2025 BPH (benign prostati c hypertrophy) (ICD-10 - N40.0) He rises from sleep once or twice a night to urinate. We have discussed lifestyle modifications he can make or has made in the past to reduce this. 05/07/2025 Environmental allergies (ICD-10 - Z91.09) His allergies have been quiescent recently. He has not needed to take medication. 07/24/2025 BPH (benign prostati c hypertrophy) (ICD-10 - N40.0) He rises from sleep once or twice a night. We have discussed lifestyle modifications that would reduce this. 02/05/2025 Former smoker (ICD-1 0 - Z87.891) I have had a long discussion with him today about maintaining abstinence in times of stress. 05/07/2025 Eczema (ICD-10 - L30.9) His eczema seems well controlled today. Current therapy was continued without change. 07/24/2025 Vitamin D deficiency (ICD-10 - E55.9) His vitamin D level last month was 11. He is now taking vitamin D supplementation. 02/05/2025 Hyperlipidemia type II (ICD-10 - E78.01) His lipids are currently in their target range. His weight is stable. I recommend he continue his low-calorie low lipid diabetic diet 05/07/2025 Basal cell carcinoma (ICD-10 - C44.91) 07/24/2025 Osteomyelitis of toe (ICD-10 - M86.9) He recently underwent amputation of the affected toe and this has resolved. 02/05/2025 Hammertoe of right foot (ICD-10 - M20.41) He will return to the clinical research assistant to arrange the correction of the hammertoe. Current therapy was continued. 07/24/2025 Amputation of toe of right foot (ICD-10 - S98.131A) The wound is well-healed. He is ambulating without difficulty and has no pain. Plan Of Treatment Pending Test Test Name Order Date PROFILE, FASTING (COMPREHENSIVE METABOLI C) 10/04/2023 PROFILE, FASTING (COMPREHENSIVE METABOLI C) 05/07/2025 PROFILE, FASTING (COMPREHENSIVE METABOLI C) 09/28/2022 PROFILE, FASTING (COMPREHENSIVE METABOLI C) 07/12/2023 PROFILE, FASTING (COMPREHENSIVE METABOLI C) 10/11/2020 PROFILE, FASTING (COMPREHENSIVE METABOLI C) 05/23/2022 PROFILE, FASTING (COMPREHENSIVE METABOLI C) 06/30/2019 PROFILE, FASTING (COMPREHENSIVE METABOLI C) 01/26/2023 PROFILE, FASTING (COMPREHENSIVE METABOLI C) 01/04/2024 PROFILE, FASTING (COMPREHENSIVE METABOLI C) 04/01/2020 PROFILE, FASTING (COMPREHENSIVE METABOLI C) 03/30/2023 PROFILE, FASTING (COMPREHENSIVE METABOLI C) 10/06/2024 PROFILE, FASTING (COMPREHENSIVE METABOLI C) 07/05/2020 PROFILE, FASTING (COMPREHENSIVE METABOLI C) 02/13/2022 PROFILE, FASTING (COMPREHENSIVE METABOLI C) 12/31/2019 PROFILE, FASTING (COMPREHENSIVE METABOLI C) 11/07/2021 PROFILE, FASTING (COMPREHENSIVE METABOLI C) 08/16/2021 PROFILE, FASTING (COMPREHENSIVE METABOLI C) 04/13/2021 PROFILE, FASTING (COMPREHENSIVE METABOLI C) 01/11/2021 PROFILE, FASTING (COMPREHENSIVE METABOLI C) 02/05/2025 PROFILE, RANDOM (COMPREHENSIVE METABOLIC ) 09/30/2019 HEMOGLOBIN [...] PANEL 12/31/2019 PSA, TOTAL 02/05/2025 PSA, TOTAL 05/07/2025 PSA, TOTAL 07/12/2023 PSA, TOTAL 01/04/2024 PSA, TOTAL 05/23/2022 PSA, TOTAL 10/06/2024 PSA, TOTAL 01/26/2023 PSA, TOTAL 04/01/2020 PSA, TOTAL+FREE 08/16/2021 MICROALBUMIN, RANDOM 04/13/2021 MICROALBUMIN, RANDOM 01/26/2023 MICROALBUMIN, RANDOM 04/01/2020 CBC w DIFF 02/13/2022 CBC w DIFF 12/31/2019 CBC w DIFF 01/11/2021 CBC w DIFF 04/13/2021 CBC w DIFF 01/26/2023 CBC w DIFF 04/01/2020 CBC w DIFF 11/07/2021 CBC w DIFF 10/04/2023 CBC w DIFF 09/28/2022 CBC w DIFF 09/30/2019 CBC w DIFF 02/05/2025 CBC w DIFF 05/07/2025 CBC w DIFF 08/16/2021 CBC w DIFF 06/30/2019 CBC w DIFF 10/11/2020 CBC w DIFF 05/23/2022 CBC w DIFF 03/30/2023 CBC w DIFF 07/05/2020 VITAMIN D 25-OH TOTAL 05/23/2022 CBC WITH AUTO DIFF 07/12/2023 CBC WITH AUTO DIFF 01/04/2024 CBC WITH AUTO DIFF 10/06/2024 Complete Blood Count Auto Diff Comprehensive Warren. Panel Fast Lipid Panel 01/11/2021 Lipid Panel 04/13/2021 Lipid Panel 10/04/2023 Lipid Panel 09/28/2022 Lipid Panel 02/05/2025 Lipid Panel 08/04/2025 Lipid Panel 05/07/2025 Lipid Panel 07/12/2023 Lipid Panel 01/04/2024 Prostate Specific Antigen 08/04/2025 Vitamin D 25-OH Total 09/28/2022 Microalbumin, Random 01/04/2024 Microalbumin, Random 01/11/2021 Microalbumin, Random 10/04/2023 Microalbumin, Random 02/05/2025 Microalbumin, Random 05/07/2025 Microalbumin, Random 09/28/2022 Microalbumin, Random 08/04/2025 Hemoglobin A1c 05/07/2025 Hemoglobin A1c 09/28/2022 Hemoglobin A1c 08/04/2025 Hemoglobin A1c 01/04/2024 Hemoglobin A1c 04/13/2021 Hemoglobin A1c 01/11/2021 Hemoglobin A1c 10/04/2023 Hemoglobin A1c 07/12/2023 Hemoglobin A1c 02/05/2025 Next Appt Details Provider Name:Zeus Bazzirne , 08/07/2025 10:30:00 AM, [address] [place] [address] [address] [place], [place], [address], Provider Name:Zeus Bangura Dhruv , 10/09/2025 11:00:00 AM, [address] [place] [address] [address] [place], [place], [address], Insurance Providers Payer Name Payer Address Payer Phone Subscriber Number Group Number Insured Name Patient Relationship to Insured Coverage Start Date Coverage End Date MEDICARE NGS [address] [place] [address] [id number] Fahad Fritz Self - patient is the insured [facility] [address] [place], [place] [id number] [phone] [id number] Faahd Fritz Self - patient is the insured [...] diabetic ulcer Right third toe 2022 colonoscopy, [facility], Dr. Guthrie, tubular adenoma 05/2017 laceration dorsum right foot, 6 sutures 2018 colonoscopy, + polyps, Q3y 2013 2 lacerations to hip, left thumb February 22 spinal disc surgery 1990 pilonidal cystectomy left inguinal herniorrhaphy colonoscopy 2008 colonoscopy 2003 Hospitalization History Reason Date(Month/Year) No history
== END 2025-08-04 09:52 ==
LOC: HO.LAB 09:51
PROVIDERS: PCP Internal Medicine Medical Oncology; Visit Provider Internal Medicine Medical Oncology
DX: E11.9 Type 2 diabetes mellitus without complications (principal); E78.2 Mixed hyperlipidemia; E66.9 Obesity, unspecified; N40.0 Benign prostatic hyperplasia without lower urinary tract symptoms; Z12.5 Encounter for screening for malignant neoplasm of prostate
CPT/HCPCS: 36415; 80053; 80061; 82043; 82570; 83036; 84153; 85025